=== PATIENT | female | born 1955 | race Caucasian/White ===

== ENCOUNTER → 2019-12-14 12:29 | Outpatient (BNVA) | payer MEDICAID, SELFPAY | PROVIDERS: Family Provider Nurse Practitioner Family; PCP Nurse Practitioner Family; Visit Provider Specialist | DX: M25.562 Pain in left knee (principal); M25.561 Pain in right knee | CPT/HCPCS: 73560; 73565 ==

== ENCOUNTER 2019-12-16 10:14 | Inpatient (IN) | payer MEDICAID, SELFPAY ==
[2019-12-16] VITALS (14 sets, daily range): BP systolic 95–154; BP diastolic 69–84; PULSE 80–112; RESP 16–21; TEMP 36.8–37; O2SAT 93–96; BMI 41.1
--- NOTE | 2019-12-16 10:14 | ED_ITS ---
Entered by Alix Basilio, acting as scribe for Adarsh Corcoran DO HPI - Abdominal Pain General: Chief Complaint: Abdominal Pain Stated Complaint: Abdominal Pain Time Seen by Provider: 12/16/19 10:15 Source: patient and EMS Mode of arrival: EMS Limitations: no limitations History of Present Illness: HPI narrative: 64 yo female presents with LLQ pain. pt states this started today. pt states she has had sweats. pt denies any other symptoms at this time. No dysuria urgency or frequency no hematochezia hematochezia melena hematemesis or coffee-ground emesis. She has previously had diverticulitis in the past. MD elicited complaint: abdominal pain and other (sweats) Onset (ago): day(s) (today) Pain Consistency: constant Associated Symptoms: Denies chills, coffee ground emesis, constipation, GI cramping, diarrhea, dysuria, fever(s), heartburn, hematochezia, hematuria, hematemesis, melena, syncope and vomiting Review of Systems Const: Denies: fever, chills, body aches, fatigue, malaise or night sweats Eyes: Denies: change in vision or blurry vision ENMT: Denies: throat pain, oral sores/lesions, dental pain, nasal discharge or nasal congestion Card: Denies: chest pain, palpitations, irregular heart rhythm, edema, syncope, shortness of breath on exertion, shortness of breath when lying down or leg pain with exertion Resp: Denies: shortness of breath, productive cough, non-productive cough or wheezing GI: Reports: abdominal pain (Localizes the left lower quadrant); Denies: vomiting, vomiting blood, coffee grounds in vomit, difficulty swallowing, heartburn/indigestion, diarrhea, constipation, cramping, blood in stool or black tarry stool : Denies: flank pain, painful urination, urinary frequency, urinary urgency, urinary incontinence or blood in urine Musc: Denies: neck pain, back pain, extremity pain, extremity swelling, joint pain or joint swelling Skin/Breast: Denies: rash, itching or redness Neuro: Denies: headache, numbness in extremities, weakness in extremities, changes in sensation, lack of coordination, difficulty walking, frequent falls, dizziness, vertigo or confusion Psych: Denies: anxiety, depression, loss of interest, visual hallucinations, auditory hallucinations, suicidal ideation or homicidal ideation Endo: Denies: excessive urination, excessive thirst, tired all the time or cold intolerance Patrice/Lymph: Denies: easy bruising, easy bleeding, petechiae, enlarged lymph nodes or tender lymph nodes PFSH ED PFSH: Statuses (acute, chronic, etc) shown below reflect problem list status as previously entered and may not be historically accurate Medical History GERD (gastroesophageal reflux disease) (Acute) History of sleep apnea (Acute) Hypothyroid (Acute) Surgical History H/O tubal ligation (Acute) History of tonsillectomy (Acute) Family History Mother Cancer Other Hypertension Social History Smoking and tobacco status: never smoked Alcohol intake: never Physical Exam Narrative: EXAM NARRATIVE: LLQ tenderness Const: COMMON NORMALS: average body habitus, oriented x3 and alert GENERAL APPEARANCE: cooperative, comfortable, well kempt and well developed NUTRITIONAL APPEARANCE: obese ORIENTATION/CONSCIOUSNESS: Yes awake, Yes oriented to person and Yes oriented to place HENMT: COMMON NORMALS: normocephalic, head/scalp atraumatic, EAC's normal, TM's normal bilaterally, external nose normal, moist oral mucous membranes and oropharynx normal HEAD & SCALP: normocephalic and atraumatic NOSE: external nose normal EXTERNAL AUDITORY CANAL: EAC's normal TYMPANIC MEMBRANE: TM's normal bilaterally MOUTH: oral and palatal mucosa normal, lip normal and tongue normal THROAT: posterior oropharynx normal and tonsils normal Eye: COMMON NORMALS: PERRL, EOMs intact bilaterally, conjunctivae normal and no scleral icterus CONJUNCTIVA: Yes conjunctivae normal PUPIL: Yes PERRL Neck/C-Spine: COMMON NORMALS: full ROM, no lymphadenopathy, supple, no meningeal signs and thyroid normal THYROID: thyroid normal and asymmetrical Lymph: LYMPHATIC: no lymphadenopathy noted Resp: COMMON NORMALS: normal respiratory effort, no retractions, no use of accessory muscles and clear to auscultation bilaterally AUSCULTATION: clear to auscultation bilaterally Cardio: COMMON NORMALS: regular rate and regular rhythm RATE: regular rate RHYTHM: regular rhythm HEART SOUNDS: no murmurs GI: COMMON NORMALS: normal to inspection, nondistended, normoactive bowel sounds and no hepatosplenomegaly AUSCULTATION: Yes hypoactive bowel sounds PALPATION: Yes tender Details: LLQ, No guarding, No rigid and Yes no he patosplenomegaly : COMMON NORMALS: Yes no CVA tenderness BLADDER/KIDNEY EXAM: Yes no CVA tenderness Back/Pelvis: COMMON NORMALS: no CVA tenderness LUMBAR SPINE/LOWER BACK: Yes normal to inspection Extremity: COMMON NORMALS: no clubbing, cyanosis or edema, no calf tenderness and no pedal edema Neuro: COMMON NORMALS: oriented x3 SENSORIUM/ORIENTATION: Yes alert, Yes oriented to person and Yes oriented to place MENINGEAL SIGNS: Yes no meningeal signs Psych: APPEARANCE: Yes well kempt Skin: COMMON NORMALS: no rashes or lesions noted and skin turgor normal G ENERAL SKIN EXAM: no rashes or lesions noted and turgor normal Course ED course: I called and spoke to Dr. Del Cid for admission,she will admit the pt. Discussed the patient and the CT results with Dr. Vann as well catheter we will admit Garrigus will consult patient to be n.p.o. with IV fluids and Zosyn. Vital Signs: Vital signs: Vital Signs Temperature 98.6 F 12/16/19 10:19 Pulse Rate 102 H 12/16/19 12:58 Respiratory Rate 20 H 12/16/19 10:19 Blood Pressure 95/69 12/16/19 12:58 Pulse Oximetry 95 12/16/19 12:58 MDM - Abdominal Pain Lab Data: Labs: Lab Results 12/16/19 12/16/19 Range/Units 10:37 10:37 WBC 8.8 (4.0-10.0) 10^3/ uL RBC 5.24 (4.1-5.3) 10^6/u L Hgb 15.9 H (11.5-15.3) g/dL Hct 49.1 H (37.0-47.0) % MCV 93.7 (81-99) fL MCH 30.3 (28.0-34.0) pg MCHC 32.4 (30.0-36.0) g/dL RDW 13.3 (12.1-15.1) % Plt Count 257 (130-400) 10^3/c mm MPV 9.4 (7.4-10.4) fL Neut % (Auto) 83.3 % Lymph % (Auto) 12.8 % [place] % (Auto) 3.1 % Eos % (Auto) 0.0 % Baso % (Auto) 0.2 % Neut # (Auto) 7.4 (1.8-7.7) 10^3/u L Lymph # (Auto) 1.1 (0.8-4.8) 10^3/u L [place] # (Auto) 0.3 (0.2-0.9) 10^3/u L Eos # (Auto) 0.0 (0.0-0.8) 10^3/u L Baso # (Auto) 0.0 (0.0-0.1) 10^3/u L Nucleated RBC % (a uto) 0 % Nucleated RBCs # 0.0 /100WBC Sodium 135 L (136-145) mmol/L Potassium 4.1 (3.5-5.1) mmol/L Chloride 96 L (98-107) mmol/L Carbon Dioxide 22 (22-29) mmol/L Anion Gap 21.1 H (5-19) BUN 24 H (8-23) mg/dL Creatinine 1.2 H (0.5-0.9) mg/dL GFR Calculation 45.4 L (90-130) mL/min Glucose 104 (74-106) mg/dL Calcium 10.0 (8.8-10.2) mg/Dl Total Bilirubin 0.6 (0.15-1.2) mg/dL AST 13 (0-32) U/L ALT 17 (0-33) U/L Alkaline Phosphata se 62 (35-105) IU/L Total Protein 7.0 (6.6-8.7) g/dL Albumin 4.3 (3.5-5.2) g/dL Globulin 2.7 (1.3-4.6) g/dL Lipase 24 (13-60) U/L Imaging Data ^: CT Abd/Pel: Radiologist's impression: [address] [address] [address] Scan Report Signed Patient: Candice Sepulveda #: [id number] : 6Acct#:[id number] Age/Sex: 64 / FADM Date: 12/16/19 Loc: ERRoom/Bed: Attending Dr: Ordering Provider/Ordering MD: Adarsh Corcoran DO Date of Service: 12/16/19 Procedure(s): CT abdomen pelvis w con* [id number] Accession Number(s): [id number] Report Number: [id number] PROCEDURE INFORMATION: Exam: CT Abdomen And Pelvis With Contrast Exam date and time: 12/16/2019 11:07 AM Age: 64 years old Clinical indication: Abdominal pain; Localized; Lower; Additional info: Abd pain TECHNIQUE: Imaging protocol: Computed tomography of the abdomen and pelvis with intravenous contrast. Total DLP: 1911.25 mGy-cm Radiation optimization: All CT scans at this facility use at least one of these dose optimization techniques: automated exposure control; mA and/or kV adjustment per patient size (includes targeted exams where dose is matched to clinical indication); or iterative reconstruction. Contrast material: VISI 320; Contrast volume: 95 ml; Contrast route: RT AC; COMPARISON: US pelvic with transvaginal 08/16/2019 1:57 PM FINDINGS: Mediastinum: There is a small hiatal hernia. Liver: There is no focal abnormality within the liver. Gallbladder and bile ducts: There is some small stones in the gallbladder. Pancreas: The pancreas is normal. Spleen: The spleen is normal. Adrenals: The adrenal glands are normal. Kidneys and ureters: The kidneys are normal. Stomach and bowel: Moderate diverticulosis is present in the distal colon. There is some focal thickening of distal descending colon with some inflammation in the adjacent fat and adjacent omentum. This likely represents some focal mild diverticulitis and may be the source of the free air. Appendix: A normal appendix is identified. Intraperitoneal space: There is mild haziness of the omental fat which could represent some panniculitis or peritoneal inflammation. There are small bubbles of free intraperitoneal air anteriorly in the abdomen. These are located anterior to the liver and also deep to the omentum. Free air is worrisome for perforated viscus. Surgical consultation is recommended. There is a tiny bit of free fluid in the pelvis and adjacent to the liver. Vasculature: Unremarkable. No abdominal aortic aneurysm. Lymph nodes: Unremarkable. No enlarged lymph nodes. Bladder: Unremarkable as visualized. Reproductive: Unremarkable as visualized. Bones/joints: The lumbar spine demonstrates moderate degenerative changes at multiple levels. Soft tissues: Unremarkable. CT/CT abdomen pelvis w con* [id number] IMPRESSION: 1. Free intraperitoneal air. 2. Diverticulitis, possibly perforated 3. Cholelithiasis 4. Osteoarthritis of both hips, severe on the left COMMENT: THIS REPORT CONTAINS FINDINGS THAT MAY BE CRITICAL TO PATIENT CARE. The findings were verbally communicated via telephone conference with Adarsh Corcoran at 12:03 PM ANIMAL CARE ASSISTANT on 12/16/2019. The findings were acknowledged and understood. Radiation Dose CTDIVOL = (mGy): DLP = 1911.25 (mGy-cm) Dictated By:Satnam De La Rosa Signed By:Anderson De La Rosaigned Date/Time:12/16/191207 DD/ 1207 Discharge Plan Discharge Patient Disposition: Admitted As Inpatient Admit Provider: Ana Del Cid Clinical Impression: Hypothyroid, GERD (gastroesophageal reflux disease) Diverticulitis large intestine Qualifiers: Diverticulitis bleeding: without bleeding Diverticulitis complication: with perforation and without abscess Qualified Code(s): K57.20 - Diverticulitis of large intestine with perforation and abscess without bleeding Condition: Stable Interventions: ED Discharge Assessment Last Done: 12/16/19 12:58 Discharge Date/Time: 12/16/19 13:05 Coding Level of Care Code ED Technology Sales Consultant for Chg Fwd Exam Problem Focused The documentation recorded by the Praful watkins Bridget Annette, accurately reflects the service I personally performed and the decisions made by Jewell crane Curtis L, DO Dec 16, 2019 10:14
--- NOTE | 2019-12-16 10:19 | CTR_ITS ---
PROCEDURE INFORMATION: Exam: CT Abdomen And Pelvis With Contrast Exam date and time: 12/16/2019 11:07 AM Age: 64 years old Clinical indication: Abdominal pain; Localized; Lower; Additional info: Abd pain TECHNIQUE: Imaging protocol: Computed tomography of the abdomen and pelvis with intravenous contrast. Total DLP: 1911.25 mGy-cm Radiation optimization: All CT scans at this facility use at least one of these dose optimization techniques: automated exposure control; mA and/or kV adjustment per patient size (includes targeted exams where dose is matched to clinical indication); or iterative reconstruction. Contrast material: VISI 320; Contrast volume: 95 ml; Contrast route: RT AC; COMPARISON: US pelvic with transvaginal 08/16/2019 1:57 PM FINDINGS: Mediastinum: There is a small hiatal hernia. Liver: There is no focal abnormality within the liver. Gallbladder and bile ducts: There is some small stones in the gallbladder. Pancreas: The pancreas is normal. Spleen: The spleen is normal. Adrenals: The adrenal glands are normal. Kidneys and ureters: The kidneys are normal. Stomach and bowel: Moderate diverticulosis is present in the distal colon. There is some focal thickening of distal descending colon with some inflammation in the adjacent fat and adjacent omentum. This likely represents some focal mild diverticulitis and may be the source of the free air. Appendix: A normal appendix is identified. Intraperitoneal space: There is mild haziness of the omental fat which could represent some panniculitis or peritoneal inflammation. There are small bubbles of free intraperitoneal air anteriorly in the abdomen. These are located anterior to the liver and also deep to the omentum. Free air is worrisome for perforated viscus. Surgical consultation is recommended. There is a tiny bit of free fluid in the pelvis and adjacent to the liver. Vasculature: Unremarkable. No abdominal aortic aneurysm. Lymph nodes: Unremarkable. No enlarged lymph nodes. Bladder: Unremarkable as visualized. Reproductive: Unremarkable as visualized. Bones/joints: The lumbar spine demonstrates moderate degenerative changes at multiple levels. Soft tissues: Unremarkable. CT/CT abdomen pelvis w con* [id number] IMPRESSION: 1. Free intraperitoneal air. 2. Diverticulitis, possibly perforated 3. Cholelithiasis 4. Osteoarthritis of both hips, severe on the left COMMENT: THIS REPORT CONTAINS FINDINGS THAT MAY BE CRITICAL TO PATIENT CARE. The findings were verbally communicated via telephone conference with Adarsh Corcoran at 12:03 PM CONSUMER LENDING MANAGER on 12/16/2019. The findings were acknowledged and understood. Radiation Dose CTDIVOL = (mGy): DLP = 1911.25 (mGy-cm)
[2019-12-16] MEDS: ondansetron 2 mg/ML SDV 2 mL 4 MG IVP (10:49)
[2019-12-16] MEDS: sodium chloride 0.9% 500 ML IV (10:49)
[2019-12-16] MEDS: morphine 4 mg/mL SDV 1 mL IVP ×3 (10:49→19:53)
[2019-12-16 10:51] LABS: Basophils % 0.2 %; Hematocrit 49.1 % (37.0-47.0); Hemoglobin 15.9 g/dL (11.5-15.3); Lymphocytes # 1.1 10^3/uL (0.8-4.8); Lymphocytes % 12.8 %; Mean Corpuscular HGB Conc 32.4 g/dL (30.0-36.0); Mean Corpuscular Hemoglobin 30.3 pg (28.0-34.0); Mean Corpuscular Volume 93.7 fL (81-99); Mean Platelet Volume 9.4 fL (7.4-10.4); Monocytes # 0.3 10^3/uL (0.2-0.9); Monocytes % 3.1 %; Neutrophils # 7.4 10^3/uL (1.8-7.7); Neutrophils % 83.3 %; Nucleated Red Blood Cells % 0 %; Platelet Count 257 10^3/cmm (130-400); Red Blood Count 5.24 10^6/uL (4.1-5.3); Red Cell Distribution Width 13.3 % (12.1-15.1); White Blood Count 8.8 10^3/uL (4.0-10.0)
--- NOTE | 2019-12-16 11:09 | PC.NURSE ---
pt reports unresolved lower abdominal pain after morphine administration. ED provider notified.
[2019-12-16 11:11] LABS: Alanine Aminotransferase 17 U/L (0-33); Albumin Level 4.3 g/dL (3.5-5.2); Alkaline Phosphatase 62 IU/L (35-105); Anion Gap 21.1 (5-19); Aspartate Amino Transferase 13 U/L (0-32); Blood Urea Nitrogen 24 mg/dL (8-23); Carbon Dioxide 22 mmol/L (22-29); Chloride 96 mmol/L (98-107); Globulin 2.7 g/dL (1.3-4.6); Glomerular Filtration Rate 45.4 mL/min (90-130); Glucose 104 mg/dL (74-106); Lipase 24 U/L (13-60); Potassium 4.1 mmol/L (3.5-5.1); Sodium 135 mmol/L (136-145); Total Bilirubin 0.6 mg/dL (0.15-1.2)
--- NOTE | 2019-12-16 11:20 | PC.NURSE ---
pt transported to CT by stretcher with tech
[2019-12-16] MEDS: morphine 4 mg/mL SDV 1 mL 6 MG IVP (11:42)
--- NOTE | 2019-12-16 12:01 | PC.NURSE ---
pt's oxygen saturation decreased to 88% after morphine administration. nurse applied 2L supplemental oxygen via nasal cannula
[2019-12-16] MEDS: piperacillin-tazobactam 3.375 GM in sodium chloride 0.9% (plus) 50 ML IV ×2 (12:36→18:04)
--- NOTE | 2019-12-16 13:01 | PC.NURSE ---
Tech asked patient to put on hospital gown per hospital policy. Patient refused.
[2019-12-16 13:13] LABS: Lactate (Lactic Acid level) 3.3 mmol/L (0.5-2.2)
[2019-12-16] MEDS: D5-NS 0.45% + KCL 20 mEq 20 MEQ/1,000 ML BAG 150 MEQ IV (13:47)
--- NOTE | 2019-12-16 14:43 | P.CONIM_ITS ---
Providers/Reason For Consult Consulting Physican/Specialty*: Umer Vann MD Reason for Consult*: Diverticulitis of the sigmoid colon with localized perforation Attending Physician: Ana Del Cid MD Primary Care Provider: Maryana Lloyd-Kailyn History of Present Illness History of Present Illness Chief complaint ; Abdominal pain HPI: Candice Sepulveda is a pleasant 64 year old female, started to encounter an acute episode of lower abdominal pain about 6:00 in the morning when she was drinking her coffee, her symptoms got worse she presented to the emergency department for further evaluation and work up, she had a CT scan of the abdomen and pelvis that demonstrated concern for sigmoid colon diverticulitis with pockets of free air, likely due to perforated diverticular disease, patient denies any fevers chills nausea or vomiting, last time she had a bowel movement was yesterday and pass gas earlier today. Patient was admitted on the hospitalist service and surgery will follow as a consult, patient recalls that she has history of polymyalgia rheumatica, in addition to bilateral knee pains, history of morbid obesity and having obstructive sleep apnea that requires CPAP machine which she does have at home. Patient also reports history of tonsillectomy and tubal ligation. She had a colonoscopy recently and found to have diverticulosis about 6 months ago in [facility]. She denies any similar episodes in the past, she was given a single dose of Zosyn in the emergency department, kept n.p.o. and has been on IV fluids, currently the patient feels a little bit better Review of Systems Const: Denies: fever, chills, body aches or malaise Card: Denies: chest pain Resp: Denies: shortness of breath GI: Reports: abdominal pain; Denies: nausea, vomiting, difficulty swallowing, diarrhea, constipation or blood in stool : Denies: difficulty urinating or painful urination Neuro: Denies: headache Psych: Denies: anxiety or depression Meds/Allergies Home Medications and Allergies Home Medications Medication Instructions Recorded Confirmed Type ascorbate calcium (vitamin C) 500 500 mg PO QDAY 12/14/19 12/16/19 History mg tablet aspirin 81 mg tablet,delayed 81 mg PO QDAY 12/14/19 12/16/19 History release atenolol 25 mg tablet 25 mg PO QDAY 12/14/19 12/16/19 History calcium carbonate 600 mg calcium 600 mg PO QDAY 12/14/19 12/16/19 History (1,500 mg) tablet cyclobenzaprine 10 mg tablet 10 mg PO DAILY 12/14/19 12/16/19 History darifenacin 7.5 mg tablet,extended 7.5 mg PO QDAY 12/14/19 12/16/19 History release 24 hr levothyroxine 50 mcg capsule 50 mcg PO QDAY 12/14/19 12/16/19 History nitroglycerin 0.4 mg sublingual 0.4 mg SUBLINGUAL Q5M PRN 12/14/19 12/16/19 His tory tablet omeprazole magnesium 20 mg 20 mg PO QDAY 12/14/19 12/16/19 History tablet,delayed release prednisone 5 mg PO DAILY 12/16/19 12/16/19 History venlafaxine 150 mg PO QPM 12/16/19 12/16/19 History ziprasidone HCl 60 mg PO BID 12/16/19 12/16/19 History Allergies Allergy/AdvReac Type Severity Reaction Status Date / Time amitriptyline Allergy unknown Verified 12/14/19 12:29 ciprofloxacin [From Cipro] Allergy unknown Verified 12/14/19 12:29 codeine Allergy ALGY-Swell Verified 12/16/19 10:24 Lip/Tongue/Throat Current Medications Current Medications Generic Name Dose Route Start Last Admin Trade Name Freq PRN Reason Stop Dose Admin Potassium Chloride/Dextrose/Sod Cl 20 meq in 1,000 mls @ 150 mls/hr 12/16/19 13:30 12/16/19 13:47 D5-Ns 0.45% + Kcl 20 Meq IV 150 mls/hr .Q6H40M ELIZA Administration Morphine Sulfate 4 mg 12/16/19 10:26 12/16/19 10:49 Morphine IVP 4 mg Q5M PRN Administration SEVERE PAIN PFSH Acute PFSH: Statuses (acute, chronic, etc) shown below reflect problem list status as previously entered and may not be historically accurate Medical History (Updated 12/16/19 @ 18:35 by Ana Del Cid MD) GERD (gastroesophageal reflux disease) (Acute) History of sleep apnea (Acute) Hypothyroid (Acute) Perforated abdominal viscus (Acute) Surgical History (Updated 12/16/19 @ 15:14 by Umer Vann MD) H/O tubal ligation (Acute) History of colonoscopy (Acute) History of tonsillectomy (Acute) Family History Mother Cancer Other Hypertension Social History Smoking and tobacco status: never smoked Alcohol intake: never Vitals/I&O/Wt Last Vital Signs Temp 98.6 F 12/16/19 10:19 Pulse 102 H 12/16/19 12:58 Resp 20 H 12/16/19 10:19 BP 95/69 12/16/19 12:58 Pulse Ox 95 12/16/19 12:58 Weight last 48 hrs Weight 240 lb Physical Exam Const: COMMON NORMALS: no apparent distress and oriented x3 GENERAL APPEARANCE: cooperative ORIENTATION/CONSCIOUSNESS: Yes awake, Yes oriented to person, Yes oriented to place and Yes oriented to time HENMT: COMMON NORMALS: normocephalic HEAD & SCALP: normocephalic Eye: COMMON NORMALS: PERRL and no scleral icterus PUPIL: Yes PERRL Lymph: LYMPHATIC: no lymphadenopathy noted Chest: COMMONS NORMALS: inspection of chest normal Resp: COMMON NORMALS: normal respiratory effort and clear to auscultation bilaterally AUSCULTATION: clear to auscultation bilaterally Cardio: COMMON NORMALS: S1 normal heart sound and S2 normal heart sound; negative for no murmurs HEART SOUNDS: S1 normal and S2 normal GI: COMMON NORMALS: soft to palpation; negative for no hepatosplenomegaly INSPECTION: Yes normal to inspection PALPATION: Yes soft, No firm, Yes tender Details: LLQ and RLQ (Maximal tenderness at the left lower quadrant consistent with sigmoid colon diverticulitis), No guarding, No rigid, No no hepatosplenomegaly and Yes other (Morbidly obese) Neuro: COMMON NORMALS: oriented x3 SENSORIUM/ORIENTATION: Yes oriented to person, Yes oriented to place and Yes oriented to time Psych: COMMON NORMALS: mental status grossly normal Skin: COMMON NORMALS: no rashes or lesions noted GENERAL SKIN EXAM: no rashes or lesions noted Data Micro: Micro: Microbiology 12/16/19 12:45 Blood Culture - Pr eliminary Blood SPECIMEN [facility] 12/16/19 10:37 Blood Culture - Pr eliminary Blood SPECIMEN [facility] RE A&P Assessment and plan (1) Diverticulitis large intestine: After thorough history physical examination and reviewing the chart and images with my personal interpretation, likely the patient had a localized perforated diverticulitis with pockets of free air yet contained. From surgical standpoint of view prefer to have the patient on Zosyn and Flagyl IV(patient in steroid daily) Repeated physical examination Pharmacologic DVT prophylaxis heparin 5000 units subcu every 8 hours Incentive spirometer every hour Repeat lactic acid at 4:30 PM today IV fluid resuscitation Encourage ambulation I did encourage the patient to bring her CPAP machine from home if she were to call 1 of her family members Repeat CBC and BMP and lactic acid in the morning I did discuss with the patient about potential other options if she is not improving that would include diagnostic laparoscopy with peritoneal lavage possible laparotomy and possible bowel resection possible colostomy. Also the patient may end up developing an abscess that would require image guided drain placement down the road. Assurance and education All questions have been answered and all concerns have been addressed to patient's satisfaction. Patient agrees on the plan of care, clinical encounter occurred in the presence of patient's nurse JHONATAN Buchanan Status: Acute Qualifiers: Diverticulitis bleeding: without bleeding Diverticulitis complication: with perforation and without abscess Qualified Code(s): K57.20 - Diverticulitis of large intestine with perforation and abscess without bleeding Code(s): K57.32 - Diverticulitis of large intestine without perforation or abscess without bleeding Consult Attestations Medical Necessity Statement: Medical necessity care is expected to cross 2 midnights Time Spent in Patient Care: 16 - 35 minutes (>than 50% of time spent in counselling and/or direct pt care on unit) . Coding Level of Care Code Acute Parking Enforcement Technician for Chg Fwd History Detailed Exam Expanded Problem Focused Medical Decision Making Moderate Complexity Diagnoses Diverticulitis large intestine K57.20 Diverticulitis bleeding: without bleeding Diverticulitis complication: with perforation and without abscess Time Spent (min) 30
--- NOTE | 2019-12-16 15:00 | PM.CONSULT ---
Providers/Reason For Consult Attending Physician: Umer Lucas MD Primary Care Provider: Maryana Lloyd HOGSHEAD STOCK CLERK-C History of Present Illness History of Present Illness Candice Sepulveda is a 64 year old female Meds/Allergies Home Medications and Allergies Home Medications Medication Instructions Recorded Confirmed Type ascorbate calcium (vitamin C) 500 500 mg PO QDAY 12/14/19 12/16/19 History mg tablet aspirin 81 mg tablet,delayed 81 mg PO QDAY 12/14/19 12/16/19 History release atenolol 25 mg tablet 25 mg PO QDAY 12/14/19 12/16/19 History calcium carbonate 600 mg calcium 600 mg PO QDAY 12/14/19 12/16/19 History (1,500 mg) tablet cyclobenzaprine 10 mg tablet 10 mg PO DAILY 12/14/19 12/16/19 History darifenacin 7.5 mg tablet,extended 7.5 mg PO QDAY 12/14/19 12/16/19 History release 24 hr levothyroxine 50 mcg capsule 50 mcg PO QDAY 12/14/19 12/16/19 History nitroglycerin 0.4 mg sublingual 0.4 mg SUBLINGUAL Q5M PRN 12/14/19 12/16/19 History tablet omeprazole magnesium 20 mg 20 mg PO QDAY 12/14/19 12/16/19 History tablet,delayed release prednisone 5 mg PO DAILY 12/16/19 12/16/19 History venlafaxine 150 mg PO QPM 12/16/19 12/16/19 History ziprasidone HCl 60 mg PO BID 12/16/19 12/16/19 History Allergies Allergy/AdvReac Type Severity Reaction Status Date / Time amitriptyline Allergy unknown Verified 12/14/19 12:29 ciprofloxacin [From Cipro] Allergy unknown Verified 12/14/19 12:29 codeine Allergy ALGY-Swell Verified 12/16/19 10:24 Lip/Tongue/Throat Current Medications Current Medications Generic Name Dose Route Start Last Admin Trade Name Freq PRN Reason Stop Dose Admin Potassium Chloride/Dextrose/Sod Cl 20 meq in 1,000 mls @ 150 mls/hr 12/16/19 13:30 12/16/19 13:47 D5-Ns 0.45% + Kcl 20 Meq IV 150 mls/hr .Q6H40M ELIZA Administration Morphine Sulfate 4 mg 12/16/19 10:26 12/16/19 10:49 Morphine IVP 4 mg Q5M PRN Administration SEVERE PAIN PFSH Acute PFSH: Statuses (acute, chronic, etc) shown below reflect problem list status as previously entered and may not be historically accurate Medical History GERD (gastroesophageal reflux disease) (Acute) History of sleep apnea (Acute) Hypothyroid (Acute) Surgical History H/O tubal ligation (Acute) History of tonsillectomy (Acute) Family History Mother Cancer Other Hypertension Social History Smoking and tobacco status: never smoked Alcohol intake: never Vitals/I&O/Wt Last Vital Signs Temp 98.6 F 12/16/19 10:19 Pulse 102 H 12/16/19 12:58 Resp 20 H 12/16/19 10:19 BP 95/69 12/16/19 12:58 Pulse Ox 95 12/16/19 12:58 Weight last 48 hrs Weight 108.862 kg Data Micro: Micro: Microbiology 12/16/19 12:45 Blood Culture - Pr eliminary Blood SPECIMEN [facility] RE 12/16/19 10:37 Blood Culture - Pr eliminary Blood SPECIMEN [facility] RE Coding Level of Care Code Acute Grain Merchandiser for Traci Rose
[2019-12-16] MEDS: metroNIDAZOLE IV 500 MG/100 ML PREMIX 100 MG IV (15:17)
[2019-12-16] MEDS: heparin 5,000 unit/mL INJ 1 mL 5000 UNIT SUBCUT (15:19)
[2019-12-16] MEDS: sodium chloride 0.9% 1,000 ML 125 ML IV (15:39)
--- NOTE | 2019-12-16 16:34 | PM.HP ---
Providers/Chief Complaint Admitting Physician: Ana Del Cid MD Primary Care Provider: Maryana Lloyd MANAGER SEARCH ENGINE-C Chief Complaint: Abdominal Pain History of Present Illness Candice Sepulveda is a 64 year old female with PMH HTN, diverticulosis, ?bipolar disorder, polymyalgia rheumatica on prednisone 5mg qd, who presented to ED with acute episode of lower abdominal pain about 6:00 in the morning when she was drinking her coffee, her symptoms got worse she presented to the emergency department for further evaluation and work up, she had a CT scan of the abdomen and pelvis that demonstrated concern for sigmoid colon diverticulitis with pockets of free air, likely due to perforated but contained diverticular disease, patient denies any fevers chills nausea or vomiting, last time she had a bowel movement was yesterday. Surgical service was consulted, no acute intervention planned. Started on Zosyn appropriately with addition of Flagyl per surgeon's request. Review of Systems General: Reports: 10 or more systems reviewed and unremarkable except in HPI and below Const: Reports: chills and body aches; Denies: fever Card: Denies: chest pain, palpitations, irregular heart rhythm, edema or lightheadedness Resp: Denies: shortness of breath, productive cough, non-productive cough or wheezing GI: Reports: abdominal pain and nausea; Denies: vomiting, vomiting blood, heartburn/indigestion or diarrhea : Denies: flank pain, difficulty urinating, painful urination or urinary frequency Musc: Denies: neck pain or back pain Neuro: Denies: headache, numbness in extremities, weakness in extremities, changes in sensation or lack of coordination Psych: Denies: hopelessness, loss of interest, change in appetite or visual hallucinations Endo: Denies: excessive urination, excessive thirst or tired all the time Medications/Allergies Home Medications Medication Instructions Recorded Confirmed Last Taken Type prednisone 5 mg PO DAILY 12/16/19 12/16/19 12/15/19 History venlafaxine 150 mg PO QPM 12/16/19 12/16/19 12/15/19 History ziprasidone HCl 60 mg PO BID 12/16/19 12/16/19 12/15/19 History Allergies Allergy/AdvReac Type Severity Reaction Status Date / Time amitriptyline Allergy unknown Verified 12/14/19 12:29 ciprofloxacin [From Cipro] Allergy unknown Verified 12/14/19 12:29 codeine Allergy ALGY-Swell Verified 12/16/19 10:24 Lip/Tongue/Throat PFSH Acute PFSH: Statuses (acute, chronic, etc) shown below reflect problem list status as previously entered and may not be historically accurate Medical History (Updated 12/16/19 @ 18:35 by Ana Del Cid MD) GERD (gastroesophageal reflux disease) (Acute) History of sleep apnea (Acute) Hypothyroid (Acute) Perforated abdominal viscus (Acute) Surgical History (Updated 12/16/19 @ 15:14 by Umer Vann MD) H/O tubal ligation (Acute) History of colonoscopy (Acute) History of tonsillectomy (Acute) Family History Mother Cancer Other Hypertension Social History Smoking and tobacco status: never smoked Alcohol intake: never Vitals/I&O/Wt Last Vital Signs Temp 98.2 F 12/16/19 15:49 Pulse 100 12/16/19 16:28 Resp 16 12/16/19 15:49 BP 106/74 12/16/19 15:49 Pulse Ox 94 12/16/19 15:49 12/16/19 12/16/19 12/16/19 06:59 14:59 22:59 Intake Total 247.083 / 247.083 Balance 247.083 / 247.083 Weight last 48 hrs Weight 108.862 kg Physical Exam Narrative: EXAM NARRATIVE: GEN: Awake, alert and oriented, no acute distress CVS: S1S2 N RS: CTA B/L except crackles over RUL Abd: Soft, non tender, non distened, BS sluggish DINING ROOM MANAGER: no focal neuro deficits Sepsis: Is patient septic: No Data : 12/16/19 10:37 12/16/19 10:37 Micro: Microbiology 12/16/19 12:45 Blood Culture - Preliminary Blood SPECIMEN COLLECTED 12/16/19 10:37 Blood Culture - Preliminary Blood SPECIMEN COLLECTED A&P Assessment and plan (1) Perforated abdominal viscus: Status: Acute Code(s): R19.8 - Other specified symptoms and signs involving the digestive system and abdomen (2) Morbid obesity: Status: Acute Code(s): E66.01 - Morbid (severe) obesity due to excess calories (3) Diverticulitis large intestine: Status: Acute Qualifiers: Diverticulitis bleeding: without bleeding Diverticulitis complication: with perforation and without abscess Qualified Code(s): K57.20 - Diverticulitis of large intestine with perforation and abscess without bleeding Code(s): K57.32 - Diverticulitis of large intestine without perforation or abscess without bleeding (4) GERD (gastroesophageal reflux disease): Status: Acute Code(s): K21.9 - Gastro-esophageal reflux disease without esophagitis (5) Hypothyroid: Status: Acute Code(s): E03.9 - Hypothyroidism, unspecified (6) Primary osteoarthritis of knees, bilateral: Status: Acute Code(s): M17.0 - Bilateral primary osteoarthritis of knee Additional A&P Information Contained perforation of likely diverticulitis No surgical intervention at this present time Repeat lactate IVF with NS @ 125cc/hr. Bowel rest. Empiric coverage with Zosyn. No added benefit to additional Flagyl in the absence of C diff, however continued for now at request of surgeon Dr. Lucas. Will monitor over next 48 hrs for clinical improvement, additional imaging as and when indicated Hold oral medications for now. If interruption ongoing for > 48hrs, will switch to iv levothyroxine. Hold antipsychotics for now. Prn metoprolol for BP and HR control as needed Po prednisone converted to iv solumedrol PUD ppx: famotidine DVT ppx: heparin Full code Attestations Medical Necessity Statement*: > 2 midnights needed for management of perforated contained diverticulitis Coding Level of Care Code Acute Bed And Breakfast Cook for Chg Fwd Diagnoses Perforated abdominal viscus R19.8 Morbid obesity E66.01 Diverticulitis large intestine K57.20 Diverticulitis bleeding: without bleeding Diverticulitis complication: with perforation and without abscess GERD (gastroesophageal reflux disease) K21.9 Hypothyroid E03.9 Primary osteoarthritis of knees, bilateral M17.0
[2019-12-16 16:58] LABS: Lactic Acid 3.3 mmol/L (0.5-2.2)
[2019-12-16] MEDS: famotidine 20 mg/2 mL INJ IVP (17:52)
[2019-12-17] VITALS (14 sets, daily range): BP systolic 107–158; BP diastolic 65–95; PULSE 75–102; RESP 16–22; TEMP 35.8–37.1; O2SAT 87–94
[2019-12-17] MEDS: heparin 5,000 unit/mL INJ 1 mL 5000 UNIT SUBCUT ×4 (00:03→22:16)
[2019-12-17] MEDS: metroNIDAZOLE IV 500 MG/100 ML PREMIX 100 MG IV ×3 (00:03→14:23)
[2019-12-17] MEDS: sodium chloride 0.9% 1,000 ML 125 ML IV ×4 (00:04→23:05)
[2019-12-17] MEDS: morphine 4 mg/mL SDV 1 mL IVP ×3 (00:36→14:40)
[2019-12-17] MEDS: piperacillin-tazobactam 3.375 GM in sodium chloride 0.9% (plus) 50 ML IV ×3 (01:31→18:04)
[2019-12-17 03:00] LABS: Basophils % 0.1 %; Hematocrit 41.8 % (37.0-47.0); Hemoglobin 13.4 g/dL (11.5-15.3); Lymphocytes # 0.5 10^3/uL (0.8-4.8); Lymphocytes % 4.5 %; Mean Corpuscular HGB Conc 32.1 g/dL (30.0-36.0); Mean Corpuscular Hemoglobin 30.8 pg (28.0-34.0); Mean Corpuscular Volume 96.1 fL (81-99); Mean Platelet Volume 9.5 fL (7.4-10.4); Monocytes # 0.6 10^3/uL (0.2-0.9); Monocytes % 5.6 %; Neutrophils # 9.7 10^3/uL (1.8-7.7); Neutrophils % 89.4 %; Nucleated Red Blood Cells % 0 %; Platelet Count 192 10^3/cmm (130-400); Red Blood Count 4.35 10^6/uL (4.1-5.3); Red Cell Distribution Width 13.6 % (12.1-15.1); White Blood Count 10.8 10^3/uL (4.0-10.0)
[2019-12-17 03:09] LABS: Alanine Aminotransferase 14 U/L (0-33); Albumin Level 3.1 g/dL (3.5-5.2); Alkaline Phosphatase 45 IU/L (35-105); Anion Gap 17.9 (5-19); Aspartate Amino Transferase 9 U/L (0-32); Blood Urea Nitrogen 27 mg/dL (8-23); Calcium 8.7 mg/Dl (8.8-10.2); Carbon Dioxide 24 mmol/L (22-29); Chloride 98 mmol/L (98-107); Globulin 2.9 g/dL (1.3-4.6); Glucose 195 mg/dL (74-106); Potassium 4.9 mmol/L (3.5-5.1); Sodium 135 mmol/L (136-145); Total Bilirubin 0.6 mg/dL (0.15-1.2)
[2019-12-17 03:10] LABS: Lactic Acid 2.5 mmol/L (0.5-2.2)
[2019-12-17] MEDS: famotidine 20 mg/2 mL INJ IVP ×2 (04:10→16:05)
[2019-12-17 05:57] LABS: Add Urine Microscopic? NO
[2019-12-17 06:00] LABS: Urine Color Yellow (Yellow)
[2019-12-17 06:01] LABS: Bilirubin Urine Neg (NEGATIVE); Blood Urine Neg (Negative); Glucose Urine UA Norm (Normal); Ketones Urine Negative (Negative); Leukocyte Esterase Urine Negative (Negative); Nitrate Urine Negative (Negative); Protein Urine Neg (Negative); Urine Appearance Clear (CLEAR); Urobilinogen Urine Norm (Negative); pH Urine 5 (5-7)
[2019-12-17] MEDS: sodium chloride 0.9% 500 ML 999 ML IV (06:36)
--- NOTE | 2019-12-17 06:37 | PM.PN ---
Subjective Subjective: Interval history: Patient overall feels better No acute events overnight Her pain is improved but still sore at the lower abdomen Vitals/I&O/Wt Last Vital Signs Temp 96.9 F L 12/17/19 04:00 Pulse 87 12/17/19 04:00 Resp 18 12/17/19 05:58 BP 116/80 12/17/19 04:00 Pulse Ox 87 L 12/17/19 04:00 12/16/19 12/16/19 12/17/19 14:59 22:59 06:59 Intake Total 397.083 / 397.083 972.917 / 1370.000 Output Total 625 / 625 400 / 1025 Balance -227.917 / -227.917 572.917 / 345.000 Weight last 48 hrs Weight 271 lb 8 oz Weight 271 lb 8 oz Weight 240 lb Physical Exam Const: COMMON NORMALS: no apparent distress and oriented x3 GENERAL APPEARANCE: cooperative ORIENTATION/CONSCIOUSNESS: Yes awake, Yes oriented to person, Yes oriented to place and Yes oriented to time Eye: COMMON NORMALS: PERRL and no scleral icterus PUPIL: Yes PERRL Resp: COMMON NORMALS: normal respiratory effort and clear to auscultation bilaterally AUSCULTATION: clear to auscultation bilaterally GI: COMMON NORMALS: soft to palpation; negative for no hepatosplenomegaly INSPECTION: Yes normal to inspection PALPATION: Yes soft, No firm, Yes tender (Less tender at the lower abdomen in comparison to yesterday examination), No guarding, No rigid and No no hepatosplenomegaly Neuro: COMMON NORMALS: oriented x3 SENSORIUM/ORIENTATION: Yes oriented to person, Yes oriented to place and Yes oriented to time Data : 12/17/19 02:28 12/17/19 02:28 Micro: Microbiology 12/16/19 12:45 Blood Culture - Preliminary Blood SPECIMEN COLLECTED 12/16/19 10:37 Blood Culture - Preliminary Blood SPECIMEN COLLECTED A&P Assessment and plan (1) Diverticulitis large intestine: From surgical standpoint of view we will continue IV antimicrobial therapy Patient can have ice chips for now Encourage ambulation 3-4 times a day down the lugo at least 200 feet Continue pharmacologic DVT prophylaxis Incentive spirometer every hour We will give a bolus of 500 mL of normal saline as patient's urine output has been concentrated and marginal We will continue coordinating with Status: Acute Qualifiers: Diverticulitis bleeding: without bleeding Diverticulitis complication: with perforation and without abscess Qualified Code(s): K57.20 - Diverticulitis of large intestine with perforation and abscess without bleeding Code(s): K57.32 - Diverticulitis of large intestine without perforation or abscess without bleeding Attestations Medical Necessity Statement*: Medical necessity care is expected to cross 2 midnights Time Spent in Patient Care: 16 - 35 minutes (>than 50% of time spent in counselling and/or direct pt care on unit). Coding Level of Care Code Acute It Communications Specialist for Chg Fwd Exam Problem Focused Diagnoses Diverticulitis large intestine K57.20 Diverticulitis bleeding: without bleeding Diverticulitis complication: with perforation and without abscess Time Spent (min) 20
--- NOTE | 2019-12-17 11:43 | XRR_ITS ---
PROCEDURE INFORMATION: Exam: XR Chest, 1 View Exam date and time: 12/17/2019 11:43 AM Age: 64 years old Clinical indication: Shortness of breath; Additional info: R/O pneumonia TECHNIQUE: Imaging protocol: XR of the chest Views: 1 view. COMPARISON: CR Chest 1 [place] [id number] 10/04/2018 1:33 PM FINDINGS: Lungs: Unremarkable. No consolidation. Pleural space: Unremarkable. No pleural effusion. No pneumothorax. Heart/Mediastinum: Unremarkable. No cardiomegaly. Bones/joints: Unremarkable. XR/XR chest 1V portable [id number] IMPRESSION: No acute findings.
--- NOTE | 2019-12-17 11:43 | P.PN_ITS ---
Subjective Subjective: Interval history: Overnight 02 sat noted to be between 87 to 89%. Patient does have a history of sleep apnea. Abdominal pain is improving but still sore in the lower abdomen. Diet has been advanced to ice chips. Urine output close to 1 L. Leukocytosis at 10.8 today. DAPHNEY worsening from 1.2-1.4. Lactate 2.5 from 3.3. Blood culture with no growth thus far. Vitals/I&O/Wt Last Vital Signs Temp 97.9 F 12/17/19 07:50 Pulse 87 12/17/19 10:03 Resp 16 12/17/19 10:03 BP 115/77 12/17/19 07:50 Pulse Ox 94 12/17/19 10:03 12/16/19 12/17/19 12/17/19 22:59 06:59 14:59 Intake Total 397.083 / 307.738 8858.500 / 2334.583 233.333 / 233.333 Output Total 625 / 625 400 / 1025 Balance -227.917 / -692.617 6374.500 / 1309.583 233.333 / 233.333 Weight last 48 hrs Weight 124.369 kg Weight 123.15 kg Weight 123.15 kg Weight 108.862 kg Physical Exam Narrative: EXAM NARRATIVE: GEN: Awake, alert and oriented, no acute distress CVS: S1S2 N RS: CTA B/L Abd: Soft, tender to palpation in the left lower quadrant., non distened, BS sluggish FINISHER MERCHANT PRODUCTS: no focal neuro deficits Data : 12/17/19 02:28 12/17/19 02:28 Micro: Microbiology 12/16/19 12:45 Blood Culture - Preliminary Blood SPECIMEN COLLECTED 12/16/19 10:37 Blood Culture - Preliminary Blood SPECIMEN COLLECTED A&P Assessment and plan (1) Perforated abdominal viscus: Status: Acute Code(s): R19.8 - Other specified symptoms and signs involving the digestive system and abdomen (2) Morbid obesity: Status: Acute Code(s): E66.01 - Morbid (severe) obesity due to excess calories (3) Diverticulitis large intestine: Status: Acute Qualifiers: Diverticulitis bleeding: without bleeding Diverticulitis complication: with perforation and without abscess Qualified Code(s): K57.20 - Diverticulitis of large intestine with perforation and abscess without bleeding Code(s): K57.32 - Diverticulitis of large intestine without perforation or abscess without bleeding (4) GERD (gastroesophageal reflux disease): Status: Acute Code(s): K21.9 - Gastro-esophageal reflux disease without esophagitis (5) Hypothyroid: Status: Acute Code(s): E03.9 - Hypothyroidism, unspecified (6) Primary osteoarthritis of knees, bilateral: Status: Acute Code(s): M17.0 - Bilateral primary osteoarthritis of knee (7) Sleep apnea: Status: Acute Code(s): G47.30 - Sleep apnea, unspecified Additional A&P Information Contained perforation of likely diverticulitis No surgical intervention at this present time. Dr. Vann from surgery following. Blood culture remains negative. Repeat lactate trending down but still at 2.5 Started on ice chips today. Will resume p.o. home meds with sips of water. If unable to tolerate, will switch back to IV Empiric coverage with Zosyn. No added benefit to additional Flagyl in the absence of C diff, however continued for now at request of surgeon Dr. Lucas. Overnight O2 sats between 87 to 89%. Check chest x-ray to rule out any infiltrates or edema. Likely related to sleep apnea. Will order CPAP for nighttime use. Urine output at 1 L. Received additional 500 cc bolus this morning. Will continue to hold darifenacin for now as may be associated with urinary retention and paralytic ileus due to its anticholinergic effects. PUD ppx: famotidine DVT ppx: heparin Full code Attestations Medical Necessity Statement*: Remains admitted for management of perforated contained diverticular disease., Needs IV antibiotics. Coding Level of Care Code Acute Business Education Instructor for g Fwd Diagnoses Perforated abdominal viscus R19.8 Morbid obesity E66.01 Diverticulitis large intestine K57.20 Diverticulitis bleeding: without bleeding Diverticulitis complication: with perforation and without abscess GERD (gastroesophageal reflux disease) K21.9 Hypothyroid E03.9 Primary osteoarthritis of knees, bilateral M17.0 Sleep apnea G47.30
[2019-12-17] MEDS: atenolol 50 mg Tablet 25 MG PO (13:14)
[2019-12-17] MEDS: levothyroxine 50 mcg Tablet PO (13:15)
--- NOTE | 2019-12-17 13:24 | PC.CHAP ---
Pastoral Care Encounter/Spiritual Assessment Type of Contact [x] Declined service writer advisor visit [] Patient/Family/Request visit [] Outpatient visit [] Follow-up visit [] Physician referral [] Code/Alert [] Routine visit [] Staff referral [] Actively dying [] Patient sleeping [] Family support [] [] Out of room [] Palliative care [] [] Receiving care in room [] Pre-surgical visit [] Trauma [] Long length of stay [] ICU visit [] Other: Relational/Emotional Strength [] Patient feels connected with others/family/visitors/staff [] Distress [] Loneliness/isolation [] Abandonment Spirituality of Patient [] Person of Sadaf [] Attends Sikh of their Sadaf [] Believes in Prayer [] Reads Bible or Roman Catholic materials [] There are Spiritual issues to be addressed Floor Helper Interventions [] Prayer [] Active listening [] Non-anxious presence [] Spiritual/emotional support [] Crisis/trauma care [] Spiritual counseling [] Bereavement support [] Provided bereavement packet [] Provided Bible/devotional materials [] Provided toy/stuffed animal, coloring book to patient or family member [] Completed spiritual assessment [] Provided Communion [] Anointing/[place] [] Salvation [] Other: Impact on Illness or Injury [] Angry [] Fearful [] Anxious [] Often cries [] Exhaustion [] Unable to work [] Unable to attend buddhist [] Unable to walk/stand [] Unable to read [] Unable to drive [] Unable to eat/drink [] Unable to sleep [] Unable to be with family [] Other: Summary declined service writer advisor visit. Time spent with patient
[2019-12-17] MEDS: venlafaxine ER (24HR) 150 mg Capsule PO (18:04)
[2019-12-17] MEDS: ziprasidone hcl 60 mg Capsule PO (18:04)
[2019-12-18] VITALS (7 sets, daily range): BP systolic 117–140; BP diastolic 72–83; PULSE 77–95; RESP 16–20; TEMP 36.1–36.9; O2SAT 92–96
[2019-12-18] MEDS: piperacillin-tazobactam 3.375 GM in sodium chloride 0.9% (plus) 50 ML IV ×3 (02:19→18:11)
[2019-12-18 05:16] LABS: Hematocrit 38.3 % (37.0-47.0); Hemoglobin 12.2 g/dL (11.5-15.3); Lymphocytes # 0.4 10^3/uL (0.8-4.8); Lymphocytes % 5.6 %; Mean Corpuscular HGB Conc 31.9 g/dL (30.0-36.0); Mean Corpuscular Hemoglobin 31.4 pg (28.0-34.0); Mean Corpuscular Volume 98.5 fL (81-99); Mean Platelet Volume 9.5 fL (7.4-10.4); Monocytes # 0.3 10^3/uL (0.2-0.9); Monocytes % 4.3 %; Neutrophils # 6.8 10^3/uL (1.8-7.7); Neutrophils % 89.3 %; Nucleated Red Blood Cells % 0 %; Platelet Count 153 10^3/cmm (130-400); Red Blood Count 3.89 10^6/uL (4.1-5.3); Red Cell Distribution Width 13.6 % (12.1-15.1); White Blood Count 7.6 10^3/uL (4.0-10.0)
[2019-12-18] MEDS: famotidine 20 mg/2 mL INJ IVP ×2 (05:29→16:11)
[2019-12-18 05:35] LABS: Alanine Aminotransferase 12 U/L (0-33); Albumin Level 2.8 g/dL (3.5-5.2); Alkaline Phosphatase 41 IU/L (35-105); Anion Gap 13.4 (5-19); Aspartate Amino Transferase 9 U/L (0-32); Blood Urea Nitrogen 15 mg/dL (8-23); Carbon Dioxide 26 mmol/L (22-29); Chloride 102 mmol/L (98-107); Globulin 2.9 g/dL (1.3-4.6); Glomerular Filtration Rate 63.2 mL/min (90-130); Glucose 151 mg/dL (74-106); Potassium 4.4 mmol/L (3.5-5.1); Sodium 137 mmol/L (136-145); Total Bilirubin 0.4 mg/dL (0.15-1.2); Total Protein 5.7 g/dL (6.6-8.7)
[2019-12-18 05:36] LABS: Lactic Acid level (Lactate) 1.4 mmol/L (0.5-2.2)
--- NOTE | 2019-12-18 06:33 | PC.NURSE ---
Encouraged and educated patient this shift to ambulate. Patient refused.
[2019-12-18] MEDS: sodium chloride 0.9% 1,000 ML 75 ML IV (06:50)
--- NOTE | 2019-12-18 06:56 | P.PN_ITS ---
Subjective Subjective: Interval history: Patient overall feels better, blood work is improved lactic acid back to normal Tolerating clear liquid diet and passing gas Continues to have some soreness at the lower abdomen but overall better She is getting out of bed and ambulating yet she needs a lot of encouragement Vitals/I&O/Wt Last Vital Signs Temp 97.7 F 12/18/19 04:00 Pulse 77 12/18/19 04:00 Resp 20 H 12/18/19 04:00 BP 117/72 12/18/19 04:00 Pulse Ox 95 12/18/19 04:00 12/17/19 12/17/19 12/18/19 14:59 22:59 06:59 Intake Total 333.333 / 983.409 5627 / 2443.333 1346.25 / 3789.583 Output Total 600 / 600 200 / 800 420 / 1220 Balance -266.667 / -664.994 1257 / 1643.333 926.25 / 2569.583 Weight last 48 hrs Weight 276 lb Weight 274 lb 3 oz Weight 271 lb 8 oz Weight 271 lb 8 oz Weight 240 lb Physical Exam Const: COMMON NORMALS: no apparent distress and oriented x3 GENERAL APPEARANCE: cooperative ORIENTATION/CONSCIOUSNESS: Yes awake, Yes oriented to person, Yes oriented to place and Yes oriented to time HENMT: COMMON NORMALS: normocephalic HEAD & SCALP: normocephalic Eye: COMMON NORMALS: PERRL and no scleral icterus PUPIL: Yes PERRL Resp: COMMON NORMALS: normal respiratory effort and clear to auscultation bilaterally AUSCULTATION: clear to auscultation bilaterally Cardio: COMMON NORMALS: S1 normal heart sound and S2 normal heart sound; negative for no murmurs HEART SOUNDS: S1 normal and S2 normal GI: COMMON NORMALS: soft to palpation; negative for no hepatosplenomegaly INSPECTION: Yes normal to inspection PALPATION: Yes soft, No firm, Yes tender (Less Tender) Details: LLQ and RLQ, No guarding, No rigid and No no hepatosplenomegaly Neuro: COMMON NORMALS: oriented x3 SENSORIUM/ORIENTATION: Yes oriented to person, Yes oriented to place and Yes oriented to time Data : 12/18/19 04:52 12/18/19 04:52 Micro: Microbiology 12/16/19 12:45 Blood Culture - Preliminary Blood NEGATIVE TO DATE 12/16/19 10:37 Blood Culture - Preliminary Blood NEGATIVE TO DATE A&P Assessment and plan (1) Diverticulitis large intestine: Continue clear liquid diet and may have protein shakes 3 to 4 cans a day Switch to p.o. pain medication Encourage ambulation Continue pharmacologic DVT prophylaxis I do believe if the patient continues to do well she is potentially for dischar ge by tomorrow as I would like to get the benefit of parenteral antimicrobial therapy for 1 more day and then patient can be discharged on oral antibiotics for at least 10 days. Incentive spirometer every hour Wean O2 to room air Thank you for consulting general surgery to participate taking care Status: Acute Qualifiers: Diverticulitis bleeding: without bleeding Diverticulitis complication: with perforation and without abscess Qualified Code(s): K57.20 - Diverticulitis of large intestine with perforation and abscess without bleeding Code(s): K57.32 - Diverticulitis of large intestine without perforation or abscess without bleeding Attestations Medical Necessity Statement*: Medical necessity care is expected to cross 2 midnights Time Spent in Patient Care: less than 15 minutes (>than 50% of time spent in counselling and/or direct pt care on unit) . Coding Level of Care Code Acute Treatment Supervisor for Chg Fwd Exam Problem Focused Diagnoses Diverticulitis large intestine K57.20 Diverticulitis bleeding: without bleeding Diverticulitis complication: with perforation and without abscess
[2019-12-18] MEDS: heparin 5,000 unit/mL INJ 1 mL 5000 UNIT SUBCUT ×2 (07:37→14:26)
[2019-12-18] MEDS: acetaminophen 325 mg Tablet 650 MG PO ×2 (07:37→14:34)
[2019-12-18] MEDS: levothyroxine 50 mcg Tablet PO (09:19)
[2019-12-18] MEDS: atenolol 50 mg Tablet 25 MG PO (09:19)
[2019-12-18] MEDS: ziprasidone hcl 60 mg Capsule PO ×2 (09:19→18:11)
[2019-12-18] MEDS: predniSONE 5 mg Tablet PO (09:19)
--- NOTE | 2019-12-18 09:37 | PC.NURSE ---
Ambulate in halls Pt up to ambulate in lugo on room air. Pt ambulated 1 lap around 2 [facility] - c/o being short of breath and returned to room and to side of bed.. 02 sat checked - 84% on room air - 02 sat came up to 92% on room air within a couple of minutes after returning to side of bed. Pt stated that she doesn't feel short of breath while resting in bed, only when ambulating in the lugo.
[2019-12-18] MEDS: morphine 4 mg/mL SDV 1 mL 1 MG IVP (14:25)
--- NOTE | 2019-12-18 15:20 | XR_ITS ---
WS: [id number] CHEST XRAY TECHNIQUE: Portable chest. CLINICAL INFORMATION: Rule out CHF COMPARISON: None. FINDINGS: Free intraperitoneal air under the hemidiaphragm is also seen on the CT 1 18,020 Heart: Cardiomegaly. Aortic calcification. Lungs: Bibasilar atelectasis. No focal pneumonia. Bones: Normal visualized bony structures. XR/XR chest 1V [id number] IMPRESSION: 1. Free intraperitoneal air under the hemidiaphragm also seen on the recent CT . 2. Bibasilar atelectasis. No focal pneumonia. 3. No significant pleural fluid.
--- NOTE | 2019-12-18 15:23 | PM.PN ---
Subjective Subjective: Interval history: No acute events overnight. On evaluation this morning patient states that she does not have any nausea or vomiting. Diet was advanced this morning by surgical team to clear liquid which patient has tolerated well. States she has a bowel movement today morning and has been passing gas on and off. Denies of having abdominal pain. States she has been walking around but complains of mild shortness of breath on ambulation. Denies of having any chest pain, headache, dizziness, palpitations. Medications: Reviewed: Yes Vitals/I&O/Wt Last Vital Signs Temp 98.1 F 12/18/19 11:12 Pulse 95 12/18/19 11:12 Resp 18 12/18/19 14:25 BP 124/77 12/18/19 11:12 Pulse Ox 92 12/18/19 11:12 12/18/19 12/18/19 12/18/19 06:59 14:59 22:59 Intake Total 1346.25 / 3789.583 1888.75 / 1888.75 Output Total 420 / 1220 500 / 500 Balance 926.25 / 2569.583 1388.75 / 1388.75 Weight last 48 hrs Weight 125.191 kg Weight 124.369 kg Weight 123.15 kg Weight 123.15 kg Physical Exam Narrative: EXAM NARRATIVE: General: No acute distress, AO x3 HEENT: PERRLA, pupils bilaterally equal and reactive Chest: Normal vesicular breath sounds, no added sounds, equal good air entry bilaterally CVS: S1-S2 regular, no murmurs, no tachycardia, no gallops, no rubs Abdomen: Soft, nontender, no organomegaly, bowel sounds present but sluggish Neuro: No focal deficits, no facial deformity, AO x3, power 5/5 in all limbs, no slurred speech, Data : 12/18/19 04:52 12/18/19 04:52 Micro: Microbiology 12/16/19 12:45 Blood Culture - Preliminary Blood NEGATIVE TO DATE 12/16/19 10:37 Blood Culture - Preliminary Blood NEGATIVE TO DATE A&P Assessment and plan (1) Perforated abdominal viscus: Status: Acute Code(s): R19.8 - Other specified symptoms and signs involving the digestive system and abdomen (2) Diverticulitis large intestine: Status: Acute Qualifiers: Diverticulitis bleeding: without bleeding Diverticulitis complication: with perforation and without abscess Qualified Code(s): K57.20 - Diverticulitis of large intestine with perforation and abscess without bleeding Code(s): K57.32 - Diverticulitis of large intestine without perforation or abscess without bleeding (3) Hypothyroid: Status: Acute Code(s): E03.9 - Hypothyroidism, unspecified (4) Morbid obesity: Status: Acute Code(s): E66.01 - Morbid (severe) obesity due to excess calories (5) Sleep apnea: Status: Acute Code(s): G47.30 - Sleep apnea, unspecified Additional A&P Information Contained perforation of likely diverticulitis: Surgical recommendations appreciated. No surgical intervention at this present time. Plan is to continue with conservative treatment. Patient already advanced on clear liquid diet today morning. Patient states as tolerated well. Denies of having any nausea or vomiting. Will advance to full liquid as tolerated today. If tolerates diet well can plan to discharge tomorrow. Discontinue IV fluids as patient has tolerated diet well. Blood culture remains negative. Lactate normalized. Continue with empiric coverage with Zosyn. Flagyl discontinued as has no added anaerobic coverage over Zosyn. Will continue to hold darifenacin for now as may be associated with urinary retention and paralytic ileus due to its anticholinergic effects. Shortness of breath: History of obstructive sleep apnea. Echocardiogram from 2018 shows EF 60% with left ventricular hypertrophy and grade 1 diastolic dysfunction. Stop IV fluids. Stat chest x-ray. Will give Lasix 10 mg IV stat as patient is Lasix na?ve. In all patient is 5 L positive since admission. Monitor intake and output. Continue with CPAP overnight. Continue other home medications for anxiety, hypothyroidism. Case discussed with Dr. Vann from surgery. 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
[2019-12-18] MEDS: TRAMadol 50 mg Tablet PO ×2 (16:06→23:43)
[2019-12-18] MEDS: FUROsemide 10 mg/mL SDV 2mL IVP (16:11)
[2019-12-18] MEDS: venlafaxine ER (24HR) 150 mg Capsule PO (18:11)
--- NOTE | 2019-12-18 23:49 | PC.NURSE ---
Addendum entered by CAPRICE Woods 12/19/19 00:04: Patient was given Tramadol not Toradol. Original Note: Refusing ambulation Patient reported abdominal pain. Requested pain medication. Toradol was given as well as reinforcing ambulation in the lugo. Patient was asked and encouraged to get up and ambulate to help relieve pain. Patient refused to get up and ambulate.
[2019-12-19] VITALS (26 sets, daily range): BP systolic 100–128; BP diastolic 60–100; PULSE 67–107; RESP 13–22; TEMP 36.7–37.1; O2SAT 90–100
[2019-12-19] MEDS: heparin 5,000 unit/mL INJ 1 mL 5000 UNIT SUBCUT (01:00)
[2019-12-19] MEDS: morphine 4 mg/mL SDV 1 mL 1 MG IVP ×2 (01:06→19:16)
[2019-12-19] MEDS: piperacillin-tazobactam 3.375 GM in sodium chloride 0.9% (plus) 50 ML IV ×3 (03:00→18:22)
[2019-12-19 04:41] LABS: Basophils % 0.1 %; Hematocrit 42.3 % (37.0-47.0); Hemoglobin 13.9 g/dL (11.5-15.3); Lymphocytes # 0.7 10^3/uL (0.8-4.8); Lymphocytes % 10.1 %; Mean Corpuscular HGB Conc 32.9 g/dL (30.0-36.0); Mean Corpuscular Hemoglobin 31.6 pg (28.0-34.0); Mean Corpuscular Volume 96.1 fL (81-99); Mean Platelet Volume 9.6 fL (7.4-10.4); Monocytes # 0.5 10^3/uL (0.2-0.9); Monocytes % 6.3 %; Neutrophils # 5.9 10^3/uL (1.8-7.7); Neutrophils % 82.7 %; Nucleated Red Blood Cells % 0 %; Platelet Count 176 10^3/cmm (130-400); Red Cell Distribution Width 13.6 % (12.1-15.1); White Blood Count 7.1 10^3/uL (4.0-10.0)
[2019-12-19 04:53] LABS: Alanine Aminotransferase 13 U/L (0-33); Albumin Level 2.8 g/dL (3.5-5.2); Alkaline Phosphatase 50 IU/L (35-105); Anion Gap 16.7 (5-19); Aspartate Amino Transferase 9 U/L (0-32); Blood Urea Nitrogen 12 mg/dL (8-23); Calcium 9.3 mg/Dl (8.8-10.2); Carbon Dioxide 24 mmol/L (22-29); Chloride 102 mmol/L (98-107); Globulin 3.3 g/dL (1.3-4.6); Glomerular Filtration Rate 63.2 mL/min (90-130); Glucose 182 mg/dL (74-106); Potassium 3.7 mmol/L (3.5-5.1); Sodium 139 mmol/L (136-145); Total Bilirubin 0.5 mg/dL (0.15-1.2); Total Protein 6.1 g/dL (6.6-8.7)
[2019-12-19 05:14] LABS: Lactic Acid 2.3 mmol/L (0.5-2.2)
[2019-12-19] MEDS: famotidine 20 mg/2 mL INJ IVP (05:33)
--- NOTE | 2019-12-19 05:55 | PM.PN ---
Subjective Subjective: Interval history: Overall feels little better, yet not a whole lot Patient did not have much appetite to have supper yesterday No more shortness of breath Tramadol seems to help her pain Patient started to have diarrhea Vitals/I&O/Wt Last Vital Signs Temp 98.2 F 12/19/19 04:00 Pulse 107 H 12/19/19 04:00 Resp 19 H 12/19/19 04:00 BP 116/72 12/19/19 04:00 Pulse Ox 91 12/19/19 04:00 12/18/19 12/18/19 12/19/19 14:59 22:59 06:59 Intake Total 1888.75 / 1888.75 170 / 2058.75 240 / 2298.75 Output Total 500 / 500 900 / 1400 300 / 1700 Balance 1388.75 / 1388.75 -730 / 658.75 -60 / 598.75 Weight last 48 hrs Weight 276 lb Weight 274 lb 3 oz Physical Exam Const: COMMON NORMALS: no apparent distress and oriented x3 GENERAL APPEARANCE: cooperative ORIENTATION/CONSCIOUSNESS: Yes awake, Yes oriented to person, Yes oriented to place and Yes oriented to time Eye: COMMON NORMALS: PERRL and no scleral icterus PUPIL: Yes PERRL Resp: COMMON NORMALS: normal respiratory effort and clear to auscultation bilaterally AUSCULTATION: clear to auscultation bilaterally Cardio: COMMON NORMALS: S1 normal heart sound and S2 normal heart sound; negative for no murmurs HEART SOUNDS: S1 normal and S2 normal GI: COMMON NORMALS: soft to palpation; negative for no hepatosplenomegaly INSPECTION: Yes normal to inspection PALPATION: Yes soft, No firm, Yes tender (tender in the lower quadrants and periumblical), No guarding, No rigid and No no hepatosplenomegaly Neuro: COMMON NORMALS: oriented x3 SENSORIUM/ORIENTATION: Yes oriented to person, Yes oriented to place and Yes oriented to time Psych: COMMON NORMALS: mental status grossly normal Data : 12/19/19 04:28 12/19/19 04:28 A&P Assessment and plan (1) Diverticulitis large intestine: Not able to get much information subjectively from the patient as she complains of diarrhea potentially inflammatory process is still going and it could be pending an abscess formation, will plan to order a repeat CT scan of the abdomen and pelvis with oral and IV contrast to assess better the underlying pathology and to rule out abscess formation that may require drainage. We will send for C. difficile stool studies N.p.o. for now and start normal saline at 50 mL/h We will continue coordinating with Dr. Greenberg 13:40 I did review the CT scan with my personal interpretation and I did discuss with Dr. Mcfarland our radiologist, but appears that the pneumoperitoneum is worse in features of the inflammation as well, as the patient is not getting better I did offer the patient and the family diagnostic laparoscopy possible laparotomy possible bowel resection and possible colostomy, dictations risks benefits and alternatives were discussed with the patient and the family and he did agree to proceed accordingly. Informed consent per chart Status: Acute Qualifiers: Diverticulitis bleeding: without bleeding Diverticulitis complication: with perforation and without abscess Qualified Code(s): K57.20 - Diverticulitis of large intestine with perforation and abscess without bleeding Code(s): K57.32 - Diverticulitis of large intestine without perforation or abscess without bleeding Attestations Medical Necessity Statement*: Medical necessity care is expected to cross 2 midnights Time Spent in Patient Care: 16 - 35 minutes (>than 50% of time spent in counselling and/or direct pt care on unit). 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
--- NOTE | 2019-12-19 05:55 | PC.NURSE ---
Dr. Grant seen Pt this morning and ordered NS at 50ml/hr, Stool sample for c.diff test, and stay NPO
--- NOTE | 2019-12-19 06:13 | CT_ITS ---
WS: [id number] CT ABDOMEN PELVIS TECHNIQUE: Contrast-enhanced CT of the abdomen and pelvis with coronal and sagittal reformatted image s. CLINICAL INFORMATION: Lower abdominal michael COMPARISON: 1 18,020 DLP: 1696.[address] scans at [facility] use at least one of these dose optimization techniques: automat ed exposure control; mA and/or kV adjustment per patient size (includes targeted exams where dose is matched to clinical indication); or iterative reconstruction. FINDINGS: Interval increase in the free intraperitoneal air with layering air ventrally in the abdomen. Again s een are changes of diverticulitis with perforation. No evidence of drainable abscess or drainable flu id collection. Inflammatory stranding and edema most prominent involving the left lower quadrant in t he descending left colon and proximal sigmoid colon which appears to be the site of perforation. Tiny amount of induration at the splenic flexure. No perforation in this area New transmural edema with surrounding inflammatory stranding in the omental fat involving the mid ile um with surrounding fluid and small pockets of air. No pneumatosis. This is suspicious for reactive e nteritis related to the sigmoid perforation. Ileocecal valve is normal. Small bilateral pleural effusions with bibasilar atelectasis. Normal liver. Normal portal vein and sp lenic vein. Normal spleen. Normal GE junction. Aortic calcification. Reactive lymph nodes in the omen ed. Small amount of free fluid in the pelvis. Notified Umer Vann MD at 12/19/2019 9:[address]/CT abdomen pelvis w con* [id number] IMPRESSION: 1. Interval increase in the free intraperitoneal air with diverticulitis invol ving the left lower quadrant and proximal sigmoid colon with perforation. 2. New short segment of mid ileum with transmural edema and surrounding inflam matory stranding. Interloop fluid with small pockets of air. No pneumatosis. Th is is likely reactive related to the sigmoid perforation. 3. No evidence of drainable abscess or fluid collection. 4. Small bilateral pleural effusions with bibasilar atelectasis.
[2019-12-19] MEDS: sodium chloride 0.9% 1,000 ML 50 ML IV (06:34)
[2019-12-19] MEDS: iohexol 300 mg/mL 50 mL Btl PO (07:15)
[2019-12-19] MEDS: iohexol 300 mg/mL 100 mL Btl IV (08:47)
[2019-12-19] MEDS: ziprasidone hcl 60 mg Capsule PO (09:00)
[2019-12-19] MEDS: TRAMadol 50 mg Tablet PO (09:46)
[2019-12-19] MEDS: atenolol 50 mg Tablet 25 MG PO (09:46)
[2019-12-19] MEDS: levothyroxine 50 mcg Tablet PO (09:46)
[2019-12-19] MEDS: predniSONE 5 mg Tablet PO (09:47)
--- NOTE | 2019-12-19 12:42 | ANES.PREANES ---
Pre-Anesthetic Assessment Pre-Anesthetic Assessment: Height/Weight: Height 1.63 m Weight 125.191 kg Temp Pulse Resp BP Pulse Ox 98.5 F 103 H 15 126/81 94 12/19/19 10:59 12/19/19 10:59 12/19/19 10:59 12/19/19 10:59 12/19/19 10:59 Preop Diagnosis: Perforated viscus Proposed Procedure: Operation Date: 12/19/19 14:45 Proposed Procedures p Laparoscopy(Not Applicable) - Umer Vann MD s Possible Colon Resection(Not Applicable) - Umer Vann MD s possible Colostomy(Not Applicable) - Umer Vann MD Last Intake: 23:59 Social: Packs per day: 1 Pack years: 33 Comment: quit 8 y ago Exam: Pre-Anes Outpt Exam: alert, oriented x 3, clear to auscultation bilaterally and regular rate & rhythm Airway: Submandibular: WNL Cervical ROM: WNL MP: 2 Dentition: Caps Additional comments: right top front chipped CV/HEM: Comments: Atenolol for palpitations '19 stress test neg GI: GI: GERD and Hiatus hernia Comments: diverticulus, perfortated viscus Metabolic: Metabolic: Morbid obesity and Thyroid Comments: replacement 10y Anesthetic Plan: ASA status: III Anesthesia: General Meds/Allergies Current Medications: Current Medications Generic Name Dose Route Start Last Admin Trade Name Freq PRN Reason Stop Dose Admin Acetaminophen 650 mg 12/16/19 19:30 12/18/19 14:34 Tylenol PO 650 mg Q6H PRN Administration Mild/Mod Pain Or Temp >/= 101 Atenolol 25 mg 12/17/19 12:00 12/19/19 09:46 Tenormin PO 25 mg DAILY ELIZA Administration Famotidine 20 mg 12/16/19 17:00 12/19/19 05:33 Pepcid Inj IVP 20 mg Q12H LEIZA Administration Heparin Sodium (Be ef Lung) 5,000 unit 12/16/19 15:00 12/19/19 12:05 Heparin SUBCUT Not Given Q8H ELIZA Piperacillin Sod/T azobactam 50 mls @ 12.5 mls /hr 12/16/19 18:00 12/19/19 11:57 Sod 3.375 gm/ So dium Chloride IV 12.5 mls/hr Q8H ELIZA Administration Protocol Sodium Chloride 1,000 mls @ 50 ml s/hr 12/19/19 06:15 12/19/19 06:34 Sodium Chloride 0.9% IV 50 mls/hr .Q20H ELIZA Administration Levothyroxine Sodi um 50 mcg 12/17/19 12:00 12/19/19 09:46 Synthroid PO 50 mcg DAILY ELIZA Administration Morphine Sulfate 1 mg 12/17/19 20:33 12/19/19 01:06 Morphine IVP 1 mg Q4H PRN Administration SEVERE PAIN Prednisone 5 mg 12/18/19 09:00 12/19/19 09:47 Prednisone PO 5 mg DAILY ELIZA Administration Tramadol HCl 50 mg 12/18/19 15:15 12/19/19 09:46 Ultram PO 50 mg Q6H PRN Administration MODERATE PAIN Venlafaxine HCl 150 mg 12/17/19 18:00 12/18/19 18:11 Effexor Xr PO 150 mg QPM ELIZA Administration Ziprasidone 60 mg 12/17/19 18:00 12/19/19 09:00 Geodon PO 60 mg BID ELIZA Administration PFSH Anesthesia PFSH: Medical History (Updated 12/17/19 @ 11:47 by Ana Del Cid MD) GERD (gastroesophageal reflux disease) (Acute) History of sleep apnea (Acute) Hypothyroid (Acute) Perforated abdominal viscus (Acute) Sleep apnea (Acute) Surgical History (Updated 12/16/19 @ 15:14 by Umer Vann MD) H/O tubal ligation (Acute) History of colonoscopy (Acute) History of tonsillectomy (Acute) Family History Mother Cancer Other Hypertension Social History Smoking and tobacco status: never smoked Alcohol intake: never Data Anesthesia CBC & Chem 7: 12/19/19 04:28 12/19/19 04:28 Other Labs: Laboratory Results - last 48 hr 12/18/19 12/18/19 12/18/19 04:52 04:52 04:52 WBC 7.6 RBC 3.89 L Hgb 12.2 Hct 38.3 MCV 98.5 MCH 31.4 MCHC 31.9 RDW 13.6 Plt Count 153 MPV 9.5 Neut % (Auto) 89.3 Lymph % (Auto) 5.6 [place] % (Auto) 4.3 Eos % (Auto) 0.0 Baso % (Auto) 0.0 Neut # (Auto) 6.8 Lymph # (Auto) 0.4 L [place] # (Auto) 0.3 Eos # (Auto) 0.0 Baso # (Auto) 0.0 Nucleated RBC % (auto) 0 Nucleated RBCs # 0.0 Sodium 137 Potassium 4.4 Chloride 102 Carbon Dioxide 26 Anion Gap 13.4 BUN 15 Creatinine 0.9 GFR Calculation 63.2 L Glucose 151 H Lactic Acid Lactic Acid (Sepsis) 1.4 Calcium 9.0 Total Bilirubin 0.4 AST 9 ALT 12 Alkaline Phosphatase 41 Total Protein 5.7 L Albumin 2.8 L Globulin 2.9 12/19/19 12/19/19 12/19/19 04:28 04:28 04:28 WBC 7.1 RBC 4.40 Hgb 13.9 Hct 42.3 MCV 96.1 MCH 31.6 MCHC 32.9 RDW 13.6 Plt Count 176 MPV 9.6 Neut % (Auto) 82.7 Lymph % (Auto) 10.1 [place] % (Auto) 6.3 Eos % (Auto) 0.0 Baso % (Auto) 0.1 Neut # (Auto) 5.9 Lymph # (Auto) 0.7 L [place] # (Auto) 0.5 Eos # (Auto) 0.0 Baso # (Auto) 0.0 Nucleated RBC % (auto) 0 Nucleated RBCs # 0.0 Sodium 139 Potassium 3.7 Chloride 102 Carbon Dioxide 24 Anion Gap 16.7 BUN 12 Creatinine 0.9 GFR Calculation 63.2 L Glucose 182 H Lactic Acid 2.3 H Lactic Acid (Sepsis) Calcium 9.3 Total Bilirubin 0.5 AST 9 ALT 13 Alkaline Phosphatase 50 Total Protein 6.1 L Albumin 2.8 L Globulin 3.3 Micro: Microbiology 12/19/19 08:17 Enteric Pathogens (PCR) - Final Stool 12/19/19 08:17 C.difficile Toxin B Gene (PCR) - Final Stool Cardiac Studies: No Data to Display
[2019-12-19] MEDS: sodium chloride 0.9% 1,000 ML 30 ML IV (13:47)
--- NOTE | 2019-12-19 17:35 | PM.PN ---
Subjective Subjective: Interval history: Overnight patient has developed diarrhea. Lactate this morning is trending up again. Patient has been seen by Dr. Vann and has been advised CT abdomen with oral contrast. Results pending. Patient complains of mild nausea but states abdominal pain is the same. Patient is anxious regarding the CT results and possible surgery. States shortness of breath is the same denies having any headache, dizziness. Medications: Reviewed: Yes Vitals/I&O/Wt Last Vital Signs Temp 98.3 F 12/19/19 13:27 Pulse 105 H 12/19/19 13:27 Resp 18 12/19/19 13:27 BP 126/81 12/19/19 10:59 Pulse Ox 93 12/19/19 13:27 12/19/19 12/19/19 12/19/19 06:59 14:59 22:59 Intake Total 240 / 2298.75 50 / 50 1050 / 1100 Output Total 300 / 1700 Balance -60 / 598.75 50 / 50 1050 / 1100 Weight last 48 hrs Weight 125.191 kg Physical Exam Narrative: EXAM NARRATIVE: General: No acute distress, AO x3 HEENT: PERRLA, pupils bilaterally equal and reactive Chest: Normal vesicular breath sounds, no added sounds, equal good air entry bilaterally CVS: S1-S2 regular, no murmurs, no tachycardia, no gallops, no rubs Abdomen: Soft, tender in lower quadrant, no organomegaly, bowel sounds present but sluggish Neuro: No focal deficits, no facial deformity, AO x3, power 5/5 in all limbs, no slurred speech, Urinary Catheter Management^: Cazares: Cath Placed During This Visit: no Data : 12/19/19 04:28 12/19/19 04:28 Micro: Microbiology 12/19/19 08:17 Enteric Pathogens (PCR) - Final Stool 12/19/19 08:17 C.difficile Toxin B Gene (PCR) - Final Stool A&P Assessment and plan (1) Perforated abdominal viscus: Status: Acute Code(s): R19.8 - Other specified symptoms and signs involving the digestive system and abdomen (2) Diverticulitis large intestine: Status: Acute Qualifiers: Diverticulitis bleeding: without bleeding Diverticulitis complication: with perforation and without abscess Qualified Code(s): K57.20 - Diverticulitis of large intestine with perforation and abscess without bleeding Code(s): K57.32 - Diverticulitis of large intestine without perforation or abscess without bleeding (3) Hypothyroid: Status: Acute Code(s): E03.9 - Hypothyroidism, unspecified (4) Morbid obesity: Status: Acute Code(s): E66.01 - Morbid (severe) obesity due to excess calories (5) Sleep apnea: Status: Acute Code(s): G47.30 - Sleep apnea, unspecified Additional A&P Information Contained perforation of likely diverticulitis: Surgical recommendations appreciated. Given the elevation of lactate again and the new diarrhea concerning for increasing perforation. CT abdomen and pelvis with oral contrast ordered and done results awaited. If shows any increase patient would most likely need to go for laparoscopic versus open abdomen surgery with colectomy. Continue with empiric coverage with Zosyn. N.p.o. again. Start IV fluids at 75 cc/h. Will continue to hold darifenacin for now as may be associated with urinary retention and paralytic ileus due to its anticholinergic effects. Shortness of breath: History of obstructive sleep apnea. Echocardiogram from 2018 shows EF 60% with left ventricular hypertrophy and grade 1 diastolic dysfunction. As patient is n.p.o. again was started on IV fluids. With monitor for fluid overload. Monitor intake and output. Continue with CPAP overnight. Continue other home medications for anxiety, hypothyroidism. Case discussed with Dr. Vann from surgery. PUD ppx: famotidine DVT ppx: heparin Full code Attestations Medical Necessity Statement*: Needs controlled hospitalization for management of perforated diverticulitis. 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
--- NOTE | 2019-12-19 17:37 | SUR.OPER ---
1600 attempted to update family via waiting room phone [phone] attempted to update family via waiting room phone [phone] updated family via waiting room phone
--- NOTE | 2019-12-19 18:10 | P.OP_ITS ---
Operative Report Date of procedure: 12/21/19 Pre-op Diagnosis: Perforated viscus Post-op diagnosis: other Procedure Done: Diagnostic laparoscopy converted to laparotomy and sigmoid colon resection with colostomy and small bowel resection. 1-Harman's procedure 2-Small bowel resection 3-Colostomy formation 4-Peritoneal lavage 9-Xyzdp-aeltnulpy drain placement Specimens removed/disposition: Sigmoid colon suture karin proximal at the site of the perforation Small bowel resection proximal ileum about a feet long and sutures marked distal, about 2 feet from ileocecal junction Staple line of small bowel Staple line of colostomy Fibrinous exudates on small bowel loop Surgeon: Umer Vann Trimming Machine Set Up Operator: Surgical techLiliana Valdez and Aiyana Circulating nurse Tennille Anesthesia: General (digital marketing program manager is Elijah and Smart) Estimated blood loss (mL): 50 IV fluids (mL): 2,200 Urine output (mL): 200 Condition: critical Disposition: ICU Brief History: This is a pleasant 64 years old female patient before couple of days she presented to the emergency department with acute onset of lower abdominal pain, patient was worked up and a CT scan was done that showed likely sigmoid colon diverticulitis with few pockets of air representing pneumoperitoneum in the upper abdomen, at that point patient met criteria for conservative measures and I did discuss with her and the family if that did not work she would likely benefit from surgical intervention, patient was started on clear liquid diet after lactic acid was normalized responded to IV antibiotics and IV fluids, yet patient still was not feeling a whole lot better just a little bit, and continued to maintain appropriate vital signs and good urine output, at that point I felt that the patient will benefit from a repeat CT scan to assess the whole condition and to help him moving forward either direction, the CT scan showed worsening pneumoperitoneum and I did discuss the scan images in depth with Dr. Mcfarland the radiologist, and it seemed that sigmoid colon perforation was sealed by a bowel loop yet in the presence of worsening pneumoperitoneum I did counseling services director the patient and the family for diagnostic laparoscopy possible laparotomy possible colostomy and possible bowel and he did agree to proceed understanding the potential indications, risks, benefits, and alternatives, and potential need for future surgeies and also postoperative ICU care. Informed consent per chart Procedure: Patient was identified in holding area and was taken to the operating room, she was given heparin subcu as a pharmacologic DVT prophylaxis on-call to the OR, patient was placed in the supine position intubated by anesthesia,Time- out was done verifying the patient's name/date of /planned procedure and destination after the procedure, all were in agreement.SCDs confirmed to be functioning, preoperative antibiotics administered per protocol, and beta bloc ker protocol was confirmed. Cazares catheter was inserted under the usual sterile technique revealing clear urine Attention now was deviated towards the abdomen were prep and drape of the abdomen was done under the usual sterile technique as well as the perineum. I started with a supraumbilical incision and I was able to introduce Graves trocar under direct visualization and started insufflating the abdomen and I realized that there were a lot of adhesions and limited space to work with but there were no injuries detected also noticed some localized pocket of succus, I decided at this point to convert to open. A midline incision was carried out from just above the umbilicus to the pubis. Cautery was used to divide the subcutaneous tissue and the midline fascia and the peritoneal cavity was entered. There was some feculent material it was not clear if it was due to dismantling of the overlying small bowel on the perforated site or it was already succus in the belly as it was not a large amount.Incision was extended cephalad and caudad I was able to identify the perforation site of the proximal part of the sigmoid colon that was sealed with small bowel loop that looked ischemic with excessive fibrinous exudates on top. Self-retaining Bookwalter retractor was placed. By inspection revealed a large mass in the rectosigmoid colon location, clearly the mass was causing almost co mplete obstruction and proximal to it by few inches the perforation was located, damage control [id number] silk sutures were applied to minimize contamination. At this point I started dissection at the line of Toldt to free safely the rectosigmoid and left side of the colon all the way to the splenic flexure. I had the patient in Trendelenburg and right side down to help exposure, I was able to take down some adhesions using LigaSure the liver was palpated for any metastatic disease and there was not,there was no evidence of carcinomatosis per intra- peritoneal exam. After appropriate mobilization of the rectosigmoid, I green load 45 mm load GI stapler to divide distal to the tumor like rectosigmoid region, by a good margin. I performed a high ligation to the vascular pedicle , using vascular loads for the ELI and IMV. The suture was placed at the perforation site initially marked proximal to the specimen.The specimen was passed to the circulating nurse for permanent pathology. At this point I elected to place a Prolene 3-0 suture to identify the rectal pouch for potential future surgery with the plan to perform a colorectal anastomosis. The abdomen was irrigated with several liters of saline.The left colon was mobilized , there was enough portion of the distal descending colon to create a tension-free colostomy. Hemostasis was achieved, at this point I ran the small bowel from the ligament of Treitz to the terminal ileum which,showed no abnormalities except at the proximal part of the ileum noticed to have a segment of bowel looked ischemic and there was bleeding at the root of the mesentery that I was able to control, I decided at this point to resect this segment by using the RODERICK linear stapler 55 mm blue load, side to side anastomosis was thus created after placing the 2 limbs of the GI stapler through the enterotomies that I created, and another fire was placed across to take the enterotomies which were excised off and that was sent for path.The mesenteric rent was closed by interrupted [id number] silk suture. The rest of the colon was normal looking well as well as the other viscera Final survey was done, more extensive and thorough irrigation was achieved, I decided at this point on the location of the future colostomy, at the junction between the lateral one third and medial two thirds, from the left anterior superior iliac spine and the umbilicus putting into consideration the body habitus and I tried to make it as more functional to the patient is possible during the urgent nature of the procedure,incision was created under direct visualization to accommodate the colostomy, dissection was carried all the way subcutaneous tissues and muscle layer, the site was wide enough to accommodate my 2 examining fingers, at that point the distal part of the descending colon was retrieved without tension via that site some of the appendices epiploicae were excised to facilitate delivery of the stoma without tension. Attention now was deviated to close the abdomen, double counts of instruments,needles and sponges was done and was correct The midline fascia was closed using a looped #1 PDS. and the skin was then approximated using skin vijay. The subcutaneous tissue was extensively irrigated .,a sterile packing was achieved in between the skin vijay. A sterile dressing was placed over the wound,a sterile blue towel was used to cover the wound . A curved Coyne was used to take the staple line off the colostomy passed to the circulating nurse for permanent pathology .At this 0.3 0 Vicryl was used circumferentially to maintain the colostomy in good position, I used 3-0 Vicryl at the 4 poles of the colostomy ,stitch was placed in the mucosa then seromuscular and then subdermal layer at the 4 poles,followed by interrupted sutures between the mucosa and the subdermal layer. An ostomy appliance was applied now. Count of sponges and instruments were completed at the end of the procedure. I was present for the whole entire procedure. Patient was taken to the ICU in stable condition to being extubated
--- NOTE | 2019-12-19 18:10 | PC.NURSE ---
Patient to room Patient to room at this time. Oxy mask at 10L on at this time. Observed colostomy and dressing, both are intact. no drainage noted to the Donato drain.
[2019-12-19] MEDS: ondansetron 2 mg/ML SDV 2 mL 4 MG IVP ×2 (18:25→18:48)
[2019-12-19] MEDS: metoclopramide 5 mg/mL SDV 2 mL 10 MG IVP ×2 (19:15→19:50)
--- NOTE | 2019-12-19 19:16 | PC.NURSE ---
Patient update patient continues to complain of nausea. zofran given, patient continues to report nausea.
[2019-12-19 19:49] LABS: Glucose Point of Care 176 mg/dL (70-110)
[2019-12-19] MEDS: scopolamine 1.5 Patch 1 PATCH TRANSDERMA (20:07)
[2019-12-19 20:31] LABS: Hematocrit 47.5 % (37.0-47.0); Mean Corpuscular HGB Conc 31.6 g/dL (30.0-36.0); Mean Corpuscular Hemoglobin 30.5 pg (28.0-34.0); Mean Corpuscular Volume 96.7 fL (81-99); Platelet Count 247 10^3/cmm (130-400); Red Blood Count 4.91 10^6/uL (4.1-5.3); Red Cell Distribution Width 13.6 % (12.1-15.1); White Blood Count 12.7 10^3/uL (4.0-10.0)
[2019-12-19 20:41] LABS: Anion Gap 16.9 (5-19); Blood Urea Nitrogen 13 mg/dL (8-23); Calcium 8.2 mg/Dl (8.8-10.2); Carbon Dioxide 20 mmol/L (22-29); Chloride 100 mmol/L (98-107); Glucose 227 mg/dL (74-106); Potassium 4.9 mmol/L (3.5-5.1); Sodium 132 mmol/L (136-145)
[2019-12-19 20:45] LABS: Absolute Segmented Neutrophil 9.6 10/cmm (1.6-7.1); Giant Platelets Trace; Lymphocytes 11 %; Monocytes Absolute 0.4 10^3/cmm (0.1-0.6); Segmented Neutrophils 76 %; Smudge Cells 1+; Total Cells Counted 100 (0-100)
[2019-12-19 20:46] LABS: Platelet Estimate Normal (Normal)
[2019-12-19] MEDS: dexamethasone 4 mg/mL INJ IVP (21:33)
[2019-12-19] MEDS: fentaNYL 50 mcg/mL INJ 2mL IVP (21:51)
[2019-12-19] MEDS: fluconazole premix 200 MG/100 ML PREMIX 100 MG IV (22:04)
[2019-12-20] VITALS (33 sets, daily range): BP systolic 103–186; BP diastolic 78–106; PULSE 89–99; RESP 14–22; TEMP 36.7–37.3; O2SAT 93–96
[2019-12-20] MEDS: morphine 4 mg/mL SDV 1 mL 1 MG IVP ×2 (00:22→04:05)
[2019-12-20] MEDS: piperacillin-tazobactam 3.375 GM in sodium chloride 0.9% (plus) 50 ML IV ×3 (01:39→18:29)
[2019-12-20] MEDS: sodium chloride 0.9% 1,000 ML 50 ML IV (03:03)
--- NOTE | 2019-12-20 05:51 | PM.PN ---
Subjective Subjective: Interval history: Patient overall feels better Undergone laparotomy with Harman's procedure small bowel resection for obstructing distal sigmoid colon mass yesterday evening. Vitals/I&O/Wt Last Vital Signs Temp 98.0 F 12/20/19 04:00 Pulse 96 12/20/19 04:15 Resp 15 12/20/19 04:15 BP 124/85 12/20/19 04:15 Pulse Ox 93 12/20/19 04:15 12/19/19 12/19/19 12/20/19 14:59 22:59 06:59 Intake Total 50 / 50 1350 / 1400 1100 / 2500 Output Total 200 / 200 575 / 775 Balance 50 / 50 1150 / 1200 525 / 1725 Weight last 48 hrs Weight 254 lb 3.2 oz Physical Exam Const: COMMON NORMALS: no apparent distress and oriented x3 GENERAL APPEARANCE: cooperative ORIENTATION/CONSCIOUSNESS: Yes awake, Yes oriented to person, Yes oriented to place and Yes oriented to time HENMT: COMMON NORMALS: normocephalic HEAD & SCALP: normocephalic Eye: COMMON NORMALS: PERRL and no scleral icterus PUPIL: Yes PERRL Lymph: LYMPHATIC: no lymphadenopathy noted Chest: COMMONS NORMALS: inspection of chest normal Resp: COMMON NORMALS: normal respiratory effort and clear to auscultation bilaterally AUSCULTATION: clear to auscultation bilaterally Cardio: COMMON NORMALS: S1 normal heart sound and S2 normal heart sound; negative for no murmurs HEART SOUNDS: S1 normal and S2 normal GI: COMMON NORMALS: soft to palpation; negative for no hepatosplenomegaly INSPECTION: Yes normal to inspection PALPATION: Yes soft, No firm, Yes tender (At the incision site), No guarding, No rigid, No no hepatosplenomegaly and Yes other (Wound is clean packing was done by me bedside/ostomy is pink and patent) Neuro: COMMON NORMALS: oriented x3 SENSORIUM/ORIENTATION: Yes oriented to person, Yes oriented to place and Yes oriented to time Psych: COMMON NORMALS: mental status grossly normal Skin: NARRATIVE SKIN EXAM: Right lower quadrant drain in place with serosanguineous output Urinary Catheter Management^: Cazares: Cath Placed During This Visit: no Data : 12/21/19 03:34 12/21/19 03:34 Micro: Microbiology 12/19/19 08:17 Enteric Pathogens (PCR) - Final Stool 12/19/19 08:17 C.difficile Toxin B Gene (PCR) - Final Stool A&P Assessment and plan (1) Perforation of sigmoid colon: From surgical standpoint of view patient will require longer recovery Recommend highly to insert the PICC line and start TPN till resume bowel functions to optimize nutrition as the patient has been obstructed for quite some time Physical therapy consultation to help the patient out of bed and ambulate with assistance Twice daily wet-to-dry dressing change for the wound using Kerlix and ABD Stoma care every shift Patient and family were updated about the nature of the obstructive pathology of the sigmoid colon which is concerning for a mass that could represent neoplastic changes pending pathology Bolus of 500 mL of normal saline as patient's urine output was marginal overnight We will continue coordinating with Dr. Greenberg Will plan to retrieve patient's last colonoscopy done in [place], [place] Assurance and education All questions have been answered and all concerns have been addressed to patient's satisfaction. Status: Resolved Code(s): K63.1 - Perforation of intestine (nontraumatic) Attestations Medical Necessity Statement*: Medical necessity care is expected to cross 2 midnights Time Spent in Patient Care: 16 - 35 minutes (>than 50% of time spent in counselling and/or direct pt care on unit). Coding Level of Care Code Acute Paster Hat Lining for Chg Fwd Exam Comprehensive Diagnoses Perforation of sigmoid colon K63.1 Time Spent (min) 25
[2019-12-20 05:58] LABS: Lactic Acid 1.4 mmol/L (0.5-2.2)
--- NOTE | 2019-12-20 06:13 | PC.NURSE ---
Dr. Vann to bedside, patient and family updated on patient condition and plan of care. Abdominal dressing change done per Dr. Vann. Wet to dry dressing change done with kerlex and NS irrigation and covered with ABD pads. Stoma Paste placed in crease of abdomen under ostomy appliance. Tolerated well. Notified Dr. Vann that patient only had 300ml of urine output over night. IV fluids increased to 125mL/h and 500mL NS bolus ordered.
[2019-12-20] MEDS: sodium chloride 0.9% 500 ML 999 ML IV (06:19)
[2019-12-20] MEDS: pantoprazole 40 mg SDV IVP ×2 (09:17→20:29)
[2019-12-20] MEDS: levothyroxine 100 mcg SDV 25 MCG IVP (09:17)
[2019-12-20] MEDS: fluconazole premix 200 MG/100 ML PREMIX 100 MG IV ×2 (09:55→21:58)
--- NOTE | 2019-12-20 10:02 | XR_ITS ---
WS: [id number] PORTABLE CHEST HISTORY: picc placement COMPARISON: 12/18/2019 Right-sided PICC line is present with tip in the distal SVC in good position. No complications. Visualized lungs are clear. LEFT costophrenic angle is excluded. No pleural effusion or pneumothorax. Cardiac size: Normal. Mediastinum/Aorta: Mild atherosclerosis aorta. No osseous abnormality seen. XR/XR chest 1V portable [id number] IMPRESSION: RIGHT PICC line insertion with no complications.
[2019-12-20] MEDS: HYDROmorphone 1 mg/mL INJ 1 mL 0.5 MG IVP (12:21)
[2019-12-20] MEDS: sodium chloride 0.9% 1,000 ML 100 ML IV ×2 (13:53→23:42)
[2019-12-20 14:26] LABS: Hemoglobin 11.6 g/dL (11.5-15.3); Mean Corpuscular HGB Conc 32.2 g/dL (30.0-36.0); Mean Corpuscular Hemoglobin 31.2 pg (28.0-34.0); Mean Corpuscular Volume 96.8 fL (81-99); Mean Platelet Volume 9.7 fL (7.4-10.4); Platelet Count 161 10^3/cmm (130-400); Red Blood Count 3.72 10^6/uL (4.1-5.3); Red Cell Distribution Width 13.9 % (12.1-15.1); White Blood Count 8.4 10^3/uL (4.0-10.0)
[2019-12-20 14:42] LABS: Alanine Aminotransferase 15 U/L (0-33); Albumin Level 1.9 g/dL (3.5-5.2); Alkaline Phosphatase 40 IU/L (35-105); Anion Gap 15.2 (5-19); Aspartate Amino Transferase 12 U/L (0-32); Blood Urea Nitrogen 11 mg/dL (8-23); Calcium 7.9 mg/Dl (8.8-10.2); Carbon Dioxide 22 mmol/L (22-29); Chloride 105 mmol/L (98-107); Globulin 2.5 g/dL (1.3-4.6); Glomerular Filtration Rate 72.4 mL/min (90-130); Glucose 216 mg/dL (74-106); Potassium 4.2 mmol/L (3.5-5.1); Sodium 138 mmol/L (136-145); Total Bilirubin 0.7 mg/dL (0.15-1.2); Total Protein 4.4 g/dL (6.6-8.7)
[2019-12-20 15:05] LABS: Absolute Segmented Neutrophil 3.4 10/cmm (1.6-7.1); Band Neutrophils Absolute 3.6 10^3/cmm (0.0-1.2); Lymphocytes 6 %; Lymphocytes Absolute 0.7 10^3/cmm (1.2-3.4); Monocytes Absolute 0.5 10^3/cmm (0.1-0.6); Platelet Estimate Normal (Normal); Segmented Neutrophils 41 %; Total Cells Counted 100 (0-100)
--- NOTE | 2019-12-20 17:24 | PM.PN ---
Subjective Subjective: Interval history: In last [address] scan showed worsening perforation along with elevated lactate patient has undergone laparotomy with Harman's procedure small bowel resection for obstructing distal sigmoid colon mass and so was transferred to the ICU for postop monitoring and care. Today morning on evaluation patient is lying comfortably in bed denies of having any nausea, vomiting, headache, palpitation but does complain of having abdominal pain. Patient has partially open surgical abdominal wound and a MARIA TERESA drain in. Patient denies of having any bowel movements, passing any flatus but also denies of having any vomiting at present. Medications: Reviewed: Yes Vitals/I&O/Wt Last Vital Signs Temp 99.1 F 12/20/19 17:10 Pulse 90 12/20/19 16:00 Resp 18 12/20/19 14:00 BP 142/91 12/20/19 16:00 Pulse Ox 94 12/20/19 16:00 12/20/19 12/20/19 12/20/19 06:59 14:59 22:59 Intake Total 1650 / 3050 1119.167 / 1119.167 50 / 1169.167 Output Total 575 / 775 500 / 500 Balance 1075 / 2275 1119.167 / 1119.167 -450 / 669.167 Weight last 48 hrs Weight 115.303 kg Physical Exam Narrative: EXAM NARRATIVE: General: No acute distress, AO x3 HEENT: PERRLA, pupils bilaterally equal and reactive Chest: Normal vesicular breath sounds, no added sounds, equal good air entry bilaterally CVS: S1-S2 regular, no murmurs, no tachycardia, no gallops, no rubs Abdomen: Soft, surgical surgical dressing present on the middle of the abdomen without any soakage, MARIA TERESA drain present, no bowel sounds, tender around the bandage. Neuro: No focal deficits, no facial deformity, AO x3, power 5/5 in all limbs, no slurred speech, Urinary Catheter Management^: Cazares: Cath Placed During This Visit: Yes. Data : 12/20/19 14:14 12/20/19 14:14 A&P Assessment and plan (1) Perforated abdominal viscus: Status: Acute Code(s): R19.8 - Other specified symptoms and signs involving the digestive system and abdomen (2) Diverticulitis large intestine: Status: Acute Qualifiers: Diverticulitis bleeding: without bleeding Diverticulitis complication: with perforation and without abscess Qualified Code(s): K57.20 - Diverticulitis of large intestine with perforation and abscess without bleeding Code(s): K57.32 - Diverticulitis of large intestine without perforation or abscess without bleeding (3) Hypothyroid: Status: Acute Code(s): E03.9 - Hypothyroidism, unspecified (4) Morbid obesity: Status: Acute Code(s): E66.01 - Morbid (severe) obesity due to excess calories (5) Sleep apnea: Status: Acute Code(s): G47.30 - Sleep apnea, unspecified Additional A&P Information Perforated sigmoid colon secondary to clinical sigmoid mass: Post Sabine resolved Harman's procedure: Postoperative day 1 Surgical wound dressing as per surgical recommendations. Physical therapy and diet advancement as per surgical recommendation. Will use Dilaudid 0.5 mg every 4 hours as needed for pain control. Empiric antibiotic coverage with Zosyn, vancomycin and fluconazole for antifungal coverage all renally dosed. We will monitor vitals, intake and output. Continue IV fluids with normal saline at 100 cc/h. Continue being n.p.o. as patient does not have any bowel functions for now. We will change oral medications to IV as possible. Start patient on IV Protonix twice daily for or postop prophylaxis. We will change levothyroxine from oral to IV. Patient states she is taking 19 mg of prednisone for last 3 months so we will convert to Solu-Medrol at appropriate conversion to avoid adrenal insufficiency. Patient is on atenolol at home. Will convert to IV Lopressor at as needed dose for now.. Would avoid standing dosage for now as can cause hypotension. We will discuss with surgical team regarding nutrition for better healing. Most likely will need a PICC line today and starting on PPN from tomorrow morning. Will avoid TPN as can cause propensity to fungal infections and fungemia. Bore Mill Operator For Plastic consult Will follow up with path report. Oxygen supplementation keeping saturation over 92%. CPAP overnight as needed. Monitor for fluid overload. Incentive spirometry. Heparin for DVT prophylaxis. Full code N.p.o. for now. We will consult social media sr strategy manager for safe discharge planning. PT/OT as per surgical team. Attestations Medical Necessity Statement*: Continued hospitalization for postop care for perforated colon Time Spent in Patient Care: Greater than 35 minutes (>than 50% of time spent in counselling and/or direct pt care on unit). Coding Level of Care Code Acute Anthropologist Physical for Chg Fwd Diagnoses Perforated abdominal viscus R19.8 Diverticulitis large intestine K57.20 Diverticulitis bleeding: without bleeding Diverticulitis complication: with perforation and without abscess Hypothyroid E03.9 Morbid obesity E66.01 Sleep apnea G47.30
[2019-12-20] MEDS: heparin 5,000 unit/mL INJ 1 mL 5000 UNIT INJECTION (18:28)
[2019-12-21] VITALS (15 sets, daily range): BP systolic 126–159; BP diastolic 64–94; PULSE 73–95; RESP 14–21; TEMP 37.1–37.7; O2SAT 93–98
[2019-12-21] MEDS: heparin 5,000 unit/mL INJ 1 mL 5000 UNIT INJECTION ×3 (02:07→18:27)
[2019-12-21] MEDS: piperacillin-tazobactam 3.375 GM in sodium chloride 0.9% (plus) 50 ML IV ×3 (02:09→18:27)
[2019-12-21 03:52] LABS: Basophils % 0.1 %; Hemoglobin 9.5 g/dL (11.5-15.3); Lymphocytes # 0.7 10^3/uL (0.8-4.8); Lymphocytes % 8.2 %; Mean Corpuscular HGB Conc 31.7 g/dL (30.0-36.0); Mean Corpuscular Hemoglobin 30.2 pg (28.0-34.0); Mean Corpuscular Volume 95.2 fL (81-99); Mean Platelet Volume 9.9 fL (7.4-10.4); Monocytes # 0.7 10^3/uL (0.2-0.9); Monocytes % 8.7 %; Neutrophils # 6.1 10^3/uL (1.8-7.7); Neutrophils % 76.9 %; Nucleated Red Blood Cells % 0 %; Platelet Count 156 10^3/cmm (130-400); Red Blood Count 3.15 10^6/uL (4.1-5.3); Red Cell Distribution Width 13.8 % (12.1-15.1); White Blood Count 7.9 10^3/uL (4.0-10.0)
[2019-12-21 04:14] LABS: Alanine Aminotransferase 13 U/L (0-33); Albumin Level 1.9 g/dL (3.5-5.2); Alkaline Phosphatase 53 IU/L (35-105); Anion Gap 13.9 (5-19); Aspartate Amino Transferase 12 U/L (0-32); Blood Urea Nitrogen 13 mg/dL (8-23); Carbon Dioxide 23 mmol/L (22-29); Chloride 107 mmol/L (98-107); Globulin 2.7 g/dL (1.3-4.6); Glomerular Filtration Rate 63.2 mL/min (90-130); Glucose 164 mg/dL (74-106); Potassium 3.9 mmol/L (3.5-5.1); Sodium 140 mmol/L (136-145); Total Bilirubin 0.4 mg/dL (0.15-1.2); Total Protein 4.6 g/dL (6.6-8.7)
[2019-12-21 04:51] LABS: Slide Review Slide Review Perform
--- NOTE | 2019-12-21 07:20 | P.PN_ITS ---
Subjective Subjective: Interval history: Patient overall feels better in comparison to yesterday Undergone laparotomy with Harman's procedure small bowel resection for obstructing distal sigmoid colon mass, postoperative day 2. No acute events overnight Pain seems to be under control Patient was able to get out of bed yesterday No bowel function yet Vitals/I&O/Wt Last Vital Signs Temp 98.8 F 12/21/19 04:00 Pulse 89 12/21/19 06:00 Resp 15 12/21/19 06:00 BP 158/94 12/21/19 06:00 Pulse Ox 94 12/21/19 06:00 12/20/19 12/21/19 12/21/19 22:59 06:59 14:59 Intake Total 300 / 4591.161 7068.667 / 2550.834 Output Total 530 / 530 820 / 1350 Balance -230 / 889.167 311.667 / 1200.834 Weight last 48 hrs Weight 264 lb Weight 254 lb 3.2 oz Physical Exam Const: COMMON NORMALS: no apparent distress and oriented x3 GENERAL APPEARANCE: cooperative ORIENTATION/CONSCIOUSNESS: Yes awake, Yes oriented to person, Yes oriented to place and Yes oriented to time HENMT: COMMON NORMALS: normocephalic HEAD & SCALP: normocephalic Eye: COMMON NORMALS: PERRL and no scleral icterus PUPIL: Yes PERRL Chest: COMMONS NORMALS: inspection of chest normal Resp: COMMON NORMALS: normal respiratory effort and clear to auscultation bilaterally AUSCULTATION: clear to auscultation bilaterally Cardio: COMMON NORMALS: S1 normal heart sound and S2 normal heart sound; negative for no murmurs HEART SOUNDS: S1 normal and S2 normal GI: COMMON NORMALS: soft to palpation; negative for no hepatosplenomegaly INSPECTION: Yes normal to inspection PALPATION: Yes soft, No firm, No tender, No guarding, No rigid, No no hepatosplenomegaly and Yes other (Packing in place and dressing is still/ostomy in place without complication have a low output) Neuro: COMMON NORMALS: oriented x3 SENSORIUM/ORIENTATION: Yes oriented to person, Yes oriented to place and Yes oriented to time Psych: COMMON NORMALS: mental status grossly normal Skin: COMMON NORMALS: no rashes or lesions noted GENERAL SKIN EXAM: no rashes or lesions noted Urinary Catheter Management^: Cazares: Cath Placed During This Visit: no Data : 12/22/19 04:30 12/22/19 04:30 A&P Assessment and plan (1) Perforated abdominal viscus: Perforated sigmoid colon secondary to clinical sigmoid mass:Harman's procedure done with small bowel resection: Surgery date was 12/19/2019 Continue IV fluids and PPN ICU hospitalization Status: Resolved Code(s): R19.8 - Other specified symptoms and signs involving the digestive system and abdomen (2) Diverticulitis large intestine: Status: Resolved Qualifiers: Diverticulitis bleeding: without bleeding Diverticulitis complication: with perforation and without abscess Qualified Code(s): K57.20 - Diverticulitis of large intestine with perforation and abscess without bleeding Code(s): K57.32 - Diverticulitis of large intestine without perforation or abscess without bleeding (3) Hypothyroid: Medical management Status: Chronic Code(s): E03.9 - Hypothyroidism, unspecified (4) Morbid obesity: Supervised medical weight Status: Chronic Code(s): E66.01 - Morbid (severe) obesity due to excess calories (5) Sleep apnea: Continue CPAP machine Obesity management Status: Chronic Code(s): G47.30 - Sleep apnea, unspecified Additional A&P Information Attestations Medical Necessity Statement*: Medical necessity care is expected to cross 2 midnights Time Spent in Patient Care: 16 - 35 minutes (>than 50% of time spent in counselling and/or direct pt care on unit) . Coding Level of Care Code Acute Patient Accounting Representative for Chg Fwd Exam Problem Focused Diagnoses Perforated abdominal viscus R19.8 Diverticulitis large intestine K57.20 Diverticulitis bleeding: without bleeding Diverticulitis complication: with perforation and without abscess Hypothyroid E03.9 Morbid obesity E66.01 Sleep apnea G47.30
[2019-12-21] MEDS: pantoprazole 40 mg SDV IVP ×2 (08:24→20:23)
[2019-12-21] MEDS: levothyroxine 100 mcg SDV 25 MCG IVP (08:25)
[2019-12-21] MEDS: HYDROmorphone 1 mg/mL INJ 1 mL 0.5 MG IVP (08:31)
--- NOTE | 2019-12-21 09:07 | P.PN_ITS ---
Subjective Subjective: Interval history: Postoperative day 2 after undergone laparotomy with Harman's procedure small bowel resection for obstructing distal sigmoid colon mass No acute events overnight. She states her pain is well controlled. Patient worked with physical therapy yesterday. Denies of having any bowel movements or passing any flatus. But also denies having any nausea or vomiting. Medications: Reviewed: Yes Vitals/I&O/Wt Last Vital Signs Temp 98.9 F 12/21/19 08:00 Pulse 91 12/21/19 08:00 Resp 19 H 12/21/19 08:31 BP 146/88 12/21/19 08:00 Pulse Ox 98 12/21/19 08:31 12/20/19 12/21/19 12/21/19 22:59 06:59 14:59 Intake Total 300 / 0707.861 1627.667 / 2550.834 Output Total 530 / 530 820 / 1350 Balance -230 / 889.167 311.667 / 1200.834 Weight last 48 hrs Weight 119.748 kg Weight 115.303 kg Physical Exam Narrative: EXAM NARRATIVE: General: No acute distress, AO x3 HEENT: PERRLA, pupils bilaterally equal and reactive Chest: Normal vesicular breath sounds, no added sounds, equal good air entry bilaterally CVS: S1-S2 regular, no murmurs, no tachycardia, no gallops, no rubs Abdomen: Soft, surgical surgical dressing present on the middle of the abdomen without any soakage, MARIA TERESA drain present, no bowel sounds, tender around the bandage. Neuro: No focal deficits, no facial deformity, AO x3, power 5/5 in all limbs, no slurred speech, Urinary Catheter Management^: Cazares: Cath Placed During This Visit: no Data : 12/21/19 03:34 12/21/19 03:34 A&P Assessment and plan (1) Perforated abdominal viscus: Status: Resolved Code(s): R19.8 - Other specified symptoms and signs involving the digestive system and abdomen (2) Diverticulitis large intestine: Status: Resolved Qualifiers: Diverticulitis bleeding: without bleeding Diverticulitis complication: with perforation and without abscess Qualified Code(s): K57.20 - Diverticulitis of large intestine with perforation and abscess without bleeding Code(s): K57.32 - Diverticulitis of large intestine without perforation or abscess without bleeding (3) Hypothyroid: Status: Chronic Code(s): E03.9 - Hypothyroidism, unspecified (4) Morbid obesity: Status: Chronic Code(s): E66.01 - Morbid (severe) obesity due to excess calories (5) Sleep apnea: Status: Chronic Code(s): G47.30 - Sleep apnea, unspecified Additional A&P Information Perforated sigmoid colon secondary to clinical sigmoid mass: Post Sabine resolved Harman's procedure: Postoperative day 2 Surgical wound dressing as per surgical recommendations. Physical therapy and diet advancement as per surgical recommendation. Pain is been controlled with Dilaudid at current dose. So we will continue the same dose. Empiric antibiotic coverage with Zosyn, vancomycin and fluconazole for antif ungal coverage all renally dosed. We will plan to use fluconazole for over 3 days. We will continue Zosyn and vancomycin for 5 days postop. If patient remains hemodynamically stable, afebrile then will plan to discontinue Zosyn and vancomycin. We will monitor vitals, intake and output. Continue IV fluids with normal saline at 100 cc/h. Continue being n.p.o. as patient does not have any bowel functions for now. Oral medications changed to IV. Patient states she is taking 19 mg of prednisone for last 3 months so we will convert to Solu-Medrol at appropriate conversion to avoid adrenal insufficiency. Patient is on atenolol at home. Will convert to IV Lopressor at as needed dose for now. Has not required any dose till now. Would avoid standing dosage for now as can cause hypotension. PICC line placed yesterday. We will start on PPN from today. We will send lipid panel. Gas Reverser consult. Will follow up with path report. Oxygen supplementation keeping saturation over 92%. CPAP overnight as needed. Monitor for fluid overload. Incentive spirometry. Heparin for DVT prophylaxis. Full code N.p.o. for now. Surgery recommendations appreciated. Dispo: Patient will require home health. Has been accepted by [facility]. If patient continues to do same we can plan to move her to the floor tomorrow. Attestations Medical Necessity Statement*: Needs continued hospitalization for postop management of perforated viscus. Time Spent in Patient Care: Greater than 35 minutes Coding Level of Care Code Acute Community Health Nurse Supervisor for [facility] Diagnoses Perforated abdominal viscus R19.8 Diverticulitis large intestine K57.20 Diverticulitis bleeding: without bleeding Diverticulitis complication: with perforation and without abscess Hypothyroid E03.9 Morbid obesity E66.01 Sleep apnea G47.30
[2019-12-21] MEDS: sodium chloride 0.9% 1,000 ML 100 ML IV ×2 (09:32→20:22)
[2019-12-21] MEDS: fluconazole premix 200 MG/100 ML PREMIX 100 MG IV ×2 (09:38→23:13)
--- NOTE | 2019-12-21 10:05 | PC.CHAP ---
Pastoral Care Encounter/Spiritual Assessment Type of Contact [] Declined data recovery planner visit [] Patient/Family/Request visit [] Outpatient visit [] Follow-up visit [] Physician referral [] Code/Alert [] Routine visit [] Staff referral [] Actively dying [] Patient sleeping [] Family support [] [] Out of room [] Palliative care [] [] Receiving care in room [] Pre-surgical visit [] Trauma [] Long length of stay [] ICU visit [] Other: Relational/Emotional Strength [] Patient feels connected with others/family/visitors/staff [] Distress [] Loneliness/isolation [] Abandonment Spirituality of Patient [] Person of Sadaf [] Attends Methodist of their Sadaf [x] Believes in Prayer [] Reads Bible or Orthodox materials [] There are Spiritual issues to be addressed Seismic Prospecting Observer Interventions [x] Prayer [x] Active listening [] Non-anxious presence [] Spiritual/emotional support [] Crisis/trauma care [] Spiritual counseling [] Bereavement support [] Provided bereavement packet [] Provided Bible/devotional materials [] Provided toy/stuffed animal, coloring book to patient or family member [x] Completed spiritual assessment [] Provided Communion [] Anointing/[place] [] Salvation [] Other: Impact on Illness or Injury [] Angry [] Fearful [] Anxious [] Often cries [] Exhaustion [] Unable to work [] Unable to attend advent [] Unable to walk/stand [] Unable to read [] Unable to drive [] Unable to eat/drink [] Unable to sleep [] Unable to be with family [] Other: Summary patient actively exercising and progressing well. Time spent with patient 5min
[2019-12-21 10:37] LABS: Cholesterol 84 mg/dL (0-200); HDL Cholesterol 24 mg/dL (60-100); LDL Cholesterol Calculated 35 mg/dL (50-129); Triglycerides 125 mg/dL (0-150); VLDL Cholestrol Calculation 25 mg/dL (0-30)
[2019-12-21 16:08] LABS: Hematocrit 30.9 % (37.0-47.0); Hemoglobin 9.6 g/dL (11.5-15.3)
[2019-12-21] MEDS: ketorolac 30 mg/mL INJ 15 MG IVP (20:22)
[2019-12-21] MEDS: diphenhydrAMINE 50 mg/mL SDV 1mL 25 MG IVP (20:23)
[2019-12-22] VITALS (20 sets, daily range): BP systolic 124–169; BP diastolic 66–98; PULSE 70–109; RESP 13–23; TEMP 36.5–37.5; O2SAT 89–98; BMI 45.1
[2019-12-22] MEDS: piperacillin-tazobactam 3.375 GM in sodium chloride 0.9% (plus) 50 ML IV ×2 (03:53→18:20)
[2019-12-22] MEDS: heparin 5,000 unit/mL INJ 1 mL 5000 UNIT INJECTION (03:55)
[2019-12-22 04:44] LABS: Hematocrit 28.1 % (37.0-47.0); Hemoglobin 8.8 g/dL (11.5-15.3); Lymphocytes # 0.8 10^3/uL (0.8-4.8); Lymphocytes % 9.9 %; Mean Corpuscular HGB Conc 31.3 g/dL (30.0-36.0); Mean Corpuscular Hemoglobin 30.9 pg (28.0-34.0); Mean Corpuscular Volume 98.6 fL (81-99); Monocytes # 0.5 10^3/uL (0.2-0.9); Monocytes % 6.4 %; Neutrophils # 6.1 10^3/uL (1.8-7.7); Neutrophils % 77.9 %; Nucleated Red Blood Cells % 0 %; Platelet Count 159 10^3/cmm (130-400); Positive C 1; Positive M 1; Red Blood Count 2.85 10^6/uL (4.1-5.3); Red Cell Distribution Width 13.9 % (12.1-15.1); White Blood Count 7.8 10^3/uL (4.0-10.0)
[2019-12-22 05:02] LABS: Alanine Aminotransferase 14 U/L (0-33); Alkaline Phosphatase 41 IU/L (35-105); Anion Gap 13.9 (5-19); Aspartate Amino Transferase 12 U/L (0-32); Blood Urea Nitrogen 19 mg/dL (8-23); Calcium 8.4 mg/dL (8.5-10.5); Carbon Dioxide 23 mmol/L (22-29); Chloride 108 mmol/L (98-107); Globulin 2.7 g/dL (1.3-4.6); Glucose 199 mg/dL (74-106); Potassium 3.9 mmol/L (3.5-5.1); Sodium 141 mmol/L (136-145); Total Bilirubin 0.3 mg/dL (0.15-1.2); Total Protein 4.7 g/dL (6.6-8.7)
[2019-12-22 05:33] LABS: Slide Review Slide Review Perform
--- NOTE | 2019-12-22 06:45 | P.PN_ITS ---
Subjective Subjective: Interval history: Overall patient is feeling better Started to pass some gas from the stoma No acute surgical events overnight Vitals/I&O/Wt Last Vital Signs Temp 98.6 F 12/22/19 06:00 Pulse 80 12/22/19 06:00 Resp 20 H 12/22/19 06:00 BP 169/77 12/22/19 06:00 Pulse Ox 93 12/22/19 04:00 12/21/19 12/21/19 12/22/19 14:59 22:59 06:59 Intake Total 1458.333 / 5343.151 9578 / 2458.333 650 / 3108.333 Output Total 835 / 835 820 / 1655 Balance 1458.333 / 1458.333 165 / 1623.333 -170 / 1453.333 Weight last 48 hrs Weight 269 lb 14.4 oz Weight 269 lb 14.4 oz Weight 264 lb Physical Exam Const: COMMON NORMALS: no apparent distress and oriented x3 GENERAL APPEARANCE: cooperative ORIENTATION/CONSCIOUSNESS: Yes awake, Yes oriented to person, Yes oriented to place and Yes oriented to time Chest: COMMONS NORMALS: inspection of chest normal Resp: COMMON NORMALS: normal respiratory effort and clear to auscultation bilaterally AUSCULTATION: clear to auscultation bilaterally Cardio: COMMON NORMALS: S1 normal heart sound and S2 normal heart sound; negative for no murmurs HEART SOUNDS: S1 normal and S2 normal GI: COMMON NORMALS: soft to palpation; negative for no hepatosplenomegaly INSPECTION: Yes normal to inspection PALPATION: Yes soft, No firm, No tender, No guarding, No rigid, No no hepatosplenomegaly and Yes other (Stoma in place with minimal output/stable dressing) : BLADDER/KIDNEY EXAM: Yes catheter in place Neuro: COMMON NORMALS: oriented x3 SENSORIUM/ORIENTATION: Yes oriented to person, Yes oriented to place and Yes oriented to time Psych: COMMON NORMALS: mental status grossly normal Urinary Catheter Management^: Cazares: Cath Placed During This Visit: no Data : 12/23/19 05:53 12/23/19 05:53 Micro: Microbiology 12/16/19 12:45 Blood Culture - Final Blood NO GROWTH AFTER 5 DAYS 12/16/19 10:37 Blood Culture - Final Blood NO GROWTH AFTER 5 DAYS A&P Assessment and plan (1) Perforation of sigmoid colon: We will continue status of n.p.o. and peripheral parenteral nutrition Continue antimicrobial therapy per hospitalist recommendations From surgical standpoint of view patient is appropriate to go to the floor likely intermediate care or a stepdown unit. Continue cardiac monitoring Once the patient starts to pass more gas and have ostomy functioning more we christelle l start her slowly on clear liquids. Encourage ambulation Recommend to hold off pharmacologic DVT prophylaxis due to drop in H&H and continue SCDs Will defer any potential blood transfusion to the hospitalist service No evidence of active bleeding per surgery, likely due to extensive dissection there is a raw area left behind and the patient could have lost some blood loss,and in the presence of the heparin that can drop it more. Status: Resolved Code(s): K63.1 - Perforation of intestine (nontraumatic) Attestations Medical Necessity Statement*: Medical necessity care is expected to cross 2 midnights Time Spent in Patient Care: 16 - 35 minutes (>than 50% of time spent in c ounselling and/or direct pt care on unit) . Coding Level of Care Code Acute Landscape Supervisor for Traci Rose Exam Problem Focused Diagnoses Perforation of sigmoid colon K63.1
[2019-12-22] MEDS: HYDROmorphone 1 mg/mL INJ 1 mL 0.5 MG IVP (07:58)
[2019-12-22] MEDS: pantoprazole 40 mg SDV IVP ×2 (07:58→20:15)
[2019-12-22] MEDS: ipratropium-albuterol 3 mL Neb INHALATION ×3 (08:13→20:35)
[2019-12-22] MEDS: levothyroxine 100 mcg SDV 25 MCG IVP (09:12)
[2019-12-22] MEDS: FUROsemide 10 mg/mL SDV 2mL 20 MG IVP (10:59)
[2019-12-22] MEDS: fluconazole premix 200 MG/100 ML PREMIX 100 MG IV (11:00)
[2019-12-22] MEDS: sodium chloride 0.9% 1,000 ML 100 ML IV ×2 (11:04→21:55)
[2019-12-22 14:24] LABS: Hemoglobin 9.8 g/dL (11.5-15.3)
--- NOTE | 2019-12-22 14:48 | P.PN_ITS ---
Subjective Subjective: Interval history: Postoperative day 3 after undergone laparotomy with Harman's procedure small bowel resection for obstructing distal sigmoid colon mass Overnight developed mild facial rash while was getting vancomycin. Was given parenteral for the same. On evaluation this morning patient in chair. States her pain is a lot better. Denies of having any nausea, vomiting, chest pain, shortness of breath. States she has passed flatus once or twice. Minimal drainage in MARIA TERESA drain. Medications: Reviewed: Yes Vitals/I&O/Wt Last Vital Signs Temp 98.1 F 12/22/19 12:00 Pulse 91 12/22/19 14:10 Resp 16 12/22/19 14:10 BP 137/66 12/22/19 12:00 Pulse Ox 96 12/22/19 14:10 12/21/19 12/22/19 12/22/19 22:59 06:59 14:59 Intake Total 1000 / 2458.333 1650 / 4108.333 1080 / 1080 Output Total 835 / 835 820 / 1655 475 / 475 Balance 165 / 1623.333 830 / 2453.333 605 / 605 Weight last 48 hrs Weight 122.425 kg Weight 122.425 kg Weight 119.748 kg Physical Exam Narrative: EXAM NARRATIVE: General: No acute distress, AO x3 HEENT: PERRLA, pupils bilaterally equal and reactive Chest: Normal vesicular breath sounds, no added sounds, equal good air entry bilaterally CVS: S1-S2 regular, no murmurs, no tachycardia, no gallops, no rubs Abdomen: Soft, surgical surgical dressing present on the middle of the abdomen without any soakage, MARIA TERESA drain present, no bowel sounds, tender around the bandage. Neuro: No focal deficits, no facial deformity, AO x3, power 5/5 in all limbs, no slurred speech, Urinary Catheter Management^: Cazares: Cath Placed During This Visit: no Data : 12/22/19 14:15 12/22/19 04:30 Micro: Microbiology 12/16/19 12:45 Blood Culture - Final Blood NO GROWTH AFTER 5 DAYS 12/16/19 10:37 Blood Culture - Final Blood NO GROWTH AFTER 5 DAYS A&P Assessment and plan (1) Perforated abdominal viscus: Status: Resolved Code(s): R19.8 - Other specified symptoms and signs involving the digestive system and abdomen (2) Diverticulitis large intestine: Status: Resolved Qualifiers: Diverticulitis bleeding: without bleeding Diverticulitis complication: with perforation and without abscess Qualified Code(s): K57.20 - Diverticulitis of large intestine with perforation and abscess without bleeding Code(s): K57.32 - Diverticulitis of large intestine without perforation or abscess without bleeding (3) Hypothyroid: Status: Chronic Code(s): E03.9 - Hypothyroidism, unspecified (4) Morbid obesity: Status: Chronic Code(s): E66.01 - Morbid (severe) obesity due to excess calories (5) Sleep apnea: Status: Chronic Code(s): G47.30 - Sleep apnea, unspecified Additional A&P Information Perforated sigmoid colon secondary to clinical sigmoid mass: Post Sabine resolved Harman's procedure: Postoperative day 3. Surgical wound dressing as per surgical recommendations. Physical therapy and diet advancement as per surgical recommendation. Pain is been controlled with Dilaudid at current dose. So we will continue the same dose. Patient has had 3 days of fluconazole and vancomycin. Will discontinue both vancomycin and fluconazole given the fact that patient has remained afebrile along with a normal white count. We will continue Zosyn for 2 more days to finish a course of 5 days post OR. We will monitor vitals, intake and output. Continue IV fluids with normal saline at 100 cc/h. Continue being n.p.o. as patient resolving slowly. Oral medications changed to IV. Patient states she is taking 19 mg of prednisone for last 3 months so we will convert to Solu-Medrol at appropriate conversion to avoid adrenal insufficiency. We will start to wean off Solu-Medrol. We will put her on 10 mg today. Patient is on atenolol at home. Will convert to IV Lopressor at as needed dose for now. Has not required any dose till now. Would avoid standing dosage for now as can cause hypotension. Protein energy malnutrition: Continue with PPN for nutrition Schedule Analyst consult. Anemia: Patient's hemoglobin this morning is 8.8. Yesterday it was stable at 9.6. On examination patient looks hemodynamically stable with mild pallor which has not changed since yesterday. For now we will continue with the current treatment but will hold off on heparin for DVT prophylaxis. We will recheck hemoglobin in afternoon at 2 PM. We will check iron panel. We will start patient on Venofer for iron deficiency anemia. Pathology negative for any kind of cancer. Dr. Vann has discussed the pathology results with the patient and family. Oxygen supplementation keeping saturation over 92%. CPAP overnight as needed. Monitor for fluid overload. Incentive spirometry. SCDs for DVT prophylaxis Full code N.p.o. for now. Surgery recommendations appreciated. Dispo: Patient will require home health. Has been accepted by [facility]. Transfer to floors. Attestations Medical Necessity Statement*: Discontinued hospitalization for postop m anagement of perforated sigmoid colon Time Spent in Patient Care: Greater than 35 minutes (>than 50% of time spent in counselling and/or direct pt care on unit) . Coding Level of Care Code Acute Grey Roll Worker for [facility]g Fwd Diagnoses Perforated abdominal viscus R19.8 Diverticulitis large intestine K57.20 Diverticulitis bleeding: without bleeding Diverticulitis complication: with perforation and without abscess Hypothyroid E03.9 Morbid obesity E66.01 Sleep apnea G47.30
--- NOTE | 2019-12-22 15:37 | PC.NURSE ---
Pt's face getting red again. Temp orally 99.5F. Pt stated she just feels hot. Denies itchy, nausea , or anything else. Dr Mcclain notified via Voalte, with current VS.
[2019-12-22 15:50] LABS: Iron 42 ug/dL (37-145); Percent Saturation 39.6 % (20-50); Total Iron Binding Capacity 106 mg/dL; Unsaturated Iron Binding 64 ug/dL (112-347)
[2019-12-22] MEDS: diphenhydrAMINE 50 mg/mL SDV 1mL 12.5 MG IVP (15:50)
--- NOTE | 2019-12-22 18:34 | PC.NURSE ---
Cazares cath removal. Caht tip intact. 7ml removed out of balloon prior. Pt tolerated very well.
--- NOTE | 2019-12-22 19:22 | PC.NURSE ---
Report given to JHONATAN Alvarez. Pt's face became red today again. Fat emulsion stopped then TPN stopped per, Dr Mcclain, at bedside. Benadryl admin. TPN and fat on hold until he decides to restart it. Cazares cath out at 1840, pt due to void. Dr Grant came at 1700, examined and redressed abdominal incision. NO out put noted in the colostomy.
[2019-12-22] MEDS: scopolamine 1.5 Patch 1 PATCH TRANSDERMA (20:15)
--- NOTE | 2019-12-22 20:40 | PC.NURSE ---
Report called to [facility] Nurse - all questions answered.
[2019-12-23] VITALS (14 sets, daily range): BP systolic 132–170; BP diastolic 72–92; PULSE 68–103; RESP 17–24; TEMP 36.7–36.9; O2SAT 90–99
[2019-12-23 06:42] LABS: Hematocrit 27.8 % (37.0-47.0); Hemoglobin 8.9 g/dL (11.5-15.3); Lymphocytes % 11.8 %; Mean Corpuscular Hemoglobin 30.4 pg (28.0-34.0); Mean Corpuscular Volume 94.9 fL (81-99); Mean Platelet Volume 9.9 fL (7.4-10.4); Monocytes # 0.6 10^3/uL (0.2-0.9); Monocytes % 6.8 %; Neutrophils # 6.6 10^3/uL (1.8-7.7); Neutrophils % 75.1 %; Nucleated Red Blood Cells % 0 %; Platelet Count 198 10^3/cmm (130-400); Red Blood Count 2.93 10^6/uL (4.1-5.3); White Blood Count 8.7 10^3/uL (4.0-10.0)
[2019-12-23 06:59] LABS: Alanine Aminotransferase 22 U/L (0-33); Albumin Level 2.5 g/dL (3.5-5.2); Alkaline Phosphatase 69 IU/L (35-105); Anion Gap 14.8 (5-19); Aspartate Amino Transferase 19 U/L (0-32); Blood Urea Nitrogen 19 mg/dL (8-23); Calcium 8.7 mg/dL (8.5-10.5); Carbon Dioxide 23 mmol/L (22-29); Chloride 108 mmol/L (98-107); Globulin 2.4 g/dL (1.3-4.6); Glomerular Filtration Rate 45.4 mL/min (90-130); Glucose 156 mg/dL (74-106); Potassium 3.8 mmol/L (3.5-5.1); Sodium 142 mmol/L (136-145); Total Bilirubin 0.3 mg/dL (0.15-1.2); Total Protein 4.9 g/dL (6.6-8.7)
[2019-12-23 07:16] LABS: Slide Review Slide Review Perform
--- NOTE | 2019-12-23 07:34 | P.PN_ITS ---
Subjective Subjective: Interval history: Dressing change was done yesterday at evening rounds by me Patient was transferred to the floor No acute events overnight Started passing more gas Vitals/I&O/Wt Last Vital Signs Temp 98.0 F 12/23/19 07:20 Pulse 83 12/23/19 07:20 Resp 18 12/23/19 07:20 BP 163/90 12/23/19 07:20 Pulse Ox 96 12/23/19 07:20 12/22/19 12/23/19 12/23/19 22:59 06:59 14:59 Intake Total 1382.833 / 2462.833 Output Total 310 / 785 515 / 1300 Balance 1072.833 / 1677.833 -515 / 1162.833 Weight last 48 hrs Weight 267 lb 1 oz Weight 263 lb Weight 269 lb 14.4 oz Weight 269 lb 14.4 oz Physical Exam Const: COMMON NORMALS: no apparent distress and oriented x3 GENERAL APPEARANCE: cooperative ORIENTATION/CONSCIOUSNESS: Yes awake, Yes oriented to person, Yes oriented to place and Yes oriented to time Eye: COMMON NORMALS: PERRL and no scleral icterus PUPIL: Yes PERRL Resp: COMMON NORMALS: normal respiratory effort and clear to auscultation bilaterally AUSCULTATION: clear to auscultation bilaterally Cardio: COMMON NORMALS: S1 normal heart sound and S2 normal heart sound; negative for no murmurs HEART SOUNDS: S1 normal and S2 normal GI: COMMON NORMALS: soft to palpation; negative for no hepatosplenomegaly INSPECTION: Yes normal to inspection and Yes other (Right lower drain in place with serosanguineous) PALPATION: Yes soft, No firm, No tender, No guarding, No rigid, No no hepatosplenomegaly and Yes other (Wound packing done by me bedside wound is clean/stoma bag changed by me) RECTAL EXAM: other (Stoma surface is dusky yet otherwise pink underneath and functioning slowly) Neuro: COMMON NORMALS: oriented x3 SENSORIUM/ORIENTATION: Yes oriented to person, Yes oriented to place and Yes oriented to time Psych: COMMON NORMALS: mental status grossly normal Skin: COMMON NORMALS: no rashes or lesions noted GENERAL SKIN EXAM: no rashes or lesions noted Urinary Catheter Management^: Cazares: Cath Placed During This Visit: no Data : 12/23/19 05:53 12/23/19 05:53 A&P Assessment and plan (1) Perforation of sigmoid colon: Patient undergone laparotomy and Harman's procedure small bowel resection with last Wednesday12/19/19. we will start the patient on popsicles Continue PPN Continue kidney function monitoring. Encourage ambulation Incentive spirometer every hour Wound care and stoma care per nursing staff Continue SCDs Once patient have more bowel activities with advance to clear liquid and protein shakes Discharge planning should include home health for wound and stoma care Status: Resolved Code(s): K63.1 - Perforation of intestine (nontraumatic) Attestations Medical Necessity Statement*: Medical necessity care is expected to cross 2 midnights Time Spent in Patient Care: 16 - 35 minutes (>than 50% of time spent in counselling and/or direct pt care on unit) . Coding Level of Care Code Acute Biology Faculty Member for Traci Fwnasreen Exam Problem Focused Diagnoses Perforation of sigmoid colon K63.1
[2019-12-23] MEDS: ipratropium-albuterol 3 mL Neb INHALATION ×3 (08:15→20:20)
[2019-12-23] MEDS: levothyroxine 100 mcg SDV 25 MCG IVP (10:36)
[2019-12-23] MEDS: pantoprazole 40 mg SDV IVP ×2 (10:36→20:09)
[2019-12-23] MEDS: piperacillin-tazobactam 3.375 GM in sodium chloride 0.9% (plus) 50 ML IV ×3 (10:37→17:55)
[2019-12-23] MEDS: sodium chloride 0.9% 1,000 ML 100 ML IV ×2 (10:56→23:31)
--- NOTE | 2019-12-23 18:07 | P.PN_ITS ---
Subjective Subjective: Interval history: She reports overall she is feeling better. Has been up to walk, and sitting in a chair. Feels that she saw a few bubbles of gas in the colostomy bag. Vitals/I&O/Wt Last Vital Signs Temp 98.4 F 12/23/19 16:00 Pulse 68 12/23/19 16:00 Resp 24 H 12/23/19 16:00 BP 136/72 12/23/19 16:00 Pulse Ox 95 12/23/19 16:00 12/23/19 12/23/19 12/23/19 06:59 14:59 22:59 Intake Total 50 / 2512.833 1160 / 1160 0 / 1160 Output Total 515 / 1300 Balance -465 / 2367.220 1468 / 1160 0 / 1160 Weight last 48 hrs Weight 121.138 kg Weight 119.295 kg Weight 122.425 kg Weight 122.425 kg Physical Exam Const: COMMON NORMALS: no apparent distress and oriented x3 HENMT: COMMON NORMALS: oropharynx normal Neck/C-Spine: COMMON NORMALS: no JVD Resp: COMMON NORMALS: normal respiratory effort and clear to auscultation bilaterally AUSCULTATION: clear to auscultation bilaterally Cardio: COMMON NORMALS: no JVD, regular rhythm, S1 normal heart sound, S2 normal heart sound and no murmurs RHYTHM: regular rhythm HEART SOUNDS: S1 normal and S2 normal GI: COMMON NORMALS: soft to palpation and non-tender INSPECTION: Yes ostomy present (Empty.) AUSCULTATION: Yes hypoactive bowel sounds PALPATION: Yes soft Extremity: COMMON NORMALS: no joint enlargement and no pedal edema Neuro: COMMON NORMALS: oriented x3 and moves all extremities Skin: COMMON NORMALS: no rashes or lesions noted GENERAL SKIN EXAM: no rashes or lesions noted Urinary Catheter Management^: Cazares: Cath Placed During This Visit: no Data : 12/23/19 05:53 12/23/19 05:53 A&P Assessment and plan (1) Perforated abdominal viscus: Status post Sabine procedure. With postoperative ileus. Pending resumption of bowel function. Continues on bowel rest, PPN. History reported flushing several hours after initiation of TPN. Unclear cause. This appears to resolve spontaneously. Today tolerating PPN without any issue. Resume diet once ready per surgical recommendations. Continue incentive spirometry. Consider pharmacologic DVT prophylaxis once hemoglobin is stable. Status: Resolved Code(s): R19.8 - Other specified symptoms and signs involving the digestive system and abdomen (2) Diverticulitis large intestine: Completing course of Zosyn. Fluconazole and vancomycin discontinued. Status: Resolved Qualifiers: Diverticulitis bleeding: without bleeding Diverticulitis complication: with perforation and without abscess Qualified Code(s): K57.20 - Diverticulitis of large intestine with perforation and abscess without bleeding Code(s): K57.32 - Diverticulitis of large intestine without perforation or abscess without bleeding (3) Hypothyroid: Levothyroxine on hold. Status: Chronic Code(s): E03.9 - Hypothyroidism, unspecified (4) Morbid obesity: Status: Chronic Code(s): E66.01 - Morbid (severe) obesity due to excess calories (5) Sleep apnea: CPAP overnight. Status: Chronic Code(s): G47.30 - Sleep apnea, unspecified (6) Anemia: DVT prophylaxis was held. Currently only on SCDs. Hemoglobin down to 8.9 this morning. Monitor. Continue PPI every 12 hours. Is being weaned off Solu- Medrol. Status: Acute Code(s): D64.9 - Anemia, unspecified Additional A&P Information Chronic steroid use: Currently down to 10 mg Solu-Medrol per day. Takes pr ednisone 5mg at home. Patient is on atenolol at home. Will convert to IV Lopressor at as needed dose for now. Has not required any dose till now. Would avoid standing dosage for now as can cause hypotension. Protein energy malnutrition: Continue with PPN for nutrition. Green Meat Grader consult. Attestations Medical Necessity Statement*: Continue admission for assessment of management following peritonitis, perforated sigmoid colon, and ileus. Coding Level of Care Code Acute Curtain Feller Blindstitch for Chg Fwd Diagnoses Perforated abdominal viscus R19.8 Diverticulitis large intestine K57.20 Diverticulitis bleeding: without bleeding Diverticulitis complication: with perforation and without abscess Hypothyroid E03.9 Morbid obesity E66.01 Sleep apnea G47.30 Anemia D64.9
[2019-12-24] VITALS (14 sets, daily range): BP systolic 113–148; BP diastolic 63–85; PULSE 79–111; RESP 16–20; TEMP 36.4–37; O2SAT 79–99
[2019-12-24] MEDS: piperacillin-tazobactam 3.375 GM in sodium chloride 0.9% (plus) 50 ML IV ×3 (02:40→17:15)
[2019-12-24] MEDS: ipratropium-albuterol 3 mL Neb INHALATION ×4 (02:56→20:09)
--- NOTE | 2019-12-24 03:02 | PC.RESP ---
auto cpap 8-15
[2019-12-24 05:54] LABS: Basophils % 0.2 %; Hematocrit 27.2 % (37.0-47.0); Hemoglobin 8.6 g/dL (11.5-15.3); Lymphocytes % 8.6 %; Mean Corpuscular HGB Conc 31.6 g/dL (30.0-36.0); Mean Corpuscular Hemoglobin 29.9 pg (28.0-34.0); Mean Corpuscular Volume 94.4 fL (81-99); Mean Platelet Volume 9.8 fL (7.4-10.4); Monocytes # 0.6 10^3/uL (0.2-0.9); Monocytes % 5.2 %; Neutrophils # 8.8 10^3/uL (1.8-7.7); Neutrophils % 77.9 %; Nucleated Red Blood Cells % 0 %; Platelet Count 217 10^3/cmm (130-400); Red Blood Count 2.88 10^6/uL (4.1-5.3); Red Cell Distribution Width 13.9 % (12.1-15.1); White Blood Count 11.3 10^3/uL (4.0-10.0)
[2019-12-24 06:13] LABS: Anion Gap 13.4 (5-19); Blood Urea Nitrogen 15 mg/dL (8-23); Calcium 8.3 mg/dL (8.5-10.5); Carbon Dioxide 23 mmol/L (22-29); Chloride 105 mmol/L (98-107); Glomerular Filtration Rate 50.2 mL/min (90-130); Glucose 239 mg/dL (74-106); Osmolality Calculated 290 mOsm/kg (285-295); Potassium 3.4 mmol/L (3.5-5.1); Sodium 138 mmol/L (136-145)
[2019-12-24 06:43] LABS: Slide Review Slide Review Perform
[2019-12-24] MEDS: pantoprazole 40 mg SDV IVP ×2 (07:40→20:59)
--- NOTE | 2019-12-24 07:56 | ECG_ITS ---
Measurements Intervals [place] Rate: 98 P: 21 AK: 139 QRS: 10 QRSD: 82 T: 31 QT: 326 QTc: 418 SINUS RHYTHM Compared to ECG 10/04/2018 13:24:12 No significant changes Electronically Signed On 12-24-2019 18:55:07 METAL MOVER by Sean Grijalva M.D. [email or web address]
--- NOTE | 2019-12-24 07:57 | P.PN_ITS ---
Subjective Subjective: Interval history: Patient continues to pass gas Vitals/I&O/Wt Last Vital Signs Temp 98.2 F 12/24/19 03:57 Pulse 111 H 12/24/19 03:57 Resp 19 H 12/24/19 03:57 BP 113/63 12/24/19 03:57 Pulse Ox 96 12/24/19 03:57 12/23/19 12/24/19 12/24/19 22:59 06:59 14:59 Intake Total 1150 / 2310 788.333 / 3098.333 Output Total 1050 / 1050 800 / 1850 Balance 100 / 1260 -11.667 / 1248.333 Weight last 48 hrs Weight 269 lb 9 oz Weight 267 lb 1 oz Weight 263 lb Physical Exam Const: COMMON NORMALS: no apparent distress and oriented x3 GENERAL APPEARANCE: cooperative ORIENTATION/CONSCIOUSNESS: Yes awake, Yes oriented to person, Yes oriented to place and Yes oriented to time HENMT: COMMON NORMALS: normocephalic HEAD & SCALP: normocephalic Eye: COMMON NORMALS: PERRL and no scleral icterus PUPIL: Yes PERRL Lymph: LYMPHATIC: no lymphadenopathy noted Chest: COMMONS NORMALS: inspection of chest normal Resp: COMMON NORMALS: normal respiratory effort and clear to auscultation bilaterally AUSCULTATION: clear to auscultation bilaterally Cardio: COMMON NORMALS: S1 normal heart sound and S2 normal heart sound; negative for no murmurs HEART SOUNDS: S1 normal and S2 normal GI: COMMON NORMALS: soft to palpation; negative for no hepatosplenomegaly INSPECTION: Yes normal to inspection PALPATION: Yes soft, No firm, No tender, No guarding, No rigid, No no hepatosplenomegaly, No rebound tenderness present and Yes other (Stoma in place without complications/packing of the wound done by me bedside) OTHER: Wound is clean dry and intact GI image (female): 1. Colostomy in place without complication 2. Wounds are clean no evidence of pus or surrounding cellulitis, skin vijay in place Neuro: COMMON NORMALS: oriented x3 SENSORIUM/ORIENTATION: Yes oriented to person, Yes oriented to place and Yes oriented to time Psych: COMMON NORMALS: mental status grossly normal Skin: COMMON NORMALS: no rashes or lesions noted GENERAL SKIN EXAM: no rashes or lesions noted Urinary Catheter Management^: Cazares: Cath Placed During This Visit: no Data : 12/24/19 05:33 12/24/19 05:33 A&P Assessment and plan (1) Perforation of sigmoid colon: We will start the patient on clear liquid diet and protein shakes slowly Continue incentive spirometer every hour Encourage ambulation Continue twice daily wet-to-dry dressing change Close monitoring of the slight elevation of WBC count I did encourage the patient to discuss with the administrator social welfare about discharge planning We will continue coordinating with the hospitalist service Status: Resolved Code(s): K63.1 - Perforation of intestine (nontraumatic) Attestations Medical Necessity Statement*: Medical necessity care is expected to cross 2 midnights Time Spent in Patient Care: 16 - 35 minutes (>than 50% of time spent in counselling and/or direct pt care on unit) . 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
[2019-12-24] MEDS: levothyroxine 100 mcg SDV 25 MCG IVP (10:43)
--- NOTE | 2019-12-24 12:50 | PM.PN ---
Subjective Subjective: Interval history: She again reports several bubbles of flatus in the ostomy bag. Denies abdominal pain. Vitals/I&O/Wt Last Vital Signs Temp 98.6 F 12/24/19 07:51 Pulse 105 H 12/24/19 11:42 Resp 18 12/24/19 11:42 BP 148/83 12/24/19 11:42 Pulse Ox 94 12/24/19 11:42 12/23/19 12/24/19 12/24/19 22:59 06:59 14:59 Intake Total 1150 / 2310 1088.333 / 3398.333 610 / 610 Output Total 1050 / 1050 800 / 1850 760 / 760 Balance 100 / 1260 288.333 / 1548.333 -150 / -150 Weight last 48 hrs Weight 122.271 kg Weight 121.138 kg Weight 119.295 kg Physical Exam Const: COMMON NORMALS: no apparent distress and oriented x3 HENMT: COMMON NORMALS: oropharynx normal Neck/C-Spine: COMMON NORMALS: no JVD Resp: COMMON NORMALS: normal respiratory effort and clear to auscultation bilaterally AUSCULTATION: clear to auscultation bilaterally Cardio: COMMON NORMALS: no JVD, regular rhythm, S1 normal heart sound, S2 normal heart sound and no murmurs RHYTHM: regular rhythm HEART SOUNDS: S1 normal and S2 normal GI: COMMON NORMALS: soft to palpation and non-tender INSPECTION: Yes ostomy present (Empty.) AUSCULTATION: Yes hypoactive bowel sounds PALPATION: Yes soft Extremity: COMMON NORMALS: no joint enlargement and no pedal edema Neuro: COMMON NORMALS: oriented x3 and moves all extremities Skin: COMMON NORMALS: no rashes or lesions noted GENERAL SKIN EXAM: no rashes or lesions noted Urinary Catheter Management^: Cazares: Cath Placed During This Visit: no Data : 12/24/19 05:33 12/24/19 05:33 A&P Assessment and plan (1) Perforated abdominal viscus: Passing some flatus. Feeling better. Surgery is trialing some clear liquids. Status post Sabine procedure. With postoperative ileus. PPN. Denies recurrence of flushing. Continue incentive spirometry. Consider pharmacologic DVT prophylaxis once hemoglobin is stable. Status: Resolved Code(s): R19.8 - Other specified symptoms and signs involving the digestive system and abdomen (2) Diverticulitis large intestine: Continue antibiotic for now given leukocytosis, tachycardia. Fluconazole and vancomycin discontinued. Status: Resolved Qualifiers: Diverticulitis bleeding: without bleeding Diverticulitis complication: with perforation and without abscess Qualified Code(s): K57.20 - Diverticulitis of large intestine with perforation and abscess without bleeding Code(s): K57.32 - Diverticulitis of large intestine without perforation or abscess without bleeding (3) Hypothyroid: Resume levothyroxine. Status: Chronic Code(s): E03.9 - Hypothyroidism, unspecified (4) Morbid obesity: Status: Chronic Code(s): E66.01 - Morbid (severe) obesity due to excess calories (5) Sleep apnea: CPAP overnight. Status: Chronic Code(s): G47.30 - Sleep apnea, unspecified (6) Anemia: DVT prophylaxis was held. Currently only on SCDs. Hemoglobin with slow gradual downtrend. Today down to 8.6. Monitor. Continue PPI every 12 hours. Is being weaned off Solu-Medrol. Status: Acute Code(s): D64.9 - Anemia, unspecified Additional A&P Information Chronic steroid use: Currently down to 10 mg Solu-Medrol per day. Takes prednisone 5mg at home. Depression: Restart venlafaxine at 75 mg Protein energy malnutrition: Continue with PPN for nutrition. Waiter/Waitress Head consult. Advance oral diet per surgery. Intertrigo: Add nystatin cream. Attestations Medical Necessity Statement*: Continue admission for assessment and management of bowel resection due to perforated sigmoid colon, severe complicated diverticulitis. 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
[2019-12-24] MEDS: nystatin cream 30 gm 1 APPLIC TOPICAL (17:15)
[2019-12-24] MEDS: sodium chloride 0.9% 1,000 ML 100 ML IV (17:15)
--- NOTE | 2019-12-24 19:14 | PC.NURSE ---
Introduction of staff and report received, aidet.
[2019-12-25] VITALS (12 sets, daily range): BP systolic 131–156; BP diastolic 79–84; PULSE 75–104; RESP 16–24; TEMP 36.6–37.9; O2SAT 93–99
[2019-12-25] MEDS: piperacillin-tazobactam 3.375 GM in sodium chloride 0.9% (plus) 50 ML IV ×3 (02:10→19:00)
--- NOTE | 2019-12-25 03:04 | PC.NURSE ---
Pt is doing well this night. Ambulating back and forth from bed to bathroom and back with minimum assistance. This nurse can tell by facial expressions that pt is having pain, but refuses pain med when offered. Pt offered pain prior to dressing changes and also refused, tolerating abdominal dressing changes without difficulty.
[2019-12-25 05:04] LABS: Basophils % 0.2 %; Hemoglobin 8.5 g/dL (11.5-15.3); Lymphocytes # 1.8 10^3/uL (0.8-4.8); Lymphocytes % 12.6 %; Mean Corpuscular HGB Conc 31.5 g/dL (30.0-36.0); Mean Corpuscular Hemoglobin 30.9 pg (28.0-34.0); Mean Corpuscular Volume 98.2 fL (81-99); Mean Platelet Volume 9.6 fL (7.4-10.4); Monocytes # 0.7 10^3/uL (0.2-0.9); Monocytes % 4.6 %; Neutrophils # 10.4 10^3/uL (1.8-7.7); Neutrophils % 72.4 %; Nucleated Red Blood Cells % 0.1 %; Platelet Count 202 10^3/cmm (130-400); Positive C 1; Positive M 1; Red Blood Count 2.75 10^6/uL (4.1-5.3); Red Cell Distribution Width 14.1 % (12.1-15.1); White Blood Count 14.4 10^3/uL (4.0-10.0)
[2019-12-25 05:34] LABS: Alanine Aminotransferase 46 U/L (0-33); Albumin Level 2.3 g/dL (3.5-5.2); Alkaline Phosphatase 40 IU/L (35-105); Anion Gap 15.3 (5-19); Aspartate Amino Transferase 21 U/L (0-32); Blood Urea Nitrogen 13 mg/dL (8-23); Calcium 8.3 mg/dL (8.5-10.5); Carbon Dioxide 21 mmol/L (22-29); Chloride 102 mmol/L (98-107); Globulin 2.1 g/dL (1.3-4.6); Glomerular Filtration Rate 50.2 mL/min (90-130); Potassium 4.3 mmol/L (3.5-5.1); Sodium 134 mmol/L (136-145); Total Bilirubin 0.3 mg/dL (0.15-1.2); Total Protein 4.4 g/dL (6.6-8.7)
[2019-12-25 05:45] LABS: Glucose 520 mg/dL (74-106)
[2019-12-25] MEDS: sodium chloride 0.9% 1,000 ML 100 ML IV (06:08)
[2019-12-25 06:21] LABS: Absolute Segmented Neutrophil 10.8 10/cmm (1.6-7.1); Band Neutrophils Absolute 0.7 10^3/cmm (0.0-1.2); Segmented Neutrophils 75 %; Total Cells Counted 100 (0-100)
[2019-12-25 06:22] LABS: Lymphocytes 15 %; Monocytes Absolute 0.6 10^3/cmm (0.1-0.6)
[2019-12-25 06:23] LABS: Platelet Estimate Normal (Normal)
--- NOTE | 2019-12-25 07:45 | PM.PN ---
Subjective Subjective: Interval history: Patient overall feels well she started passing stool per ostomy continues to pass gas Did receive a call before 7:00 in the morning as patient's blood glucose exceeding 500 so I placed her on sliding scale insulin till hospitalist address it according to the patient's needs and I switched her diet to clear non-concentrated and instead of Ensure Plus I switched her to Glucerna. Vitals/I&O/Wt Last Vital Signs Temp 98.1 F 12/25/19 04:00 Pulse 96 12/25/19 04:00 Resp 20 H 12/25/19 04:00 BP 141/83 12/25/19 04:00 Pulse Ox 96 12/25/19 04:00 12/24/19 12/25/19 12/25/19 22:59 06:59 14:59 Intake Total 1030.833 / 2690.833 1000 / 3690.833 Output Total 570 / 1330 1600 / 2930 Balance 460.833 / 1360.833 -600 / 760.833 Weight last 48 hrs Weight 273 lb 3.2 oz Weight 269 lb 9 oz Physical Exam Const: COMMON NORMALS: no apparent distress and oriented x3 GENERAL APPEARANCE: cooperative ORIENTATION/CONSCIOUSNESS: Yes awake, Yes oriented to person, Yes oriented to place and Yes oriented to time HENMT: COMMON NORMALS: normocephalic HEAD & SCALP: normocephalic Eye: COMMON NORMALS: PERRL and no scleral icterus PUPIL: Yes PERRL Lymph: LYMPHATIC: no lymphadenopathy noted Chest: COMMONS NORMALS: inspection of chest normal Resp: COMMON NORMALS: normal respiratory effort and clear to auscultation bilaterally AUSCULTATION: clear to auscultation bilaterally Cardio: COMMON NORMALS: S1 normal heart sound and S2 normal heart sound; negative for no murmurs HEART SOUNDS: S1 normal and S2 normal GI: COMMON NORMALS: soft to palpation; negative for no hepatosplenomegaly INSPECTION: Yes normal to inspection PALPATION: Yes soft, No firm, No tender, No guarding, No rigid, No no hepatosplenomegaly and Yes other (Wound bed is clean and packing was done by me bedside, ostomy is functioning normal color stool) OTHER: No evidence of cellulitis or surgical site infection skin vijay in place Ostomy functioning without complication Neuro: COMMON NORMALS: oriented x3 SENSORIUM/ORIENTATION: Yes oriented to person, Yes oriented to place and Yes oriented to time Psych: COMMON NORMALS: mental status grossly normal Skin: COMMON NORMALS: no rashes or lesions noted GENERAL SKIN EXAM: no rashes or lesions noted Urinary Catheter Management^: Cazares: Cath Placed During This Visit: no Data : 12/25/19 04:37 12/25/19 04:37 A&P Assessment and plan (1) Perforation of sigmoid colon: We will continue clear liquid diet non-concentrated sweets and Glucerna Increasing trend in WBC count is obviously concerning, I did check on the right arm PICC line and showed no infection also the wound is clean and patient denies any cough. I think it would be reasonable to start with a chest x-ray and urinalysis prior to entertaining the idea of potential scans to rule out potential abscess formation We will continue coordinating with Dr. Hall Will defer hyperglycemia management to him as well Encourage ambulation and incentive spirometer I do highly encourage switching pain medications to oral instead of IV as this can be slowing the bowels Status: Resolved Code(s): K63.1 - Perforation of intestine (nontraumatic) Attestations Medical Necessity Statement*: Medical necessity care is expected to cross 2 midnights Time Spent in Patient Care: 16 - 35 minutes (>than 50% of time spent in counselling and/or direct pt care on unit). 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
--- NOTE | 2019-12-25 07:57 | XRR_ITS ---
PROCEDURE INFORMATION: Exam: XR Chest, 1 View Exam date and time: 12/25/2019 8:37 AM Age: 64 years old Clinical indication: Abnormal findings; Abnormal diagnostic tests; Other: Unexplained leukocytosis; Additional info: Concern for pneumonia/unexplained leukocytosis TECHNIQUE: Imaging protocol: XR of the chest Views: 1 view. COMPARISON: CR XR chest 1V portable [id number] 12/20/2019 10:00 AM FINDINGS: Tubes, catheters and devices: PICC line from the right with the tip projecting over the central venous structures/superior vena cava. Lungs: Lungs are well aerated without a focal area of consolidation. Pleural space: Unremarkable. No pleural effusion. No pneumothorax. Heart/Mediastinum: The cardiac silhouette appears enlarged, some of which is magnification related to the AP projection. Bones/joints: Unremarkable. XR/XR chest 1V portable [id number] IMPRESSION: Lungs are well aerated without a focal area of consolidation.
[2019-12-25 08:14] LABS: Glucose Point of Care 117 mg/dL (70-110)
[2019-12-25] MEDS: ipratropium-albuterol 3 mL Neb INHALATION ×3 (08:16→20:11)
[2019-12-25] MEDS: pantoprazole 40 mg SDV IVP ×2 (08:22→20:38)
[2019-12-25] MEDS: atenolol 50 mg Tablet 25 MG PO (08:22)
[2019-12-25] MEDS: ondansetron 2 mg/ML SDV 2 mL 4 MG IVP (08:52)
[2019-12-25] MEDS: levothyroxine 100 mcg SDV 25 MCG IVP (08:53)
[2019-12-25 12:06] LABS: Glucose Point of Care 55 mg/dL (70-110)
[2019-12-25 13:02] LABS: Glucose Point of Care 62 mg/dL (70-110)
[2019-12-25 13:37] LABS: Glucose Point of Care 76 mg/dL (70-110)
[2019-12-25 17:10] LABS: Glucose Point of Care 176 mg/dL (70-110)
[2019-12-25] MEDS: venlafaxine ER (24HR) 75 mg Capsule PO (19:06)
--- NOTE | 2019-12-25 19:26 | P.PN_ITS ---
Subjective Subjective: Interval history: She is not feeling as well today. Feeling some generalized malaise.Denies any shortness of breath or cough. Stoma has been putting out some stool. Medications: Reviewed: Yes Vitals/I&O/Wt Last Vital Signs Temp 97.9 F 12/25/19 16:00 Pulse 80 12/25/19 16:00 Resp 16 12/25/19 16:00 BP 156/84 12/25/19 16:00 Pulse Ox 93 12/25/19 16:00 12/25/19 12/25/19 12/25/19 06:59 14:59 22:59 Intake Total 1300 / 4100.833 170 / 170 1000 / 1170 Output Total 1600 / 2930 500 / 500 Balance -300 / 1170.833 170 / 170 500 / 670 Weight last 48 hrs Weight 123.921 kg Weight 122.271 kg Physical Exam Const: COMMON NORMALS: no apparent distress and oriented x3 HENMT: COMMON NORMALS: oropharynx normal Neck/C-Spine: COMMON NORMALS: no JVD Resp: COMMON NORMALS: normal respiratory effort and clear to auscultation bilaterally AUSCULTATION: clear to auscultation bilaterally Cardio: COMMON NORMALS: no JVD, regular rhythm, S1 normal heart sound, S2 normal heart sound and no murmurs RHYTHM: regular rhythm HEART SOUNDS: S1 normal and S2 normal GI: COMMON NORMALS: soft to palpation and non-tender INSPECTION: Yes ostomy present (Empty.) AUSCULTATION: Yes hypoactive bowel sounds PALPATION: Yes soft Extremity: COMMON NORMALS: no joint enlargement and no pedal edema Neuro: COMMON NORMALS: oriented x3 and moves all extremities Skin: COMMON NORMALS: no rashes or lesions noted GENERAL SKIN EXAM: no rashes or lesions noted Data : 12/25/19 04:37 12/25/19 04:37 Micro: Microbiology 12/25/19 09:27 Blood Culture - Preliminary Blood SPECIMEN COLLECTED 12/25/19 09:21 Blood Culture - Preliminary Blood SPECIMEN COLLECTED A&P Assessment and plan (1) Perforated abdominal viscus: Today passing some stool in the stoma. Diet was advanced. Noted to have worsening of leukocytosis, some mild guarding low 100s. Today she is having some malaise, although cannot specify. UA was ordered. Discussed with nursing staff to obtain sample. Chest x-ray unremarkable. For now we will keep on Zosyn. Continue incentive spirometry. Consider pharmacologic DVT prophylaxis once hemoglobin is stable. Status: Resolved Code(s): R19.8 - Other specified symptoms and signs involving the digestive system and a bdomen (2) Diverticulitis large intestine: Continue antibiotic for now given leukocytosis, tachycardia. Fluconazole and vancomycin discontinued. Status: Resolved Qualifiers: Diverticulitis bleeding: without bleeding Diverticulitis complication: with perforation and without abscess Qualified Code(s): K57.20 - Diverticulitis of large intestine with perforation and abscess without bleeding Code(s): K57.32 - Diverticulitis of large intestine without perforation or abscess without bleeding (3) Hypothyroid: Resume levothyroxine. Status: Chronic Code(s): E03.9 - Hypothyroidism, unspecified (4) Morbid obesity: Status: Chronic Code(s): E66.01 - Morbid (severe) obesity due to excess calories (5) Sleep apnea: CPAP overnight. Status: Chronic Code(s): G47.30 - Sleep apnea, unspecified (6) Anemia: DVT prophylaxis was held. Currently only on SCDs. Hemoglobin with slow gradual downtrend. Monitor. Continue PPI every 12 hours. Is being weaned off Solu-Medrol. If doing well consider switching to home dose prednisone tomorrow. Status: Acute Code(s): D64.9 - Anemia, unspecified Additional A&P Information Hyperglycemia: Started on sliding scale insulin. Diet changed to consistent carbohydrate with improvement in glucose through the day. Continue to monitor. Chronic steroid use: Currently down to 10 mg Solu-Medrol per day. Takes prednisone 5mg at home. Depression: Restart venlafaxine at 75 mg Protein energy malnutrition: Continue with PPN for nutrition. Event Marketing Assistant consult. Advance oral diet per surgery. Intertrigo: Add nystatin cream. Attestations Medical Necessity Statement*: Continued pressure process and management following complicated diverticulitis with bowel perforation, requiring resection. 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
[2019-12-25] MEDS: scopolamine 1.5 Patch 1 PATCH TRANSDERMA (20:38)
[2019-12-25 22:23] LABS: Glucose Point of Care 155 mg/dL (70-110)
[2019-12-26] VITALS (11 sets, daily range): BP systolic 118–139; BP diastolic 64–86; PULSE 62–96; RESP 16–20; TEMP 36.7–37.1; O2SAT 91–96; BMI 46.8
[2019-12-26] MEDS: sodium chloride 0.9% 1,000 ML 100 ML IV (01:33)
--- NOTE | 2019-12-26 02:09 | PC.RESP ---
pt sleeping. pt stated she did not want to be woken up for breathing tx. no respiratory distress noted at this time
[2019-12-26] MEDS: piperacillin-tazobactam 3.375 GM in sodium chloride 0.9% (plus) 50 ML IV ×3 (02:28→17:26)
[2019-12-26 02:45] LABS: Add Urine Microscopic? NO
[2019-12-26 03:03] LABS: Bilirubin Urine Neg (NEGATIVE); Blood Urine Neg (Negative); Glucose Urine UA Norm (Normal); Ketones Urine Negative (Negative); Leukocyte Esterase Urine Negative (Negative); Nitrate Urine Negative (Negative); Protein Urine Neg (Negative); Urine Appearance Clear (CLEAR); Urine Color Yellow (Yellow); Urobilinogen Urine Norm (Negative); pH Urine 5 (5-7)
--- NOTE | 2019-12-26 05:43 | PM.PN ---
Subjective Subjective: Interval history: Patient overall is doing well yet she did not have much appetite so she did not eat anything yesterday, continues to pass gas from the stoma site and had good urine output. Trending up leukocytosis Vitals/I&O/Wt Last Vital Signs Temp 98.6 F 12/26/19 00:00 Pulse 70 12/26/19 00:00 Resp 19 H 12/26/19 00:00 BP 125/70 12/26/19 00:00 Pulse Ox 96 12/26/19 00:00 12/25/19 12/25/19 12/26/19 14:59 22:59 06:59 Intake Total 280 / 280 2000 / 2280 783.333 / 3063.333 Output Total 1000 / 1000 430 / 1430 Balance 280 / 280 1000 / 1280 353.333 / 1633.333 Weight last 48 hrs Weight 273 lb 3.2 oz Weight 273 lb 3.2 oz Physical Exam Const: COMMON NORMALS: no apparent distress and oriented x3 GENERAL APPEARANCE: cooperative ORIENTATION/CONSCIOUSNESS: Yes awake, Yes oriented to person, Yes oriented to place and Yes oriented to time Eye: COMMON NORMALS: PERRL and no scleral icterus PUPIL: Yes PERRL Resp: COMMON NORMALS: normal respiratory effort Cardio: COMMON NORMALS: negative for no murmurs GI: COMMON NORMALS: soft to palpation; negative for no hepatosplenomegaly INSPECTION: Yes normal to inspection PALPATION: Yes soft, No firm, No tender, No guarding, No rigid, No no hepatosplenomegaly and Yes other (Wound is clean and dressing was done by me bedside/ostomy is functioning without complication) OTHER: Right lower drain with serosanguineous output Neuro: COMMON NORMALS: oriented x3 SENSORIUM/ORIENTATION: Yes oriented to person, Yes oriented to place and Yes oriented to time Psych: COMMON NORMALS: mental status grossly normal Skin: COMMON NORMALS: no rashes or lesions noted GENERAL SKIN EXAM: no rashes or lesions noted Urinary Catheter Management^: Cazares: Cath Placed During This Visit: no Data : 12/26/19 06:39 12/26/19 06:39 Micro: Microbiology 12/25/19 09:27 Blood Culture - Preliminary Blood SPECIMEN COLLECTED 12/25/19 09:21 Blood Culture - Preliminary Blood SPECIMEN COLLECTED A&P Assessment and plan (1) Perforation of sigmoid colon: Patient undergone exploratory laparotomy and Harman's procedure on December 19, 2019 with small bowel resection We will continue full liquid diet and emphasis on protein shakes in the form of Glucerna 3 to 4 cans a day Continue wound care in the form of twice daily wet-to-dry dressing change in the form of Kerlix followed by ABDs We will follow on a.m. labs, as leukocytosis trending up we will plan to perform a CT scan of the abdomen and pelvis with oral contrast, to rule out potential underlying intra-abdominal abscess formation since the patient is a week out, that comes back of insignificance from surgical standpoint of view patient's diet can be advanced as tolerated. Status: Resolved Code(s): K63.1 - Perforation of intestine (nontraumatic) Attestations Medical Necessity Statement*: Medical necessity care is expected to cross 2 midnights Time Spent in Patient Care: 16 - 35 minutes (>than 50% of time spent in counselling and/or direct pt care on unit). 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
--- NOTE | 2019-12-26 06:00 | XR_ITS ---
WS: [id number] Portable AP upright chest, 12/26/2019 Clinical Data: Hypoxia Comparison: Portable chest, 12/25/2019 Findings: No nodules, masses or effusions are seen. The heart is normal. The pulmonary vascularity is not increased. No pneumonia or pneumothorax is seen. The right PICC line remains in position. Monito r leads on the chest wall. XR/XR chest 1V portable [id number] Impression: Negative for acute cardiopulmonary disease.
[2019-12-26 06:39] LABS: Glucose Point of Care 144 mg/dL (70-110)
[2019-12-26 06:57] LABS: Basophils # 0.1 10^3/uL (0.0-0.1); Basophils % 0.3 %; Hematocrit 32.9 % (37.0-47.0); Hemoglobin 10.5 g/dL (11.5-15.3); Lymphocytes # 2.3 10^3/uL (0.8-4.8); Lymphocytes % 10.7 %; Mean Corpuscular HGB Conc 31.9 g/dL (30.0-36.0); Mean Corpuscular Hemoglobin 30.3 pg (28.0-34.0); Mean Corpuscular Volume 95.1 fL (81-99); Mean Platelet Volume 9.9 fL (7.4-10.4); Monocytes # 0.8 10^3/uL (0.2-0.9); Monocytes % 3.6 %; Nucleated Red Blood Cells % 0 %; Platelet Count 269 10^3/cmm (130-400); Positive C 1; Positive M 1; Red Blood Count 3.46 10^6/uL (4.1-5.3); White Blood Count 21.4 10^3/uL (4.0-10.0)
[2019-12-26 07:09] LABS: Alanine Aminotransferase 44 U/L (0-33); Albumin Level 2.7 g/dL (3.5-5.2); Alkaline Phosphatase 53 IU/L (35-105); Anion Gap 13.4 (5-19); Aspartate Amino Transferase 20 U/L (0-32); Blood Urea Nitrogen 15 mg/dL (8-23); Calcium 8.5 mg/dL (8.5-10.5); Carbon Dioxide 26 mmol/L (22-29); Chloride 103 mmol/L (98-107); Globulin 2.3 g/dL (1.3-4.6); Glomerular Filtration Rate 50.2 mL/min (90-130); Glucose 155 mg/dL (74-106); Potassium 3.4 mmol/L (3.5-5.1); Sodium 139 mmol/L (136-145); Total Bilirubin 0.6 mg/dL (0.15-1.2)
[2019-12-26 07:31] LABS: Slide Review Slide Review Perform
--- NOTE | 2019-12-26 08:05 | CT_ITS ---
WS: [id number] CT ABDOMEN AND PELVIS WITH CONTRAST HISTORY: Worsening leukocytosis status post Harman's procedure 1 week out TECHNIQUE: Imaging performed of the abdomen and pelvis with IV contrast. Single phase imaging of the abdomen. Coronal and sagittal reformats are submitted. All CT scans at [facility] use at least one of these dose optimization techniques: automated exposure control; mA and/or kV adjustment per patient size (includes targeted exams where dose is matched to clinical indication); or iterativ e reconstruction. IV CONTRAST: Omnipaque 300; 95 mL IV. Oral contrast: Yes. DLP: 1860.73 mGy.cm COMPARISON: 12/19/2019 Lower thorax: Very small bilateral pleural effusions and adjacent subsegmental atelectasis. No pneumo ashley. Heart is normal size. Small hiatal hernia. Liver/biliary system: Normal size with no intrahepatic dilatation. Gallbladder: Small amount of increased density in the dependent portion of the gallbladder may repres ent some small stones or sludge. No evidence for acute cholecystitis. No bile duct dilatation. Pancreas: Normal. Spleen: Normal. Adrenal glands: Normal. Right kidney: Variable enhancement throughout the kidney. There are areas of decreased attenuation an d decreased enhancement scattered throughout the kidneys but greatest involving the upper pole. No ob struction. Left kidney: Variable enhancement throughout the kidney. Areas of decreased enhancement and attenuati on, greatest in the upper pole. No obstruction. Aorta: Mild atherosclerosis of aorta. Lymphadenopathy: None. Free fluid: Small amount of free fluid in the LEFT pelvis measures 2.3 x 3.9 cm. No formed wall. GI tract: Postsurgical changes. There is a row of sutures at the resection site. LEFT lower quadrant ostomy site. There is contrast extending into the ostomy bag. Abdominal wall: Open surgical incisions containing air along the anterior abdominal wall and pelvis. There is a surgical drain entering on the RIGHT coiled in the pelvis posterior to the bladder. There is diffuse anasarca. Pelvis: Urinary bladder contains a small amount of air. No free fluid is identified in the pelvis. Po stsurgical changes of the Harman's pouch. There is anasarca. No abscess is identified. Bones: Degenerative changes throughout the lumbar spine and hips. CT/CT abdomen pelvis w con* [id number] IMPRESSION: 1. Recent postsurgical changes of LEFT lower quadrant colostomy and Harman's pouch are identified. 2. Focal free fluid in the LEFT pelvis measures 2.3 x 3.9 cm with no enhancing wall. No abscess identified at this time. This may be a sterile postoperative collection. Developing abscess may appear similar. At this time there is no for med wall. 3. Edema in the soft tissues of the pelvis and anasarca. 4. Abnormal enhancement throughout the kidneys. Patchy areas of variable enhan cement are new. Correlate for possible pyelonephritis. Mild renal insufficiency /ischemia should also be considered. There is no renal obstruction. 5. Very small bilateral pleural effusions are new. 6. Open midline abdominal incision.
[2019-12-26] MEDS: pantoprazole 40 mg SDV IVP ×2 (08:29→21:39)
[2019-12-26] MEDS: atenolol 50 mg Tablet 25 MG PO (08:29)
[2019-12-26] MEDS: ondansetron 2 mg/ML SDV 2 mL 4 MG IVP (08:30)
[2019-12-26] MEDS: levothyroxine 100 mcg SDV 25 MCG IVP (08:48)
[2019-12-26] MEDS: iohexol 300 mg/mL 50 mL Btl PO (09:19)
[2019-12-26] MEDS: ipratropium-albuterol 3 mL Neb INHALATION ×3 (10:09→21:40)
[2019-12-26 10:25] LABS: Influenza A by IFA Negative (Negative); Influenza B by IFA Negative (Negative)
[2019-12-26] MEDS: iodixanol 320 mg/mL 100mL Btl IV (10:50)
[2019-12-26] MEDS: sodium chloride 0.9% 1,000 ML 75 ML IV (10:56)
[2019-12-26 11:15] LABS: Glucose Point of Care 192 mg/dL (70-110)
--- NOTE | 2019-12-26 15:33 | PC.NURSE ---
DRESSING CHANGE I REPACKED PATIENTS INCISION AND APPLIED CLEAN DRESSING. DR. WILKINS NOTIFIED. DRESSING TO BE LEFT INTACT. DO NOT CHANGE THROUGH THE NIGHT UNLESS IT BECOMES SATURATED.
[2019-12-26 16:45] LABS: Glucose Point of Care 177 mg/dL (70-110)
[2019-12-26] MEDS: venlafaxine ER (24HR) 75 mg Capsule PO (17:26)
--- NOTE | 2019-12-26 19:52 | PM.PN ---
Subjective Subjective: Interval history: Today she is feeling slightly better. She reports being hungry, states that she can no longer tolerate liquid diet, requesting solid food. Denies abdominal pain. Vitals/I&O/Wt Last Vital Signs Temp 98.7 F 12/26/19 15:16 Pulse 96 12/26/19 15:16 Resp 20 H 12/26/19 15:16 BP 127/80 12/26/19 15:16 Pulse Ox 92 12/26/19 15:16 12/26/19 12/26/19 12/26/19 06:59 14:59 22:59 Intake Total 833.333 / 3113.333 1431.25 / 1431.25 360 / 1791.25 Output Total 430 / 1430 1050 / 1050 90 / 1140 Balance 403.333 / 1683.333 381.25 / 381.25 270 / 651.25 Weight last 48 hrs Weight 123.921 kg Weight 123.921 kg Physical Exam Const: COMMON NORMALS: no apparent distress and oriented x3 ORIENTATION/CONSCIOUSNESS: Yes awake OTHER: Flat affect HENMT: COMMON NORMALS: oropharynx normal Neck/C-Spine: COMMON NORMALS: no JVD Resp: COMMON NORMALS: normal respiratory effort and clear to auscultation bilaterally AUSCULTATION: clear to auscultation bilaterally Cardio: COMMON NORMALS: no JVD, regular rhythm, S1 normal heart sound, S2 normal heart sound and no murmurs RHYTHM: regular rhythm HEART SOUNDS: S1 normal and S2 normal GI: COMMON NORMALS: soft to palpation and non-tender INSPECTION: Yes ostomy present (With liquid green stool.) AUSCULTATION: Yes hypoactive bowel sounds PALPATION: Yes soft OTHER: Abdominal wound covered by clean dressing. No bleeding, strikethrough. Extremity: COMMON NORMALS: no joint enlargement and no pedal edema Neuro: COMMON NORMALS: oriented x3 and moves all extremities Skin: COMMON NORMALS: no rashes or lesions noted GENERAL SKIN EXAM: no rashes or lesions noted OTHER: Intertrigo Urinary Catheter Management^: Cazares: Cath Placed During This Visit: no Data : 12/26/19 06:39 12/26/19 06:39 Micro: Microbiology 12/26/19 09:40 C.difficile Toxin B Gene (PCR) - Final Stool 12/25/19 09:27 Blood Culture - Preliminary Blood NEGATIVE TO DATE 12/25/19 09:21 Blood Culture - Preliminary Blood NEGATIVE TO DATE A&P Assessment and plan (1) Perforated abdominal viscus: Liquid stool in stoma. She is tolerating diet. Wants to advance to solid food. No abdominal pain. Unclear reason for rising leukocytosis. Tachycardia appears to have resolved. CT abdomen pelvis was repeated this morning, with small fluid collection without sign of abscess. There is some perinephric enhancement bilaterally of unclear etiology. She does not have any flank pain. Her urinalysis was completely unremarkable. We will repeat. Etiology is not clear. Possibly secondary to mild acute kidney injury. C. difficile was checked and is negative. If able to obtain IV, can DC PICC line. Consider sending tip for culture. She is encouraged to continue incentive spirometry. For now we will keep on Zosyn. Consider pharmacologic DVT prophylaxis if hemoglobin remains stable. Status: Resolved Code(s): R19.8 - Other specified symptoms and signs involving the digestive system and abdomen (2) Diverticulitis large intestine: Continue Zosyn for now given leukocytosis. Status: Resolved Qualifiers: Diverticulitis bleeding: without bleeding Diverticulitis complication: with perforation and without abscess Qualified Code(s): K57.20 - Diverticulitis of large intestine with perforation and abscess without bleeding Code(s): K57.32 - Diverticulitis of large intestine without perforation or abscess without bleeding (3) Hypothyroid: Resume levothyroxine. Status: Chronic Code(s): E03.9 - Hypothyroidism, unspecified (4) Morbid obesity: Status: Chronic Code(s): E66.01 - Morbid (severe) obesity due to excess calories (5) Sleep apnea: CPAP overnight. Status: Chronic Code(s): G47.30 - Sleep apnea, unspecified (6) Anemia: DVT prophylaxis was held. Currently only on SCDs. Hemoglobin appears to be stabilizing. Monitor. Continue PPI every 12 hours. Is being weaned off Solu-Medrol. We will switch to her oral dose of prednisone. Status: Acute Code(s): D64.9 - Anemia, unspecified Additional A&P Information Hyperglycemia: sliding scale insulin. Diet consistent carbohydrate with improvement in glucose. Continue to monitor. Chronic steroid use: Takes prednisone 5mg at home. Restart home dose. Depression: Restarted venlafaxine at 75 mg Protein energy malnutrition: Stop PPN. Intertrigo: Add nystatin cream. Attestations Medical Necessity Statement*: Continue admission for assessment and management after complicated diverticulitis, with bowel perforation, partial colectomy. Coding Level of Care Code Acute Window Dresser for Chg Fwd Diagnoses Perforated abdominal viscus R19.8 Diverticulitis large intestine K57.20 Diverticulitis bleeding: without bleeding Diverticulitis complication: with perforation and without abscess Hypothyroid E03.9 Morbid obesity E66.01 Sleep apnea G47.30 Anemia D64.9
[2019-12-26 22:46] LABS: Glucose Point of Care 148 mg/dL (70-110)
[2019-12-27] VITALS (10 sets, daily range): BP systolic 89–136; BP diastolic 64–83; PULSE 83–103; RESP 18; TEMP 36.2–37.1; O2SAT 90–95
[2019-12-27] MEDS: sodium chloride 0.9% 1,000 ML 75 ML IV ×2 (01:08→14:16)
[2019-12-27] MEDS: piperacillin-tazobactam 3.375 GM in sodium chloride 0.9% (plus) 50 ML IV ×3 (01:08→18:47)
[2019-12-27 02:36] LABS: Add Urine Microscopic? NO
[2019-12-27 02:38] LABS: Bilirubin Urine Neg (NEGATIVE); Blood Urine Neg (Negative); Glucose Urine UA Norm (Normal); Ketones Urine Negative (Negative); Leukocyte Esterase Urine Negative (Negative); Nitrate Urine Negative (Negative); Protein Urine Neg (Negative); Urine Appearance Clear (CLEAR); Urine Color Yellow (Yellow); Urobilinogen Urine Norm (Negative); pH Urine 5 (5-7)
[2019-12-27 05:15] LABS: Basophils % 0.2 %; Hematocrit 30.1 % (37.0-47.0); Hemoglobin 9.8 g/dL (11.5-15.3); Lymphocytes # 2.2 10^3/uL (0.8-4.8); Lymphocytes % 11.7 %; Mean Corpuscular HGB Conc 32.6 g/dL (30.0-36.0); Mean Corpuscular Hemoglobin 30.6 pg (28.0-34.0); Mean Corpuscular Volume 94.1 fL (81-99); Mean Platelet Volume 9.9 fL (7.4-10.4); Monocytes # 0.9 10^3/uL (0.2-0.9); Monocytes % 4.9 %; Neutrophils # 13.5 10^3/uL (1.8-7.7); Neutrophils % 73.1 %; Nucleated Red Blood Cells % 0 %; Platelet Count 274 10^3/cmm (130-400); White Blood Count 18.4 10^3/uL (4.0-10.0)
[2019-12-27 05:35] LABS: Alanine Aminotransferase 37 U/L (0-33); Albumin Level 2.4 g/dL (3.5-5.2); Alkaline Phosphatase 53 IU/L (35-105); Anion Gap 12.3 (5-19); Aspartate Amino Transferase 16 U/L (0-32); Blood Urea Nitrogen 12 mg/dL (8-23); Calcium 8.6 mg/dL (8.5-10.5); Carbon Dioxide 25 mmol/L (22-29); Chloride 104 mmol/L (98-107); Globulin 2.4 g/dL (1.3-4.6); Glomerular Filtration Rate 50.2 mL/min (90-130); Glucose 118 mg/dL (74-106); Potassium 3.3 mmol/L (3.5-5.1); Sodium 138 mmol/L (136-145); Total Bilirubin 0.5 mg/dL (0.15-1.2); Total Protein 4.8 g/dL (6.6-8.7)
--- NOTE | 2019-12-27 06:35 | PM.PN ---
Subjective Subjective: Interval history: Patient overall doing well, tolerating p.o. intake and passing gas and stools per stool. CT scan of the abdomen pelvis done per my request to rule out intra-abdominal abscess formation and it was negative with that regard. Trending down and WBC count, concern on the CT scan for pyelonephritis Vitals/I&O/Wt Last Vital Signs Temp 98.0 F 12/27/19 04:00 Pulse 83 12/27/19 04:00 Resp 18 12/27/19 04:00 BP 126/80 12/27/19 04:00 Pulse Ox 94 12/27/19 04:00 12/26/19 12/26/19 12/27/19 14:59 22:59 06:59 Intake Total 1431.25 / 1431.25 410 / 1841.25 1000 / 2841.25 Output Total 1050 / 1050 535 / 1585 1130 / 2715 Balance 381.25 / 381.25 -125 / 256.25 -130 / 126.25 Weight last 48 hrs Weight 273 lb 3.2 oz Physical Exam Const: COMMON NORMALS: no apparent distress and oriented x3 GENERAL APPEARANCE: cooperative ORIENTATION/CONSCIOUSNESS: Yes awake, Yes oriented to person, Yes oriented to place and Yes oriented to time HENMT: COMMON NORMALS: normocephalic HEAD & SCALP: normocephalic Eye: COMMON NORMALS: PERRL and no scleral icterus PUPIL: Yes PERRL Chest: COMMONS NORMALS: inspection of chest normal Resp: COMMON NORMALS: normal respiratory effort GI: COMMON NORMALS: soft to palpation; negative for no hepatosplenomegaly INSPECTION: Yes normal to inspection PALPATION: Yes soft, No firm, No tender, No guarding, No rigid, No no hepatosplenomegaly and Yes other (Wound is clean and packing was done by me bedside as well as the stoma is functioning well with a dry scab on top of and pink lining) OTHER: Right lower quadrant drain in place with serous output Neuro: COMMON NORMALS: oriented x3 SENSORIUM/ORIENTATION: Yes oriented to person, Yes oriented to place and Yes oriented to time Psych: COMMON NORMALS: mental status grossly normal Skin: COMMON NORMALS: no rashes or lesions noted GENERAL SKIN EXAM: no rashes or lesions noted Urinary Catheter Management^: Cazares: Cath Placed During This Visit: no Data : 12/28/19 06:44 12/28/19 06:44 Micro: Microbiology 12/26/19 09:40 C.difficile Toxin B Gene (PCR) - Final Stool 12/25/19 09:27 Blood Culture - Preliminary Blood NEGATIVE TO DATE 12/25/19 09:21 Blood Culture - Preliminary Blood NEGATIVE TO DATE A&P Assessment and plan (1) Perforation of sigmoid colon: Advance diet as tolerated Continue twice daily wet-to-dry packing of the wound I did DC abdominal drain today with minimal output serous Continue stoma care Per general surgery patient is stable and appropriate Will Defer for home health versus [facility] to be discussed with the hospitalist service [employer] 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 Absolute recommendation to avoid digitalizing the stoma at any level to prevent potential complications. Status: Resolved Code(s): K63.1 - Perforation of intestine (nontraumatic) Attestations Medical Necessity Statement*: I have reviewed the chart, I agree on the plan of care obtained by the nurse practitioner We'll continue management accordingly Umer Vann MD,FACS Time Spent in Patient Care: 16 - 35 minutes (>than 50% of time spent in counselling and/or direct pt care on unit). Coding Level of Care Code Acute Cut Off Saw Operator for Chg Fwd Exam Problem Focused Diagnoses Perforation of sigmoid colon K63.1
[2019-12-27] MEDS: ipratropium-albuterol 3 mL Neb INHALATION ×2 (08:28→15:22)
[2019-12-27] MEDS: atenolol 50 mg Tablet 25 MG PO (08:52)
[2019-12-27] MEDS: pantoprazole 40 mg SDV IVP ×2 (08:52→20:32)
[2019-12-27] MEDS: predniSONE 5 mg Tablet PO (08:52)
[2019-12-27] MEDS: levothyroxine 50 mcg Tablet PO (08:52)
[2019-12-27 10:45] LABS: Glucose Point of Care 164 mg/dL (70-110)
[2019-12-27] MEDS: magnesium citrate Btl 296 mL 150 ML PO (15:35)
[2019-12-27 16:52] LABS: Glucose Point of Care 177 mg/dL (70-110)
--- NOTE | 2019-12-27 17:38 | P.PN_ITS ---
Subjective Subjective: Interval history: She is overall doing well. She is tolerating diet. Denies abdominal pain. Vitals/I&O/Wt Last Vital Signs Temp 98.8 F 12/27/19 15:31 Pulse 93 12/27/19 15:31 Resp 18 12/27/19 15:31 BP 130/77 12/27/19 15:31 Pulse Ox 92 12/27/19 15:31 12/27/19 12/27/19 12/27/19 06:59 14:59 22:59 Intake Total 1050 / 2891.25 1465 / 1465 120 / 1585 Output Total 1430 / 3015 650 / 650 350 / 1000 Balance -380 / -123.75 815 / 815 -230 / 585 Weight last 48 hrs Weight 124.284 kg Weight 123.921 kg Physical Exam Const: COMMON NORMALS: no apparent distress and oriented x3 ORIENTATION /CONSCIOUSNESS: Yes awake OTHER: Not very conversant, but cooperative, answers questions. HENMT: COMMON NORMALS: oropharynx normal Neck/C-Spine: COMMON NORMALS: no JVD Resp: COMMON NORMALS: normal respiratory effort and clear to auscultation bilaterally AUSCULTATION: clear to auscultation bilaterally Cardio: COMMON NORMALS: no JVD, regular rhythm, S1 normal heart sound, S2 normal heart sound and no murmurs RHYTHM: regular rhythm HEART SOUNDS: S1 normal and S2 normal GI: COMMON NORMALS: soft to palpation and non-tender INSPECTION: Yes ostomy present (Dark appearance of the stoma, also covered by some dark green stool) AUSCULTATION: Yes hypoactive bowel sounds PALPATION: Yes soft OTHER: Abdominal wound covered by clean dressing. No bleeding, strikethrough. Extremity: COMMON NORMALS: no joint enlargement and no pedal edema Neuro: COMMON NORMALS: oriented x3 and moves all extremities Skin: COMMON NORMALS: no rashes or lesions noted GENERAL SKIN EXAM: no rashes or lesions noted OTHER: Intertrigo Data : 12/27/19 04:47 12/27/19 04:47 Micro: Microbiology 12/26/19 09:40 C.difficile Toxin B Gene (PCR) - Final Stool A&P Assessment and plan (1) Perforated abdominal viscus: She is producing stool in the stoma. Tolerating diet. Denies abdominal pain. Stoma appears to be dark in coloration. Per surgery this is likely secondary to superficial eschar formation. Stoma is somewhat difficult to assess is that this recessed, as well as covered by some greenish appearing dark stool. Stoma will be reassessed again tomorrow. She has persistent leukocytosis of 18.4. CT abdomen pelvis 12/26 with small fluid collection without sign of abscess. There is some perinephric enhancement bilaterally of unclear etiology. She does not have any flank pain. Her urinalysis was completely unremarkable, and still clear on repeat. Etiology is not clear. Possibly secondary to mild acute kidney injury, but I do not believe she is having bilateral pyelonephritis wit hout changes in the urine, fever, flank pain, etc. C. difficile was checked and is negative. If able to obtain IV, can DC PICC line. Consider sending tip for culture. She is encouraged to continue incentive spirometry. For now we will keep on Zosyn. Hemoglobin has been stable, so we will restart DVT prophylaxis with heparin. Status: Resolved Code(s): R19.8 - Other specified symptoms and signs involving the digestive system and abdomen (2) Diverticulitis large intestine: Continue Zosyn for now given leukocytosis. Status: Resolved Qualifiers: Diverticulitis bleeding: without bleeding Diverticulitis complication: with perforation and without abscess Qualified Code(s): K57.20 - Diverticulitis of large intestine with perforation and abscess without bleeding Code(s): K57.32 - Diverticulitis of large intestine without perforation or abscess without bleeding (3) Hypothyroid: Resumed levothyroxine. Status: Chronic Code(s): E03.9 - Hypothyroidism, unspecified (4) Morbid obesity: Status: Chronic Code(s): E66.01 - Morbid (severe) obesity due to excess calories (5) Sleep apnea: CPAP overnight. Status: Chronic Code(s): G47.30 - Sleep apnea, unspecified (6) Anemia: Has not had any further decline in hemoglobin. Status: Acute Code(s): D64.9 - Anemia, unspecified Additional A&P Information Hyperglycemia: Sliding scale insulin. Consistent carbohydrate diet. Continue to monitor. Chronic steroid use: Switched her back to home dose 5 mg prednisone daily from Solu-Medrol. Blood pressures remained stable. Depression: Restarted venlafaxine at 75 mg Protein energy malnutrition: Stopped PPN. Oral nutrition resumed. Intertrigo: nystatin cream. Attestations Medical Necessity Statement*: Continue admission for management following complicated the this, perforated bowel, requiring resection, acute blood loss anemia, in the setting of chronic steroid. Coding Level of Care Code Acute Direct Care Staffer for Chg Fwd Diagnoses Perforated abdominal viscus R19.8 Diverticulitis large intestine K57.20 Diverticulitis bleeding: without bleeding Diverticulitis complication: with perforation and without abscess Hypothyroid E03.9 Morbid obesity E66.01 Sleep apnea G47.30 Anemia D64.9
[2019-12-27] MEDS: polyethylene glycol 3350 Pkt 17 gm PO (18:47)
[2019-12-27] MEDS: HYDROcodone-acetaminophen 5-325 mg Tablet PO (18:47)
[2019-12-27] MEDS: venlafaxine ER (24HR) 75 mg Capsule PO (18:47)
[2019-12-27] MEDS: heparin 5,000 unit/mL INJ 1 mL 5000 UNIT SUBCUT (18:47)
[2019-12-27 22:06] LABS: Glucose Point of Care 169 mg/dL (70-110)
[2019-12-28] VITALS (10 sets, daily range): BP systolic 119–139; BP diastolic 66–81; PULSE 64–96; RESP 16–20; TEMP 36.3–36.9; O2SAT 90–97
[2019-12-28] MEDS: piperacillin-tazobactam 3.375 GM in sodium chloride 0.9% (plus) 50 ML IV ×2 (02:11→08:36)
[2019-12-28] MEDS: sodium chloride 0.9% 1,000 ML 75 ML IV (02:12)
[2019-12-28] MEDS: heparin 5,000 unit/mL INJ 1 mL 5000 UNIT SUBCUT ×3 (02:12→17:46)
--- NOTE | 2019-12-28 06:41 | PM.PN ---
Subjective Subjective: Interval history: Patient responded well to milk of magnesia and started to have appropriate stoma output, stoma bag had to be changed and fixated to the skin with the nurse overnight. Otherwise no acute events and patient continues to tolerate well p.o. intake Vitals/I&O/Wt Last Vital Signs Temp 98.3 F 12/28/19 04:00 Pulse 86 12/28/19 04:00 Resp 18 12/28/19 04:00 BP 139/72 12/28/19 04:00 Pulse Ox 90 12/28/19 04:00 12/27/19 12/27/19 12/28/19 14:59 22:59 06:59 Intake Total 1515 / 1515 410 / 1925 895 / 2820 Output Total 650 / 650 1050 / 1700 800 / 2500 Balance 865 / 865 -640 / 225 95 / 320 Weight last 48 hrs Weight 272 lb 11.2 oz Weight 274 lb Physical Exam Const: COMMON NORMALS: no apparent distress NUTRITIONAL APPEARANCE: obese morbidly obese Eye: SCLERA: sclerae normal Resp: COMMON NORMALS: normal respiratory effort GI: COMMON NORMALS: soft to palpation PALPATION: Yes soft, No tender, No guarding, No rigid and Yes other (Wound is clean and stoma in place without complications and viable) Urinary Catheter Management^: Cazares: Cath Placed During This Visit: no Data : 12/28/19 06:44 12/28/19 06:44 A&P Assessment and plan (1) Perforation of sigmoid colon: From surgical standpoint of view patient is appropriate to be discharged home with home health with special emphasis on stoma care and wound packing twice a day with wet-to-dry using Kerlix followed by ABDs. Return to surgery office in 1 week Recommend to have the patient on Cipro Flagyl empirically for a week or so Encourage ambulation and physical activity, avoid heavy lifting Continue Metamucil and as needed mag citrate avoid constipation Focus on nutritious highly proteinaceous diet to promote healing I would strongly recommend to avoid digitalizing the stoma at any level to prevent potential complications. Status: Resolved Code(s): K63.1 - Perforation of intestine (nontraumatic) Attestations Medical Necessity Statement*: Medical necessity care is expected to cross 2 midnights Time Spent in Patient Care: 16 - 35 minutes (>than 50% of time spent in counselling and/or direct pt care on unit). Coding Level of Care Code Acute Assembler Aircraft Power Plant for Miyag Fwd Exam Problem Focused Diagnoses Perforation of sigmoid colon K63.1
[2019-12-28 07:01] LABS: Basophils % 0.2 %; Hematocrit 29.2 % (37.0-47.0); Hemoglobin 9.3 g/dL (11.5-15.3); Lymphocytes # 1.9 10^3/uL (0.8-4.8); Lymphocytes % 14.3 %; Mean Corpuscular HGB Conc 31.8 g/dL (30.0-36.0); Mean Corpuscular Hemoglobin 31.8 pg (28.0-34.0); Mean Platelet Volume 9.9 fL (7.4-10.4); Monocytes % 7.5 %; Neutrophils # 9.2 10^3/uL (1.8-7.7); Neutrophils % 69.2 %; Nucleated Red Blood Cells % 0 %; Platelet Count 253 10^3/cmm (130-400); Positive C 1; Positive M 1; Red Blood Count 2.92 10^6/uL (4.1-5.3); Red Cell Distribution Width 14.4 % (12.1-15.1); White Blood Count 13.3 10^3/uL (4.0-10.0)
[2019-12-28 07:20] LABS: Alanine Aminotransferase 29 U/L (0-33); Albumin Level 2.1 g/dL (3.5-5.2); Alkaline Phosphatase 50 IU/L (35-105); Anion Gap 13.6 (5-19); Aspartate Amino Transferase 13 U/L (0-32); Blood Urea Nitrogen 10 mg/dL (8-23); Calcium 8.2 mg/dL (8.5-10.5); Carbon Dioxide 25 mmol/L (22-29); Chloride 105 mmol/L (98-107); Globulin 2.5 g/dL (1.3-4.6); Glomerular Filtration Rate 50.2 mL/min (90-130); Glucose 123 mg/dL (74-106); Potassium 3.6 mmol/L (3.5-5.1); Sodium 140 mmol/L (136-145); Total Bilirubin 0.5 mg/dL (0.15-1.2); Total Protein 4.6 g/dL (6.6-8.7)
[2019-12-28 07:25] LABS: Slide Review Slide Review Perform
[2019-12-28 07:27] LABS: Magnesium 1.7 mg/dL (1.7-2.3)
[2019-12-28] MEDS: pantoprazole 40 mg SDV IVP (08:02)
[2019-12-28] MEDS: ipratropium-albuterol 3 mL Neb INHALATION ×2 (08:32→14:44)
[2019-12-28] MEDS: atenolol 50 mg Tablet 25 MG PO (08:35)
[2019-12-28] MEDS: predniSONE 5 mg Tablet PO (08:36)
[2019-12-28] MEDS: levothyroxine 50 mcg Tablet PO (08:36)
[2019-12-28] MEDS: nystatin cream 30 gm 1 APPLIC TOPICAL (08:37)
[2019-12-28 11:05] LABS: Glucose Point of Care 171 mg/dL (70-110)
--- NOTE | 2019-12-28 13:08 | P.DS_ITS ---
Discharge Providers Date of Admission: 12/16/19 12:40 Date of Discharge: 12/28/19 Attending Provider at Admission: Ana Del Cid MD Attending Provider at Discharge: Slick Grissom MD Primary Care Provider: Maryana Lloyd-Kailyn Diagnoses at Discharge Discharge Diagnosis (1) Perforation of sigmoid colon: Status: Resolved Problem details: Status post diverting colostomy Reason for Visit Reason for Visit: Reason For Visit: Abdominal Pain Hospital Course Hospital Course: Candice is a 64-year-old white female who presented to the hospital with abdominal pain. She was noted on CT scan to have diverticulitis, patient an abscess. General surgery was consulted. She was placed on IV antibiotics consisting of Zosyn. Surgery evaluated the patient, and ultimately did a Harman's procedure, with small bowel resection and colostomy formation as well as peritoneal lavage and intra-abdominal drain placement on December 21. The rest of her hospital stay was spent in slow recovery. By December 28 she had been improved to a significant amount and it was thought she could be discharged with home health. White blood cell count was 13.3, significantly improved. She will complete 3 more days of oral antibiotics consisting of Augmentin and Flagyl secondary to her allergy to Cipro. She will follow-up with surgery in 1 week, primary care provider 3 to 5 days Physical Exam Narrative: EXAM NARRATIVE: General exam no apparent distress Cardiovascular regular in rhythm without murmur Lungs clear Abdomen with ostomy, with stool noted Extremities no cyanosis clubbing or edema Urinary Catheter Management^: Cazares: Cath Placed During This Visit: no Discharge Data Data Completed and Pending: Completed Studies During Hospitalization Category Date Time Status CT abdomen pelvis w con* [id number] Stat Cat Scan 12/26/19 08:[address] abdomen pelvis w con* [id number] Urge nt Cat Scan 12/16/19 10:[address] abdomen pelvis w con* [id number] Urge nt Cat Scan 12/19/19 06:13 Completed XR chest 1V [id number] Routine Exams 12/18/19 15:20 Completed XR chest 1V ajay ble [id number] Routine Exams 12/17/19 11:43 Completed XR chest 1V ajay ble [id number] Routine Exams 12/26/19 06:00 Completed XR chest 1V ajay ble [id number] Stat Exams 12/20/19 10:02 Completed XR chest 1V ajay ble [id number] Urgent Exams 12/25/19 07:57 Completed Pathology: Surgic al [PTH] Routine Pth 12/19/19 18:17 Completed Pending at discharge Category Date Time Status ES surgery / GI i mages Routine Exams 12/19/19 14:22 Taken Blood Culture Sta t Lab 12/25/19 09:27 Results Labs from last 24 hours 12/28/19 12/28/19 12/28/19 10:59 06:44 06:44 WBC 13.3 H RBC 2.92 L Hgb 9.3 L Hct 29.2 L MCV 100.0 H MCH 31.8 MCHC 31.8 RDW 14.4 Plt Count 253 MPV 9.9 Neut % (Auto) 69.2 Lymph % (Auto) 14.3 [place] % (Auto) 7.5 Eos % (Auto) 0.0 Baso % (Auto) 0.2 Neut # (Auto) 9.2 H Lymph # (Auto) 1.9 [place] # (Auto) 1.0 H Eos # (Auto) 0.0 Baso # (Auto) 0.0 Nucleated RBC % (a uto) 0 Nucleated RBCs # 0.0 Sodium 140 Potassium 3.6 Chloride 105 Carbon Dioxide 25 Anion Gap 13.6 BUN 10 Creatinine 1.1 H GFR Calculation 50.2 L Glucose 123 H POC Glucose 171 Calcium 8.2 L Magnesium Total Bilirubin 0.5 AST 13 ALT 29 Alkaline Phosphata se 50 Total Protein 4.6 L Albumin 2.1 L Globulin 2.5 12/28/19 12/27/19 12/27/19 06:44 22:01 16:49 WBC RBC Hgb Hct MCV MCH MCHC RDW Plt Count MPV Neut % (Auto) Lymph % (Auto) [place] % (Auto) Eos % (Auto) Baso % (Auto) Neut # (Auto) Lymph # (Auto) [place] # (Auto) Eos # (Auto) Baso # (Auto) Nucleated RBC % (a uto) Nucleated RBCs # Sodium Potassium Chloride Carbon Dioxide Anion Gap BUN Creatinine GFR Calculation Glucose POC Glucose 169 177 Calcium Magnesium 1.7 Total Bilirubin AST ALT Alkaline Phosphata se Total Protein Albumin Globulin Vitals: Last Vital Signs Temp 97.3 F L 12/28/19 11:11 Pulse 64 12/28/19 11:11 Resp 20 H 12/28/19 11:11 BP 130/66 12/28/19 11:11 Pulse Ox 97 12/28/19 11:11 Discharge Plan Discharge Patient Disposition: Home, Self-Care Condition: Stable Prescriptions: New amoxicillin-pot clavulanate [Augmentin] 875-125 mg tablet 1 tab PO BID Qty: 6 RF: 0 metronidazole [Flagyl] 500 mg tablet 500 mg PO TID Qty: 9 RF: 0 Continued nitroglycerin [Nitrostat] 0.4 mg tablet, sublingual 0.4 mg SUBLINGUAL Q5M PRN (Reason: Chest Pain) RF: 0 levothyroxine 50 mcg capsule 50 mcg PO QDAY RF: 0 darifenacin [Enablex] 7.5 mg tablet extended release 24 hr 7.5 mg PO QDAY RF: 0 calcium carbonate [Calcium 600] 600 mg calcium (1,500 mg) tablet 600 mg PO QDAY RF: 0 Prilosec OTC 20 mg tablet,delayed release (DR/EC) 20 mg PO QDAY RF: 0 aspirin 81 mg tablet,delayed release (DR/EC) 81 mg PO QDAY RF: 0 atenolol 25 mg tablet 25 mg PO QDAY RF: 0 cyclobenzaprine 10 mg tablet 10 mg PO DAILY RF: 0 ascorbate calcium (vitamin C) 500 mg tablet 500 mg PO QDAY RF: 0 prednisone 5 mg Tablet 5 mg PO DAILY RF: 0 ziprasidone HCl 60 mg Capsule 60 mg PO BID RF: 0 venlafaxine 150 mg Tablet Extended Release 24hr 150 mg PO QPM RF: 0 Discharge Orders: Discharge Order (Routine); Ordered 12/28/19 Ordered By: Slick Grissom Referrals: Umer Vann MD [Physician] - 7-10 days Maryana Lloyd FNP-Kailyn [Primary Care Provider] - 4-7 days Discharge Diet: Cardiac Discharge Activity: Increase activity as tolerated Activity Restrictions/Additional Instructions: Take all medicine as prescribed. Follow-up in surgery clinic 1 week. Home health. Discharge Attestations Time Spent in Discharge Care*: greater than 30 min Quality Metrics Clinical Quality Measures During this hospital stay, did patient experience: None Coding Level of Care Code Acute Museum Specialist for Traci Rose Diagnoses Perforation of sigmoid colon K63.1
[2019-12-28 17:19] LABS: Glucose Point of Care 150 mg/dL (70-110)
[2020-01-03 10:12] LABS: Glucose Point of Care 112 mg/dL (70-110)
== END 2019-12-28 19:40 | disposition home health service (06) | DRG 330 ==
LOC: ER 10:30 → MEDSURG 12:52 → ICU 12-19 15:45 → MEDSURG 12-22 20:43
PROVIDERS: Internal Medicine; Student in an Organized Health Care Education/Training Program; Surgery; Admitting Provider Student in an Organized Health Care Education/Training Program; Emergency Provider Family Medicine; Family Provider Nurse Practitioner Family; PCP Nurse Practitioner Family; Visit Provider Internal Medicine
PROC: (CPT 49320; principal; 2019-12-19 14:45)
PROC: (CPT 44140; 2019-12-19 14:45)
PROC: (CPT 44320; 2019-12-19 14:45)
DX: K57.20 Diverticulitis of large intestine with perforation and abscess without bleeding (principal); D62 Acute posthemorrhagic anemia; Z68.42 Body mass index [BMI] 45.0-49.9, adult; G47.33 Obstructive sleep apnea (adult) (pediatric); E03.9 Hypothyroidism, unspecified; K21.9 Gastro-esophageal reflux disease without esophagitis; Z79.82 Long term (current) use of aspirin; E66.01 Morbid (severe) obesity due to excess calories; F32.9 Major depressive disorder, single episode, unspecified; L30.4 Erythema intertrigo; Z79.52 Long term (current) use of systemic steroids; R73.9 Hyperglycemia, unspecified
CPT/HCPCS: 12345; 36415; 36416; 36592; 71045; 74177; 80048; 80053; 80061; 81003; 82962; 83540; 83550; 83605; 83690; 83735; 85007; 85014; 85018; 85025; 85027; 87040; 87493; 87505; 87804; 88309; 93005; 94640; 94660; 96365; 96366; 96372; 96374; 96375; 97116; 97163; 97530; 99281; A9270; C1751; C9113; C9290; J1100; J1170; J1200; J1450; J1644; J1756; J1815; J1885; J1940; J2001; J2270; J2405; J2543; J2704; J2710; J2765; J2920; J3010; J3370; J3490; J7030; J7040; J7050; J7512; Q9967; S0030

== ENCOUNTER 2019-12-16 10:14 | Emergency (ER) | payer MEDICAID, SELFPAY | END 2019-12-16 13:05 | disposition admitted as inpatient to this hospital (09) | LOC: ER 01-12 12:43 | PROVIDERS: Emergency Provider Family Medicine; Family Provider Nurse Practitioner Family; PCP Nurse Practitioner Family | DX: K57.20 Diverticulitis of large intestine with perforation and abscess without bleeding (principal); K21.9 Gastro-esophageal reflux disease without esophagitis; E03.9 Hypothyroidism, unspecified | CPT/HCPCS: 36415; 74177; 80053; 83605; 83690; 85025; 87040; 96365; 96366; 96374; 96375; 96376; 99281; 99285; A9270; J2270; J2405; J2543; J7040 ==

== ENCOUNTER 2019-12-16 12:40 | Emergency (ER) | payer MEDICAID, SELFPAY | END 2019-12-16 12:41 | disposition home or self-care (01) | PROVIDERS: Family Provider Nurse Practitioner Family; PCP Nurse Practitioner Family | DX: Z76.89 Persons encountering health services in other specified circumstances (principal) ==

== ENCOUNTER 2019-12-29 06:44 | Emergency (ER) | payer MEDICAID, SELFPAY ==
[2019-12-29 06:48] VITALS: BP 183/85; PULSE 104; RESP 20; TEMP 36.8; O2SAT 92; BMI 42.9
--- NOTE | 2019-12-29 07:09 | ED_ITS ---
Entered by Alix Basilio, acting as scribe for Dec 29, 2019 06:44 HPI - General Adult General: Chief complaint: General Medical Stated complaint: OPEN WOUND Time Seen by Provider: 12/29/19 06:56 Source: patient and family Mode of arrival: ambulatory Limitations: no limitations History of Present Illness: HPI narrative: 64 yo female presents with colostom y bag leaking. pt states she was discharged last night from the hospital floor here. pt had a perforated bowel, Dr. Vann did surgery on pt. pt has a open wound and the colostomy bag started leaking and feces got all over the wound, family stated they did not send her home with wound dressings and home health was suppose to be out today to help them but the doctor told them not to let that happened because it could become infected. Onset (ago): day(s) (last night at 8 pm) Location: abdomen Radiation: non-radiation Severity: moderate Relieving factors: none Exacerbating factors: movement Associated symptoms: Deny chest pain, dyspnea, headache(s), nausea, rash or vomiting Treatments prior to arrival: none Review of Systems Const: Denies: fever, chills, body aches or change in appetite Eyes: Denies: blurry vision or eye discomfort ENMT: Denies: throat pain or dental pain Card: Denies: chest pain Resp: Denies: shortness of breath GI: Reports: abdominal pain; Denies: nausea, vomiting or diarrhea : Denies: painful urination Musc: Denies: neck pain or back pain Skin/Breast: Denies: rash Neuro: Denies: headache Psych: Denies: depression Patrice/Lymph: Denies: easy bruising All/Imm: Denies: hives PFSH ED PFSH: Statuses (acute, chronic, etc) shown below reflect problem list status as previously entered and may not be historically accurate Medical History GERD (gastroesophageal reflux disease) (Acute) History of sleep apnea (Acute) Hypothyroid (Chronic) Perforated abdominal viscus (Resolved) Sleep apnea (Chronic) Surgical History H/O tubal ligation (Acute) History of colonoscopy (Acute) History of tonsillectomy (Acute) Perforation of sigmoid colon (Resolved) Status post diverting colostomy Family History Mother Cancer Other Hypertension Perforation of sigmoid colon Social History Smoking and tobacco status: former smoker Alcohol intake: never Physical Exam Const: COMMON NORMALS: no apparent distress, oriented x3 and healthy appearing HENMT: COMMON NORMALS: normocephalic and head/scalp atraumatic HEAD & SCALP: normocephalic and atraumatic Eye: COMMON NORMALS: PERRL and EOMs intact bilaterally PUPIL: Yes PERRL Neck/C-Spine: COMMON NORMALS: full ROM and supple Chest: COMMONS NORMALS: inspection of chest normal and palpation of chest normal Resp: COMMON NORMALS: normal respiratory effort, no retractions, no use of accessory muscles and clear to auscultation bilaterally AUSCULTATION: clear to auscultation bilaterally Cardio: COMMON NORMALS: regular rate, regular rhythm and no murmurs RATE: regular rate RHYTHM: regular rhythm GI: COMMON NORMALS: normal to inspection, nondistended, normoactive bowel sounds, soft to palpation, non-tender and no masses PALPATION: Yes soft OTHER: Colostomy in place but does have leakage of stool around it. Wound does have dehiscence with packing in place with no signs of infection is clean dry and intact Extremity: COMMON NORMALS: normal to inspection and full ROM Neuro: COMMON NORMALS: oriented x3, moves all extremities and no focal motor deficits Psych: COMMON NORMALS: mental status grossly normal, thought process normal a nd cooperative THOUGHT PROCESS: normal thought process Course Vital Signs: Vital signs: Vital Signs Temperature 98.3 F 12/29/19 06:48 Pulse Rate 105 H 12/29/19 10:02 Respiratory Rate 20 H 12/29/19 10:02 Blood Pressure 174/65 12/29/19 10:02 Pulse Oximetry 96 12/29/19 10:02 MDM - General Adult MDM Narrative: Medical decision making narrative: Patient presents here with difficulty with her colostomy bag. Had nursing here educate her on use and change it out. Also had surgical nurse come down and change out her dressing. Patient is stable for discharge and has home health today as well. Discharge Plan Discharge Patient Disposition: Home, Self-Care Clinical Impression: Complication of ostomy Condition: Stable Prescriptions: No Action nitroglycerin [Nitrostat] 0.4 mg tablet, sublingual 0.4 mg SUBLINGUAL Q5M PRN (Reason: Chest Pain) RF: 0 levothyroxine 50 mcg capsule 50 mcg PO QDAY RF: 0 darifenacin [Enablex] 7.5 mg tablet extended release 24 hr 7.5 mg PO QDAY RF: 0 calcium carbonate [Calcium 600] 600 mg calcium (1,500 mg) tablet 600 mg PO QDAY RF: 0 Prilosec OTC 20 mg tablet,delayed release (DR/EC) 20 mg PO QDAY RF: 0 aspirin 81 mg tablet,delayed release (DR/EC) 81 mg PO QDAY RF: 0 atenolol 25 mg tablet 25 mg PO QDAY RF: 0 cyclobenzaprine 10 mg tablet 10 mg PO DAILY RF: 0 ascorbate calcium (vitamin C) 500 mg tablet 500 mg PO QDAY RF: 0 prednisone 5 mg Tablet 5 mg PO DAILY RF: 0 ziprasidone HCl 60 mg Capsule 60 mg PO BID RF: 0 venlafaxine 150 mg Tablet Extended Release 24hr 150 mg PO QPM RF: 0 Augmentin 875-125 mg tablet 1 tab PO BID Qty: 6 RF: 0 Flagyl 500 mg tablet 500 mg PO TID Qty: 9 RF: 0 Discharge Orders: Discharge Order (Routine); Ordered 12/29/19 Ordered By: Melvin Jackson Referrals: Umer Vann MD [Physician] - 4-7 days Maryana Lloyd, [facility] [Primary Care Provider] - Discharge Diet: Advance as tolerated Discharge Activity: Resume usual activity Patient Instructions: Colectomy (GEN) Discharge Date/Time: 12/29/19 10:05 Coding Level of Care Code ED Extractor Machine Operator for Chg Fwd Exam Problem Focused The documentation recorded by the Praful watkins Bridget Annette, accurately reflects the service I personally performed and the decisions made by Renetta crane Korby, MD Dec 29, 2019 06:44
--- NOTE | 2019-12-29 09:04 | PC.NURSE ---
OSTOMY BAG WAS CHANGED WITH NEW CLEAN BAG NEW BANDAGE APPLIES
--- NOTE | 2019-12-29 09:51 | PC.NURSE ---
WOUND IS REPACKED WITH PACKING AFTERBEING RINSED WITH STERILE SALINE THEN COVERED WITH ISLAND BANDAGES. PATIENT TOLERATED WELL
--- NOTE | 2019-12-29 09:59 | PC.NURSE ---
WOUND COVERED WITH ISLAND DRESSINGS AND ABD, PATIENT ADVISED TO NOT WEAR ANY TIGHT FITTING UNDERWEAR OR PANTS ACROSS THE INCISION
[2019-12-29 10:02] VITALS: BP 174/65; PULSE 105; RESP 20; O2SAT 96
== END 2019-12-29 10:05 | disposition home or self-care (01) ==
PROVIDERS: Emergency Provider Emergency Medicine; Family Provider Nurse Practitioner Family; PCP Nurse Practitioner Family
DX: K94.00 Colostomy complication, unspecified (principal); Z79.82 Long term (current) use of aspirin; Z87.891 Personal history of nicotine dependence; K21.9 Gastro-esophageal reflux disease without esophagitis; E03.9 Hypothyroidism, unspecified
CPT/HCPCS: 99281

== ENCOUNTER 2019-12-30 20:39 | Emergency (ER) | payer MEDICAID, SELFPAY | END 2019-12-31 01:14 | disposition admitted as inpatient to this hospital (09) | LOC: ER 02-22 09:23 | PROVIDERS: Emergency Provider Family Medicine; Family Provider Nurse Practitioner Family; PCP Nurse Practitioner Family | DX: Z76.89 Persons encountering health services in other specified circumstances (principal) ==

== ENCOUNTER 2019-12-30 20:39 | Observation (INO) | payer MEDICAID, SELFPAY ==
[2019-12-30 20:41] VITALS: BP 140/80; PULSE 112; RESP 18; TEMP 37.1; O2SAT 96; BMI 42.9
--- NOTE | 2019-12-30 20:50 | ED_ITS ---
Entered by Alisa Patel, acting as scribe for Jami Khan MD, MSM Documented by User: Jami Khan MD, MSM 12/31/19 11:41 HPI - General Adult General: Chief complaint: General Medical Stated complaint: ABDOMINAL PAIN FROM COLOSTOMY Time Seen by Provider: 12/30/19 20:50 Source: patient, EMS and RN notes reviewed Mode of arrival: EMS Limitations: no limitations History of Present Illness: HPI narrative: 64 yo female presents to ED with complaints of pain around her colostomy site. She had surgery on 12.19.2019 for a bowel obstruction and a colostomy bag was placed at that time. The patient states the bag will not seal and the area is raw from dressing changes. She said she simply cannot stand the pain with the dressing changes. She said she has open wounds on her abdomen. She said even after changing it will start leaking again - will stay sealed only a couple of hours. The dressing was changed and loosely covered by the home health nurse earlier but is it is so tender that she cannot handle it being touched. She said she lower extremity swelling, which is new. The patient requests to go to [facility] in [place]. She understands that since we have a general surgeon here she will likely be charged for the ambulance trip to [place]. She also understands that it is unlikely that a surgeon would like to do with another surgeons complication. complaint: abdominal pain due to recent colostomy Onset (ago): day(s) (11) Location: abdomen Radiation: non-radiation Severity: severe and similar to prior episodes Quality: burning and constant Pain Consistency: constant Relieving factors: none Exacerbating factors: movement and other (dressing change) Associated symptoms: Reports chest pain and other (open wounds); Deny dyspnea, headache(s), nausea, rash, palpitations or vomiting Treatments prior to arrival: none Review of Systems General: Reports: 10 or more systems reviewed and unremarkable except in HPI and below Const: Denies: fever, chills or body aches Eyes: Reports: blind spots; Denies: change in vision or blurry vision ENMT: Denies: throat pain, enlarged tonsils, painful swallowing, hoarseness, mouth pain or swelling of lips/tongue Card: Reports: chest pain; Denies: palpitations, irregular heart rhythm, edema or swelling of feet/ankles Resp: Denies: shortness of breath, productive cough or non-productive cough GI: Denies: abdominal pain, nausea or vomiting : Denies: flank pain, difficulty urinating, painful urination, urinary frequency, urinary urgency or urinary hesitancy Musc: Reports: extremity pain (left shoulder), joint pain (left shoulder) and limited range of motion; Denies: neck pain, back pain or extremity swelling Skin/Breast: Denies: rash, itching or redness Neuro: Denies: headache, numbness in extremities or weakness in extremities Endo: Denies: excessive urination, excessive thirst or tired all the time PFSH ED PFSH: Statuses (acute, chronic, etc) shown below reflect problem list status as previously entered and may not be historically accurate Medical History (Updated 12/31/19 @ 09:36 by Yony Vergara MD) GERD (gastroesophageal reflux disease) (Acute) History of sleep apnea (Acute) Hypothyroid (Chronic) Perforated abdominal viscus (Resolved) Sleep apnea (Chronic) Surgical History (Updated 12/30/19 @ 23:59 by Sean Ramey MD) H/O tubal ligation (Acute) History of colonoscopy (Acute) History of tonsillectomy (Acute) Perforation of sigmoid colon (Resolved) Status post diverting colostomy S/P small bowel resection (Acute) Status post Sabine procedure (Acute) Social History (Updated 12/30/19 @ 23:59 by Sean Ramey MD) Smoking and tobacco status: never smoked Alcohol intake: never Substance/Drug Use: never Household members: family Housing: House Physical Exam Const: COMMON NORMALS: no apparent distress, average body habitus, oriented x3, no limitations, healthy appearing, alert and well nourished HENMT: COMMON NORMALS: normocephalic, head/scalp atraumatic and moist oral mucous membranes HEAD & SCALP: normocephalic and atraumatic Eye: COMMON NORMALS: PERRL, EOMs intact bilaterally, conjunctivae normal and no scleral icterus CONJUNCTIVA: Yes conjunctivae normal PUPIL: Yes PERRL Neck/C-Spine: COMMON NORMALS: full ROM, supple, no meningeal signs, no JVD and no carotid bruits Chest: COMMONS NORMALS: inspection of chest normal and palpation of chest normal Resp: COMMON NORMALS: normal respiratory effort, no retractions, no use of accessory muscles, clear to auscultation bilaterally and percussion normal AUSCULTATION: clear to auscultation bilaterally PERCUSSION: percussion normal Cardio: COMMON NORMALS: no JVD, regular rate, regular rhythm, S1 normal heart sound, S2 normal heart sound, no gallops, no clicks, no murmurs, no rub and peripheral pulses 2+ throughout RATE: regular rate RHYTHM: regular rhythm HEART SOUNDS: S1 normal and S2 normal PERIPHERAL PULSES: pulses 2+ throughout GI: COMMON NORMALS: normal to inspection, nondistended, normoactive bowel sounds, soft to palpation, non-tender, no hepatosplenomegaly, no masses and no bruits PALPATION: Yes soft and Yes no hepatosplenomegaly OTHER: 2 dressings in the lower part of her abdomen noted. Wound dressing over the colostomy site clean and dry. Colostomy site inspected. The skin around the colostomy site is irritated, erythematous, tender. The medial aspect of the colostomy leakage of fecal material around the stoma site starting to go under the abdominal wall. No tunneling noted at this time. Area is significantly tender. Surgical wound inspected. At about midway down the surgical incision site there appears to be an area of purulent drainage. There is also erythema around each staple. There is mild tenderness around the surgical wound. : COMMON NORMALS: Yes no CVA tenderness BLADDER/KIDNEY EXAM: Yes no CVA tenderness Back/Pelvis: COMMON NORMALS: no CVA tenderness Extremity: COMMON NORMALS: normal to inspection, full ROM, normal capillary refill, no calf tenderness and no pedal edema Neuro: COMMON NORMALS: oriented x3 SENSORIUM/ORIENTATION: Yes alert MENINGEAL SIGNS: Yes no meningeal signs Skin: COMMON NORMALS: no rashes or lesions noted, no wounds, skin turgor normal, no jaundice, no petechiae and no mottling GENERAL SKIN EXAM: no rashes or lesions noted and turgor normal Course Consultations: Consultation #1: . General surgeon who performed the surgery. The issue appears to be stoma care. After discussion with the surgeon he agrees that the patient can be admitted to the hospitalist and he will examine the patient in the morning. Consultation #2: Discussed with the hospitalist at [facility]. There is no medical indication for transferring the patient and so he declined this patient. Vital Signs: Vital signs: Vital Signs Temperature 97.8 F 12/31/19 11:13 Pulse Rate 101 H 12/31/19 11:13 Respiratory Rate 19 H 12/31/19 11:13 Blood Pressure 145/83 12/31/19 11:13 Pulse Oximetry 94 12/31/19 11:13 [facility] - General Adult Lab Data: Labs: Lab Results 12/30/19 12/30/19 Range/Units 22:00 22:00 WBC 9.8 (4.0-10.0) 10^3/ uL RBC 3.17 L (4.1-5.3) 10^6/u L Hgb 9.7 L (11.5-15.3) g/dL Hct 30.2 L (37.0-47.0) % MCV 95.3 (81-99) fL MCH 30.6 (28.0-34.0) pg MCHC 32.1 (30.0-36.0) g/dL RDW 14.2 (12.1-15.1) % Plt Count 316 (130-400) 10^3/c mm MPV 9.7 (7.4-10.4) fL Neut % (Auto) 69.3 % Lymph % (Auto) 15.4 % Rawlins % (Auto) 10.8 % Eos % (Auto) 0.0 % Baso % (Auto) 0.2 % Neut # (Auto) 6.8 (1.8-7.7) 10^3/u L Lymph # (Auto) 1.5 (0.8-4.8) 10^3/u L Rawlins # (Auto) 1.1 H (0.2-0.9) 10^3/u L Eos # (Auto) 0.0 (0.0-0.8) 10^3/u L Baso # (Auto) 0.0 (0.0-0.1) 10^3/u L Nucleated RBC % (a uto) 0 % Nucleated RBCs # 0.0 /100WBC Sodium 138 (136-145) mmol/L Potassium 3.3 L (3.5-5.1) mmol/L Chloride 100 (98-107) mmol/L Carbon Dioxide 26 (22-29) mmol/L Anion Gap 15.3 (5-19) BUN 5 L (8-23) mg/dL Creatinine 1.0 H (0.5-0.9) mg/dL GFR Calculation 56.0 L (90-130) mL/min Glucose 176 H (74-106) mg/dL Calcium 8.6 (8.5-10.5) mg/dL Total Bilirubin 0.3 (0.15-1.2) mg/dL AST 14 (0-32) U/L ALT 24 (0-33) U/L Alkaline Phosphata se 61 (35-105) IU/L Total Protein 5.2 L (6.6-8.7) g/dL Albumin 2.6 L (3.5-5.2) g/dL Globulin 2.6 (1.3-4.6) g/dL Discharge Plan Discharge Patient Disposition: Admitted As Inpatient Admit Provider: Sean Ramey Condition: Stable Discharge Orders: Transfer Out of Facility (Order); Ordered 12/31/19 Ordered By: Yony Vergara Referrals: Maryana Lloyd FNP-C [Primary Care Provider] - Discharge Date/Time: 12/31/19 01:14 Coding Level of Care Code ED Executive Chef Assistant for Chg Fwd Exam Problem Focused Documented by User: Husam Chaparro DO 12/31/19 04:19 HPI - General Adult General: Chief complaint: General Medical Stated complaint: ABDOMINAL PAIN FROM COLOSTOMY Time Seen by Provider: 12/30/19 20:50 PFSH ED PFSH: Statuses (acute, chronic, etc) shown below reflect problem list status as previously entered and may not be historically accurate Medical History (Updated 12/31/19 @ 09:36 by Yony Vergara MD) GERD (gastroesophageal reflux disease) (Acute) History of sleep apnea (Acute) Hypothyroid (Chronic) Perforated abdominal viscus (Resolved) Sleep apnea (Chronic) Surgical History (Updated 02/01/20 @ 23:59 by Sean Ramey MD) H/O tubal ligation (Acute) History of colonoscopy (Acute) History of tonsillectomy (Acute) Perforation of sigmoid colon (Resolved) Status post diverting colostomy S/P small bowel resection (Acute) Status post Sabine procedure (Acute) Social History (Updated 12/30/19 @ 23:59 by Sean Ramey MD) Smoking and tobacco status: never smoked Alcohol intake: never Substance/Drug Use: never Household members: family Housing: House Course ED course: 64-year-old lady checked out to me by Dr. Khan. We are awaiting CT findings before transferring the patient to the floor for the hospitalist to see, and the general surgeon this morning. CT showed some superficial cellulitis, with mild wound dehiscence. No evidence of deep infection or other surgical complication. Vital Signs: Vital signs: Vital Signs Temperature 97.8 F 12/31/19 11:13 Pulse Rate 101 H 12/31/19 11:13 Respiratory Rate 19 H 12/31/19 11:13 Blood Pressure 145/83 12/31/19 11:13 Pulse Oximetry 94 12/31/19 11:13 MDM - General Adult Lab Data: Labs: Lab Results 12/30/19 12/30/19 Range/Units 22:00 22:00 WBC 9.8 (4.0-10.0) 10^3/ uL RBC 3.17 L (4.1-5.3) 10^6/u L Hgb 9.7 L (11.5-15.3) g/dL Hct 30.2 L (37.0-47.0) % MCV 95.3 (81-99) fL MCH 30.6 (28.0-34.0) pg MCHC 32.1 (30.0-36.0) g/dL RDW 14.2 (12.1-15.1) % Plt Count 316 (130-400) 10^3/c mm MPV 9.7 (7.4-10.4) fL Neut % (Auto) 69.3 % Lymph % (Auto) 15.4 % Rawlins % (Auto) 10.8 % Eos % (Auto) 0.0 % Baso % (Auto) 0.2 % Neut # (Auto) 6.8 (1.8-7.7) 10^3/u L Lymph # (Auto) 1.5 (0.8-4.8) 10^3/u L Rawlins # (Auto) 1.1 H (0.2-0.9) 10^3/u L Eos # (Auto) 0.0 (0.0-0.8) 10^3/u L Baso # (Auto) 0.0 (0.0-0.1) 10^3/u L Nucleated RBC % (a uto) 0 % Nucleated RBCs # 0.0 /100WBC Sodium 138 (136-145) mmol/L Potassium 3.3 L (3.5-5.1) mmol/L Chloride 100 (98-107) mmol/L Carbon Dioxide 26 (22-29) mmol/L Anion Gap 15.3 (5-19) BUN 5 L (8-23) mg/dL Creatinine 1.0 H (0.5-0.9) mg/dL GFR Calculation 56.0 L (90-130) mL/min Glucose 176 H (74-106) mg/dL Calcium 8.6 (8.5-10.5) mg/dL Total Bilirubin 0.3 (0.15-1.2) mg/dL AST 14 (0-32) U/L ALT 24 (0-33) U/L Alkaline Phosphata se 61 (35-105) IU/L Total Protein 5.2 L (6.6-8.7) g/dL Albumin 2.6 L (3.5-5.2) g/dL Globulin 2.6 (1.3-4.6) g/dL Discharge Plan Discharge Patient Disposition: Admitted As Inpatient Admit Provider: Sean Ramey Condition: Stable Discharge Orders: Transfer Out of Facility (Order); Ordered 12/31/19 Ordered By: Yony Vergara Referrals: Maryana Lloyd FNP-C [Primary Care Provider] - Discharge Date/Time: 12/31/19 01:14 Coding Level of Care Code ED Executive Chef Assistant for Chg Fwd Exam Problem Focused The documentation recorded by the Jorge watkins Valerie R, accurately reflects the service I personally performed and the decisions made by , Jami Khan MD, [facility] Dec 30, 2019 20:39
[2019-12-30 20:52] VITALS: BP 151/103; PULSE 111; RESP 16; TEMP 37.1; O2SAT 96
[2019-12-30 20:56] VITALS: PULSE 113; RESP 16; O2SAT 97
[2019-12-30 22:05] VITALS: BP 146/88; PULSE 115; RESP 16; O2SAT 97
--- NOTE | 2019-12-30 22:05 | PC.NURSE ---
LAB IN ROOM
[2019-12-30 22:13] LABS: Basophils % 0.2 %; Hematocrit 30.2 % (37.0-47.0); Hemoglobin 9.7 g/dL (11.5-15.3); Lymphocytes # 1.5 10^3/uL (0.8-4.8); Lymphocytes % 15.4 %; Mean Corpuscular HGB Conc 32.1 g/dL (30.0-36.0); Mean Corpuscular Hemoglobin 30.6 pg (28.0-34.0); Mean Corpuscular Volume 95.3 fL (81-99); Mean Platelet Volume 9.7 fL (7.4-10.4); Monocytes # 1.1 10^3/uL (0.2-0.9); Monocytes % 10.8 %; Neutrophils # 6.8 10^3/uL (1.8-7.7); Neutrophils % 69.3 %; Nucleated Red Blood Cells % 0 %; Platelet Count 316 10^3/cmm (130-400); Red Blood Count 3.17 10^6/uL (4.1-5.3); Red Cell Distribution Width 14.2 % (12.1-15.1); White Blood Count 9.8 10^3/uL (4.0-10.0)
[2019-12-30 22:41] LABS: Alanine Aminotransferase 24 U/L (0-33); Albumin Level 2.6 g/dL (3.5-5.2); Alkaline Phosphatase 61 IU/L (35-105); Anion Gap 15.3 (5-19); Aspartate Amino Transferase 14 U/L (0-32); Blood Urea Nitrogen 5 mg/dL (8-23); Calcium 8.6 mg/dL (8.5-10.5); Carbon Dioxide 26 mmol/L (22-29); Chloride 100 mmol/L (98-107); Creatinine Clr Calc Pharmacy 71.0671; Globulin 2.6 g/dL (1.3-4.6); Glucose 176 mg/dL (74-106); Potassium 3.3 mmol/L (3.5-5.1); Sodium 138 mmol/L (136-145); Total Bilirubin 0.3 mg/dL (0.15-1.2); Total Protein 5.2 g/dL (6.6-8.7)
--- NOTE | 2019-12-30 23:00 | P.HP_ITS ---
Providers/Chief Complaint Primary Care Provider: Maryana Lloyd PROJECT STRUCTURAL ENGINEER-C Chief Complaint: ABDOMINAL PAIN FROM COLOSTOMY History of Present Illness Candice Sepulveda is a 64 year old female who recently had diagnostic laparoscopy converted to laparotomy and sigmoid colon resection with colostomy and small bowel resection, Harman's procedure, Peritoneal lavage, came back with chief complaint of surgical site purulent discharge detachment) back. Patient was discharged on 12/28 first with Augmentin and ciprofloxacin 1 week course, home health services to change her colostomy bag. Patient is stating that she went home and claustrum bag got very lucent and got detached, there was feculent material that was spilling from the stoma with spilled towards her laparotomy vijay and had been very irritating to her skin. She did not notice any fever, nausea, vomiting, dysuria, excruciating abdominal pain. She was seen in ER yesterday, her colostomy bag was replaced by the nurse in ER and she was discharged back. As soon as she got back home her colostomy bag detached again. Her son is very upset about this and articulated his concerns and frustration to the ER physician and myself. Diagnostics in ER did not show any signs of sepsis, Dr. Vann was notified who recommended CT with oral contrast to see if there is any spillage of the contrast in peritoneal cavity however she will be admitted overnight because of surgical site infection. She is tachycardic without any leukocytosis or fever. Review of Systems Const: Reports: body aches, fatigue and malaise; Denies: fever or chills Eyes: Denies: change in vision ENMT: Denies: throat pain or uvular edema Card: Denies: chest pain or palpitations Resp: Denies: shortness of breath GI: Reports: abdominal pain, heartburn/indigestion and bloating; Denies: nausea, vomiting, constipation or excessive passing of gas : Denies: flank pain or difficulty urinating Musc: Denies: neck pain Skin/Breast: Reports: rash, itching, redness, skin pain, skin tenderness, sores, non-healing lesion and surgical incision Neuro: Denies: headache Psych: Denies: anxiety or depression Endo: Denies: excessive urination Patrice/Lymph: Denies: easy bruising All/Imm: Denies: hives Medications/Allergies Allergies Allergy/AdvReac Type Severity Reaction Status Date / Time amitriptyline Allergy unknown Verified 12/14/19 12:29 ciprofloxacin [From Cipro] Allergy unknown Verified 12/14/19 12:29 codeine Allergy ALEXEI-Jordenll Verified 12/16/19 10:24 Lip/Tongue/Throat PFSH Acute PFSH: Statuses (acute, chronic, etc) shown below reflect problem list status as previously entered and may not be historically accurate Medical History (Updated 12/30/19 @ 23:59 by Sean Rmaey MD) GERD (gastroesophageal reflux disease) (Acute) History of sleep apnea (Acute) Hypothyroid (Chronic) Perforated abdominal viscus (Resolved) Sleep apnea (Chronic) Surgical History (Updated 12/30/19 @ 23:59 by Sean Ramey MD) H/O tubal ligation (Acute) History of colonoscopy (Acute) History of tonsillectomy (Acute) Perforation of sigmoid colon (Resolved) Status post diverting colostomy S/P small bowel resection (Acute) Status post Sabine procedure (Acute) Social History (Updated 12/30/19 @ 23:59 by Sean Ramey MD) Smoking and tobacco status: never smoked Alcohol intake: never Substance/Drug Use: never Household members: family Housing: House Vitals/I&O/Wt Last Vital Signs Temp 98.7 F 12/30/19 20:52 Pulse 115 H 12/30/19 22:05 Resp 16 12/30/19 22:05 BP 146/88 12/30/19 22:05 Pulse Ox 97 12/30/19 22:05 Weight last 48 hrs Weight 113.398 kg Physical Exam Narrative: EXAM NARRATIVE: Morbidly obese female lying comfortably in her bed, saturating well on room air, normal hemodynamics other than sinus tachycardia, heart rate 110 Her lips are dry with dry mucous membranes of buccal mucosa Bilateral breath sounds without any adventitious sounds S1-S2 no JVD, however she has bilateral lower extremity 1+ edema Her abdomen is soft no active signs of peritonitis, her exploratory staple site is hyperemic with mild purulent content in the middle Colostomy site has multiple open sores with hyperemia and serous discharge, there is dark-colored scar at the ostomy site Bowel sounds are sluggish, mild irritation and pain on removing the bandage otherwise on deep palpation her abdomen is nontender Bilateral lower extremity 1+ pitting edema Neurologically nonfocal exam Appropriate mood and affect Data : 12/30/19 22:00 12/30/19 22:00 A&P Assessment and plan (1) Surgical site infection: Status: Acute Code(s): T81.49XA - Infection following a procedure, other surgical site, initial encounter (2) Complication of ostomy: Status: Acute (3) Sleep apnea: Status: Chronic Code(s): G47.30 - Sleep apnea, unspecified (4) Morbid obesity: Status: Chronic Code(s): E66.01 - Morbid (severe) obesity due to excess calories Additional A&P Information Postoperative surgical site infection secondary to exposure to feculent material There is mild purulent drainage from fourth and fifth staple site from laparotomy scar Stoma site has dark color scar tissue, no active drainage however has multiple sores which has serous discharge She has no active signs of sepsis however she is tachycardic, I will check lactic acid, keep her on D5 half-normal saline fluid for now CT abdomen with oral contrast to monitor for any spillage of the contrast in peritoneal cavity and monitor for any abscess development I will treat her with vancomycin and Zosyn for mild purulence cellulitis of surgical wound, de-escalate in next 24 hours if no signs of sepsis tomorrow morning Dr. Vann was informed by the ER physician who recommended CT abdomen with oral contrast, he will be happy to evaluate her on Wednesday in the morning, N.p.o. with ice chips DVT prophylaxis: SCDs, in case she needs any intervention I would avoid anticoagulation for now kindly readdress in the morning Wound care wet-to-dry Kerlix with ABD with topical bacitracin twice a day Will send a wound swab from the laparotomy scar Full code Attestations Medical Necessity Statement*: I will admit her as observation for now I am anticipating she will be discharged in less than 48 hours Time Spent in Patient Care: 50 Coding Level of Care Code Acute Drapery Examiner for Miyag Fwd Diagnoses Surgical site infection T81.49XA Complication of ostomy Sleep apnea G47.30 Morbid obesity E66.01
--- NOTE | 2019-12-30 23:03 | CTR_ITS ---
PROCEDURE INFORMATION: Exam: CT Abdomen And Pelvis With Contrast Exam date and time: 12/30/2019 11:11 PM Age: 64 years old Clinical indication: Abdominal pain; Generalized; Prior surgery; Surgery date: <1 month; Surgery type: Colostomy; Additional info: Colostomy complication TECHNIQUE: Imaging protocol: Computed tomography of the abdomen and pelvis with intravenous contrast. Total DLP: 1721.94 mGy-cm Radiation optimization: All CT scans at this facility use at least one of these dose optimization techniques: automated exposure control; mA and/or kV adjustment per patient size (includes targeted exams where dose is matched to clinical indication); or iterative reconstruction. Contrast material: OMNI 300; Contrast volume: 95 ml; Contrast route: IV; COMPARISON: CT abdomen pelvis w con* [id number] 12/26/2019 10:57 AM FINDINGS: Lungs: There is subpleural atelectasis of the dependent portions of the lungs. Pleural space: There is a trace right pleural effusion. Liver: There is a diffuse decrease in hepatic parenchymal density, consistent with fatty infiltration. Gallbladder and bile ducts: Normal. No calcified stones. No ductal dilation. Pancreas: Normal. No ductal dilation. Spleen: Normal. No splenomegaly. Adrenals: Normal. No mass. Kidneys and ureters: There is no evidence of hydronephrosis. There is no evidence of renal calcifications. Stomach and bowel: The gastric wall appears thickened but is also almost completely collapsed. This may simply be lack of distension. Wall thickening due to gastritis or inflammatory change cannot be excluded. There is an ostomy exiting the left lower quadrant. No bowel obstruction. The exiting loop of bowel has an appropriate appearance without any wall thickening or edema. The majority of the loops of bowel are collapsed. Appendix: No evidence of appendicitis. Intraperitoneal space: Previously visualized free intraperitoneal air has a most completely resolved. One punctate focus of air still visualized. There is a small amount of simple appearing fluid in the lower abdomen/left lower quadrant image 67 unchanged since the prior exam. No new or enlarging fluid collection and no abscess. Vasculature: Unremarkable.No abdominal aortic aneurysm. Lymph nodes: Unremarkable.No enlarged lymph nodes. Bladder: There is a small air bubble in the urinary bladder which is decreased since the prior exam. Reproductive: Unremarkable as visualized. Bones/joints: Moderate to severe diffuse degenerative changes in the spine are noted. Soft tissues: Postoperative changes in the midline abdominal wall are noted. There is dehiscence of the wound with improving subcutaneous emphysema. Superficial skin vijay are present. There is unchanged induration of the fat adjacent to the incision and induration of the fat within the anterior peritoneal cavity. This may reflect postoperative change or unchanged mild cellulitis. Mild diffuse anasarca type edema is improving. CT/CT abdomen pelvis w con* [id number] IMPRESSION: 1. Postoperative abdomen with wound dehiscence and induration of the subcutaneous fat adjacent to the incision is unchanged. Unchanged induration of the mesenteric fat deep to the abdominal wall. This may reflect postoperative change, unchanged mild infection or mild stable cellulitis. No new or enlarging fluid collection or abscess. 2. Gastric wall appears thickened but is also almost completely collapsed compared to the prior exam in this may simply be lack of distention. Please correlate clinically. Upper GI or endoscopy may be helpful for further evaluation. Radiation Dose CTDIVOL = (mGy): DLP = 1721.94 (mGy-cm)
[2019-12-30] MEDS: piperacillin-tazobactam 3.375 GM in sodium chloride 0.9% (plus) 50 ML IV (23:40)
[2019-12-30 23:42] VITALS: BP 147/74; PULSE 109; RESP 16; O2SAT 96
[2019-12-30] MEDS: iohexol 300 mg/mL 100 mL Btl IV (23:43)
[2019-12-31 00:35] VITALS: BP 129/94; PULSE 105; RESP 16; O2SAT 97
[2019-12-31 01:00] VITALS: BP 163/90; PULSE 103; RESP 19; TEMP 36.8; O2SAT 97
[2019-12-31 01:28] VITALS: BP 163/90; PULSE 103; RESP 19; TEMP 36.8; O2SAT 97
[2019-12-31] MEDS: dextrose 5%-sod chloride 0.45% 1,000 ML 30 ML IV (01:31)
--- NOTE | 2019-12-31 02:32 | PC.PHAR ---
Pharmacokinetic dosing service Date: 12/31/19 Time: 199 Objective: Patient: Candice Sepulveda Floor: 263-1 Age: 64 yo Serum creatinine: 1.0 mg/dL Height: 64.0 Inches Weight (kg): 113.398 Diagnosis: Relevant medical/social history: Cultures and sensitivities: Other labs: Assessment: IBW (kg): 54.70 Dosing wt(kg): 113.398 Estimated Creatinine clearance (ml/min): 49.7 CRCL method: Cockcroft and Gault using ibw(default). Drug selected: Vancomycin Loading dose (mg): 0 Vd (liters): 102.1 (factor used: 0.9 L/kg) Bhavik (hr-1): 0.046 Half life (hrs): 15.07 Recommended dose: 2000 mg Interval: 24 hrs Infusion time (hrs): 1.5 Predicted peak (mcg/mL): 28.3 Predicted trough (mcg/mL): 10.05 Total body weight is being used for vancomycin dosing. Renal function is stable [ ] /unstable [ ] Recommendations: Give Vancomycin 2000 mg q 24 hrs with an expected Cpeak of 28.3 mcg/ml and an expected Ctrough of 10.05 mcg/ml Renal dosing of other antibiotics (review renal dosing of other medications and list guidelines here): Thank you for the consult, will continue to follow. Signature: Paige Gary [facility]
[2019-12-31] MEDS: bacitracin ointment 28 gm TOPICAL (02:37)
[2019-12-31] MEDS: aspirin 81 mg EC Tablet PO ×2 (02:38→09:17)
[2019-12-31] MEDS: venlafaxine ER (24HR) 150 mg Capsule PO (02:38)
[2019-12-31] MEDS: lidocaine-prilocaine cream 5 gm 1 APPLIC TOPICAL (02:38)
[2019-12-31 03:52] VITALS: BP 162/88; PULSE 102; RESP 19; TEMP 36.7; O2SAT 96
[2019-12-31 05:32] LABS: Lactic Acid 1.1 mmol/L (0.5-2.2)
[2019-12-31 05:36] LABS: Basophils % 0.3 %; Hematocrit 30.2 % (37.0-47.0); Hemoglobin 9.5 g/dL (11.5-15.3); Lymphocytes % 20.6 %; Mean Corpuscular HGB Conc 31.5 g/dL (30.0-36.0); Mean Corpuscular Volume 98.7 fL (81-99); Mean Platelet Volume 9.6 fL (7.4-10.4); Monocytes # 1.1 10^3/uL (0.2-0.9); Monocytes % 11.8 %; Neutrophils # 5.9 10^3/uL (1.8-7.7); Neutrophils % 62.6 %; Nucleated Red Blood Cells % 0 %; Platelet Count 313 10^3/cmm (130-400); Red Blood Count 3.06 10^6/uL (4.1-5.3); Red Cell Distribution Width 14.3 % (12.1-15.1); White Blood Count 9.5 10^3/uL (4.0-10.0)
[2019-12-31 05:53] LABS: Anion Gap 16.1 (5-19); Blood Urea Nitrogen 4 mg/dL (8-23); Calcium 8.5 mg/dL (8.5-10.5); Carbon Dioxide 25 mmol/L (22-29); Chloride 100 mmol/L (98-107); Creatinine Clr Calc Pharmacy 71.0671; Glucose 128 mg/dL (74-106); Osmolality Calculated 283 mOsm/kg (285-295); Potassium 3.1 mmol/L (3.5-5.1); Sodium 138 mmol/L (136-145)
[2019-12-31] MEDS: piperacillin-tazobactam 3.375 GM in sodium chloride 0.9% (plus) 50 ML IV (06:31)
--- NOTE | 2019-12-31 07:32 | PM.PN ---
Subjective Subjective: Interval history: Patient overall is about the same since she left the hospital a few days ago clinically,yet she seems that she has been having lots of issues with the colostomy with regard to leak and excoriation of the skin, she presented yesterday to the emergency department with concern that there is dehiscence of the skin surrounding the stoma, I was contacted by the on-call ER physician and I requested a CT scan of the abdomen and pelvis with oral contrast, and I elected to have the patient admitted on the hospitalist service to receive IV antibiotics for further evaluation and potential management. Patient overall is hemodynamically stable and there are no signs of sepsis normal WBC count as well as lactic acid. Last Wednesday patient came to the ER with seepage of stools underneath the colostomy bag where it went through the wound but that was cleaned up and she continued to have home health management and stoma care and at that time I did recommend zinc oxide cream to protect the skin, yet there are has been issues with the appropriate sealing of the stoma. Today on examination I found that the stoma shows necrosis and I was not able to have an appropriate exam due to the pain, the patient does not show signs of sepsis or peritonitis the wound is clean, patient was placed on antimicrobial therapy in the form of Zosyn 3.375 mg IV every 8 hour Vitals/I&O/Wt Last Vital Signs Temp 98.0 F 12/31/19 03:52 Pulse 102 H 12/31/19 03:52 Resp 19 H 12/31/19 03:52 BP 162/88 12/31/19 03:52 Pulse Ox 96 12/31/19 03:52 12/30/19 12/31/19 12/31/19 22:59 06:59 14:59 Intake Total 680 / 680 Output Total 350 / 350 Balance 330 / 330 Weight last 48 hrs Weight 250 lb Physical Exam Const: COMMON NORMALS: no apparent distress and oriented x3 GENERAL APPEARANCE: cooperative NUTRITIONAL APPEARANCE: obese morbidly obese ORIENTATION/CONSCIOUSNESS: Yes awake, Yes oriented to person, Yes oriented to place and Yes oriented to time HENMT: COMMON NORMALS: normocephalic HEAD & SCALP: normocephalic Eye: COMMON NORMALS: PERRL and no scleral icterus PUPIL: Yes PERRL GI: COMMON NORMALS: soft to palpation; negative for no hepatosplenomegaly INSPECTION: Yes normal to inspection PALPATION: Yes soft, No firm, No tender, No guarding, No rigid, No no hepatosplenomegaly and Yes other (Necrotic tissue was appreciated of the stoma, unable to have appropriate examination due to pain) PERCUSSION: other (Wound is clean except for a small necrotic tissues at the umbilicus and skin vijay in place) Neuro: COMMON NORMALS: oriented x3 SENSORIUM/ORIENTATION: Yes oriented to person, Yes oriented to place and Yes oriented to time Psych: COMMON NORMALS: mental status grossly normal Data : 12/31/19 05:13 12/31/19 05:13 Micro: Microbiology 12/31/19 05:13 Blood Culture - Preliminary Blood SPECIMEN COLLECTED 12/31/19 02:08 Blood Culture - Preliminary Blood SPECIMEN COLLECTED A&P Assessment and plan (1) Complication of ostomy: After history taking physical examination and reviewing the chart and images with my personal interpretation, and giving the fact that the patient has low albumin level with a compromised nutritional status and she has been on chronic steroid therapy,also giving the fact that patient did develop necrotic tissues at the stoma site that she will require surgical intervention for revision of the stoma, yet that may require laparotomy and mobilizing extra part of the colon and removal of the necrotic part of the stoma and may give the patient a diverting ileostomy with a long Harman's. Did drug and alcohol counselor the patient to have her surgery done here understanding the potential need for more interventions versus an effect from having colorectal service on board at a tertiary center where more resources will be available with special focus on stoma nurse and further nutrition evaluation and consultation. At this point patient's son Harrison elected to have Ms. Seaman to be transferred and the decision was with further discussion with the patient herself. I did reach out to colorectal service at [facility] in [place], and I did talk with Dr. Noguera colorectal fellow on the service and he kindly accepted the patient under Dr. Shaikh's service the colorectal attending. And I did update Dr. Vergara as patient is being admitted to the hospitalist's service We will make sure that the patient's data as well as CDs of her CT scans will be sent in the package with the patient, occluding operative report and pathology findings. I did discuss in length and in depth with the patient and her son as well as her [id number] about potential intervention here versus transferring the patient to a tertiary center, and they did agree to proceed with transfer to a higher level of acuity were more resources are available to maximize patient's outcome versus attempt to revise the colostomy here may end up by having more to be done and then transferred the patient later on. The patient and the family do understand that she is at high risk of complications due to the history of morbid obesity, being on steroid therapy and low albumin level. Status: Acute Attestations Medical Necessity Statement*: Transfer to higher acuity level Time Spent in Patient Care: 16 - 35 minutes (>than 50% of time spent in counselling and/or direct pt care on unit). Coding Level of Care Code Acute Repairer Hairspring for Traci Fwnasreen Exam Problem Focused Diagnoses Complication of ostomy
[2019-12-31 08:00] VITALS: BP 145/83; PULSE 101; RESP 19; TEMP 36.6; O2SAT 94
--- NOTE | 2019-12-31 08:55 | PM.TDS ---
Transfer Summary Providers Date of Admission: 12/30/19 23:29 Date of Discharge: 12/31/19 Attending Provider at Admission: Sean Ramey MD Attending Provider at Transfer: Yony Vergara MD Primary Care Provider: Maryana Llyod Anticipated Date of Transfer: Anticipated date of transfer: 12/31/19 Receiving Facility & Provider: Receiving Provider: [] Receiving facility: [] Diagnoses at Discharge Discharge Diagnosis (1) Complication of ostomy: Status: Acute Reason for Visit Reason for Visit: Reason For Visit: ABDOMINAL PAIN FROM COLOSTOMY Hospital Course Hospital Course: As per Dr. Ramey's H&P: Candice Sepulveda is a 64 year old female who recently had diagnostic laparoscopy converted to laparotomy and sigmoid colon resection with colostomy and small bowel resection, Harman's procedure, Peritoneal lavage, came back with chief complaint of surgical site purulent discharge detachment) back. Patient was discharged on 12/28 first with Augmentin and ciprofloxacin 1 week course, home health services to change her colostomy bag. Patient is stating that she went home and claustrum bag got very lucent and got detached, there was feculent material that was spilling from the stoma with spilled towards her laparotomy vijay and had been very irritating to her skin. She did not notice any fever, nausea, vomiting, dysuria, excruciating abdominal pain. She was seen in ER yesterday, her colostomy bag was replaced by the nurse in ER and she was discharged back. As soon as she got back home her colostomy bag detached again. Her son is very upset about this and articulated his concerns and frustration to the ER physician and myself. Diagnostics in ER did not show any signs of sepsis, Dr. Vann was notified who recommended CT with oral contrast to see if there is any spillage of the contrast in peritoneal cavity however she will be admitted overnight because of surgical site infection. She is tachycardic without any leukocytosis or fever. Patient is on prednisone secondary to recently diagnosed polymyalgia rheumatica. She was admitted and treated with Zosyn and vancomycin. She was seen by Dr. Grant and noted to have necrotic tissue around ostomy requiring further surgical intervention. Dr. Vann discussed with patient and family and is currently being transferred to [facility]. Dr. Vann discussed case with Dr. Noguera at [facility] who accepted patient for transfer. This morning during my evaluation patient denied any shortness of breath or chest pain. She denies abdominal pain unless she is moving. Her lungs are clear and heart is regular. Her abdominal wound including ostomy is covered with dressing. Patient noted to have low potassium and 40 mEq of Klor-Con is ordered this morning. We will also start patient on LR at 100 mL/h. Patient is hemodynamically stable. She is slightly tachycardic. Discharge Summary: As per Dr. Grant's note: Interval history: Patient overall is about the same since she left the hospital a few days ago clinically,yet she seems that she has been having lots of issues with the colostomy with regard to leak and excoriation of the skin, she presented yesterday to the emergency department with concern that there is dehiscence of the skin surrounding the stoma, I was contacted by the on-call ER physician and I requested a CT scan of the abdomen and pelvis with oral contrast, and I elected to have the patient admitted on the hospitalist service to receive IV antibiotics for further evaluation and potential management. Patient overall is hemodynamically stable and there are no signs of sepsis normal WBC count as well as lactic acid. Last Bola patient came to the ER with seepage of stools underneath the colostomy bag where it went through the wound but that was cleaned up and she continued to have home health management and stoma care, yet there are has been issues with the appropriate sealing of the stoma. Today on examination I found that the stoma shows necrosis and I was not able to have an appropriate exam due to the pain, the patient does not show signs of sepsis or peritonitis the wound is clean, patient was placed on antimicrobial therapy in the form of Zosyn 3.375 mg IV every 8 hour Physical Exam Resp: COMMON NORMALS: normal respiratory effort and clear to auscultation bilaterally AUSCULTATION: clear to auscultation bilaterally Cardio: COMMON NORMALS: regular rate, regular rhythm, S1 normal heart sound and S2 normal heart sound RATE: regular rate RHYTHM: regular rhythm HEART SOUNDS: S1 normal and S2 normal OTHER: Trace peripheral edema bilaterally. Patient reports since surgery. GI: COMMON NORMALS: soft to palpation AUSCULTATION: Yes hypoactive bowel sounds PALPATION: Yes soft, Yes tender, No guarding and No rigid TS Data Data Completed and Pending: Completed Studies During Hospitalization Category Date Time Status CT abdomen pelvis w con* [id number] Stat Cat Scan 12/30/19 23:03 Completed Pending at discharge Category Date Time Status Blood Culture Sta t Lab 12/31/19 05:13 Results Body Fluid Cultur e Stat Lab 12/31/19 03:10 Received Vancomycin Trough Routine Lab 01/02/20 01:30 Ordered Labs from last 24 hours 12/31/19 12/31/19 12/31/19 05:13 05:13 05:13 WBC 9.5 RBC 3.06 L Hgb 9.5 L Hct 30.2 L MCV 98.7 MCH 31.0 MCHC 31.5 RDW 14.3 Plt Count 313 MPV 9.6 Neut % (Auto) 62.6 Lymph % (Auto) 20.6 [place] % (Auto) 11.8 Eos % (Auto) 0.0 Baso % (Auto) 0.3 Neut # (Auto) 5.9 Lymph # (Auto) 2.0 [place] # (Auto) 1.1 H Eos # (Auto) 0.0 Baso # (Auto) 0.0 Nucleated RBC % (a uto) 0 Nucleated RBCs # 0.0 Sodium 138 Potassium 3.1 L Chloride 100 Carbon Dioxide 25 Anion Gap 16.1 BUN 4 L Creatinine 1.0 H GFR Calculation 56.0 L Glucose 128 H Calculated Osmolal ity 283 L Lactic Acid 1.1 Calcium 8.5 Total Bilirubin AST ALT Alkaline Phosphata se Total Protein Albumin Globulin 12/30/19 12/30/19 22:00 22:00 WBC 9.8 RBC 3.17 L Hgb 9.7 L Hct 30.2 L MCV 95.3 MCH 30.6 MCHC 32.1 RDW 14.2 Plt Count 316 MPV 9.7 Neut % (Auto) 69.3 Lymph % (Auto) 15.4 [place] % (Auto) 10.8 Eos % (Auto) 0.0 Baso % (Auto) 0.2 Neut # (Auto) 6.8 Lymph # (Auto) 1.5 [place] # (Auto) 1.1 H Eos # (Auto) 0.0 Baso # (Auto) 0.0 Nucleated RBC % (a uto) 0 Nucleated RBCs # 0.0 Sodium 138 Potassium 3.3 L Chloride 100 Carbon Dioxide 26 Anion Gap 15.3 BUN 5 L Creatinine 1.0 H GFR Calculation 56.0 L Glucose 176 H Calculated Osmolal ity Lactic Acid Calcium 8.6 Total Bilirubin 0.3 AST 14 ALT 24 Alkaline Phosphata se 61 Total Protein 5.2 L Albumin 2.6 L Globulin 2.6 Vitals: Last Vital Signs Temp 97.8 F 12/31/19 08:00 Pulse 101 H 12/31/19 08:00 Resp 19 H 12/31/19 08:00 BP 145/83 12/31/19 08:00 Pulse Ox 94 12/31/19 08:00 TS Medications Medications Home Medications ascorbate calcium (vitamin C) 500 mg tablet 500 mg PO QDAY 12/14/19 [History Confirmed 12/30/19] aspirin 81 mg tablet,delayed release 81 mg PO QDAY 12/14/19 [History Confirmed 12/30/19] atenolol 25 mg tablet 25 mg PO QDAY 12/14/19 [History Confirmed 12/30/19] calcium carbonate 600 mg calcium (1,500 mg) tablet 600 mg PO QDAY 12/14/19 [History Confirmed 12/30/19] cyclobenzaprine 10 mg tablet 10 mg PO DAILY 12/14/19 [History Confirmed 12/30/19] darifenacin 7.5 mg tablet,extended release 24 hr 7.5 mg PO QDAY 12/14/19 [History Confirmed 12/30/19] levothyroxine 50 mcg capsule 50 mcg PO QDAY 12/14/19 [History Confirmed 12/30/19] nitroglycerin 0.4 mg sublingual tablet 0.4 mg SUBLINGUAL Q5M PRN 12/14/19 [History Confirmed 12/30/19] omeprazole magnesium 20 mg tablet,delayed release 20 mg PO QDAY 12/14/19 [History Confirmed 12/30/19] prednisone 5 mg PO DAILY 12/16/19 [History Confirmed 12/30/19] venlafaxine 150 mg PO QPM 12/16/19 [History Confirmed 12/30/19] ziprasidone HCl 60 mg PO BID 12/16/19 [History Confirmed 12/30/19] amoxicillin-pot clavulanate [Augmentin] 1 tab PO BID #6 tab 12/28/19 [Rx Confirmed 12/30/19] metronidazole [Flagyl] 500 mg PO TID #9 tab 12/28/19 [Rx Confirmed 12/30/19] Active Medications Acetaminophen (Tylenol) 650 mg PO Q6H PRN PRN Reason: MILD PAIN Aspirin (Aspirin Ec) 81 mg PO DAILY [facility] Last Admin: 12/31/19 02:38 Dose: 81 mg Documented by: Atenolol (Tenormin) 25 mg PO DAILY [facility] Bacitracin (Bacitracin) 0 applic TOPICAL TID [facility]; Protocol Last Admin: 12/31/19 02:37 Dose: 1 cream Documented by: Cyclobenzaprine HCl (Flexeril) 10 mg PO DAILY [facility] Dextrose/Sodium Chloride (Dextrose 5%-Sod Chloride 0.45%) 1,000 mls @ 30 mls/hr IV .Q24H [facility] Last Infusion: 12/31/19 06:31 Dose: 0 mls/hr Documented by: Piperacillin Sod/Tazobactam (Sod 3.375 gm/ Sodium Chloride) 50 mls @ 12.5 mls/hr IV Q8H [facility]; Protocol Last Admin: 12/31/19 06:31 Dose: 12.5 mls/hr Documented by: Vancomycin HCl 2,000 mg/ (Sodium Chloride) 500 mls @ 250 mls/hr IV Q24H [facility] Last Infusion: 12/31/19 06:31 Dose: Infused Documented by: Levothyroxine Sodium (Synthroid) 50 mcg PO DAILY [facility] Lidocaine/Prilocaine (Emla) 1 applic TOPICAL BID [facility] Last Admin: 12/31/19 02:38 Dose: 1 cream Documented by: Non-Formulary Medication (Darifenacin [Enablex]) 7.5 mg PO DAILY [facility] Ondansetron HCl (Zofran) 4 mg IVP Q6H PRN PRN Reason: NAUSEA AND VOMITING Pantoprazole Sodium (Protonix) 40 mg PO DAILY [facility] Prednisone (Prednisone) 5 mg PO DAILY [facility] Venlafaxine HCl (Effexor Xr) 150 mg PO QPM [facility] Last Admin: 12/31/19 02:38 Dose: 150 mg Documented by: Zinc Oxide (Zinc Oxide) 1 applic TOPICAL PRN PRN PRN Reason: SKIN PROTECTANT Last Admin: 12/30/19 23:40 Dose: 1 applic Documented by: Ziprasidone (Geodon) 60 mg PO BID [facility] Discharge Plan Discharge Patient Disposition: Home, Self-Care Condition: Stable Prescriptions: No Action nitroglycerin [Nitrostat] 0.4 mg tablet, sublingual 0.4 mg SUBLINGUAL Q5M PRN (Reason: Chest Pain) RF: 0 levothyroxine 50 mcg capsule 50 mcg PO QDAY RF: 0 darifenacin [Enablex] 7.5 mg tablet extended release 24 hr 7.5 mg PO QDAY RF: 0 calcium carbonate [Calcium 600] 600 mg calcium (1,500 mg) tablet 600 mg PO QDAY RF: 0 Prilosec OTC 20 mg tablet,delayed release (DR/EC) 20 mg PO QDAY RF: 0 aspirin 81 mg tablet,delayed release (DR/EC) 81 mg PO QDAY RF: 0 atenolol 25 mg tablet 25 mg PO QDAY RF: 0 cyclobenzaprine 10 mg tablet 10 mg PO DAILY RF: 0 ascorbate calcium (vitamin C) 500 mg tablet 500 mg PO QDAY RF: 0 prednisone 5 mg Tablet 5 mg PO DAILY RF: 0 ziprasidone HCl 60 mg Capsule 60 mg PO BID RF: 0 venlafaxine 150 mg Tablet Extended Release 24hr 150 mg PO QPM RF: 0 amoxicillin-pot clavulanate [Augmentin] 875-125 mg tablet 1 tab PO BID Qty: 6 RF: 0 metronidazole [Flagyl] 500 mg tablet 500 mg PO TID Qty: 9 RF: 0 Discharge Orders: Transfer Out of Facility (Order); Ordered 12/31/19 Ordered By: Yony Vergara Referrals: Maryana Lloyd FNP-C [Primary Care Provider] - Transfer Attestations Time Spent in Transfer Care*: greater than 30 min Quality Metrics Clinical Quality Measures: During this hospital stay, did patient experience: None Coding Level of Care Code Acute Media Analyst for Chg Fwd Diagnoses Complication of ostomy
[2019-12-31] MEDS: levothyroxine 50 mcg Tablet PO (09:17)
[2019-12-31] MEDS: predniSONE 5 mg Tablet PO (09:17)
[2019-12-31] MEDS: cyclobenzaprine 10 mg Tablet PO (09:17)
[2019-12-31] MEDS: atenolol 50 mg Tablet 25 MG PO (09:17)
[2019-12-31] MEDS: pantoprazole DR 40 mg Tablet PO (09:18)
[2019-12-31] MEDS: ziprasidone hcl 60 mg Capsule PO (09:18)
--- NOTE | 2019-12-31 09:46 | PC.NURSE ---
Prn transfer note Patient's son reports that patient does not want to be transferred via helicopter, she prefers to go by ground ambulance.
[2019-12-31 11:13] VITALS: BP 145/83; PULSE 101; RESP 19; TEMP 36.6; O2SAT 94
== END 2019-12-31 11:14 | disposition home or self-care (01) ==
LOC: ER 23:42 → MEDSURG 12-31 00:04
PROVIDERS: Admitting Provider Internal Medicine; Emergency Provider Family Medicine; Family Provider Nurse Practitioner Family; PCP Nurse Practitioner Family; Visit Provider Internal Medicine
DX: K94.09 Other complications of colostomy (principal); T81.49XA Infection following a procedure, other surgical site, initial encounter; G47.30 Sleep apnea, unspecified; E66.01 Morbid (severe) obesity due to excess calories; Z68.41 Body mass index [BMI] 40.0-44.9, adult; E03.9 Hypothyroidism, unspecified; Z90.49 Acquired absence of other specified parts of digestive tract; Z79.82 Long term (current) use of aspirin; Z79.52 Long term (current) use of systemic steroids
CPT/HCPCS: 12345; 73221; 74177; 80048; 80053; 83605; 85025; 87040; 87070; 87075; 87077; 87106; 87186; 87205; 96361; 96365; 99283; 99285; G0378; J2543; J3370; J7040; J7512; J7799; Q9967

== ENCOUNTER → 2020-08-19 13:36 | Outpatient (BNVA) | payer MEDICAID, SELFPAY | PROVIDERS: Family Provider Nurse Practitioner Family; PCP Nurse Practitioner Family; Visit Provider Nurse Practitioner Family | DX: N39.0 Urinary tract infection, site not specified (principal) | CPT/HCPCS: 81001 ==

== ENCOUNTER → 2020-12-18 13:22 | Outpatient (BNVA) | payer MEDICAID, SELFPAY | PROVIDERS: Family Provider Nurse Practitioner Family; PCP Nurse Practitioner Family; Visit Provider Urology | DX: N39.0 Urinary tract infection, site not specified (principal) | CPT/HCPCS: 81003 ==

== ENCOUNTER → 2020-12-30 15:57 | Outpatient (BNVA) | payer MEDICAID, SELFPAY | PROVIDERS: Family Provider Nurse Practitioner Family; PCP Nurse Practitioner Family; Referring Provider Nurse Practitioner Family; Visit Provider Specialist | DX: M16.12 Unilateral primary osteoarthritis, left hip (principal); M25.552 Pain in left hip | CPT/HCPCS: 73502 ==

== ENCOUNTER → 2021-02-26 15:42 | Outpatient (BNVA) | payer MEDICAID, SELFPAY | PROVIDERS: Family Provider Nurse Practitioner Family; PCP Nurse Practitioner Family; Visit Provider Specialist | DX: G40.309 Generalized idiopathic epilepsy and epileptic syndromes, not intractable, without status epilepticus (principal); R90.89 Other abnormal findings on diagnostic imaging of central nervous system | CPT/HCPCS: 99215 ==

== ENCOUNTER 2021-05-22 20:35 | Emergency (ER) | payer MEDICARE, MEDICAID, SELFPAY ==
[2021-05-22 20:42] VITALS: BP 119/68; PULSE 88; RESP 18; TEMP 37.1; O2SAT 94; BMI 31.7
--- NOTE | 2021-05-22 21:07 | CTR_ITS ---
PROCEDURE INFORMATION: Exam: CT Abdomen And Pelvis With Contrast Exam date and time: 05/22/2021 9:07 PM Age: 66 years old Clinical indication: Abdominal pain; Prior surgery; Surgery type: Colostomy, colon; Additional info: Abscess wound TECHNIQUE: Imaging protocol: Computed tomography of the abdomen and pelvis with contrast. Radiation optimization: All CT scans at this facility use at least one of these dose optimization techniques: automated exposure control; mA and/or kV adjustment per patient size (includes targeted exams where dose is matched to clinical indication); or iterative reconstruction. Contrast material: VISI 320; Contrast volume: 95 ml; Contrast route: INTRAVENOUS (IV); COMPARISON: CT abdomen pelvis w con* [id number] 12/31/2019 1:16 AM RADIATION DOSE METRICS: Total DLP (mGy-cm): 1578.36 FINDINGS: Liver: Normal. No mass. Gallbladder and bile ducts: Cholelithiasis suspected. Pancreas: Normal. No ductal dilation. Spleen: Normal. No splenomegaly. Adrenal glands: Normal. No mass. Kidneys and ureters: Normal. No hydronephrosis. Stomach and bowel: Constipation. Prominent fluid in the small bowel may reflect an ileus or perhaps an enteritis depending on the clinical scenario. Appendix: No evidence of appendicitis. Intraperitoneal space: Unremarkable. No free air. No significant fluid collection. Vasculature: Unremarkable. No abdominal aortic aneurysm. Lymph nodes: Unremarkable. No enlarged lymph nodes. Urinary bladder: Unremarkable as visualized. Reproductive: Unremarkable as visualized. Bones/joints: Severe left hip osteoarthritis. Soft tissues: Ventral abdominal wall surgical wound with a 3.3 cm fluid collection in the subcutaneous fat along the inferior aspect of the wound may reflect a small seroma, underlying infection is not excluded. Other findings: Emphysematous changes. CT/CT abdomen pelvis w con* [id number] IMPRESSION: 1. Ventral abdominal wall surgical wound with a 3.3 cm fluid collection in the subcutaneous fat along the inferior aspect of the wound may reflect a small seroma, underlying infection is not excluded. 2. Severe left hip osteoarthritis. 3. Emphysematous changes. 4. Constipation. 5. Prominent fluid in the small bowel may reflect an ileus or perhaps an enteritis depending on the clinical scenario. 6. Cholelithiasis suspected. Radiation Dose CTDIVOL = (mGy): DLP = 1578.36 (mGy-cm)
[2021-05-22 21:09] VITALS: PULSE 90; RESP 16; O2SAT 93
--- NOTE | 2021-05-22 21:10 | ED_ITS ---
HPI - Skin/Abscess/Foreign Bdy General: Chief complaint: Skin/Abscess/Foreign Body Stated complaint: surgical area has a hole in it Time Seen by Provider: 05/22/21 20:55 Source: patient Mode of arrival: ambulatory Limitations: no limitations History of Present Illness: HPI narrative: 66-year-old female who had a colostomy reversal done in March. She states that over the last 2 days she started to have some erythema to the lower portion of the incision and had a small opening on the incision with purulent drainage. She denies any fever and denies any pain. She does have purulent drainage at this time. Denies any previous complications with the surgery. Associated symptoms: Deny chills, fever(s), nausea or vomiting Review of Systems Const: Denies: fever(s), chills, body aches or change in appetite Eyes: Denies: blurry vision or eye discomfort ENMT: Denies: throat pain or dental pain Card: Denies: chest pain Resp: Denies: dyspnea GI: Denies: abdominal pain, nausea, vomiting or diarrhea : Denies: dysuria Musc: Denies: neck pain or back pain Skin/Breast: Denies: rash Neuro: Denies: headache(s) Psych: Denies: depression Patrice/Lymph: Denies: easy bruising All/Imm: Denies: urticaria PFSH ED PFSH: Medical History Frequent urinary tract infections GERD (gastroesophageal reflux disease) History of sleep apnea Hypothyroid Perforated abdominal viscus Sleep apnea Surgical History H/O tubal ligation History of colonoscopy History of tonsillectomy Perforation of sigmoid colon Status post diverting colostomy S/P small bowel resection Status post Sabine procedure Family History Mother , at age 58 Cancer Father , at age 71 Heart disease Other Hypertension Perforation of sigmoid colon Social History Smoking and tobacco status: former smoker Alcohol intake: never Adopted: No Caregiver/support person: No Lives independently: No Household members: family Marital status: Current occupational status: disabled History of recent travel: No Physical Exam Const: COMMON NORMALS: no acute distress, patient oriented x3 and healthy appearing HENMT: COMMON NORMALS: normocephalic and atraumatic HEAD & SCALP: normocephalic and atraumatic Eye: COMMON NORMALS: Equal, round and reactive pupils present and EOMs intact bilaterally PUPIL: Yes Equal, round and reactive pupils present Neck/C-Spine: COMMON NORMALS: full ROM and supple Chest: COMMONS NORMALS: normal inspection of the chest and normal palpation of entire chest wall Resp: COMMON NORMALS: normal respiratory effort, No retractions, No use of accessory muscles and clear to auscultation bilaterally AUSCULTATION: clear to auscultation bilaterally Cardio: COMMON NORMALS: regular rate, regular rhythm and No murmurs present (Cardio) RATE: regular rate RHYTHM: regular rhythm GI: COMMON NORMALS: Soft to palpation, non-tender and no masses PALPATION: Yes Soft to palpation OTHER: Erythema the lower portion of abdominal incision with purulent drainage Extremity: COMMON NORMALS: normal to inspection and full ROM Neuro: COMMON NORMALS: patient oriented x3, moves all extremities and no focal motor deficits Psych: COMMON NORMALS: mental status grossly normal, Normal thought process present and cooperative THOUGHT PROCESS: Normal thought process present Skin: COMMON NORMALS: no rashes or lesions noted and no wounds GENERAL SKIN EXAM: no rashes or lesions noted Procedures Abscess I/D Site: abdomen Local Anesthetic: lidocaine 1% Amount of anesthesia used (mL): 5 Technique: incised with #11 blade Irrigation: Yes Packing used?: iodoform Course Vital Signs: Vital signs: Vital Signs Temperature 98.8 F 05/22/21 20:42 Pulse Rate 79 05/23/21 00:00 Respiratory Rate 16 05/23/21 00:00 Blood Pressure 109/75 05/23/21 00:00 Pulse Oximetry 92 05/23/21 00:00 MDM - Skin/Abscess/Foreign Bdy MDM Narrative: Medical decision making narrative: Patient presents here within abscess per surgical wound. I incised it with a small 1 inch incision small amount of purulent drainage. Did pack the wound with packing. She is remove the packing on Wednesday or Wednesday with her home health. I did speak to colorectal surgery at [facility] they are going to follow her up in a week. She is to return if worsening or any fever. Lab Data: Labs: Lab Results 05/22/21 05/22/21 Range/Units 21:24 21:24 WBC 7.1 (4.0-10.0) 10^3/ uL RBC 3.37 L (4.1-5.3) 10^6/u L Hgb 10.2 L (11.5-15.3) g/dL Hct 31.9 L (37.0-47.0) % MCV 94.7 (81-99) fL MCH 30.3 (28.0-34.0) pg MCHC 32.0 (30.0-36.0) g/dL RDW 12.4 (12.1-15.1) % Plt Count 347 (130-400) 10^3/c mm MPV 9.4 (7.4-10.4) fL Neut % (Auto) 90.6 % Lymph % (Auto) 7.9 % [place] % (Auto) 0.8 % Eos % (Auto) 0.0 % Baso % (Auto) 0.1 % Neut # (Auto) 6.41 (1.8-7.7) 10^3/u L Lymph # (Auto) 0.6 L (0.8-4.8) 10^3/u L [place] # (Auto) 0.1 L (0.2-0.9) 10^3/u L Eos # (Auto) 0.0 (0.0-0.8) 10^3/u L Baso # (Auto) 0.0 (0.0-0.1) 10^3/u L Nucleated RBC % (a uto) 0 % Nucleated RBCs # 0.0 /100WBC Sodium 137 (136-145) mmol/L Potassium 4.6 (3.5-5.1) mmol/L Chloride 101 (98-107) mmol/L Carbon Dioxide 22 (22-29) mmol/L Anion Gap 18.6 (5-19) BUN 25 H (8-23) mg/dL Creatinine 1.3 H (0.5-0.9) mg/dL GFR Calculation 41.1 L (90-130) mL/min Glucose 245 H (65-115) mg/dL Calculated Osmolal ity 297 H (285-295) mOsm/k g Calcium 8.6 (8.5-10.5) mg/dL Total Bilirubin 0.2 (0.15-1.2) mg/dL AST 8 (0-32) U/L ALT 8 (0-33) U/L Alkaline Phosphata se 93 (35-105) IU/L Total Protein 6.4 L (6.6-8.7) g/dL Albumin 3.9 (3.5-5.2) g/dL Globulin 2.5 (1.3-4.6) g/dL Imaging Data^: CT Abd/Pel: Radiologist's impression: [employer] [place] [id number] [address] Scan Report Signed Patient: Candice Sepulveda Unit #: [id number] : 1955 Age/Sex: 66 / F ADM Date: 05/22/21 Loc: ER Room/Bed: Attending Dr: Ordering Provider/Ordering MD: Melvin Jackson MD Date of Service: 05/22/21 Procedure(s): CT abdomen pelvis w con* [id number] Accession Number(s): [id number] Report Number: [id number] PROCEDURE INFORMATION: Exam: CT Abdomen And Pelvis With Contrast Exam date and time: 05/22/2021 9:07 PM Age: 66 years old Clinical indication: Abdominal pain; Prior surgery; Surgery type: Colostomy, colon; Additional info: Abscess wound TECHNIQUE: Imaging protocol: Computed tomography of the abdomen and pelvis with contrast. Radiation optimization: All CT scans at this facility use at least one of these dose optimization techniques: automated exposure control; mA and/or kV adjustment per patient size (includes targeted exams where dose is matched to clinical indication); or iterative reconstruction. Contrast material: VISI 320; Contrast volume: 95 ml; Contrast route: INTRAVENOUS (IV); COMPARISON: CT abdomen pelvis w con* [id number] 12/31/2019 1:16 AM RADIATION DOSE METRICS: Total DLP (mGy-cm): 1578.36 FINDINGS: Liver: Normal. No mass. Gallbladder and bile ducts: Cholelithiasis suspected. Pancreas: Normal. No ductal dilation. Spleen: Normal. No splenomegaly. Adrenal glands: Normal. No mass. Kidneys and ureters: Normal. No hydronephrosis. Stomach and bowel: Constipation. Prominent fluid in the small bowel may reflect an ileus or perhaps an enteritis depending on the clinical scenario. Appendix: No evidence of appendicitis. Intraperitoneal space: Unremarkable. No free air. No significant fluid collection. Vasculature: Unremarkable. No abdominal aortic aneurysm. Lymph nodes: Unremarkable. No enlarged lymph nodes. Urinary bladder: Unremarkable as visualized. Reproductive: Unremarkable as visualized. Bones/joints: Severe left hip osteoarthritis. Soft tissues: Ventral abdominal wall surgical wound with a 3.3 cm fluid collection in the subcutaneous fat along the inferior aspect of the wound may reflect a small seroma, underlying infection is not excluded. Other findings: Emphysematous changes. CT/CT abdomen pelvis w con* [id number] IMPRESSION: 1. Ventral abdominal wall surgical wound with a 3.3 cm fluid collection in the subcutaneous fat along the inferior aspect of the wound may reflect a small seroma, underlying infection is not excluded. 2. Severe left hip osteoarthritis. 3. Emphysematous changes. 4. Constipation. 5. Prominent fluid in the small bowel may reflect an ileus or perhaps an enteritis depending on the clinical scenario. 6. Cholelithiasis suspected. Discharge Plan Discharge Patient Disposition: Home Clinical Impression: Abscess of skin or subcutaneous tissue Qualifiers: Site of cutaneous abscess: trunk Site of cutaneous abscess of trunk: abdominal wall Qualified Code(s): L02.211 - Cutaneous abscess of abdominal wall Condition: Stable Prescriptions: New Bactrim DS 800-160 mg tablet 1 tab PO BID 10 Days Qty: 20 RF: 0 No Action triamcinolone acetonide [Kenalog] 40 mg/mL suspension 40 mg intra-articular ONCE Qty: 1.5 RF: 0 dexamethasone sodium phosphate 4 mg/mL solution 4 mg intra-articular ONCE Qty: 1.5 RF: 0 lidocaine (PF) 10 mg/mL (1 %) solution 10 mg intra-articular ONCE Qty: 1 RF: 0 ropivacaine (PF) 5 mg/mL (0.5 %) solution 2 ml intra-articular ONCE Qty: 1 RF: 0 pantoprazole 20 mg tablet,delayed release (DR/EC) 20 mg PO DAILY RF: 0 potassium chloride 20 mEq tablet extended release 20 meq PO DAILY RF: 0 atorvastatin 40 mg tablet 40 mg PO DAILY RF: 0 acetaminophen 500 mg capsule 1,000 mg PO Q6H RF: 0 docusate sodium [DOK] 100 mg capsule 100 mg PO DAILY RF: 0 Toviaz 4 mg tablet extended release 24 hr 4 mg PO DAILY RF: 0 famotidine 20 mg tablet 20 mg PO BID RF: 0 levothyroxine [Euthyrox] 50 mcg tablet 50 mcg PO DAILY RF: 0 baclofen 10 mg tablet 10 mg PO BID RF: 0 prenat.vits,lenore,ajd-zhnt-otpxa Tablet 1 tab PO DAILY RF: 0 triamcinolone acetonide [Kenalog] 40 mg/mL suspension 40 mg intra-articular ONCE Qty: 1 RF: 0 dexamethasone sodium phosphate 4 mg/mL solution 4 mg intra-articular ONCE Qty: 1 RF: 0 lidocaine (PF) 10 mg/mL (1 %) solution 10 mg intra-articular ONCE Qty: 1 RF: 0 ropivacaine (PF) 5 mg/mL (0.5 %) solution 1.5 ml intra-articular ONCE Qty: 1.5 RF: 0 atenolol 25 mg tablet 25 mg PO QDAY RF: 0 methenamine hippurate 1 gram tablet 1 gm PO BID Qty: 60 RF: 12 Vimpat 150 mg tablet 150 mg PO BID Qty: 60 RF: 5 ziprasidone HCl 60 mg Capsule 60 mg PO BID RF: 0 venlafaxine 150 mg Tablet Extended Release 24hr 150 mg PO QPM RF: 0 Discharge Orders: Discharge ED (Routine); Ordered 05/23/21 Ordered By: Melvin Jackson Referrals: Maryana Lloyd CIGAR TOBACCO PROCESSING SUPERVISOR-C [Primary Care Provider] - Discharge Diet: Advance as tolerated Discharge Activity: Resume usual activity Patient Instructions: Abscess (ED) Coding Level of Care Code ED Ton Container Filler for Chg Fwd Exam Comprehensive
[2021-05-22 21:29] LABS: Basophils % 0.1 %; Hematocrit 31.9 % (37.0-47.0); Hemoglobin 10.2 g/dL (11.5-15.3); Lymphocytes # 0.6 10^3/uL (0.8-4.8); Lymphocytes % 7.9 %; Mean Corpuscular Hemoglobin 30.3 pg (28.0-34.0); Mean Corpuscular Volume 94.7 fL (81-99); Mean Platelet Volume 9.4 fL (7.4-10.4); Monocytes # 0.1 10^3/uL (0.2-0.9); Monocytes % 0.8 %; Neutrophils # 6.41 10^3/uL (1.8-7.7); Neutrophils % 90.6 %; Nucleated Red Blood Cells % 0 %; Platelet Count 347 10^3/cmm (130-400); Red Blood Count 3.37 10^6/uL (4.1-5.3); Red Cell Distribution Width 12.4 % (12.1-15.1); White Blood Count 7.1 10^3/uL (4.0-10.0)
[2021-05-22 21:44] LABS: Alanine Aminotransferase 8 U/L (0-33); Albumin Level 3.9 g/dL (3.5-5.2); Alkaline Phosphatase 93 IU/L (35-105); Anion Gap 18.6 (5-19); Aspartate Amino Transferase 8 U/L (0-32); Blood Urea Nitrogen 25 mg/dL (8-23); Calcium 8.6 mg/dL (8.5-10.5); Carbon Dioxide 22 mmol/L (22-29); Chloride 101 mmol/L (98-107); Globulin 2.5 g/dL (1.3-4.6); Glomerular Filtration Rate 41.1 mL/min (90-130); Glucose 245 mg/dL (65-115); Osmolality Calculated 297 mOsm/kg (285-295); Potassium 4.6 mmol/L (3.5-5.1); Sodium 137 mmol/L (136-145); Total Bilirubin 0.2 mg/dL (0.15-1.2); Total Protein 6.4 g/dL (6.6-8.7)
[2021-05-22] MEDS: iodixanol 320 mg/mL 100mL Btl IV (22:25)
[2021-05-22] MEDS: vancomycin 1,000 MG in sodium chloride 0.9% 250 ML 250 MG IV (23:33)
[2021-05-23] VITALS: BP 109/75; PULSE 79; RESP 16; O2SAT 92
--- NOTE | 2021-05-23 00:22 | PC.NURSE ---
Patient requested dressing change due to drainage. ABD pad taped over site.
--- NOTE | 2021-05-23 00:31 | PC.NURSE ---
2 telfa dressings applied to wound and taped in place after drained abcess fluid.
[2021-05-23 00:53] VITALS: BP 125/72; PULSE 79; RESP 16; TEMP 36.9; O2SAT 94
== END 2021-05-23 00:53 | disposition home or self-care (01) ==
PROVIDERS: Emergency Provider Emergency Medicine; PCP Nurse Practitioner Family
DX: L02.211 Cutaneous abscess of abdominal wall (principal); Z87.891 Personal history of nicotine dependence
CPT/HCPCS: 74177; 80053; 85025; 96365; 99283; J3370; J7050; Q9967

== ENCOUNTER → 2021-06-18 13:02 | Outpatient (BNVA) | payer MEDICARE, MEDICAID, SELFPAY | PROVIDERS: PCP Nurse Practitioner Family; Visit Provider Nurse Practitioner Family | DX: N39.0 Urinary tract infection, site not specified (principal) | CPT/HCPCS: 81003 ==

== ENCOUNTER → 2021-08-26 15:01 | Outpatient (BNVA) | payer MEDICARE, MEDICAID, SELFPAY | PROVIDERS: PCP Nurse Practitioner Family; Visit Provider Specialist | DX: G40.309 Generalized idiopathic epilepsy and epileptic syndromes, not intractable, without status epilepticus (principal); G40.909 Epilepsy, unspecified, not intractable, without status epilepticus; R90.89 Other abnormal findings on diagnostic imaging of central nervous system | CPT/HCPCS: 99214 ==

== ENCOUNTER 2021-09-29 09:36 | Outpatient (CLI) | payer MEDICARE, MEDICAID, SELFPAY ==
--- NOTE | 2021-09-29 09:48 | FL_ITS ---
WS: [id number] MODIFIED BARIUM SWALLOW TECHNIQUE: Modified barium swallow with speech therapy using multiple consistencies. FLUOROSCOPY TIME: 1.8 minutes. CLINICAL INFORMATION: Other dysphagia COMPARISON: None. FINDINGS: Multiple consistencies utilized. Normal oropharyngeal phase. No evidence of penetration or roselia aspi ration. No difficulties with barium tablet. FL/FL barium swallow modifd [id number] IMPRESSION: Normal barium swallow
== END 2021-09-29 09:37 | disposition home or self-care (01) ==
LOC: RAD 09:40
PROVIDERS: PCP Nurse Practitioner Family; Visit Provider Nurse Practitioner Family
DX: R13.19 Other dysphagia (principal)
CPT/HCPCS: 74230; 92611

== ENCOUNTER 2021-10-16 06:00 | Outpatient (RCR) | payer MEDICARE, MEDICAID, SELFPAY | END 2021-10-21 23:59 | disposition home or self-care (01) | LOC: WST 06:00 | PROVIDERS: PCP Nurse Practitioner Family; Referring Provider Nurse Practitioner Family; Visit Provider Nurse Practitioner Family | DX: R13.10 Dysphagia, unspecified (principal) | CPT/HCPCS: 92610 ==

== ENCOUNTER → 2021-11-19 09:58 | Outpatient (BNVA) | payer MEDICARE, MEDICAID, SELFPAY | PROVIDERS: PCP Nurse Practitioner Family; Referring Provider Nurse Practitioner Family; Visit Provider Specialist | DX: M25.552 Pain in left hip (principal); M16.0 Bilateral primary osteoarthritis of hip | CPT/HCPCS: 73502 ==

== ENCOUNTER → 2021-12-18 15:50 | Outpatient (BNVA) | payer MEDICARE, MEDICAID, SELFPAY | PROVIDERS: PCP Nurse Practitioner Family; Visit Provider Urology | DX: N39.0 Urinary tract infection, site not specified (principal) | CPT/HCPCS: 81003 ==

== ENCOUNTER 2021-12-23 23:26 | Emergency (ER) | payer MEDICARE, MEDICAID, SELFPAY ==
--- NOTE | 2021-12-23 23:28 | XRR_ITS ---
PROCEDURE INFORMATION: Exam: XR Chest Exam date and time: 12/23/2021 11:28 PM Age: 66 years old Clinical indication: Pain; Chest pressure; Patient HX: C/O chest discomfort. ; Additional info: Cp TECHNIQUE: Imaging protocol: XR of the chest. Views: 1 view. COMPARISON: CR XR chest 1V portable [id number] 12/26/2019 6:46 AM FINDINGS: Lungs: Lungs are clear. Pleural spaces: There is no pleural effusion or pneumothorax. Heart/Mediastinum: Cardiomediastinal contours are unremarkable. Bones/joints: Bones are unremarkable. XR/XR chest 1V portable [id number] IMPRESSION: No acute findings.
--- NOTE | 2021-12-23 23:29 | ECG_ITS ---
[facility] Test Date: 2021-12-23 Pat Name: Candice Sepulveda Department: Room: Gender: Female Evp Sales: : 1955 Requested By: Melvin Jackson Order Number: [id number] Nadia MD: Swathi Chance M.D. Measurements Intervals [place] Rate: 66 P: 13 MN: 182 QRS: -15 QRSD: 94 T: 0 QT: 388 QTc: 408 Interpretive Statements SINUS RHYTHM LOW QRS VOLTAGE IN PRECORDIAL LEADS [QRS DEFLECTION < 1.0 mV IN CHEST LEADS] POSSIBLE ANTERIOR MYOCARDIAL INFARCTION , PROBABLY OLD [30 ms Q WAVE IN V3/V4, OR R < 0.2 mV IN V4] Compared to ECG 12/24/2019 08:32:58 Low QRS voltage now present Myocardial infarct finding now present Electronically Signed On 12-25-2021 0:00:26 GAS DISTRIBUTION SUPERVISOR by Swathi Chance M.D. [id number]
[2021-12-23 23:30] VITALS: BP 141/63; PULSE 66; RESP 18; TEMP 36.7; O2SAT 96; BMI 34.3
[2021-12-23 23:40] LABS: Basophils # 0.1 10^3/uL (0.0-0.1); Basophils % 0.8 %; Eosinophils # 0.2 10^3/uL (0.0-0.8); Eosinophils % 2.1 %; Hematocrit 39.2 % (37.0-47.0); Hemoglobin 12.9 g/dL (11.5-15.3); Lymphocytes # 2.4 10^3/uL (0.8-4.8); Lymphocytes % 33.2 %; Mean Corpuscular HGB Conc 32.9 g/dL (30.0-36.0); Mean Corpuscular Hemoglobin 31.1 pg (28.0-34.0); Mean Corpuscular Volume 94.5 fl (81-99); Mean Platelet Volume 10.5 fL (7.4-10.4); Monocytes # 0.8 10^3/uL (0.2-0.9); Monocytes % 10.7 %; Neutrophils # 3.83 10^3/uL (1.8-7.7); Neutrophils % 52.9 %; Nucleated Red Blood Cells % 0 %; Platelet Count 204 10^3/cmm (130-400); Red Blood Count 4.15 10^6/uL (4.1-5.3); Red Cell Distribution Width 12.4 % (12.1-15.1); White Blood Count 7.2 10^3/uL (4.0-10.0)
--- NOTE | 2021-12-23 23:42 | W.ED.CHESTPA ---
HPI - Chest Pain General: Chief Complaint: Chest Pain Stated Complaint: CP Time Seen by Provider: 12/23/21 23:27 Source: patient and EMS Mode of arrival: EMS Limitations: no limitations History of Present Illness: 66-year-old female who states that at 9 PM tonight started having a bandlike pain in her lower chest that is been a constant pain since and stated its worst was a 7 out of 10 currently to 5 out of 10 patient received nitro and aspirin in route with no improvement. She states that she was just at rest when she started having the pain denies any worsening or improving factors. She denies any nausea or shortness of breath or diaphoresis. She denies any history of coronary artery disease. She denies any abdominal pain. Associated symptoms: Deny abdominal pain, dyspnea, fever(s), nausea or vomiting Review of Systems Const: Denies: fever(s), chills, body aches or change in appetite Eyes: Denies: blurry vision or eye discomfort ENMT: Denies: throat pain or dental pain Card: Reports: chest pain Resp: Denies: dyspnea GI: Denies: abdominal pain, nausea, vomiting or diarrhea : Denies: dysuria Musc: Denies: neck pain or back pain Skin/Breast: Denies: rash Neuro: Denies: headache(s) Psych: Denies: depression Patrice/Lymph: Denies: easy bruising All/Imm: Denies: urticaria PFSH ED PFSH: Medical History Frequent urinary tract infections GERD (gastroesophageal reflux disease) History of sleep apnea Hypothyroid Perforated abdominal viscus Sleep apnea Surgical History H/O tubal ligation History of colonoscopy History of tonsillectomy Perforation of sigmoid colon Status post diverting colostomy S/P small bowel resection Status post Sabine procedure Family History Mother , at age 58 Cancer Father , at age 71 Heart disease Other Hypertension Perforation of sigmoid colon Social History Alcohol intake: never Adopted: No Caregiver/support person: No Lives independently: No Household members: family Marital status: Current occupational status: disabled History of recent travel: No Physical Exam Const: COMMON NORMALS: no acute distress, patient oriented x3 and healthy appearing HENMT: COMMON NORMALS: normocephalic and atraumatic HEAD & SCALP: normocephalic and atraumatic Eye: COMMON NORMALS: Equal, round and reactive pupils present and EOMs intact bilaterally PUPIL: Yes Equal, round and reactive pupils present Neck/C-Spine: COMMON NORMALS: full ROM and supple Chest: COMMONS NORMALS: normal inspection of the chest and normal palpation of entire chest wall Resp: COMMON NORMALS: normal respiratory effort, No retractions, No use of accessory muscles and clear to auscultation bilaterally AUSCULTATION: clear to auscultation bilaterally Cardio: COMMON NORMALS: regular rate, regular rhythm and No murmurs present (Cardio) RATE: regular rate RHYTHM: regular rhythm GI: COMMON NORMALS: Normal to inspection, nondistended, normoactive bowel sounds present, Soft to palpation, non-tender and no masses PALPATION: Yes Soft to palpation Extremity: COMMON NORMALS: normal to inspection and full ROM Neuro: COMMON NORMALS: patient oriented x3, moves all extremities and no focal motor deficits Psych: COMMON NORMALS: mental status grossly normal, Normal thought process present and cooperative THOUGHT PROCESS: Normal thought process present Skin: COMMON NORMALS: no rashes or lesions noted and no wounds GENERAL SKIN EXAM: no rashes or lesions noted Course Vital Signs: Vital signs: Vital Signs Temperature 98.0 F 12/23/21 23:30 Pulse Rate 74 12/24/21 00:57 Respiratory Rate 18 12/24/21 00:57 Blood Pressure 132/70 12/24/21 00:57 Pulse Oximetry 95 12/24/21 00:57 MDM - Chest Pain Medical Decision Making Patient presents here with chest pain initial repeat troponin x-ray and EKGs here are all normal she been pain-free here we will get her follow-up with cardiology she is to follow-up as scheduled and return if worsening she understands agrees to plan. Lab Data : 12/23/21 23:31 12/23/21 23:31 Radiology Impressions Chest X-Ray 12/23/21 23:28 IMPRESSION: No acute findings. Laboratory Results WBC 7.2 10^3/uL (4.0-10.0) 12/23/21 23:31 RBC 4.15 10^6/uL (4.1-5.3) 12/23/21 23: Hgb 12.9 g/dL (11.5-15.3) 12/23/21 23: Hct 39.2 % (37.0-47.0) 12/23/21 23: MCV 94.5 fl (81-99) 12/23/21 23: MCH 31.1 pg (28.0-34.0) 12/23/21 23: MCHC 32.9 g/dL (30.0-36.0) 12/23/21 23: RDW 12.4 % (12.1-15.1) 12/23/21: Plt Count 204 10^3/cmm (130-400) 12/23/21 23: MPV 10.5 fL (7.4-10.4) H 12/23/21 23: Neut % (Auto) 52.9 % 12/23/21 23: Lymph % (Auto) 33.2 % 12/23/21 23: [place] % (Auto) 10.7 % 12/23/21 23: Eos % (Auto) 2.1 % 12/23/21 23: Baso % (Auto) 0.8 % 12/23/21 23: Neut # (Auto) 3.83 10^3/uL (1.8-7.7) 12/23/21 23: Lymph # (Auto) 2.4 10^3/uL (0.8-4.8) 12/23/21 23: [place] # (Auto) 0.8 10^3/uL (0.2-0.9) 12/23/21 23: Eos # (Auto) 0.2 10^3/uL (0.0-0.8) 12/23/21 23: Baso # (Auto) 0.1 10^3/uL (0.0-0.1) 12/23/21 23: Nucleated RBC % (auto) 0 % 12/23/21 23: Nucleated RBCs # 0.0 /100WBC 12/23/21 23: PT 13.10 SECONDS (12.1-14.9) 12/23/21 23:55 INR 0.96 (0.8-1.2) 12/23/21 23:55 Sodium 134 mmol/L (136-145) L 12/23/21 23: Potassium 4.3 mmol/L (3.5-5.1) 12/23/21 23: Chloride 96 mmol/L (98-107) L 12/23/21 23: Carbon Dioxide 27 mmol/L (22-29) 12/23/21: Anion Gap 15.3 (5-19) 12/23/21: BUN 20 mg/dL (8-23) 12/23/21: Creatinine 1.3 mg/dL (0.5-0.9) H 12/23/21: GFR Calculation 41.1 mL/min (90-130) L 12/23/21: Glucose 90 mg/dL (65-115) 12/23/21: Calculated Osmolality 280 mOsm/kg (285-295) L 12/23/21: Calcium 9.0 mg/dL (8.5-10.5) 12/23/21: Total Bilirubin 0.4 mg/dL (0.15-1.2) 12/23/21: AST 12 U/L (0-32) 12/23/21: ALT 11 U/L (0-33) 12/23/21: Alkaline Phosphatase 100 IU/L (35-105) 12/23/21 23: Troponin T Baseline 14 ng/L (0-10) H 12/23/21 23: Troponin T 120 Minute 13.53 ng/L (0-10) H 12/24/21: Delta Troponin T -0.47 ABS# (0-10) L 12/24/21: Total Protein 6.1 g/dL (6.6-8.7) L 12/23/21: Albumin 4.5 g/dL (3.5-5.2) 12/23/21 23: Globulin 1.6 g/dL (1.3-4.6) 12/23/21: Lipase 60 U/L (13-60) 12/23/21 23: EKG Data EKG 1: I personally reviewed and interpreted this EKG as follows: EKG interpretation date: 12/23/21 EKG interpretation time: 23:37 Interpretation: nsr hr [address] or t wave abnormalities qrs 94 qtc 402 Discharge Plan Discharge Patient Disposition: Home Clinical Impression: Chest pain Condition: Stable Prescriptions: No Action triamcinolone acetonide [Kenalog] 40 mg/mL suspension 40 mg intra-articular ONCE Qty: 1.5 0RF dexamethasone sodium phosphate 4 mg/mL solution 4 mg intra-articular ONCE Qty: 1.5 0RF lidocaine (PF) 10 mg/mL (1 %) solution 10 mg intra-articular ONCE Qty: 1 0RF ropivacaine (PF) 5 mg/mL (0.5 %) solution 2 ml intra-articular ONCE Qty: 1 0RF pantoprazole 20 mg tablet,delayed release (DR/EC) 20 mg PO DAILY 0RF atorvastatin 40 mg tablet 40 mg PO DAILY 0RF docusate sodium [DOK] 100 mg capsule 100 mg PO DAILY 0RF Toviaz 4 mg tablet extended release 24 hr 4 mg PO DAILY 0RF famotidine 20 mg tablet 20 mg PO BID 0RF levothyroxine [Euthyrox] 50 mcg tablet 50 mcg PO DAILY 0RF baclofen 10 mg tablet 10 mg PO BID 0RF prenat.vits,lenore,qvl-nwfk-vffvj Tablet 1 tab PO DAILY 0RF atenolol 25 mg tablet 25 mg PO QDAY 0RF ascorbic acid (vitamin C) 1,000 mg tablet 1 g PO DAILY 0RF cholecalciferol (vitamin D3) 10 mcg (400 unit) capsule 10 mcg PO DAILY 0RF Vimpat 150 mg tablet 150 mg PO BID Qty: 60 5RF methenamine hippurate 1 gram tablet See Rx Instructions .ROUTE .COMPLEX Qty: 60 12RF Dose Instruction: TAKE 1 TABLET BY MOUTH TWICE DAILY TAKE 1000 MG OF VITAMIN C WITH EACH DOSE OF METHENAMINE Rx Instructions: TAKE 1 TABLET BY MOUTH TWICE DAILY TAKE 1000 MG OF VITAMIN C WITH EACH DOSE OF METHENAMINE ziprasidone HCl 60 mg Capsule 60 mg PO BID 0RF venlafaxine 150 mg Tablet Extended Release 24hr 150 mg PO QPM 0RF Discharge Orders: Discharge ED (Routine); Ordered 12/24/21 Ordered By: Melvin Jackson Referrals: Maryana Lloyd FNP-C [Primary Care Provider] - 1-3 days Discharge Diet: Advance as tolerated Discharge Activity: Resume usual activity Patient Instructions: Chest Pain (ED) Coding Level of Care Code ED Diving Instructor for Miyag Fwd Exam Comprehensive
[2021-12-23 23:48] VITALS: RESP 18
[2021-12-23] MEDS: ondansetron 2 mg/ML SDV 2 mL 4 MG IVP (23:48)
[2021-12-23] MEDS: morphine 4 mg/mL SDV 1 mL IVP (23:48)
[2021-12-24 00:05] LABS: Lipase 60 U/L (13-60)
[2021-12-24 00:06] LABS: Alanine Aminotransferase 11 U/L (0-33); Albumin Level 4.5 g/dL (3.5-5.2); Alkaline Phosphatase 100 IU/L (35-105); Anion Gap 15.3 (5-19); Aspartate Amino Transferase 12 U/L (0-32); Blood Urea Nitrogen 20 mg/dL (8-23); Carbon Dioxide 27 mmol/L (22-29); Chloride 96 mmol/L (98-107); Globulin 1.6 g/dL (1.3-4.6); Glomerular Filtration Rate 41.1 mL/min (90-130); Glucose 90 mg/dL (65-115); Osmolality Calculated 280 mOsm/kg (285-295); Potassium 4.3 mmol/L (3.5-5.1); Sodium 134 mmol/L (136-145); Total Bilirubin 0.4 mg/dL (0.15-1.2); Total Protein 6.1 g/dL (6.6-8.7)
[2021-12-24 00:09] LABS: Troponin(5th) Baseline 14 ng/L (0-10)
[2021-12-24 00:25] LABS: INR 0.96 (0.8-1.2)
[2021-12-24 00:57] VITALS: BP 132/70; PULSE 74; RESP 18; O2SAT 95
[2021-12-24 01:53] LABS: Troponin 5 2HR 13.53 ng/L (0-10)
[2021-12-24 01:56] LABS: Troponin 5 2HR Delta -0.47 ABS# (0-10)
--- NOTE | 2021-12-24 02:02 | PC.NURSE ---
patient ambulated to wheelchair and wheeled to restroom. patient returned to room iwth no difficulties. patinet placed back on jewel supervisor with no issues. patient in no bovious distress.
[2021-12-24 03:34] VITALS: BP 110/71; PULSE 101; RESP 18; TEMP 36.7; O2SAT 98
[2021-12-24 03:35] VITALS: BP 110/71; PULSE 101; RESP 18; TEMP 36.7; O2SAT 98
--- NOTE | 2021-12-24 13:21 | DCPLANNER ---
Addendum entered by Christina Gorman 01/23/22 13:36: Patient had a follow up appointment for patient with heart care scheduled for 01.09.22- patient did attend appointment. Addendum entered by Christina Gorman 01/02/22 10:52: Patient had a follow up appointment scheduled for 01.01.22 with [facility] - appointment was rescheduled for 01.09.22 at [facility]. Original Note: network operations manager had message to schedule a follow up appointment for patient with [facility]. network operations manager called [facility], spoke with Chanel, gave clinic patients information. A follow up appointment was scheduled for December at 3:[address] Casillas. network operations manager called patient and gave patient the appointment information.
== END 2021-12-24 03:43 | disposition home or self-care (01) ==
PROVIDERS: Emergency Provider Emergency Medicine; PCP Nurse Practitioner Family
DX: R07.9 Chest pain, unspecified (principal)
CPT/HCPCS: 71045; 80053; 83690; 84484; 85025; 85610; 93005; 96374; 96375; 99284; J2270; J2405

== ENCOUNTER 2021-12-25 11:23 | Inpatient (IN) | payer MEDICARE, MEDICAID, SELFPAY ==
[2021-12-25] VITALS (98 sets, daily range): BP systolic 79–171; BP diastolic 57–92; PULSE 79–93; RESP 5–33; O2SAT 50–99
--- NOTE | 2021-12-25 12:20 | ECG_ITS ---
[facility] Test Date: 2021-12-25 Pat Name: Candice Sepulveda Department: Room: Gender: Female Alley Tender: : 1955 Requested By: Jose Lucio Order Number: [id number] Nadia MD: Therese Casillas M.D. Measurements Intervals [place] Rate: 77 P: 32 CT: 191 QRS: -4 QRSD: 113 T: 32 QT: 404 QTc: 458 Interpretive Statements SINUS RHYTHM LOW QRS VOLTAGE IN PRECORDIAL LEADS [QRS DEFLECTION < 1.0 mV IN CHEST LEADS] POSSIBLE ANTERIOR MYOCARDIAL INFARCTION , PROBABLY OLD [30 ms Q WAVE IN V3/V4, OR R < 0.2 mV IN V4] Compared to ECG 12/23/2021 23:37:32 No significant changes Electronically Signed On 12-25-2021 21:57:15 LOAN COORDINATOR by Therese Casillas M.D. [id number]
--- NOTE | 2021-12-25 12:20 | CT_ITS ---
WS: [id number] CT HEAD NONCONTRAST HISTORY: ams TECHNIQUE: Contiguous axial imaging performed through the brain in 2.5 mm imaging. Bone and soft tiss ue windows. Sagittal and coronal reformats reviewed. All CT scans at [facility] use at least one of these dose optimization techniques: automated exposure control; mA and/or kV adjustment per pa tient size (includes targeted exams where dose is matched to clinical indication); or iterative recon struction. DLP: 1171.46 mGy.cm COMPARISON: 09/01/2019 No acute intracranial hemorrhage, midline shift or mass effect. No atrophy or prior infarcts or herniation. Mild chronic ischemic type changes in the white matter si milar to the prior study. Most significant involving the LEFT caudate head. Ventricles: Normal size with no hydrocephalus. Paranasal sinuses: As visualized are clear. Mastoid air cells: Well pneumatized. Calvarium and scalp: Skull is intact with no soft tissue edema or swelling. CT/CT head wo con* [id number] IMPRESSION: 1. Stable noncontrast head CT. 2. No acute intracranial hemorrhage.
--- NOTE | 2021-12-25 12:24 | ED_ITS ---
HPI - Dizziness General: Chief Complaint: Dizziness Stated Complaint: CONFUSION Time Seen by Provider: 12/25/21 11:44 Source: patient and family (Daughter) Mode of arrival: EMS History of Present Illness: HPI Narrative: This patient was transported to the emergency department by local EMS. History is provided primarily by the daughter who accompanies her. Patient has a history of questionable seizure disorder as well as frequent urinary tract infection as well as prior history of: His surgery requiring colostomy and revision of same. She apparently was in this emergency department within the last 48 hours because of chest pain symptoms and was ruled out for ACS at that time. Subsequently the family has noted that she seems to be altered in terms of her communication skills. She does not seem to interact in a normal fashion moaning from time to time but then will be lucid and answer questions appropriately. They are concerned that there may be a medication misadventure which she has done in the past. When questioned the patient denies any pain at this time. She denies any other ongoing symptoms. She states that she ate breakfast today but cannot remember what she ate. She also states that she has not drink any fluids. There is no history of known exposure to infectious disease. There is no history of opiate use and there is no opiates on his medication list. There is no history of alcohol use. She is fully immunized against COVID-19. Associated symptoms: Denies chest pain, chills, headache(s), nausea, palpitations or vomiting Associated neuro symptoms: Reports confusion Review of Systems Const: Denies: fever(s) or chills Eyes: Denies: change in vision ENMT: Denies: throat pain or odynophagia Card: Denies: chest pain, palpitations or irregular heart rhythm Resp: Denies: dyspnea, productive cough or non-productive cough GI: Denies: abdominal pain, nausea, vomiting or hematemesis : Denies: flank pain, difficulty voiding or dysuria Musc: Denies: neck pain, back pain or extremity pain Skin/Breast: Denies: rash or pruritus Neuro: Reports: confusion, behavioral changes and difficulty communicating thoughts; Denies: headache(s) or seizure-like activity Psych: Denies: anxiety or depression Endo: Denies: polyuria, polydipsia or tired all the time PFS ED PFSH: Medical History Frequent urinary tract infections GERD (gastroesophageal reflux disease) History of sleep apnea Hypothyroid Perforated abdominal viscus Sleep apnea Surgical History H/O tubal ligation History of colonoscopy History of tonsillectomy Perforation of sigmoid colon Status post diverting colostomy S/P small bowel resection Status post Sab[place] procedure Family History Mother , at age 58 Cancer Father , at age 71 Heart disease Other Hypertension Perforation of sigmoid colon Social History Alcohol intake: never Adopted: No Caregiver/support person: No Lives independently: No Household members: family Marital status: Current occupational status: disabled History of recent travel: No Physical Exam Narrative: EXAM NARRATIVE: The patient is a noted to be moaning and sort of a low intermittent moan when asked questions she immediately stops moaning and will generally answer the questions occasionally she will refused to answer. Her answers seem to be accurate and immediate without any rumination. Const: COMMON NORMALS: average body habitus and alert NUTRITIONAL APPEARANCE: obese ORIENTATION/CONSCIOUSNESS: Yes oriented to person and Yes oriented to place HENMT: COMMON NORMALS: normocephalic, atraumatic and Normal external nose present HEAD & SCALP: normocephalic and atraumatic FACE & SINUS: normal facial exam; no sinus tenderness NOSE: Normal external nose present THROAT: posterior oropharynx normal Eye: COMMON NORMALS: Equal, round and reactive pupils present, EOMs intact bilaterally, conjunctivae normal and no scleral icterus CONJUNCTIVA: Yes conjunctivae normal PUPIL: Yes Equal, round and reactive pupils present Neck/C-Spine: COMMON NORMALS: full ROM, no lymphadenopathy, no meningeal signs, no JVD, Thyroid normal and No carotid bruits THYROID: Thyroid normal Lymph: LYMPHATIC: no lymphadenopathy noted Chest: COMMONS NORMALS: normal inspection of the chest and normal palpation of entire chest wall Resp: COMMON NORMALS: normal respiratory effort, No retractions, No use of accessory muscles and clear to auscultation bilaterally AUSCULTATION: clear to auscultation bilaterally Cardio: COMMON NORMALS: no JVD, regular rate, regular rhythm, No murmurs present (Cardio) and Peripheral pulses 2+ throughout RATE: regular rate RHYTHM: regular rhythm PERIPHERAL PULSES: Peripheral pulses 2+ throughout GI: COMMON NORMALS: Normal to inspection, nondistended, normoactive bowel sounds present (She does have well-healed previous surgical scars.), Soft to palpation, non-tender, No hepatosplenomegaly present, no masses and no bruits PALPATION: Yes Soft to palpation and Yes No hepatosplenomegaly present : COMMON NORMALS: Yes no CVA tenderness BLADDER/KIDNEY EXAM: Yes no CVA tenderness Back/Pelvis: COMMON NORMALS: no CVA tenderness, thoracic and lumbar spine normal to inspection, no thoracic nor lumbar tenderness and thoraco-lumbar ROM normal Extremity: COMMON NORMALS: normal to inspection, full ROM, capillary refill normal, no calf tenderness and no pedal edema Neuro: COMMON NORMALS: moves all extremities, no focal motor deficits and no sensory deficits noted SENSORIUM/ORIENTATION: Yes alert, Yes oriented to person and Yes oriented to place MENINGEAL SIGNS: Yes no meningeal signs SPEECH: speech normal (When speaks speech is fluent and normal. Speech is interspaced between gut) Psych: COMMON NORMALS: speech normal ACTIVITY/MOTOR BEHAVIOR: Yes appropriate eye contact and Yes mannerisms SPEECH: Yes normal speech Skin: COMMON NORMALS: no rashes or lesions noted and turgor normal GENERAL SKIN EXAM: no rashes or lesions noted and turgor normal Course Reevaluation(s): Reevaluation #1: Patient seems to be clinically stable but essentially unchanged with regard to her mentation. She still somewhat clouded in her sensorium. Of note is that her transaminases and her alk phos are elevated compared with her last values. Is unclear as to exactly the etiology of her current clinical picture. Her CT scan of her head is reassuring. We will going proceed with an ammonia level as well as a lactate level and a CT of her abdomen pelvis to ensure there is not any ongoing intra-abdominal process contributing to her current presentation. Discussed with patient and daughter. Consultations: Consultation #1: I discussed with hospitalist reviewed the case who will see her in the emergency department. They requested some additional laboratory studies. Time: 21:15 Vital Signs: Vital signs: Vital Signs Pulse Rate 82 12/25/21 20:16 Respiratory Rate 22 H 12/25/21 20:16 Blood Pressure 138/69 12/25/21 20:16 Pulse Oximetry 94 12/25/21 20:16 MDM - Dizziness MDM Narrative Medical decision making narrative: Extensive emergency department work-up which was protracted due to current pandemic volumes reveals that she has elevation in transaminases, BUN creatinine ratio consistent with DAPHNEY but without any evidence of other concerning etiologies at this time to explain her general condition including her encephalopathy. Is not clear what is led to her current clinical picture. Her CT scan does not show any inner cranial bleeding, evidence of stroke, mass- effect etc. Her CT of her abdomen reveals gallstones but no evidence of Carrie cystitis biliary tract obstruction etc. She otherwise has no evidence of other intra-abdominal pathology at this time. Her ammonia level is normal. She does not have any obvious source of infection. She does have bacteria but I do not feel that this isolated finding represents the source of her presentation. Discussed with hospitalist and we will plan on additional evaluation and admission for hydration and further work-up as indicated. Lab Data Result diagrams: 12/25/21 13:47 12/25/21 13:47 Labs: Radiology Impressions Head CT 12/25/21 12:20 IMPRESSION: 1. Stable noncontrast head CT. 2. No acute intracranial hemorrhage. Abdomen/Pelvis CT 12/25/21 16:17 IMPRESSION: 1. No acute abnormality identified in the abdomen or pelvis. 2. Fluid distended gallbladder with small gallstones. No visible wall thickening to suggest cholecystitis. 3. Partial colon resection. Laboratory Results WBC 13.9 10^3/uL (4.0-10.0) H 12/25/21 13:47 RBC 3.74 10^6/uL (4.1-5.3) L 12/25/21 13:47 Hgb 11.8 g/dL (11.5-15.3) 12/25/21 13:47 Hct 36.2 % (37.0-47.0) L 12/25/21 13:47 MCV 96.8 fl (81-99) 12/25/21 13:47 MCH 31.6 pg (28.0-34.0) 12/25/21 13:47 MCHC 32.6 g/dL (30.0-36.0) 12/25/21 13:47 RDW 12.9 % (12.1-15.1) 12/25/21 13:47 Plt Count 147 10^3/cmm (130-400) 12/25/21 13:47 MPV 11.0 fL (7.4-10.4) H 12/25/21 13:47 Lymph % (Auto) Not Reportable 12/25/21 13:47 Will % (Auto) Not Reportable 12/25/21 13:47 Lymph # (Auto) Not Reportable 12/25/21 13:47 Will # (Auto) Not Reportable 12/25/21 13:47 Total Counted 100 (0-100) 12/25/21 13:47 Atypical Lymphs % 0.0 % (0-5) 12/25/21 13:47 Absolute Neutrophils 12.0 10^3/cmm (1.4-6.5) H 12/25/21 13:47 Segmented Neutrophils 72 % 12/25/21 13:47 Abs Segm Neuts (Man) 10.0 10/cmm (1.6-7.1) H 12/25/21 13:47 Band Neutrophils 14.0 % 12/25/21 13:47 Abs Band Neuts (Man) 1.9 10^3/cmm (0.0-1.2) H 12/25/21 13:47 Absolute Lymphocytes 1.5 10^3/cmm (1.2-3.4) 12/25/21 13:47 Lymphocytes (Manual) 11 % 12/25/21 13:47 Monocytes (Manual) 2.0 % 12/25/21 13:47 Absolute Monocytes 0.3 10^3/cmm (0.1-0.6) 12/25/21 13:47 Eosinophils (Manual) 1 % 12/25/21 13:47 Absolute Eosinophils 0.1 10^3/cmm (0.0-0.7) 12/25/21 13:47 Basophils (Manual) 0.0 % 12/25/21 13:47 Absolute Basophils 0.0 10^3/cmm (0.0-0.2) 12/25/21 13:47 Platelet Estimate Normal (Normal) 12/25/21 13:47 Sodium 129 mmol/L (136-145) L 12/25/21 13:47 Potassium 4.7 mmol/L (3.5-5.1) 12/25/21 13:47 Chloride 93 mmol/L (98-107) L 12/25/21 13:47 Carbon Dioxide 18 mmol/L (22-29) L 12/25/21 13:47 Anion Gap 22.7 (5-19) H 12/25/21 13:47 BUN 39 mg/dL (8-23) H 12/25/21 13:47 Creatinine 2.4 mg/dL (0.5-0.9) H 12/25/21 13:47 GFR Calculation 20.3 mL/min (90-130) L 12/25/21 13:47 Glucose 81 mg/dL (65-115) 12/25/21 13:47 Calculated Osmolality 276 mOsm/kg (285-295) L 12/25/21 13:47 Lactate 1.0 mmol/L (0.5-2.2) 12/25/21 17:15 Calcium 9.3 mg/dL (8.5-10.5) 12/25/21 13:47 Total Bilirubin 2.4 mg/dL (0.15-1.2) H 12/25/21 13:47 AST 71 U/L (0-32) H 12/25/21 13:47 ALT 134 U/L (0-33) H 12/25/21 13:47 Alkaline Phosphatase 150 IU/L (35-105) H 12/25/21 13:47 Ammonia 42 umol/L (11-51) 12/25/21 20:00 Total Protein 5.8 g/dL (6.6-8.7) L 12/25/21 13:47 Albumin 3.2 g/dL (3.5-5.2) L 12/25/21 13:47 Globulin 2.6 g/dL (1.3-4.6) 12/25/21 13:47 Urine Color Dark yellow (Yellow) 12/25/21 12:38 Urine Appearance Hazy (CLEAR) A 12/25/21 12:38 Urine pH 5 (5-7) 12/25/21 12:38 Ur Specific [place] 1.015 (1.005-1.030) 12/25/21 12:38 Urine Protein Trace (Negative) 12/25/21 12:38 Urine Glucose (UA) Norm (Normal) 12/25/21 12:38 Urine Ketones 1+ (Negative) H 12/25/21 12:38 Urine Blood Neg (Negative) 12/25/21 12:38 Urine Nitrate Negative (Negative) 12/25/21 12:38 Urine Bilirubin 2+ (Negative) H 12/25/21 12:38 Urine Urobilinogen 4 mg/dL (Negative) H 12/25/21 12:38 Ur Leukocyte Esterase Negative (Negative) 12/25/21 12:38 Urine RBC None /hpf (0-2) 12/25/21 12:38 Urine WBC Rare /hpf (0-5) 12/25/21 12:38 Ur Squamous Epith Cells 0-4 /hpf (0-5) H 12/25/21 12:38 Calcium Oxalate Crystal >100 /hpf H 12/25/21 12:38 Amorphous Sediment Not Reportable 12/25/21 12:38 Urine Bacteria 2+ /hpf (NONE) H 12/25/21 12:38 Urine Opiates Screen Positive ng/mL (Negative) H 12/25/21 12:38 Ur Barbiturates Screen Negative ng/mL (Negative) 12/25/21 12:38 Ur Phencyclidine Scrn Negative ng/mL (Negative) 12/25/21 12:38 Ur Amphetamines Screen Negative ng/mL (Negative) 12/25/21 12:38 U Benzodiazepines Scrn Negative ng/mL (Negative) 12/25/21 12:38 Urine Cocaine Screen Negative ng/mL (Negative) 12/25/21 12:38 U Marijuana (THC) Screen Negative ng/mL (Negative) 12/25/21 12:38 Ethyl Alcohol < 10 mg/dL (0-10) 12/25/21 13:47 SARS-CoV-2 Ag (Rapid) Negative (Negative) 12/25/21 20:13 EKG Data EKG 1: Attestation: I personally reviewed and interpreted this EKG as follows: Interpretation: EKG reveals baseline interference generally the ventricular rate is 77 bpm. She has normal intervals and normal axis. She does have poor R wave progression in the anterior precordial leads suggestive of possible previous anterior myocardial infarction. No discernible acute ST-T wave changes at this time. Discharge Plan Discharge Patient Disposition: Admitted As Inpatient Clinical Impression: Volume depletion, Acute kidney injury, Transaminitis, Encephalopathy Condition: Stable Prescriptions: No Action dexamethasone sodium phosphate 4 mg/mL solution 4 mg intra-articular ONCE Qty: 1.5 0RF atorvastatin 40 mg tablet 40 mg PO DAILY 0RF docusate sodium [DOK] 100 mg capsule 100 mg PO DAILY 0RF Toviaz 4 mg tablet extended release 24 hr 4 mg PO DAILY 0RF famotidine 20 mg tablet 20 mg PO BID 0RF levothyroxine [Euthyrox] 50 mcg tablet 50 mcg PO DAILY 0RF baclofen 10 mg tablet 10 mg PO BID 0RF prenat.vits,lenore,ugq-kozf-gwswa Tablet 1 tab PO DAILY 0RF atenolol 25 mg tablet 25 mg PO QDAY 0RF ascorbic acid (vitamin C) 1,000 mg tablet 1 g PO DAILY 0RF cholecalciferol (vitamin D3) 10 mcg (400 unit) capsule 10 mcg PO DAILY 0RF Vimpat 150 mg tablet 150 mg PO BID Qty: 60 5RF methenamine hippurate 1 gram tablet See Rx Instructions .ROUTE .COMPLEX Qty: 60 12RF Dose Instruction: TAKE 1 TABLET BY MOUTH TWICE DAILY TAKE 1000 MG OF VITAMIN C WITH EACH DOSE OF METHENAMINE Rx Instructions: TAKE 1 TABLET BY MOUTH TWICE DAILY TAKE 1000 MG OF VITAMIN C WITH EACH DOSE OF METHENAMINE ziprasidone HCl 60 mg Capsule 60 mg PO BID 0RF venlafaxine 150 mg Tablet Extended Release 24hr 150 mg PO QPM 0RF cetirizine 10 mg Tablet 10 mg PO DAILY 0RF Stool Softener 100 mg Capsule 100 mg PO BID 0RF omeprazole 20 mg Capsule,Delayed Release(Dr/Ec) 20 mg PO DAILY 0RF Referrals: Maryana Lloyd, ORGANIZATIONAL DEVELOPMENT DIRECTOR-C [Primary Care Provider] - Coding Level of Care Code ED Bench Repair Technician for Chg Fwd Exam Comprehensive
[2021-12-25 13:41] LABS: Amphetamines Screen Urine Negative (Negative); Barbiturates Screen Urine Negative (Negative); Benzodiazepines Screen Urine Negative (Negative); Cocaine Screen Urine Negative (Negative); Opiate Screen Urine Positive (Negative); PCP Screen Urine Negative (Negative); THC Screen Urine Negative (Negative); Urine Color Dark Yellow (Yellow)
[2021-12-25 13:42] LABS: Add Urine Culture? No; Add Urine Microscopic? YES; Bacteria Urine 2+ /hpf; Bilirubin Urine 2+ (Negative); Blood Urine Neg (Negative); Calcium Oxalate Crystals Urine >100 /hpf; Glucose Urine UA Norm (Normal); Ketones Urine 1+ (Negative); Leukocyte Esterase Urine Negative (Negative); Nitrate Urine Negative (Negative); Protein Urine Trace (Negative); Specific Gravity, Urine 1.015 (1.005-1.030); Squamous Epithelial Cell Urine 0-4 /hpf (0-5); Urine Appearance Hazy (CLEAR); Urobilinogen Urine 4 mg/dL (Negative); WBC Urine RARE /hpf (0-5); pH Urine 5 (5-7)
[2021-12-25 13:52] LABS: Hematocrit 36.2 % (37.0-47.0); Hemoglobin 11.8 g/dL (11.5-15.3); Mean Corpuscular HGB Conc 32.6 g/dL (30.0-36.0); Mean Corpuscular Hemoglobin 31.6 pg (28.0-34.0); Mean Corpuscular Volume 96.8 fl (81-99); Platelet Count 147 10^3/cmm (130-400); Red Blood Count 3.74 10^6/uL (4.1-5.3); Red Cell Distribution Width 12.9 % (12.1-15.1); White Blood Count 13.9 10^3/uL (4.0-10.0)
[2021-12-25] MEDS: sodium chloride 0.9% 1,000 ML 999 ML IV (14:25)
[2021-12-25 14:29] LABS: Absolute Eosinophils 0.1 10^3/cmm (0.0-0.7); Band Neutrophils Absolute 1.9 10^3/cmm (0.0-1.2); Eosinophils 1 %; Lymphocytes 11 %; Lymphocytes Absolute 1.5 10^3/cmm (1.2-3.4); Monocytes Absolute 0.3 10^3/cmm (0.1-0.6); Segmented Neutrophils 72 %; Total Cells Counted 100 (0-100)
[2021-12-25 14:32] LABS: Alanine Aminotransferase 134 U/L (0-33); Albumin Level 3.2 g/dL (3.5-5.2); Alkaline Phosphatase 150 IU/L (35-105); Blood Urea Nitrogen 39 mg/dL (8-23); Calcium 9.3 mg/dL (8.5-10.5); Carbon Dioxide 18 mmol/L (22-29); Chloride 93 mmol/L (98-107); Globulin 2.6 g/dL (1.3-4.6); Glomerular Filtration Rate 20.3 mL/min (90-130); Glucose 81 mg/dL (65-115); Osmolality Calculated 276 mOsm/kg (285-295); Sodium 129 mmol/L (136-145); Total Bilirubin 2.4 mg/dL (0.15-1.2); Total Protein 5.8 g/dL (6.6-8.7)
[2021-12-25 14:34] LABS: Alcohol Level < 10 mg/dL (0-10)
[2021-12-25 14:35] LABS: Anion Gap 22.7 (5-19); Aspartate Amino Transferase 71 U/L (0-32); Potassium 4.7 mmol/L (3.5-5.1)
[2021-12-25 14:57] LABS: Platelet Estimate Normal (Normal)
--- NOTE | 2021-12-25 16:17 | CTR_ITS ---
PROCEDURE INFORMATION: Exam: CT Abdomen And Pelvis Without Contrast Exam date and time: 12/25/2021 4:17 PM Age: 66 years old Clinical indication: Abnormal findings; Abnormal lab test; Elevated liver enzymes; Prior surgery; Surgery date: 6+ months; Surgery type: Colon; Patient HX: Elev liver enzymes; Additional info: Elevated transaminase, AMS w/o cause TECHNIQUE: Imaging protocol: Computed tomography of the abdomen and pelvis without contrast. Radiation optimization: All CT scans at this facility use at least one of these dose optimization techniques: automated exposure control; mA and/or kV adjustment per patient size (includes targeted exams where dose is matched to clinical indication); or iterative reconstruction. COMPARISON: CT abdomen pelvis w con* [id number] 05/22/2021 10:20 PM RADIATION DOSE METRICS: Total DLP (mGy-cm): 1698.24 FINDINGS: Diaphragm: Small hiatal hernia. Liver: Normal. No mass. Gallbladder and bile ducts: Small calcified stones in the dependent gallbladder. Gallbladder is fluid distended with no visible wall thickening. The bile ducts are normal. Pancreas: Normal. No ductal dilation. Spleen: Normal. No splenomegaly. Adrenal glands: Normal. No mass. Kidneys and ureters: Normal. No hydronephrosis. Stomach and bowel: Partial resection of the sigmoid colon with anastomotic sutures. Irregular radiopaque density in the lumen of the distal transverse colon is most likely a small ingested foreign body. The stomach and small bowel are unremarkable. No wall thickening or obstruction. Appendix: The appendix is visualized and is normal. Intraperitoneal space: Unremarkable. No free air. No significant fluid collection. Vasculature: Atherosclerotic calcifications. No aneurysm. Lymph nodes: Unremarkable. No enlarged lymph nodes. Urinary bladder: Unremarkable as visualized. Reproductive: The uterus and ovaries are unremarkable. Bones/joints: Mild scoliosis with degenerative changes of the thoracolumbar spine. No fracture identified. Degenerative changes of the hips, severe on the left. Soft tissues: Unremarkable. Other findings: Anterior laparotomy scar. CT/CT abdomen pelvis wo con [id number] IMPRESSION: 1. No acute abnormality identified in the abdomen or pelvis. 2. Fluid distended gallbladder with small gallstones. No visible wall thickening to suggest cholecystitis. 3. Partial colon resection.
[2021-12-25 20:37] LABS: SARS Covid-2 Antigen Negative (Negative)
[2021-12-25 20:50] LABS: Ammonia 42 umol/L (11-51)
[2021-12-25] MEDS: lactated ringers 1,000 ML 125 ML IV (20:51)
[2021-12-25 21:23] LABS: Erythrocyte Sedimentation Rate 19 mm/hr (0-15)
[2021-12-25 21:34] LABS: C Reactive Protein 224.5 mg/L (0.0-4.9)
--- NOTE | 2021-12-25 21:38 | XRR_ITS ---
PROCEDURE INFORMATION: Exam: XR Chest Exam date and time: 12/25/2021 9:38 PM Age: 66 years old Clinical indication: Other: AMS TECHNIQUE: Imaging protocol: XR of the chest. Views: 1 view. COMPARISON: CR (CHEST, ) 12/23/2021 11:32 PM FINDINGS: Lungs: Ground-glass opacity in the peripheral left lung base. Subpleural atelectasis or scarring in the lateral left lung. The right lung is clear. Pleural spaces: Unremarkable. No pleural effusion. No pneumothorax. Heart/Mediastinum: Unremarkable. No cardiomegaly. Bones/joints: Unremarkable. XR/XR chest 1V portable [id number] IMPRESSION: 1. Atelectasis versus pneumonia in the peripheral left lung base.
[2021-12-25 21:41] LABS: Procalcitonin 28.92 ng/mL (0-0.5)
--- NOTE | 2021-12-25 21:45 | PM.HP ---
Providers/Chief Complaint Primary Care Provider: Maryana Lloyd [employer] Chief Complaint: CONFUSION History of Present Illness Candice Sepulveda is a 66 year old female with a past medical history of sleep apnea, hypothyroidism, GERD, hypertension, polymyalgia rheumatica, depression and anxiety, history of epilepsy, history of recurrent UTIs, history of diagnostic laparoscopy converted to laparotomy and sigmoid resection with colostomy and small bowel resection, Harman's procedure, peritoneal lavage, with history of ostomy site infection/breakdown requiring transfer to higher level of care, who presents to [facility] with daughter due to altered mental status. Currently patient is alert to person, to place, not to time, she keeps repeating the phrase please get her off me, she is referring to the IV, throughout my encounter she repeated this continuously. Most of the history was obtained by daughter at bedside who tells me that patient has been doing well, she lives by herself, carries out most activities of daily living by herself, recently she was here in the hospital on the for complaints of anterior chest pain, was sent home, she spoke to her mother Wednesday night and she was doing fine. No recent falls, no recent history of UTIs, no recent cough, has been vaccinated for Covid 3 shots, has received flu vaccine, she has been doing fine recently according to family. However when they checked up on her today, they noticed that she was confused, not acting appropriately so they brought her to [facility] for further evaluation. During my examination I cannot notice any slurring of her words, no facial droop, she is moving her upper and lower extremities, she actually does follow some neurologic testing able to smile for me, wiggle her toes close her eyes. She is able to tell me her daughter's name at bedside, the month that she is boarding, she is able to name off her grandkids. But goes back to repeating the face get it off a. She denies any abdominal pain per se. Her only complaint was burning with urination when I asked her if she had burning with urination she said yes. No headache, no neck pain. No fevers. Work-up in the emergency room UA relatively unremarkable for UTI. Chest x-ray has not been ordered. CT scan of the abdomen pelvis no acute findings, she does have transaminitis. Elevated alk phos. Elevated bili. Elevated white blood cell count. I have asked ER provider to order pro-Lenore which was elevated 28.92, CRP to 224.5. I called the vrads, discussed with the radiologist coroner's juror, gallbladder is fluid distended with gallstones, no evidence of acute ascending cholangitis, no intra or extrahepatic biliary dilatation. Ammonia within normal limits. Lactate within normal limits. Her creatinine is elevated at 2.4. TSH is pending. Review of Systems Const: Denies: fever(s) or chills Eyes: Denies: change in vision ENMT: Denies: nasal congestion Card: Denies: chest pain Resp: Denies: dyspnea, productive cough, non-productive cough or wheezing GI: Denies: abdominal pain, nausea, vomiting, hematemesis, diarrhea, constipation, hematochezia or melena : Reports: dysuria; Denies: flank pain, difficulty voiding or urinary frequency Musc: Denies: neck pain or back pain Skin/Breast: Denies: rash Neuro: Denies: headache(s), dizziness or vertigo Psych: Denies: anxiety or depression Endo: Denies: polyuria or polydipsia Medications/Allergies Home Medications Medication Instructions Recorded Confirmed Last Taken Type atenolol 25 mg tablet 25 mg PO QDAY 12/14/19 12/25/21 12/30/19 History 25 mg venlafaxine 150 mg tablet,extended 150 mg PO QPM 12/16/19 12/25/21 12/30/19 History release 24 hr 150 mg ziprasidone HCl 60 mg capsule 60 mg PO BID 12/16/19 12/25/21 12/30/19 History 60 atorvastatin 40 mg tablet 40 mg PO DAILY 08/19/20 12/25/21 Unknown History docusate sodium 100 mg capsule 100 mg PO DAILY 12/18/20 12/25/21 Unknown History (DOK) fesoterodine 4 mg tablet,extended 4 mg PO DAILY 12/18/20 12/25/21 Unknown History release 24 hr (Toviaz) baclofen 10 mg tablet 10 mg PO BID 02/26/21 12/25/21 Unknown History famotidine 20 mg tablet 20 mg PO BID 02/26/21 12/25/21 Unknown History levothyroxine 50 mcg tablet 50 mcg PO DAILY 02/26/21 12/25/21 Unknown History (Euthyrox) prenat.vits,lenore,pgj-[id number]-viwgy 1 tab PO DAILY 02/26/21 12/25/21 Unknown History lacosamide 150 mg tablet (Vimpat) 150 mg PO BID #60 tab 11/11/21 12/25/21 Unknown Rx methenamine hippurate 1 gram tablet See Rx Instructions .ROUTE 11/17/21 12/25/21 Unknown Rx .COMPLEX #60 tab ascorbic acid (vitamin C) 1,000 mg 1 g PO DAILY tab 12/18/21 12/25/21 Unknown History tablet cholecalciferol (vitamin D3) 10 10 mcg PO DAILY 12/18/21 12/25/21 Unknown History mcg (400 unit) capsule cetirizine 10 mg tablet 10 mg PO DAILY 12/25/21 12/25/21 Unknown History docusate sodium 100 mg capsule 100 mg PO BID 12/25/21 12/25/21 Unknown History (Stool Softener) omeprazole 20 mg capsule,delayed 20 mg PO DAILY 12/25/21 12/25/21 Unknown History release Allergies Allergy/AdvReac Type Severity Reaction Status Date / Time amitriptyline Allergy unknown Verified 12/18/21 16:00 ciprofloxacin [From Cipro] Allergy unknown Verified 12/18/21 16:00 codeine Allergy ALGY-Swell Verified 12/18/21 16:00 Lip/Tongue/Throat phentermine [From Adipex-P] Allergy unknown Verified 12/18/21 16:00 PFSH Acute PFSH: Medical History Frequent urinary tract infections GERD (gastroesophageal reflux disease) History of sleep apnea Hypothyroid Perforated abdominal viscus Sleep apnea Surgical History H/O tubal ligation History of colonoscopy History of tonsillectomy Perforation of sigmoid colon Status post diverting colostomy S/P small bowel resection Status post Sabine procedure Family History Mother , at age 58 Cancer Father , at age 71 Heart disease Other Hypertension Perforation of sigmoid colon Social History Alcohol intake: never Adopted: No Caregiver/support person: No Lives independently: No Household members: family Marital status: Current occupational status: disabled History of recent travel: No Vitals/I&O/Wt Last Vital Signs Pulse 82 12/25/21 20:16 Resp 22 H 12/25/21 20:16 BP 138/69 12/25/21 20:16 Pulse Ox 94 12/25/21 20:16 Physical Exam Const: COMMON NORMALS: no acute distress and alert GENERAL APPEARANCE: cooperative, well kempt and well developed ORIENTATION/CONSCIOUSNESS: Yes awake, Yes oriented to person and Yes confused; not oriented to place and not oriented to time HENMT: COMMON NORMALS: normocephalic, Normal external nose present and oropharynx normal HEAD & SCALP: normocephalic FACE & SINUS: normal facial exam NOSE: Normal external nose present MOUTH: Normal oral and palatal mucosa present Eye: COMMON NORMALS: Equal, round and reactive pupils present, EOMs intact bilaterally, conjunctivae normal and no scleral icterus CONJUNCTIVA: Yes conjunctivae normal PUPIL: Yes Equal, round and reactive pupils present Neck/C-Spine: COMMON NORMALS: full ROM, no lymphadenopathy, no meningeal signs, Thyroid normal and No carotid bruits THYROID: Thyroid normal Lymph: LYMPHATIC: no lymphadenopathy noted Chest: COMMONS NORMALS: normal inspection of the chest Resp: COMMON NORMALS: normal respiratory effort, No retractions, No use of accessory muscles and clear to auscultation bilaterally AUSCULTATION: clear to auscultation bilaterally Cardio: COMMON NORMALS: no JVD, regular rate, regular rhythm, S1 normal heart sound present, S2 normal heart sound present, No murmurs present (Cardio) and Peripheral pulses 2+ throughout RATE: regular rate RHYTHM: regular rhythm HEART SOUNDS: S1 normal heart sound present and S2 normal heart sound present PERIPHERAL PULSES: Peripheral pulses 2+ throughout GI: COMMON NORMALS: Normal to inspection, nondistended, normoactive bowel sounds present, Soft to palpation, non-tender and No hepatosplenomegaly present PALPATION: Yes Soft to palpation and Yes No hepatosplenomegaly present : COMMON NORMALS: Yes no CVA tenderness BLADDER/KIDNEY EXAM: Yes no CVA tenderness Back/Pelvis: COMMON NORMALS: no CVA tenderness Extremity: COMMON NORMALS: normal to inspection, full ROM, capillary refill normal, no calf tenderness and no pedal edema Neuro: COMMON NORMALS: CN's II-XII intact bilaterally, moves all extremities and no focal motor deficits SENSORIUM/ORIENTATION: Yes alert, Yes oriented to person, Yes oriented to place, No oriented to time and Yes fluctuating sensorium MENINGEAL SIGNS: Yes no meningeal signs SPEECH: speech normal Psych: COMMON NORMALS: speech normal APPEARANCE: Yes well kempt SPEECH: Yes normal speech Skin: COMMON NORMALS: turgor normal and no jaundice GENERAL SKIN EXAM: turgor normal Data : 12/25/21 13:47 12/25/21 13:47 A&P Assessment and plan (1) Altered mental status: Status: Acute (2) Acute kidney injury: Status: Acute (3) Generalized epilepsy: Status: Acute (4) Frequent urinary tract infections: Status: Acute (5) Perforation of sigmoid colon: Status: Resolved (6) Morbid obesity: Status: Chronic (7) GERD (gastroesophageal reflux disease): Status: Acute (8) Hypothyroid: Status: Chronic (9) Primary osteoarthritis of knees, bilateral: Status: Acute Plan Altered mental status -CRP to 24.5, pro-Lenore 28.92 -History of frequent UTIs, UA relatively unremarkable -Chest x-ray shows atelectasis versus pneumonia left lung base, not requiring oxygen, no cough complaints, no shortness of breath complaints, Covid within normal limits, has received all 3 Covid shots, flu shot -No meningeal signs, CT head within normal limits -Elevated alk phos, elevated bili, elevated LFTs, CT scan of the abdomen pelvis shows gallbladder distended with fluid and gallstones, no intra or extrahepatic biliary dilatation, no radiographic evidence of acute cholecystitis, no right upper quadrant pain -Urine drug screen positive for opiates, did get morphine during her recent ER visit -TSH pending -Troponins pending, BNP pending Plan: -Neurochecks -Aspiration precautions -Seizure precautions -Continue IV fluids -Urine cultures, blood cultures, sputum cultures, urine bacterial antigens -Monitor mentation closely -Broad-spectrum antibiotics vancomycin, Zosyn -We will do right upper quadrant ultrasound, and order MRCP to evaluate for possible acute ascending cholangitis -Full code -Lovenox for DVT prophylaxis -Currently n.p.o. Altered mental status with sepsis, given low blood pressures on admission improving with fluids elevated inflammatory markers Acute kidney injury, follow CPK, IV fluids as above Hypothyroidism, not on levothyroxine, TSH pending Generalized epilepsy, continue home meds Attestations Medical Necessity Statement*: Patient requires hospitalization, inpatient, greater than 2 midnights for altered mental status Coding Level of Care Code Acute User Experience Researcher for Chg Fwd History Comprehensive Exam Comprehensive Medical Decision Making High Complexity Diagnoses Altered mental status R41.82 Acute kidney injury N17.9 Generalized epilepsy G40.309 Frequent urinary tract infections N39.0 Perforation of sigmoid colon K63.1 Morbid obesity E66.01 GERD (gastroesophageal reflux disease) K21.9 Hypothyroid E03.9 Primary osteoarthritis of knees, bilateral M17.0 Time Spent (min) 55
[2021-12-25 22:26] LABS: Creatine Phosphokinase 147 U/L (26-192); Magnesium 1.8 mg/dL (1.7-2.3); NT Pro B Type Natriuretic Pept 5945 pg/mL (0-125); Phosphorus 4.2 mg/dL (2.5-4.5); Thyroid Stimulating Hormone 1.92 uIU/mL (0.27-4.20)
[2021-12-25 22:33] LABS: Lipase 1070 U/L (13-60)
[2021-12-25 22:41] LABS: Troponin(5th) Baseline 29 ng/L (0-10)
[2021-12-25 22:51] LABS: Gamma Glutamyl Transferase 174 U/L (5-36)
[2021-12-25 22:55] LABS: Influenza A by IFA Negative (Negative); Influenza B by IFA Negative (Negative)
[2021-12-25] MEDS: enoxaparin 40 mg/0.4 mL Syringe SUBCUT (23:04)
[2021-12-25] MEDS: sodium chlor 0.9% + KCl 20 mEq 20 MEQ/1,000 ML BAG 100 MEQ IV (23:04)
--- NOTE | 2021-12-25 23:45 | ECG_ITS ---
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 Measurements Intervals [place] Rate: 78 P: 50 NE: 180 QRS: 1 QRSD: 102 T: 13 QT: 371 QTc: 425 Interpretive Statements SINUS RHYTHM NONSPECIFIC ST & T-WAVE ABNORMALITY Compared to ECG 12/25/2021 12:36:09 T-wave abnormality now present Myocardial infarct finding no longer present Electronically Signed On 12-26-2021 11:34:05 FLIGHT OPERATIONS SPECIALIST by Swathi Chance M.D. [id number]
[2021-12-26 00:16] LABS: Troponin 5 2HR 28.68 ng/L (0-10); Troponin 5 2HR Delta -0.32 ABS# (0-10)
--- NOTE | 2021-12-26 00:16 | PC.PHAR ---
Pharmacokinetic dosing service Date: 12/26/21 Time: 29 Objective: Patient: Candice Sepulveda Floor: ED13 Age: 66 yo Serum creatinine: 2.4 mg/dL Height: 64.0 Inches Weight (kg): 96.8 Diagnosis: Relevant medical/social history: Cultures and sensitivities: Other labs: Assessment: IBW (kg): 54.70 Dosing wt(kg): 96.8 Estimated Creatinine clearance (ml/min): 20.2 CRCL method: Cockcroft and Gault using ibw(default). Drug selected: Vancomycin Loading dose (mg): 0 Vd (liters): 87.1 (factor used: 0.9 L/kg) Bhavik (hr-1): 0.021 Half life (hrs): 33.01 Recommended dose: 1500 mg Interval: 36 hrs Infusion time (hrs): 1.5 Predicted peak (mcg/mL): 32.0 Predicted trough (mcg/mL): 15.51 Total body weight is being used for vancomycin dosing. Renal function is stable [ ] /unstable [ ] Recommendations: Give Vancomycin 1500 mg q 36 hrs with an expected Cpeak of 32.0 mcg/ml and an expected Ctrough of 15.51 mcg/ml Renal dosing of other antibiotics (review renal dosing of other medications and list guidelines here): Thank you for the consult, will continue to follow. Signature: Paige [facility]
[2021-12-26 00:23] LABS: Hepatitis A Antibody IgM Non-Reactive (Nonreactive); Hepatitis B Core IgM Non-Reactive (Nonreactive); Hepatitis B Surface Antigen Non-Reactive (Nonreactive); Hepatitis C Virus Antibody Non-Reactive (Nonreactive)
[2021-12-26] MEDS: vancomycin 1,500 MG/300 ML PIGGYBACK 200 MG IV (01:21)
[2021-12-26] MEDS: haloperidol inj 5 mg/mL INJ 1 mL 1 MG IVP (01:21)
[2021-12-26 02:29] VITALS: PULSE 82; RESP 13
[2021-12-26] MEDS: piperacillin-tazobactam 3.375 GM in sodium chloride 0.9% (plus) 50 ML IV ×2 (03:09→14:26)
[2021-12-26 03:10] VITALS: BP 98/57; PULSE 80; RESP 15; O2SAT 95
[2021-12-26 04:42] VITALS: BP 98/68; PULSE 79; RESP 14; TEMP 37.2; O2SAT 97
[2021-12-26 04:45] LABS: Basophils % 0.3 %; Eosinophils % 0.6 %; Hematocrit 32.4 % (37.0-47.0); Hemoglobin 10.7 g/dL (11.5-15.3); Lymphocytes # 0.7 10^3/uL (0.8-4.8); Lymphocytes % 10.8 %; Mean Corpuscular Hemoglobin 31.2 pg (28.0-34.0); Mean Corpuscular Volume 94.5 fl (81-99); Mean Platelet Volume 10.5 fL (7.4-10.4); Monocytes # 0.6 10^3/uL (0.2-0.9); Monocytes % 8.5 %; Neutrophils # 5.22 10^3/uL (1.8-7.7); Nucleated Red Blood Cells % 0 %; Platelet Count 141 10^3/cmm (130-400); Red Blood Count 3.43 10^6/uL (4.1-5.3); Red Cell Distribution Width 12.8 % (12.1-15.1); White Blood Count 6.6 10^3/uL (4.0-10.0)
[2021-12-26] MEDS: lactated ringers 1,000 ML 125 ML IV (04:51)
[2021-12-26 05:09] LABS: Troponin 5 6HR 26.62 ng/L (0-10)
[2021-12-26 05:13] LABS: Alanine Aminotransferase 82 U/L (0-33); Albumin Level 2.9 g/dL (3.5-5.2); Alkaline Phosphatase 141 IU/L (35-105); Aspartate Amino Transferase 41 U/L (0-32); Blood Urea Nitrogen 42 mg/dL (8-23); Calcium 7.4 mg/dL (8.5-10.5); Carbon Dioxide 20 mmol/L (22-29); Chloride 101 mmol/L (98-107); Glomerular Filtration Rate 19.3 mL/min (90-130); Glucose 71 mg/dL (65-115); Lipase 157 U/L (13-60); Magnesium 1.6 mg/dL (1.7-2.3); Osmolality Calculated 287 mOsm/kg (285-295); Sodium 134 mmol/L (136-145); Total Bilirubin 1.3 mg/dL (0.15-1.2); Total Protein 4.9 g/dL (6.6-8.7)
[2021-12-26 05:15] LABS: Troponin 5 6HR Delta -2.38 ng/L (0-12)
[2021-12-26 05:18] LABS: C Reactive Protein 164.3 mg/L (0.0-4.9); Gamma Glutamyl Transferase 140 U/L (5-36)
[2021-12-26 05:23] LABS: Procalcitonin 13.19 ng/mL (0-0.5)
[2021-12-26] MEDS: famotidine 20 mg Tablet PO ×2 (09:36→17:17)
[2021-12-26] MEDS: docusate sodium 100 mg Capsule PO ×2 (09:36→17:17)
[2021-12-26] MEDS: atorvastatin 40 mg Tablet PO (09:36)
--- NOTE | 2021-12-26 10:30 | MR_ITS ---
WS: [id number] MRI/MRCP OF THE ABDOMEN WITHOUT GADOLINIUM ENHANCEMENT TECHNIQUE: Thin and thick slab MRCP, Axial T2, Coronal MRCP, Axial Dual Echo, and Axial 2-D Fiesta imaging was obtained. Coronal 2-D Fiesta imaging. CLINICAL INFORMATION: ams, elevated bili, transaminitis COMPARISON: Ultrasound gallbladder December 18, [address] December 25, 2021 FINDINGS: Images somewhat limited due to breathing artifact. Fluid distended gallbladder. Tiny gallstones in the dependent portion of the gallbladder. Gallbladder measures approximately 7.9 cm. No intrahepatic biliary ductal dilatation. Common bile duct appears p atent with normal tapering distally. No visualized choledocholithiasis. Common bile duct measures 5 m m at the pancreatic head. No pancreatic ductal dilatation. No gallbladder wall thickening. Tiny trace of fluid in the gallbladder fossa. Tiny sliver of perihepatic ascites. Normal GE junction. Normal spleen. Adrenal glands are normal. Normal caliber abdominal aorta. MR/MR MRCP [id number] Impression: 1. Fluid-filled distended hydropic gallbladder measuring 7.9 cm with tiny calc jhonathan in the dependent gallbladder. 2. No significant gallbladder wall thickening. Tiny trace of fluid in the gall bladder fossa. Gallbladder function can be further evaluated with HIDA scan. 3. Normal common bile duct with normal tapering distally. No visualized choled ocholithiasis. 4. No intrahepatic biliary ductal dilatation. Trace perihepatic fluid. 5. No other significant findings.
[2021-12-26 12:00] VITALS: BP 116/76; PULSE 77; RESP 18; TEMP 36.5; O2SAT 93
--- NOTE | 2021-12-26 12:57 | P.PN_ITS ---
Vitals/I&O/Wt Last Vital Signs Temp 99 F 12/26/21 04:42 Pulse 79 12/26/21 04:42 Resp 14 12/26/21 04:42 BP 98/68 12/26/21 04:42 Pulse Ox 97 12/26/21 04:42 12/25/21 12/26/21 12/26/21 22:59 06:59 14:59 Intake Total 1999 1000 / 1000 Balance 1999 1000 / 1000 Weight last 48 hrs Weight 96.88 kg Physical Exam Urinary Catheter Management: Cazares: Cath Placed During This Visit: yes Reason for Continuing Indwelling Catheter: Other Urinary Catheter Date of Insertion: 12/25/21 Data : 12/26/21 04:38 12/26/21 04:38 Micro: Microbiology 12/25/21 22:25 MRSA Culture - Final Nose 12/25/21 22:25 Bacterial Antigens - Final Urine,Clean Catch 12/25/21 23:28 Blood Culture - Preliminary Blood SPECIMEN COLLECTED 12/25/21 23:25 Blood Culture - Preliminary Blood SPECIMEN COLLECTED 12/25/21 22:25 Legionella Urinary Antigen - Final Urine Kidney A&P Assessment and plan (1) Altered mental status: Status: Acute (2) Acute kidney injury: Status: Acute (3) Transaminitis: Status: Acute (4) Hyperbilirubinemia: Status: Acute (5) Generalized epilepsy: Status: Acute (6) Frequent urinary tract infections: Status: Acute (7) Perforation of sigmoid colon: Status: Resolved (8) Morbid obesity: Status: Chronic (9) GERD (gastroesophageal reflux disease): Status: Acute (10) Hypothyroid: Status: Chronic Plan Altered mental status: Unknown etiology currently. Could be secondary to multiple psych medications including venlafaxine, ziprasidone along with antiepileptic Vimpat in setting of acute kidney injury. Does have a history of frequent UTIs. UA currently unremarkable. Chest x-ray is concerning for possible atelectasis versus pneumonia at left lung base to patient is not requiring any oxygen or does not have any cough complain of shortness of breath. Has received 3 shots of COVID-19. Ammonia levels within normal limits, urine drug screen negative other than for opiates. CT head negative for any acute abnormality. Check Vimpat level. Check COVID-19 PCR. Frequent reorientation. Fall prevention. Advance to full liquid diet. Neurochecks, aspiration precaution. Less likely from infectious process. Blood culture sent. Urine Legionella, bacterial antigen, MRSA negative. Continue with Zosyn. Discontinue vancomycin as MRSA is negative. Patient does have history of infection with Pseudomonas for abdominal wall during ostomy breakdown. Transaminitis/hyperbilirubinemia: MRI results appreciated. Concern for hydropic gallbladder with dependent cholelithiasis without any visual obstruction but does show tapering CBD. Secondary to passing gallstone. Lipase was elevated yesterday trending down today. We will consult surgery. Check HIDA scan. Hepatitis panel within normal limits. Check direct bilirubin level. Acute kidney injury: Could be secondary to poor oral intake due to altered mental status. Medical reconciliation done for nephrotoxic drugs. Check urine lites, urine creatinine, eosinophils. Cazares catheter to monitor strict input output charting. Normal saline 100 cc/h. -Continue other chronic medications including lacosamide, levothyroxine, famotidine, atorvastatin. Full code. Full liquid diet. Lovenox for DVT prophylaxis. Famotidine for PUD prophylaxis. Patient's care discussed in detail with patient's daughter over the phone. All the questions were answered. Attestations Medical Necessity Statement*: Requires further hospitalization for further management of altered mental status, hyperbilirubinemia, transaminitis, acute kidney injury Time Spent in Patient Care: Greater than 35 minutes Coding Level of Care Code Acute Sheet Pile Hammer Operator for Chg Fwd Diagnoses Altered mental status R41.82 Acute kidney injury N17.9 Generalized epilepsy G40.309 Frequent urinary tract infections N39.0 Perforation of sigmoid colon K63.1 Morbid obesity E66.01 GERD (gastroesophageal reflux disease) K21.9 Hypothyroid E03.9 Hyperbilirubinemia E80.6 Transaminitis R74.01
--- NOTE | 2021-12-26 13:19 | PM.CONSULT ---
Providers/Reason For Consult Consulting Physician/Specialty*: General Surgery Christopher Mcclain MD Reason for Consult*: Elevated LFTs, mildly hydropic gallbladder on imaging. Attending Physician: Mark Rendon MD Primary Care Provider: Maryana LloydP-C History of Present Illness History of Present Illness Candice Sepulveda is a 66 year old female who was reportedly admitted yesterday for some mental status changes. She tells me she came into the emergency room because she was having some circumferential chest pain around her lower chest. She says by the time she was leaving the emergency room to come to the floor her pain was already gone. She was noted to have some elevation of her liver function tests on admission with a bilirubin of 2.4, mildly elevated transaminases, GGTP, alkaline phosphatase, etc. She says she has been eating whatever she wants to at home. She is not having any postprandial symptoms. In short, the patient does not describe any ongoing history of any symptoms that I would consider consistent with biliary colic. The patient says she has no chest pain or abdominal pain. Medications/Allergies Home Medications Medication Instructions Recorded Confirmed Last Taken Type atenolol 25 mg tablet 25 mg PO QDAY 12/14/19 12/25/21 12/30/19 History 25 mg venlafaxine 150 mg tablet,extended 150 mg PO QPM 12/16/19 12/25/21 12/30/19 History release 24 hr 150 mg ziprasidone HCl 60 mg capsule 60 mg PO BID 12/16/19 12/25/21 12/30/19 History 60 atorvastatin 40 mg tablet 40 mg PO DAILY 08/19/20 12/25/21 Unknown History docusate sodium 100 mg capsule 100 mg PO DAILY 12/18/20 12/25/21 Unknown History (DOK) fesoterodine 4 mg tablet,extended 4 mg PO DAILY 12/18/20 12/25/21 Unknown History release 24 hr (Toviaz) baclofen 10 mg tablet 10 mg PO BID 02/26/21 12/25/21 Unknown History famotidine 20 mg tablet 20 mg PO BID 02/26/21 12/25/21 Unknown History levothyroxine 50 mcg tablet 50 mcg PO DAILY 02/26/21 12/25/21 Unknown History (Euthyrox) prenat.vits,lenore,ivu-cwai-ivcoe 1 tab PO DAILY 02/26/21 12/25/21 Unknown History lacosamide 150 mg tablet (Vimpat) 150 mg PO BID #60 tab 11/11/21 12/25/21 Unknown Rx methenamine hippurate 1 gram tablet See Rx Instructions .ROUTE 11/17/21 12/25/21 Unknown Rx .COMPLEX #60 tab ascorbic acid (vitamin C) 1,000 mg 1 g PO DAILY tab 12/18/21 12/25/21 Unknown History tablet cholecalciferol (vitamin D3) 10 10 mcg PO DAILY 12/18/21 12/25/21 Unknown History mcg (400 unit) capsule cetirizine 10 mg tablet 10 mg PO DAILY 12/25/21 12/25/21 Unknown History docusate sodium 100 mg capsule 100 mg PO BID 12/25/21 12/25/21 Unknown History (Stool Softener) omeprazole 20 mg capsule,delayed 20 mg PO DAILY 12/25/21 12/25/21 Unknown History release Allergies Allergy/AdvReac Type Severity Reaction Status Date / Time amitriptyline Allergy unknown Verified 12/18/21 16:00 ciprofloxacin [From Cipro] Allergy unknown Verified 12/18/21 16:00 codeine Allergy ALGY-Swell Verified 12/18/21 16:00 Lip/Tongue/Throat phentermine [From Adipex-P] Allergy unknown Verified 12/18/21 16:00 Current Medications Generic Name Dose Route Start Last Admin Trade Name Freq PRN Reason Stop Dose Admin Atorvastatin Calcium 40 mg 12/26/21 09:00 12/26/21 09:36 Atorvastatin 40 Mg Tablet PO 40 mg DAILY ELIZA Administration Docusate Sodium 100 mg 12/26/21 09:00 12/26/21 09:36 Docusate Sodium 100 Mg Capsule PO 100 mg BID ELIZA Administration Enoxaparin Sodium 40 mg 12/25/21 21:45 12/25/21 23:04 Enoxaparin 40 Mg/0.4 Ml Syringe SUBCUT 40 mg Q24H ELIZA Administration Famotidine 20 mg 12/26/21 09:00 12/26/21 09:36 Famotidine 20 Mg Tablet PO 20 mg BID ELIZA Administration Piperacillin Sod/Tazobactam 50 mls @ 12.5 mls/hr 12/26/21 02:00 12/26/21 03:09 Sod 3.375 gm/ Sodium Chloride IV 12.5 mls/hr Q12H ELIZA Administration Protocol Potassium Chloride/Sodium Chloride 20 meq in 1,000 mls @ 100 mls/hr 12/25/21 21:45 12/26/21 09:05 Sodium Chlor 0.9% + Kcl 20 Meq IV Infused .Q10H LEIZA Infusion Lacosamide 150 mg 12/26/21 09:00 12/26/21 12:11 Lacosamide 50 Mg Tablet PO Not Given BID ELIZA PFSH Acute PFSH: Medical History (Updated 12/26/21 @ 13:21 by Christopher Mcclain MD) Frequent urinary tract infections GERD (gastroesophageal reflux disease) History of sleep apnea Hypothyroid Perforated abdominal viscus Sleep apnea Surgical History (Updated 12/26/21 @ 13:36 by Christopher Mcclain MD) H/O tubal ligation History of colonoscopy 2019 History of tonsillectomy Status post Sabine's procedure For perforated diverticulitis 11/2019 -- with concomitant segmental small bowel resection / colostomy revision / eventual colostomy takedown Family History Mother , at age 58 Cancer Father , at age 71 Heart disease Other Hypertension Perforation of sigmoid colon Social History Alcohol intake: never Adopted: No Caregiver/support person: No Lives independently: No Household members: family Marital status: Current occupational status: disabled History of recent travel: No Vitals/I&O/Wt Last Vital Signs Temp 99 F 12/26/21 04:42 Pulse 79 12/26/21 04:42 Resp 14 12/26/21 04:42 BP 98/68 12/26/21 04:42 Pulse Ox 97 12/26/21 04:42 12/25/21 12/26/21 12/26/21 22:59 06:59 14:59 Intake Total 1999 1000 / 1000 Balance 1999 1000 / 1000 Weight last 48 hrs Weight 213 lb 9.353 oz Physical Exam Narrative: EXAM NARRATIVE: The patient was encountered in her hospital room. She does not appear to be in any distress. The pupils are equal. No carotid bruits are heard. The lungs are clear anteriorly. The heart seems regular. The abdomen is moderately to severely obese. There is a midline scar which has healed. She has a small scar in the left side of the abdomen presumably from her previous colostomy placement. She has minimal tenderness in the right upper quadrant in the epigastrium. No obvious masses are palpated. Sosa's sign is negative. The extremities may reveal just some slight edema. Neurologically the patient appears to be grossly intact. Urinary Catheter Management: Cazares: Cath Placed During This Visit: yes Reason for Continuing Indwelling Catheter: Other Urinary Catheter Date of Insertion: 12/25/21 Data : 12/26/21 04:38 12/26/21 04:38 Other Labs: Laboratory Tests 12/25/21 23:25 Hepatitis A IgM Ab Non-reactive Hep Bs Antigen Non-reactive Hep B Core IgM Ab Non-reactive Hepatitis C Antibody Non-reactive Micro: Microbiology 12/25/21 22:25 MRSA Culture - Final Nose 12/25/21 22:25 Bacterial Antigens - Final Urine,Clean Catch 12/25/21 23:28 Blood Culture - Preliminary Blood SPECIMEN COLLECTED 12/25/21 23:25 Blood Culture - Preliminary Blood SPECIMEN COLLECTED 12/25/21 22:25 Legionella Urinary Antigen - Final Urine Kidney US: Radiologist's impression: Gallbladder ultrasound 12/25/2021 IMPRESSION: ? 1.? Mildly hydropic gallbladder with no wall thickening. 2.? Gallstones are not identified by ultrasound. Gallstones were seen on the recent CT. These may be too small to visualize or are being obscured by adjacent duodenum. 3.? No common bile duct dilatation. MRI: Radiologist's impression: MRCP 12/26/2021 impression: ? 1.? Fluid-filled distended hydropic gallbladder measuring 7.9 cm with tiny calculi in the dependent gallbladder. 2.? No significant gallbladder wall thickening. Tiny trace of fluid in the gallbladder fossa. Gallbladder function can be further evaluated with HIDA scan. 3.? Normal common bile duct with normal tapering distally. No visualized choledocholithiasis. 4.? No intrahepatic biliary ductal dilatation. Trace perihepatic fluid. 5.? No other significant findings. CT Abd/Pel: Radiologist's impression: CT abdomen/pelvis 12/25/2021 IMPRESSION: 1. No acute abnormality identified in the abdomen or pelvis. 2. Fluid distended gallbladder with small gallstones.? No visible wall thickening to suggest cholecystitis. 3. Partial colon resection.? A&P Assessment and plan (1) Elevated LFTs: The patient was found to have elevated LFTs on admission yesterday. All of her LFTs are already improving today; her bilirubin is down to 1.3. Hepatitis panel was negative. She says she feels well. The patient says she had no abdominal pain per se yesterday, but did present with some circumferential chest pain which may or may not have been biliary in origin. She has no history of ongoing biliary colic, however. If she has gallstones they sound to be very small and were not even identified on ultrasound. She has no evidence of bile duct obstruction or other abnormalities on imaging. One other consideration is the patient has been on atorvastatin for a year. If she ends up having any persistent elevation of LFTs, that may need to be considered as an etiology if she is otherwise asymptomatic. Status: Acute (2) Gallbladder hydrops: This was mild on imaging. The patient seems to be asymptomatic. Status: Acute Consult Attestations Medical Necessity Statement: See admitting service's notation. Coding Level of Care Code Acute Sustainable Design Coordinator for Chg Fwd Diagnoses Elevated LFTs R79.89 Gallbladder hydrops K82.1
[2021-12-26 13:26] LABS: Total Bilirubin 1.3 mg/dL (0.15-1.2)
[2021-12-26] MEDS: sodium chlor 0.9% + KCl 20 mEq 20 MEQ/1,000 ML BAG 100 MEQ IV (14:26)
[2021-12-26 16:00] VITALS: BP 122/76; PULSE 67; RESP 18; TEMP 36.6; O2SAT 93
[2021-12-26 16:33] LABS: Potassium, Radom Urine 89 mmol/L; Urine Creatinine 168 mg/dL (28-217); Urine Random Chloride 27 mmol/L; Urine Random Sodium 34 mmol/L
[2021-12-26 16:48] LABS: Eosinophil Urine No Eosinophils Seen; Urine Eosinophil Count 0 (0-0)
[2021-12-26] MEDS: lacosamide 50 mg Tablet 150 MG PO (17:16)
[2021-12-26 20:00] VITALS: BP 100/64; PULSE 82; RESP 18; TEMP 36.7; O2SAT 93
[2021-12-26 20:21] LABS: Adenovirus Not Detected (NOT DETECT); Chlamydia Pneumoniae Not Detected (NOT DETECT); Coronavirus 229E,HKU1,NL63,OC4 Not Detected (NOT DETECT); Human Metapneumovirus Not Detected (NOT DETECT); Human Rhinovirus/Enterovirus Not Detected (NOT DETECT); Influenza A Not Detected (NOT DETECT); Influenza A H1 Not Detected (NOT DETECT); Influenza A H1-2009 Not Detected (NOT DETECT); Influenza A H3 Not Detected (NOT DETECT); Influenza B Not Detected (NOT DETECT); Mycoplasma Pneumoniae Not Detected (NOT DETECT); Parainfluenza Virus Type 1 Not Detected (NOT DETECT); Parainfluenza Virus Type 2 Not Detected (NOT DETECT); Parainfluenza Virus Type 3 Not Detected (NOT DETECT); Parainfluenza Virus Type 4 Not Detected (NOT DETECT); Respiratory Syncytial Virus A Not Detected (NOT DETECT); Respiratory Syncytial Virus B Not Detected (NOT DETECT); SARS-COV-2 Not Detected (NOT DETECT)
[2021-12-26] MEDS: enoxaparin 40 mg/0.4 mL Syringe SUBCUT (21:18)
--- NOTE | 2021-12-26 21:38 | US_ITS ---
WS: [id number] RIGHT UPPER QUADRANT ULTRASOUND HISTORY: ams, stones gallbladder COMPARISON: CT abdomen 12/25/2021 Liver: 13.5 cm in length. Normal size liver. No bile duct dilatation or mass. Portal Vein: Normal hepatopetal flow with monophasic waveform. Gallbladder: Gallbladder is hydropic. Mildly over distended with transverse diameter of 5.0 cm. No wa ll thickening or pericholecystic fluid. Stones identified on the CT are not visible by ultrasound. Th e stones are probably at the neck of the gallbladder may be too small to visualize or obscured by adj acent bowel. CBD: 0.6 cm Pancreas: Partially visualized pancreas. Body and tail are obscured. The head appears normal size. Th e pancreatic duct at the pancreatic head does not appear dilated. Right kidney: 9.9 cm in length. Normal size and echogenicity. No hydronephrosis or mass. Aorta and IVC: Unremarkable abdominal aorta and IVC. No ascites. US/US gall bladder [id number] IMPRESSION: 1. Mildly hydropic gallbladder with no wall thickening. 2. Gallstones are not identified by ultrasound. Gallstones were seen on the re cent CT. These may be too small to visualize or are being obscured by adjacent duodenum. 3. No common bile duct dilatation.
[2021-12-27] VITALS (7 sets, daily range): BP systolic 115–137; BP diastolic 68–83; PULSE 67–81; RESP 16–18; TEMP 36.6–36.9; O2SAT 94–97
[2021-12-27] MEDS: sodium chlor 0.9% + KCl 20 mEq 20 MEQ/1,000 ML BAG 100 MEQ IV ×2 (02:17→21:22)
[2021-12-27] MEDS: piperacillin-tazobactam 3.375 GM in sodium chloride 0.9% (plus) 50 ML IV ×3 (02:17→21:21)
[2021-12-27 07:13] LABS: Alanine Aminotransferase 57 U/L (0-33); Albumin Level 2.8 g/dL (3.5-5.2); Alkaline Phosphatase 205 IU/L (35-105); Aspartate Amino Transferase 30 U/L (0-32); Total Bilirubin 0.7 mg/dL (0.15-1.2); Total Protein 4.8 g/dL (6.6-8.7)
[2021-12-27] MEDS: famotidine 20 mg Tablet PO ×2 (08:12→16:14)
[2021-12-27] MEDS: atorvastatin 40 mg Tablet PO (08:12)
[2021-12-27] MEDS: levothyroxine 50 mcg Tablet PO (08:12)
[2021-12-27] MEDS: docusate sodium 100 mg Capsule PO ×2 (08:12→16:14)
[2021-12-27] MEDS: lacosamide 50 mg Tablet 150 MG PO ×2 (08:12→16:13)
--- NOTE | 2021-12-27 08:51 | P.PN_ITS ---
Subjective Subjective: Interval history: The patient continues to deny any abdominal discomfort. Vitals/I&O/Wt Last Vital Signs Temp 98.3 F 12/27/21 07:44 Pulse 71 12/27/21 07:44 Resp 16 12/27/21 07:44 BP 115/74 12/27/21 07:44 Pulse Ox 97 12/27/21 07:44 12/26/21 12/27/21 12/27/21 22:59 06:59 14:59 Intake Total 2472 / 4065.333 543.333 / 4065.333 Output Total 850 / 1550 700 / 1550 Balance 1622 / 2515.333 -156.667 / 2515.333 Weight last 48 hrs Weight 207 lb 5 oz Weight 213 lb 9.353 oz Physical Exam Narrative: EXAM NARRATIVE: Abdomen remains soft and nontender. Urinary Catheter Management: Cazares: Cath Placed During This Visit: yes Reason for Continuing Indwelling Catheter: Not indwelling catheter Urinary Catheter Date of Insertion: 12/25/21 Data : 12/26/21 04:38 12/26/21 04:38 Other Labs: Laboratory Tests 12/27/21 06:36 Total Bilirubin 0.7 Direct Bilirubin 0.60 H AST 30 ALT 57 H Alkaline Phosphatase 205 H Micro: Microbiology 12/25/21 23:28 Blood Culture - Preliminary Blood NEGATIVE TO DATE 12/25/21 23:25 Blood Culture - Preliminary Blood NEGATIVE TO DATE 12/25/21 22:25 MRSA Culture - Final Nose 12/25/21 22:25 Bacterial Antigens - Final Urine,Clean Catch A&P Assessment and plan (1) Elevated LFTs: The patient was found to have elevated LFTs on admission yesterday. All of her LFTs are already improving today; her total bilirubin was down to 1.3 yesterday, and is completely back to normal today. Hepatitis panel was negative. She says she feels well. I told the patient without any obvious ongoing history of biliary colic I am not going to recommend doing anything with her gallbladder, which she is in agreement with. Please call if I can be of further help. Status: Acute (2) Gallbladder hydrops: This was mild on imaging. The patient seems to be asymptomatic. Status: Acute Attestations Medical Necessity Statement*: See admitting service's notation. Coding Level of Care Code Acute Optical Sales Associate for Chg Fwd Diagnoses Elevated LFTs R79.89 Gallbladder hydrops K82.1
[2021-12-27 12:30] LABS: Alanine Aminotransferase 57 U/L (0-33); Alkaline Phosphatase 234 IU/L (35-105); Anion Gap 15.7 (5-19); Aspartate Amino Transferase 28 U/L (0-32); Blood Urea Nitrogen 32 mg/dL (8-23); Calcium 7.6 mg/dL (8.5-10.5); Carbon Dioxide 20 mmol/L (22-29); Chloride 108 mmol/L (98-107); Globulin 2.1 g/dL (1.3-4.6); Glomerular Filtration Rate 26.5 mL/min (90-130); Glucose 95 mg/dL (65-115); Osmolality Calculated 295 mOsm/kg (285-295); Potassium 4.7 mmol/L (3.5-5.1); Sodium 139 mmol/L (136-145); Total Bilirubin 0.7 mg/dL (0.15-1.2); Total Protein 5.1 g/dL (6.6-8.7)
--- NOTE | 2021-12-27 16:19 | P.PN_ITS ---
Subjective Subjective: Interval history: No acute events overnight. Patient is a lot more awake and alert. Able to have complete conversation. Denies any nausea, vomiting, abdominal pain, diarrhea, dysuria currently or prior to admission. She does not remember coming to the hospital. Vitals/I&O/Wt Last Vital Signs Temp 98.1 F 12/27/21 15:01 Pulse 74 12/27/21 15:01 Resp 16 12/27/21 15:01 BP 136/77 12/27/21 15:01 Pulse Ox 95 12/27/21 15:01 12/27/21 12/27/21 12/27/21 06:59 14:59 22:59 Intake Total 543.333 / 4065.333 240 / 240 Output Total 700 / 1550 Balance -156.667 / 2515.333 240 / 240 Weight last 48 hrs Weight 94.035 kg Weight 96.88 kg Physical Exam Narrative: EXAM NARRATIVE: Abdomen remains soft and nontender. Const: COMMON NORMALS: no acute distress, average body habitus and alert GENERAL APPEARANCE: cooperative, well kempt and well developed NUTRITIONAL APPEARANCE: obese ORIENTATION/CONSCIOUSNESS: Yes awake, Yes oriented to person, Yes oriented to place and Yes confused; not oriented to time HENMT: COMMON NORMALS: normocephalic, atraumatic, Normal external nose present and oropharynx normal HEAD & SCALP: normocephalic and atraumatic FACE & SINUS: normal facial exam; no sinus tenderness NOSE: Normal external nose present MOUTH: Normal oral and palatal mucosa present THROAT: posterior oropharynx normal Eye: COMMON NORMALS: Equal, round and reactive pupils present, EOMs intact bilaterally, conjunctivae normal and no scleral icterus CONJUNCTIVA: Yes conjunctivae normal PUPIL: Yes Equal, round and reactive pupils present Neck/C-Spine: COMMON NORMALS: full ROM, no lymphadenopathy, no meningeal signs, no JVD, Thyroid normal and No carotid bruits THYROID: Thyroid normal Lymph: LYMPHATIC: no lymphadenopathy noted Chest: COMMONS NORMALS: normal inspection of the chest and normal palpation of entire chest wall Resp: COMMON NORMALS: normal respiratory effort, No retractions, No use of accessory muscles and clear to auscultation bilaterally AUSCULTATION: clear to auscultation bilaterally Cardio: COMMON NORMALS: no JVD, regular rate, regular rhythm, S1 normal heart sound present, S2 normal heart sound present, No murmurs present (Cardio) and Peripheral pulses 2+ throughout RATE: regular rate RHYTHM: regular rhythm HEART SOUNDS: S1 normal heart sound present and S2 normal heart sound present PERIPHERAL PULSES: Peripheral pulses 2+ throughout GI: COMMON NORMALS: Normal to inspection, nondistended, normoactive bowel sounds present, Soft to palpation, non-tender, No hepatosplenomegaly present, no masses and no bruits PALPATION: Yes Soft to palpation and Yes No hepa tosplenomegaly present : COMMON NORMALS: Yes no CVA tenderness BLADDER/KIDNEY EXAM: Yes no CVA tenderness Back/Pelvis: COMMON NORMALS: no CVA tenderness, thoracic and lumbar spine normal to inspection, no thoracic nor lumbar tenderness and thoraco-lumbar ROM normal Neuro: COMMON NORMALS: CN's II-XII intact bilaterally, moves all extremities, no focal motor deficits and no sensory deficits noted SENSORIUM/ORIENTATION: Yes alert, Yes oriented to person, Yes oriented to place, No oriented to time and Yes fluctuating sensorium MENINGEAL SIGNS: Yes no meningeal signs SPEECH: speech normal Psych: COMMON NORMALS: speech normal APPEARANCE: Yes well kempt ACTIVITY/MOTOR BEHAVIOR: Yes appropriate eye contact and Yes mannerisms SPEECH: Yes normal speech Urinary Catheter Management: Cazares: Cath Placed During This Visit: yes Reason for Continuing Indwelling Catheter: Not indwelling catheter Urinary Catheter Date of Insertion: 12/25/21 Data : 12/26/21 04:38 12/27/21 11:37 Micro: Microbiology 12/25/21 12:38 Urine Culture - Preliminary Urine Catheterized 12/25/21 23:28 Blood Culture - Preliminary Blood NEGATIVE TO DATE 12/25/21 23:25 Blood Culture - Preliminary Blood NEGATIVE TO DATE 12/25/21 22:25 MRSA Culture - Final Nose A&P Assessment and plan (1) Altered mental status: Status: Acute (2) Acute kidney injury: Status: Acute (3) Transaminitis: Status: Acute (4) Hyperbilirubinemia: Status: Acute (5) Generalized epilepsy: Status: Acute (6) Frequent urinary tract infections: Status: Acute (7) Perforation of sigmoid colon: Status: Resolved (8) Morbid obesity: Status: Chronic (9) GERD (gastroesophageal reflux disease): Status: Acute (10) Hypothyroid: Status: Chronic Plan Altered mental status: Unknown etiology currently. Could be secondary to multiple psych medications including venlafaxine, ziprasidone along with antiepileptic Vimpat in setting of acute kidney injury. Does have a history of frequent UTIs. UA currently unremarkable. Chest x-ray i s concerning for possible atelectasis versus pneumonia at left lung base to patient is not requiring any oxygen or does not have any cough complain of shortness of breath. Has received 3 shots of COVID-19. Ammonia levels within normal limits, urine drug screen negative other than for opiates. CT head negative for any acute abnormality. Vimpat level pending. COVID-19 PCR negative. Frequent reorientation. Fall prevention. Advance to GI soft diet. Neurochecks, aspiration precaution. Less likely from infectious process. Blood culture sent. Urine Legionella, bacterial antigen, MRSA negative. Continue with Zosyn. Vancomycin stopped as MRSA negative. Patient does have history of infection with Pseudomonas for abdominal wall during ostomy breakdown. Transaminitis/hyperbilirubinemia: Resolved. MRI results appreciated. Concern for hydropic gallbladder with dependent cholelithiasis without any visual obstruction but does show tapering CBD. Secondary to passing gallstone. Lipase was elevated yesterday trending down today. Appreciate surgical recommendations. Acute kidney injury: Resolving. Could be secondary to poor oral intake due to altered mental status. Medical reconciliation done for nephrotoxic drugs. Urine studies appreciated. Fena?0.4% consistent with prerenal Cazares catheter to monitor strict input output charting. Normal saline 100 cc/h. -Continue other chronic medications including lacosamide, levothyroxine, famotidine, atorvastatin. Full code. GI soft Lovenox for DVT prophylaxis. Famotidine for PUD prophylaxis. PT/OT evaluation. Patient lives by herself. Discharge planning: Patient's mentation continues to improve along with improvement in creatinine can plan to discharge home with home health after physical therapy evaluation today within next 24 hours. Attestations Medical Necessity Statement*: Requires further hospitalization for management of acute kidney injury, resolving metabolic encephalopathy, transaminitis/hyperbilirubinemia in setting of hydropic gallbladder Time Spent in Patient Care: Greater than 35 minutes Coding Level of Care Code Acute Orthotic Technician for [facility] Fwd Diagnoses Altered mental status R41.82 Acute kidney injury N17.9 Transaminitis R74.01 Hyperbilirubinemia E80.6 Generalized epilepsy G40.309 Frequent urinary tract infections N39.0 Perforation of sigmoid colon K63.1 Morbid obesity E66.01 GERD (gastroesophageal reflux disease) K21.9 Hypothyroid E03.9
--- NOTE | 2021-12-27 16:22 | PC.CHAP ---
Pastoral Care Encounter/Spiritual Assessment Type of Contact [] Declined farm machinery engine mechanic visit [] Patient/Family/Request visit [] Outpatient visit [] Follow-up visit [] Physician referral [] Code/Alert [XX] Routine visit [] Staff referral [] Actively dying [] Patient sleeping [] Family support [] [] Out of room [] Palliative care [] [] Receiving care in room [] Pre-surgical visit [] Trauma [] Long length of stay [] ICU visit [XX] Other: daughter and son-in-law present in room Relational/Emotional Strength [XX] Patient feels connected with others/family/visitors/staff [] Distress [] Loneliness/isolation [] Abandonment Spirituality of Patient [] Person of Sadaf [] Attends Advent of their Sadaf [XX] Believes in Prayer [XX] Reads Bible or Mormonism materials [] There are Spiritual issues to be addressed Rehab Nurse Interventions [XX] Prayer [XX] Active listening [XX] Non-anxious presence [] Spiritual/emotional support [] Crisis/trauma care [] Spiritual counseling [] Bereavement support [] Provided bereavement packet [XX] Provided Bible/devotional materials [] Provided toy/stuffed animal, coloring book to patient or family member [] Provided Communion [] Anointing/[place] [] Salvation [XX] Completed spiritual assessment [] Other: Impact on Illness or Injury [] Angry [] Fearful [] Anxious [] Often cries [] Exhaustion [] Unable to work [] Unable to attend pentecostal [] Unable to walk/stand [] Unable to read [] Unable to drive [] Unable to eat/drink [] Unable to sleep [] Unable to be with family [] Patient intubated [] Other: Summary: Pt does not yet have answers to health issues but seemed in good spirits nevertheless. Pt can identify support system but does not belong to a yarsani family. Prayed with patient for answers to the medical problems and for medical team. Time spent with patient: 15 - 20 mins
[2021-12-27] MEDS: enoxaparin 30 mg/0.3 mL Syringe SUBCUT (21:22)
[2021-12-28] MEDS: piperacillin-tazobactam 3.375 GM in sodium chloride 0.9% (plus) 50 ML IV (03:22)
[2021-12-28 03:35] VITALS: BP 130/76; PULSE 74; RESP 20; TEMP 36.7; O2SAT 96
[2021-12-28 07:04] LABS: Basophils % 0.7 %; Eosinophils # 0.1 10^3/uL (0.0-0.8); Eosinophils % 2.1 %; Hematocrit 32.4 % (37.0-47.0); Hemoglobin 10.4 g/dL (11.5-15.3); Lymphocytes # 1.5 10^3/uL (0.8-4.8); Lymphocytes % 25.4 %; Mean Corpuscular HGB Conc 32.1 g/dL (30.0-36.0); Mean Corpuscular Hemoglobin 30.7 pg (28.0-34.0); Mean Corpuscular Volume 95.6 fl (81-99); Mean Platelet Volume 10.8 fL (7.4-10.4); Monocytes # 0.7 10^3/uL (0.2-0.9); Monocytes % 12.8 %; Neutrophils # 3.34 10^3/uL (1.8-7.7); Neutrophils % 58.6 %; Nucleated Red Blood Cells % 0 %; Platelet Count 135 10^3/cmm (130-400); Red Blood Count 3.39 10^6/uL (4.1-5.3); White Blood Count 5.7 10^3/uL (4.0-10.0)
[2021-12-28 07:05] LABS: Alanine Aminotransferase 48 U/L (0-33); Albumin Level 2.8 g/dL (3.5-5.2); Alkaline Phosphatase 265 IU/L (35-105); Aspartate Amino Transferase 26 U/L (0-32); Blood Urea Nitrogen 25 mg/dL (8-23); Calcium 7.5 mg/dL (8.5-10.5); Carbon Dioxide 18 mmol/L (22-29); Chloride 111 mmol/L (98-107); Globulin 2.4 g/dL (1.3-4.6); Glomerular Filtration Rate 30.2 mL/min (90-130); Glucose 70 mg/dL (65-115); Osmolality Calculated 289 mOsm/kg (285-295); Sodium 138 mmol/L (136-145); Total Bilirubin 0.6 mg/dL (0.15-1.2); Total Protein 5.2 g/dL (6.6-8.7)
[2021-12-28 07:09] LABS: Anion Gap 13.7 (5-19); Potassium 4.7 mmol/L (3.5-5.1)
[2021-12-28] MEDS: famotidine 20 mg Tablet PO (07:43)
[2021-12-28] MEDS: levothyroxine 50 mcg Tablet PO (07:43)
[2021-12-28] MEDS: docusate sodium 100 mg Capsule PO (07:43)
[2021-12-28] MEDS: lacosamide 50 mg Tablet 150 MG PO (07:43)
[2021-12-28] MEDS: atorvastatin 40 mg Tablet PO (07:43)
[2021-12-28 08:24] VITALS: BP 129/79; PULSE 75; RESP 16; TEMP 36.4; O2SAT 96
[2021-12-28 11:52] VITALS: BP 122/76; PULSE 74; RESP 17; TEMP 36.5; O2SAT 97
--- NOTE | 2021-12-28 12:07 | PM.DCS ---
Discharge Providers Date of Admission: 12/26/21 00:05 Date of Discharge: December 28, 2021 Attending Provider at Admission: James Napoles MD Attending Provider at Discharge: Mark Rendon MD Consults: Surgery: Dr. Mcclain Primary Care Provider: Maryana Lloyd-Kailyn Diagnoses at Discharge Discharge Diagnosis (1) Altered mental status: Status: Acute (2) Acute kidney injury: Status: Acute (3) Transaminitis: Status: Acute (4) Hyperbilirubinemia: Status: Acute (5) Generalized epilepsy: Status: Acute (6) Frequent urinary tract infections: Status: Acute (7) Perforation of sigmoid colon: Status: Resolved Permanent problem details: Status post diverting colostomy (8) Morbid obesity: Status: Chronic (9) GERD (gastroesophageal reflux disease): Status: Acute (10) Hypothyroid: Status: Chronic Reason for Visit Reason for Visit: CONFUSION Hospital Course Hospital Course History as per HPI: Candice Sepulveda is a 66 year old female with a past medical history of sleep apnea, hypothyroidism, GERD, hypertension, polymyalgia rheumatica, depression and anxiety, history of epilepsy, history of recurrent UTIs, history of diagnostic laparoscopy converted to laparotomy and sigmoid resection with colostomy and small bowel resection, Harman's procedure, peritoneal lavage, with history of ostomy site infection/breakdown requiring transfer to higher level of care, who presents to [facility] with daughter due to altered mental status.? Currently patient is alert to person, to place, not to time, she keeps repeating the phrase please get her off me, she is referring to the IV, throughout my encounter she repeated this continuously.? Most of the history was obtained by daughter at bedside who tells me that patient has been doing well, she lives by herself, carries out most activities of daily living by herself, recently she was here in the hospital on the for complaints of anterior chest pain, was sent home, she spoke to her mother Wednesday night and she was doing fine.? No recent falls, no recent history of UTIs, no recent cough, has been vaccinated for Covid 3 shots, has received flu vaccine, she has been doing fine recently according to family.? However when they checked up on her today, they noticed that she was confused, not acting appropriately so they brought her to [facility] for further evaluation.? During my examination I cannot notice any slurring of her words, no facial droop, she is moving her upper and lower extremities, she actually does follow some neurologic testing able to smile for me, wiggle her toes close her eyes.? She is able to tell me her daughter's name at bedside, the month that she is boarding, she is able to name off her grandkids.? But goes back to repeating the face get it off a.? She denies any abdominal pain per se.? Her only complaint was burning with urination when I asked her if she had burning with urination she said yes.? No headache, no neck pain.? No fevers.? Work-up in the emergency room UA relatively unremarkable for UTI.? Chest x-ray has not been ordered.? CT scan of the abdomen pelvis no acute findings, she does have transaminitis.? Elevated alk phos.? Elevated bili.? Elevated white blood cell count. Hospital course: Patient was admitted to the hospital for further management of altered mental status. On admission she was found to have transaminitis and hyperbilirubinemia along with acute kidney injury. MRCP was done which ruled out acute cholangitis, cholecystitis but was consistent with hydropic gallbladder. Surgery was consulted. Patient's abdominal pain symptoms resolved. Transaminitis continue to resolve as back to baseline and resolution of bilirubinemia for last 24 to 36 hours. It is believed patient's transaminitis is secondary to possible passage of gallstone recently as on admission patient did have elevated lipase which had resolved. Patient was also found to be in acute kidney injury on admission secondary to dehydration which is resolving with IV fluids. Patient's altered mental status most likely secondary to multiple psych medications including venlafaxine, lacosamide, fesoterodine and ziprasidone in setting of acute kidney injury and liver dysfunction. Venlafaxine and ziprasidone was withheld on admission. Patient is back to her baseline mentation. Patient has been discharged in hemodynamically stable condition with advised to follow-up with her primary care provider within next 1 week for repeat BMP. She is to continue taking her ziprasidone, lacosamide as before. Venlafaxine dose has been cut down to half. She can start her home dose of venlafaxine back once BMP and creatinine has completely normalized. She is to follow-up with a surgeon within next 1 month for possible cholecystectomy as an outpatient for hydropic gallbladder. Physical Exam Narrative: EXAM NARRATIVE: Abdomen remains soft and nontender. Const: COMMON NORMALS: no acute distress, average body habitus and alert GENERAL APPEARANCE: cooperative, well kempt and well developed NUTRITIONAL APPEARANCE: obese ORIENTATION/CONSCIOUSNESS: Yes awake, Yes oriented to person, Yes oriented to place and Yes confused; not oriented to time HENMT: COMMON NORMALS: normocephalic, atraumatic, Normal external nose present and oropharynx normal HEAD & SCALP: normocephalic and atraumatic FACE & SINUS: normal facial exam; no sinus tenderness NOSE: Normal external nose present MOUTH: Normal oral and palatal mucosa present THROAT: posterior oropharynx normal Eye: COMMON NORMALS: Equal, round and reactive pupils present, EOMs intact bilaterally, conjunctivae normal and no scleral icterus CONJUNCTIVA: Yes conjunctivae normal PUPIL: Yes Equal, round and reactive pupils present Neck/C-Spine: COMMON NORMALS: full ROM, no lymphadenopathy, no meningeal signs, no JVD, Thyroid normal and No carotid bruits THYROID: Thyroid normal Lymph: LYMPHATIC: no lymphadenopathy noted Chest: COMMONS NORMALS: normal inspection of the chest and normal palpation of entire chest wall Resp: COMMON NORMALS: normal respiratory effort, No retractions, No use of accessory muscles and clear to auscultation bilaterally AUSCULTATION: clear to auscultation bilaterally Cardio: COMMON NORMALS: no JVD, regular rate, regular rhythm, S1 normal heart sound present, S2 normal heart sound present, No murmurs present (Cardio) and Peripheral pulses 2+ throughout RATE: regular rate RHYTHM: regular rhythm HEART SOUNDS: S1 normal heart sound present and S2 normal heart sound present PERIPHERAL PULSES: Peripheral pulses 2+ throughout GI: COMMON NORMALS: Normal to inspection, nondistended, normoactive bowel sounds present, Soft to palpation, non-tender, No hepatosplenomegaly present, no masses and no bruits PALPATION: Yes Soft to palpation and Yes No hepatosplenomegaly present : COMMON NORMALS: Yes no CVA tenderness BLADDER/KIDNEY EXAM: Yes no CVA tenderness Back/Pelvis: COMMON NORMALS: no CVA tenderness, thoracic and lumbar spine normal to inspection, no thoracic nor lumbar tenderness and thoraco-lumbar ROM normal Neuro: COMMON NORMALS: CN's II-XII intact bilaterally, moves all extremities, no focal motor deficits and no sensory deficits noted SENSORIUM/ORIENTATION: Yes alert, Yes oriented to person, Yes oriented to place, No oriented to time and Yes fluctuating sensorium MENINGEAL SIGNS: Yes no meningeal signs SPEECH: speech normal Psych: COMMON NORMALS: speech normal APPEARANCE: Yes well kempt ACTIVITY/MOTOR BEHAVIOR: Yes appropriate eye contact and Yes mannerisms SPEECH: Yes normal speech Urinary Catheter Management: Cazares: Cath Placed During This Visit: yes Reason for Continuing Indwelling Catheter: Acute Urinary Retention or Obstruction Urinary Catheter Date of Insertion: 12/25/21 Discharge Data Studies Completed and Pending Completed Studies During Hospitalization Category Date Time Status CT abdomen pelvis wo con [id number] Urgent Cat Scan 12/25/21 16:[address] head wo con* [id number] Urgent Cat Scan 12/25/21 12:20 Completed XR chest 1V portable [id number] Stat Exams 12/25/21 21:38 Completed MR MRCP [id number] Urgent MRI 12/26/21 10:30 Completed US gall bladder [id number] Urgent Ultrasound 12/26/21 21:38 Completed Pending at discharge Category Date Time Status ABG ONLY [Arterial Blood Gas W/O Coox] Stat Lab 12/25/21 22:40 Received Blood Culture Stat Lab 12/25/21 23:28 Results [place] (Vimpat) Routine Lab 12/27/21 06:36 Received Sputum Culture and Gram Stain Stat Lab 12/25/21 21:38 Uncollected Vancomycin Trough Timed Lab 12/29/21 00:30 Ordered Radiology Impressions Head CT 12/25/21 12:20 IMPRESSION: 1. Stable noncontrast head CT. 2. No acute intracranial hemorrhage. Abdomen/Pelvis CT 12/25/21 16:17 IMPRESSION: 1. No acute abnormality identified in the abdomen or pelvis. 2. Fluid distended gallbladder with small gallstones. No visible wall thickening to suggest cholecystitis. 3. Partial colon resection. ADDENDUM: 12/25/212155 Findings were discussed with Dr. Napoles at 12/25/2021 9:52 PM ICE CREAM SCOOPER. There is no evidence for intrahepatic or extrahepatic ductal dilatation. Chest X-Ray 12/25/21 21:38 IMPRESSION: 1. Atelectasis versus pneumonia in the peripheral left lung base. Cholangiopancreatography MRI 12/26/21 10:30 Impression: 1. Fluid-filled distended hydropic gallbladder measuring 7.9 cm with tiny calculi in the dependent gallbladder. 2. No significant gallbladder wall thickening. Tiny trace of fluid in the gallbladder fossa. Gallbladder function can be further evaluated with HIDA scan. 3. Normal common bile duct with normal tapering distally. No visualized choledocholithiasis. 4. No intrahepatic biliary ductal dilatation. Trace perihepatic fluid. 5. No other significant findings. Gallbladder Ultrasound 12/26/21 21:38 IMPRESSION: 1. Mildly hydropic gallbladder with no wall thickening. 2. Gallstones are not identified by ultrasound. Gallstones were seen on the recent CT. These may be too small to visualize or are being obscured by adjacent duodenum. 3. No common bile duct dilatation. Laboratory Results WBC 5.7 10^3/uL (4.0-10.0) 12/28/21 06:03 RBC 3.39 10^6/uL (4.1-5.3) L 12/28/21 06:03 Hgb 10.4 g/dL (11.5-15.3) L 12/28/21 06:03 Hct 32.4 % (37.0-47.0) L 12/28/21 06:03 MCV 95.6 fl (81-99) 12/28/21 06:03 MCH 30.7 pg (28.0-34.0) 12/28/21 06:03 MCHC 32.1 g/dL (30.0-36.0) 12/28/21 06:03 RDW 13.0 % (12.1-15.1) 12/28/21 06:03 Plt Count 135 10^3/cmm (130-400) 12/28/21 06:03 MPV 10.8 fL (7.4-10.4) H 12/28/21 06:03 Neut % (Auto) 58.6 % 12/28/21 06:03 Lymph % (Auto) 25.4 % 12/28/21 06:03 [place] % (Auto) 12.8 % 12/28/21 06:03 Eos % (Auto) 2.1 % 12/28/21 06:03 Baso % (Auto) 0.7 % 12/28/21 06:03 Neut # (Auto) 3.34 10^3/uL (1.8-7.7) 12/28/21 06:03 Lymph # (Auto) 1.5 10^3/uL (0.8-4.8) 12/28/21 06:03 [place] # (Auto) 0.7 10^3/uL (0.2-0.9) 12/28/21 06:03 Eos # (Auto) 0.1 10^3/uL (0.0-0.8) 12/28/21 06:03 Baso # (Auto) 0.0 10^3/uL (0.0-0.1) 12/28/21 06:03 Nucleated RBC % (auto) 0 % 12/28/21 06:03 Total Counted 100 (0-100) 12/25/21 13:47 Atypical Lymphs % 0.0 % (0-5) 12/25/21 13:47 Absolute Neutrophils 12.0 10^3/cmm (1.4-6.5) H 12/25/21 13:47 Segmented Neutrophils 72 % 12/25/21 13:47 Abs Segm Neuts (Man) 10.0 10/cmm (1.6-7.1) H 12/25/21 13:47 Band Neutrophils 14.0 % 12/25/21 13:47 Abs Band Neuts (Man) 1.9 10^3/cmm (0.0-1.2) H 12/25/21 13:47 Absolute Lymphocytes 1.5 10^3/cmm (1.2-3.4) 12/25/21 13:47 Lymphocytes (Manual) 11 % 12/25/21 13:47 Monocytes (Manual) 2.0 % 12/25/21 13:47 Absolute Monocytes 0.3 10^3/cmm (0.1-0.6) 12/25/21 13:47 Eosinophils (Manual) 1 % 12/25/21 13:47 Absolute Eosinophils 0.1 10^3/cmm (0.0-0.7) 12/25/21 13:47 Basophils (Manual) 0.0 % 12/25/21 13:47 Absolute Basophils 0.0 10^3/cmm (0.0-0.2) 12/25/21 13:47 Nucleated RBCs # 0.0 /100WBC 12/28/21 06:03 Platelet Estimate Normal (Normal) 12/25/21 13:47 ESR 19 mm/hr (0-15) H 12/25/21 13:47 Sodium 138 mmol/L (136-145) 12/28/21 06:03 Potassium 4.7 mmol/L (3.5-5.1) 12/28/21 06:03 Chloride 111 mmol/L (98-107) H 12/28/21 06:03 Carbon Dioxide 18 mmol/L (22-29) L 12/28/21 06:03 Anion Gap 13.7 (5-19) 12/28/21 06:03 BUN 25 mg/dL (8-23) H 12/28/21 06:03 Creatinine 1.7 mg/dL (0.5-0.9) H 12/28/21 06:03 GFR Calculation 30.2 mL/min (90-130) L 12/28/21 06:03 Glucose 70 mg/dL (65-115) 12/28/21 06:03 Calculated Osmolality 289 mOsm/kg (285-295) 12/28/21 06:03 Lactate 1.0 mmol/L (0.5-2.2) 12/25/21 17:15 Calcium 7.5 mg/dL (8.5-10.5) L 12/28/21 06:03 Phosphorus 4.2 mg/dL (2.5-4.5) 12/25/21 13:47 Magnesium 1.6 mg/dL (1.7-2.3) L 12/26/21 04:38 Total Bilirubin 0.6 mg/dL (0.15-1.2) 12/28/21 06:03 Direct Bilirubin 0.60 mg/dL (0.00-0.30) H 12/27/21 06:36 Indirect Bilirubin 0.10 12/26/21 04:38 GGT 140 U/L (5-36) H 12/26/21 04:38 AST 26 U/L (0-32) 12/28/21 06:03 ALT 48 U/L (0-33) H 12/28/21 06:03 Alkaline Phosphatase 265 IU/L (35-105) H 12/28/21 06:03 Ammonia 42 umol/L (11-51) 12/25/21 20:00 Creatine Kinase 147 U/L (26-192) 12/25/21 13:47 Troponin T Baseline 29 ng/L (0-10) H 12/25/21 22:15 Troponin T 120 Minute 28.68 ng/L (0-10) H 12/25/21 23:25 Delta Troponin T -0.32 ABS# (0-10) L 12/25/21 23:25 Troponin T Hi Sens 6Hr 26.62 ng/L (0-10) H 12/26/21 04:38 Troponin T Hi Sens 6Hr Delta -2.38 ng/L (0-12) L 12/26/21 04:38 C-Reactive Protein 164.3 mg/L (0.0-4.9) H 12/26/21 04:38 NT-Pro-B Natriuret Pep 5945 pg/mL (0-125) H 12/25/21 13:47 Total Protein 5.2 g/dL (6.6-8.7) L 12/28/21 06:03 Albumin 2.8 g/dL (3.5-5.2) L 12/28/21 06:03 Globulin 2.4 g/dL (1.3-4.6) 12/28/21 06:03 Lipase 157 U/L (13-60) H 12/26/21 04:38 Procalcitonin 13.19 ng/mL (0-0.5) H 12/26/21 04:38 TSH 1.92 uIU/mL (0.27-4.20) 12/25/21 13:47 Urine Color Dark yellow (Yellow) 12/25/21 12:38 Urine Appearance Hazy (CLEAR) A 12/25/21 12:38 Urine pH 5 (5-7) 12/25/21 12:38 Ur Specific [place] 1.015 (1.005-1.030) 12/25/21 12:38 Urine Protein Trace (Negative) 12/25/21 12:38 Urine Glucose (UA) Norm (Normal) 12/25/21 12:38 Urine Ketones 1+ (Negative) H 12/25/21 12:38 Urine Blood Neg (Negative) 12/25/21 12:38 Urine Nitrate Negative (Negative) 12/25/21 12:38 Urine Bilirubin 2+ (Negative) H 12/25/21 12:38 Urine Urobilinogen 4 mg/dL (Negative) H 12/25/21 12:38 Ur Leukocyte Esterase Negative (Negative) 12/25/21 12:38 Urine RBC None /hpf (0-2) 12/25/21 12:38 Urine WBC Rare /hpf (0-5) 12/25/21 12:38 Ur Eosinophil Smear 0 (0-0) 12/25/21 Unknown Ur Squamous Epith Cells 0-4 /hpf (0-5) H 12/25/21 12:38 Calcium Oxalate Crystal >100 /hpf H 12/25/21 12:38 Amorphous Sediment Not Reportable 12/25/21 12:38 Urine Bacteria 2+ /hpf (NONE) H 12/25/21 12:38 Urine Eosinophils No eosinophils seen 12/25/21 Unknown Ur Random Sodium 34 mmol/L 12/25/21 Unknown Ur Random Potassium 89 mmol/L 12/25/21 Unknown Ur Random Chloride 27 mmol/L 12/25/21 Unknown Urine Creatinine 168 mg/dL (28-217) 12/25/21 Unknown Urine Opiates Screen Positive ng/mL (Negative) H 12/25/21 12:38 Ur Barbiturates Screen Negative ng/mL (Negative) 12/25/21 12:38 Ur Phencyclidine Scrn Negative ng/mL (Negative) 12/25/21 12:38 Ur Amphetamines Screen Negative ng/mL (Negative) 12/25/21 12:38 U Benzodiazepines Scrn Negative ng/mL (Negative) 12/25/21 12:38 Urine Cocaine Screen Negative ng/mL (Negative) 12/25/21 12:38 U Marijuana (THC) Screen Negative ng/mL (Negative) 12/25/21 12:38 Ethyl Alcohol < 10 mg/dL (0-10) 12/25/21 13:47 Coronavirus 229E (PCR) Not detected (NOT DETECT) 12/26/21 17:15 Hepatitis A IgM Ab Non-reactive (Nonreactive) 12/25/21 23:25 Hep Bs Antigen Non-reactive (Nonreactive) 12/25/21 23:25 Hep B Core IgM Ab Non-reactive (Nonreactive) 12/25/21 23:25 Hepatitis C Antibody Non-reactive (Nonreactive) 12/25/21 23:25 Influenza Type A Ag Negative (Negative) 12/25/21 22:25 Influenza Type B Ag Negative (Negative) 12/25/21 22:25 SARS-CoV-2 (PCR) Not detected (NOT DETECT) 12/26/21 17:15 SARS-CoV-2 Ag (Rapid) Negative (Negative) 12/25/21 20:13 Vitals Last Vital Signs Temp 97.7 F 12/28/21 11:52 Pulse 74 12/28/21 11:52 Resp 17 12/28/21 11:52 BP 122/76 12/28/21 11:52 Pulse Ox 97 12/28/21 11:52 Discharge Plan Discharge Patient Disposition: Home Health Service Condition: Stable Prescriptions: Continued dexamethasone sodium phosphate 4 mg/mL solution 4 mg intra-articular ONCE Qty: 1.5 0RF atorvastatin 40 mg tablet 40 mg PO DAILY 0RF docusate sodium [DOK] 100 mg capsule 100 mg PO DAILY 0RF Toviaz 4 mg tablet extended release 24 hr 4 mg PO DAILY 0RF famotidine 20 mg tablet 20 mg PO BID 0RF levothyroxine [Euthyrox] 50 mcg tablet 50 mcg PO DAILY 0RF prenat.vits,lenore,vor-wmfy-cyssy Tablet 1 tab PO DAILY 0RF atenolol 25 mg tablet 25 mg PO QDAY 0RF cholecalciferol (vitamin D3) 10 mcg (400 unit) capsule 10 mcg PO DAILY 0RF Vimpat 150 mg tablet 150 mg PO BID Qty: 60 5RF methenamine hippurate 1 gram tablet See Rx Instructions .ROUTE .COMPLEX Qty: 60 12RF Dose Instruction: TAKE 1 TABLET BY MOUTH TWICE DAILY TAKE 1000 MG OF VITAMIN C WITH EACH DOSE OF METHENAMINE Rx Instructions: TAKE 1 TABLET BY MOUTH TWICE DAILY TAKE 1000 MG OF VITAMIN C WITH EACH DOSE OF METHENAMINE ziprasidone HCl 60 mg Capsule 60 mg PO BID 0RF cetirizine 10 mg Tablet 10 mg PO DAILY 0RF Stool Softener 100 mg Capsule 100 mg PO BID 0RF omeprazole 20 mg Capsule,Delayed Release(Dr/Ec) 20 mg PO DAILY 0RF Changed venlafaxine 150 mg Tablet Extended Release 24hr 75 mg PO QPM Qty: 10 0RF Discontinued baclofen 10 mg tablet 10 mg PO BID 0RF ascorbic acid (vitamin C) 1,000 mg tablet 1 g PO DAILY 0RF Discharge Orders: Discharge Order (Routine); Ordered 12/28/21 Ordered By: Mark Rendon Referrals: Lloyd,Maryana M, CALL OR CONTACT CENTRE OPERATOR-C [Primary Care Provider] - 4-7 days Discharge Diet: Cardiac Discharge Activity: Resume usual activity Patient Instructions: Acute Kidney Injury (DC), Viral Encephalitis (DC), Jaundice (DC), Opioid Safety Activity Restrictions/Additional Instructions: Repeat BMP with a primary care provider within next 1 week. For now please do not take baclofen. Dose of venlafaxine has been decreased to 75 mg daily. Can take home dose again if kidney function will improve on repeat BMP in 1 week. Please take at least 2 to 3 L of fluid daily. Please follow-up with a surgeon within next 2 to 3 weeks for possible cholecystectomy/removal of gallbladder as an outpatient Discharge Attestations Time Spent in Discharge Care*: greater than 30 min Status at Discharge: Cognitive status at discharge: mildly impaired cognition, Behavioral status at discharge: cooperative, Functional status at discharge: uses cane/walker, Overall status at discharge: patient is back to baseline Quality Metrics Clinical Quality Measures [ No reported AMI, CVA or VTE this stay] Coding Level of Care Code Acute Chg FW DC note Exam Comprehensive Diagnoses Altered mental status R41.82 Acute kidney injury N17.9 Transaminitis R74.01 Hyperbilirubinemia E80.6 Generalized epilepsy G40.309 Frequent urinary tract infections N39.0 Perforation of sigmoid colon K63.1 Morbid obesity E66.01 GERD (gastroesophageal reflux disease) K21.9 Hypothyroid E03.9
[2021-12-28 13:49] VITALS: BP 122/76; PULSE 74; RESP 17; TEMP 36.5; O2SAT 97
[2021-12-31 12:07] LABS: Lacosamie (Vimpat) 9.4 mcg/mL
== END 2021-12-28 13:50 | disposition home or self-care (01) | DRG 683 ==
LOC: ER 12-26 00:32 → MEDSURG 12-26 08:01
PROVIDERS: Surgery; Admitting Provider Family Medicine; Emergency Provider Emergency Medicine; PCP Nurse Practitioner Family; Visit Provider Student in an Organized Health Care Education/Training Program
DX: N17.9 Acute kidney failure, unspecified (principal); K82.1 Hydrops of gallbladder; J98.11 Atelectasis; R41.82 Altered mental status, unspecified; T43.215A Adverse effect of selective serotonin and norepinephrine reuptake inhibitors, initial encounter; T43.595A Adverse effect of other antipsychotics and neuroleptics, initial encounter; E03.9 Hypothyroidism, unspecified; G40.309 Generalized idiopathic epilepsy and epileptic syndromes, not intractable, without status epilepticus; E66.01 Morbid (severe) obesity due to excess calories; Z68.35 Body mass index [BMI] 35.0-35.9, adult; R74.01 Elevation of levels of liver transaminase levels; E80.6 Other disorders of bilirubin metabolism; K21.9 Gastro-esophageal reflux disease without esophagitis; Z87.440 Personal history of urinary (tract) infections; I10 Essential (primary) hypertension; F32.A Depression, unspecified; F41.9 Anxiety disorder, unspecified
CPT/HCPCS: 36415; 36600; 51702; 70450; 71045; 74176; 74181; 76705; 80053; 80074; 80076; 80299; 80306; 80307; 81001; 82140; 82247; 82248; 82436; 82550; 82570; 82803; 82977; 83605; 83690; 83735; 83880; 84100; 84133; 84145; 84300; 84443; 84484; 85007; 85025; 85610; 85651; 85999; 86140; 86403; 87040; 87086; 87426; 87449; 87635; 87641; 87804; 93005; 96365; 96366; 96367; 96372; 96374; 96375; 97110; 97116; 97161; 99284; 99285; J1630; J1650; J2270; J2405; J2543; J3370; J7030

== ENCOUNTER 2022-05-01 09:42 | Outpatient (CLI) | payer MEDICARE, MEDICAID, SELFPAY ==
--- NOTE | 2022-05-01 10:00 | NM_ITS ---
WS: [id number] NUCLEAR MEDICINE HIDA SCAN CLINICAL INFORMATION: R10.9 - Unspecified abdominal pain TECHNIQUE: Following intravenous administration of 7.6 mCi of technetium 99m mebrofenin, images of th e abdomen were obtained over the course of 60 minutes. Next, gallbladder ejection fraction was determ ined by obtaining preprandial and one-hour postprandial images of the gallbladder following oral neeru stion of Ensure. COMPARISON: None. FINDINGS: Normal hepatic uptake at 5 minutes. Normal common bile duct and small bowel activity. Gallbladder is visualized by 30 minutes. No evidence of acute cholecystitis. Normal hepatic excretion. Gallbladder ejection fraction 98% within normal limits. No evidence of chronic cholecystitis. NM/NM hepatobiliary w phar* [id number] IMPRESSION: 1. No evidence of acute or chronic cholecystitis. 2. Normal gallbladder ejection fraction 98%. No evidence of chronic cholecysti tis.
== END 2022-05-01 09:43 | disposition home or self-care (01) ==
LOC: RAD 09:46
PROVIDERS: PCP Nurse Practitioner Family; Visit Provider Surgery
DX: R10.9 Unspecified abdominal pain (principal)
CPT/HCPCS: 78227; A9537

== ENCOUNTER → 2022-05-22 09:53 | Outpatient (BNVA) | payer MEDICARE, MEDICAID, SELFPAY | PROVIDERS: PCP Nurse Practitioner Family; Visit Provider Surgery | DX: Z09 Encounter for follow-up examination after completed treatment for conditions other than malignant neoplasm (principal); R74.01 Elevation of levels of liver transaminase levels; R74.8 Abnormal levels of other serum enzymes | CPT/HCPCS: 99214 ==

== ENCOUNTER → 2022-06-11 09:53 | Outpatient (BNVA) | payer MEDICARE, MEDICAID, SELFPAY | PROVIDERS: PCP Nurse Practitioner Family; Visit Provider Specialist | DX: M17.0 Bilateral primary osteoarthritis of knee (principal) | CPT/HCPCS: 20610 ==

== ENCOUNTER → 2022-07-15 14:24 | Outpatient (BNVA) | payer MEDICARE, MEDICAID, SELFPAY | PROVIDERS: PCP Nurse Practitioner Family; Visit Provider Nurse Practitioner Family | DX: N39.0 Urinary tract infection, site not specified (principal) | CPT/HCPCS: 81003; 99213 ==

== ENCOUNTER → 2022-09-17 09:33 | Outpatient (BNVA) | payer MEDICARE, MEDICAID, SELFPAY | PROVIDERS: PCP Registered Nurse; Visit Provider Specialist | DX: M17.0 Bilateral primary osteoarthritis of knee (principal) | CPT/HCPCS: 20610; J1100; J2795; J3301 ==

== ENCOUNTER → 2022-11-18 15:24 | Outpatient (BNVA) | payer MEDICARE, MEDICAID, SELFPAY | PROVIDERS: PCP Registered Nurse; Visit Provider Specialist | DX: G40.409 Other generalized epilepsy and epileptic syndromes, not intractable, without status epilepticus (principal); M17.0 Bilateral primary osteoarthritis of knee; M35.3 Polymyalgia rheumatica | CPT/HCPCS: 99214 ==

== ENCOUNTER → 2022-12-24 10:38 | Outpatient (BNVA) | payer MEDICARE, MEDICAID, SELFPAY | PROVIDERS: PCP Registered Nurse; Visit Provider Specialist | DX: M17.0 Bilateral primary osteoarthritis of knee (principal) | CPT/HCPCS: 20610 ==

== ENCOUNTER → 2023-03-25 10:15 | Outpatient (BNVA) | payer MEDICARE, MEDICAID, SELFPAY | PROVIDERS: PCP Registered Nurse; Visit Provider Specialist | DX: M17.0 Bilateral primary osteoarthritis of knee (principal) | CPT/HCPCS: 20610; J1100; J2795; J3301 ==

== ENCOUNTER → 2023-04-16 10:21 | Outpatient (BNVA) | payer MEDICARE, MEDICAID, SELFPAY | PROVIDERS: PCP Registered Nurse; Visit Provider Internal Medicine Cardiovascular Disease | DX: G47.30 Sleep apnea, unspecified (principal) | CPT/HCPCS: 99214 ==

== ENCOUNTER 2023-04-23 11:48 | Outpatient (CLI) | payer MEDICARE, MEDICAID, SELFPAY ==
--- NOTE | 2023-04-23 12:04 | US_ITS ---
WS: [id number] Bilateral renal ultrasound, 04/23/2023 Clinical Data: RECURRENT CYSTITIS Comparison: None. Findings: The right kidney measures 9.3 cm x 3.8 cm x 4.0 cm and the left kidney is 8.7 cm x 4.0 cm x 3.8 cm. T here are no cysts, masses or hydronephrosis. The renal cortical margin is normal. No renal calculi ar e seen. The abdominal aorta and inferior vena cava show no vascular abnormalities. The bladder was scanned and was not remarkable. US/US renal BI* [id number] Impression: Negative bilateral renal ultrasound.
== END 2023-04-23 11:49 | disposition home or self-care (01) ==
LOC: RAD 11:55
PROVIDERS: PCP Nurse Practitioner Family; Visit Provider Nurse Practitioner Family
DX: N30.90 Cystitis, unspecified without hematuria (principal); L57.0 Actinic keratosis; L81.4 Other melanin hyperpigmentation; D22.5 Melanocytic nevi of trunk; L57.8 Other skin changes due to chronic exposure to nonionizing radiation; Z12.83 Encounter for screening for malignant neoplasm of skin
CPT/HCPCS: 17000; 17003; 76770; 99213

== ENCOUNTER → 2023-06-24 13:26 | Outpatient (BNVA) | payer MEDICARE, MEDICAID, SELFPAY | PROVIDERS: PCP Nurse Practitioner Family; Visit Provider Specialist | DX: M17.0 Bilateral primary osteoarthritis of knee (principal) | CPT/HCPCS: 20610; J1100; J2795; J3301 ==

== ENCOUNTER → 2023-06-29 10:35 | Outpatient (BNVA) | payer MEDICARE, MEDICAID, SELFPAY | PROVIDERS: PCP Nurse Practitioner Family; Visit Provider Specialist | DX: M16.0 Bilateral primary osteoarthritis of hip; M87.052 Idiopathic aseptic necrosis of left femur; M87.051 Idiopathic aseptic necrosis of right femur | CPT/HCPCS: 73523; 99214 ==

== ENCOUNTER 2023-07-13 07:44 | Outpatient (CLI) | payer MEDICARE, MEDICAID, SELFPAY ==
--- NOTE | 2023-07-13 08:00 | CT_ITS ---
WS: [id number] CT LEFT HIP, NONCONTRAST, 3D. HISTORY: HIP PAIN AND NECROSIS Technique: All CT scans at [facility] use at least one of these dose optimization techniques: automated exposure control; mA and/or kV adjustment per patient size (includes targeted exams where dose is matched to clinical indication); or iterative reconstruction. DLP: 396.69 mGy.cm COMPARISON: 12/25/2021 and hip radiographs 06/29/2023. Severe degenerative changes at the left hip joint. There is bone upon bone with remodeling of the jay tabulum and femoral head. Loss of the normal cortex with sclerotic changes on both sides of the joint space. Subchondral erosive type changes involving the femoral head and the acetabulum. Osteophytic r idging around the acetabulum. Femoral head is high riding abutting the superior acetabular margin. Mi ld diffuse soft tissue thickening with small joint effusion surrounding the left femoral head. No acu te fracture. Mild degenerative sclerotic changes involving the left SI joint. Surgical anastomotic sutures in the sigmoid colon. No adjacent mass. IMPRESSION: 1. Severe advanced degenerative changes at the left hip joint with subchondral cystic changes and er osions. 2. Soft tissue thickening surrounding the femoral head with a small circumferential joint effusion.
== END 2023-07-13 07:45 | disposition home or self-care (01) ==
LOC: RAD 07:45
PROVIDERS: PCP Nurse Practitioner Family; Visit Provider Specialist
DX: M16.12 Unilateral primary osteoarthritis, left hip (principal)
CPT/HCPCS: 73700

== ENCOUNTER → 2023-07-19 12:48 | Outpatient (BNVA) | payer MEDICARE, MEDICAID, SELFPAY | PROVIDERS: PCP Nurse Practitioner Family; Visit Provider Specialist | DX: M87.051 Idiopathic aseptic necrosis of right femur (principal); M87.052 Idiopathic aseptic necrosis of left femur; M17.0 Bilateral primary osteoarthritis of knee | CPT/HCPCS: 99214 ==

== ENCOUNTER → 2023-11-12 09:05 | Outpatient (BNVA) | payer MEDICARE, MEDICAID, SELFPAY | PROVIDERS: PCP Nurse Practitioner Family; Visit Provider Nurse Practitioner | DX: Z71.89 Other specified counseling (principal); M17.0 Bilateral primary osteoarthritis of knee | CPT/HCPCS: 20610; J2795; J3301 ==

== ENCOUNTER → 2023-11-17 13:47 | Outpatient (BNVA) | payer MEDICARE, MEDICAID, SELFPAY | PROVIDERS: PCP Nurse Practitioner Family; Visit Provider Nurse Practitioner Family | DX: L57.0 Actinic keratosis (principal); L81.4 Other melanin hyperpigmentation; D22.5 Melanocytic nevi of trunk; L57.8 Other skin changes due to chronic exposure to nonionizing radiation; Z12.83 Encounter for screening for malignant neoplasm of skin; L82.0 Inflamed seborrheic keratosis | CPT/HCPCS: 17000; 17110; 99213 ==

== ENCOUNTER → 2023-12-07 08:24 | Outpatient (BNVA) | payer MEDICARE, MEDICAID, SELFPAY | PROVIDERS: PCP Nurse Practitioner Family; Visit Provider Orthopaedic Surgery | DX: M48.062 Spinal stenosis, lumbar region with neurogenic claudication (principal); M47.816 Spondylosis without myelopathy or radiculopathy, lumbar region; M41.56 Other secondary scoliosis, lumbar region | CPT/HCPCS: 72100; 99204 ==

== ENCOUNTER 2023-12-14 14:31 | Outpatient (CLI) | payer MEDICARE, MEDICAID, SELFPAY ==
--- NOTE | 2023-12-14 15:15 | MR_ITS ---
WS: [id number] MRI LUMBAR SPINE NONCONTRAST TECHNIQUE: Sagittal T1, T2 and STIR imaging. Axial T1 and T2 imaging. CLINICAL INFORMATION: lumbar pain COMPARISON: Outside MRI 2018 FINDINGS: Lumbar curve. No acute compression. Slight retrolisthesis L2 on L3 and L3 on L4. Slight retrolisthesi s L4 on L5. No acute compression. Disc desiccation throughout the lumbar spine as progressed since 18. Small disc protrusion T10-11. A few shallow disc extrusions in the mid and lower thoracic spine s een on the thoracic buyer internship imaging. L1-L2: Mild annular bulging. Spinal canal and foramen are patent. Mild facet arthropathy. L2-L3: Mild disc bulging with slight narrowing of the LEFT greater than RIGHT subarticular recess. Mi ld facet arthropathy. Foramen are patent. L3-L4: Mild disc bulge with osteophytic ridging. Narrowing of the LEFT subarticular recess. Moderate facet arthropathy. LEFT foraminal protrusion with mild to moderate LEFT foraminal narrowing. RIGHT fo ramen is patent. L4-L5: Mild annular bulging. Slight impingement RIGHT subarticular recess and traversing RIGHT L5 ner ve root. Mild RIGHT foraminal narrowing. LEFT foramen is patent. L5-S1: Shallow central disc protrusion with a small annular fissure. Slight impingement on the cherelle sing S1 nerve roots bilaterally. Moderate facet arthropathy. Moderate RIGHT and no significant LEFT f oraminal narrowing. Visualized pelvic bony structures: Normal. Paravertebral soft tissues: Normal. IMPRESSION: 1. Mild lumbar curve. No acute compression. Disc desiccation lumbar spine has progressed since 2018. 2. Slight retrolisthesis L2 on L3, L3 on L4 and L4 on L5. 3. Central disc protrusion L5-S1 impinges the traversing S1 nerve roots bilaterally slightly progres sed compared to 2018. Moderate RIGHT foraminal narrowing with impingement on the exiting RIGHT L5 ner ve root. 4. LEFT foraminal protrusion L3-4 slightly impinges the exiting LEFT L3 nerve root with mild to mode rate LEFT foraminal narrowing. This is slightly progressed compared to 2018 5. Narrowing of the RIGHT L4-5 subarticular recess progressed since 2018 6. Moderate facet arthropathy L3-L4 and L4-L5.
== END 2023-12-14 14:32 | disposition home or self-care (01) ==
PROVIDERS: PCP Nurse Practitioner Family; Visit Provider Orthopaedic Surgery
DX: M54.50 Low back pain, unspecified (principal); M51.27 Other intervertebral disc displacement, lumbosacral region; M48.07 Spinal stenosis, lumbosacral region; M51.26 Other intervertebral disc displacement, lumbar region; M48.061 Spinal stenosis, lumbar region without neurogenic claudication; M47.816 Spondylosis without myelopathy or radiculopathy, lumbar region
CPT/HCPCS: 72148

== ENCOUNTER → 2023-12-23 11:53 | Outpatient (BNVA) | payer MEDICARE, MEDICAID, SELFPAY | PROVIDERS: PCP Nurse Practitioner Family; Visit Provider Specialist | DX: G40.409 Other generalized epilepsy and epileptic syndromes, not intractable, without status epilepticus (principal); M35.3 Polymyalgia rheumatica; M48.062 Spinal stenosis, lumbar region with neurogenic claudication | CPT/HCPCS: 36415; 85651; 86140; 86160; 86162; 86235; 86255; 86376; 99215 ==

== ENCOUNTER → 2023-12-28 08:10 | Outpatient (BNVA) | payer MEDICARE, MEDICAID, SELFPAY | PROVIDERS: PCP Nurse Practitioner Family; Visit Provider Orthopaedic Surgery | DX: M48.062 Spinal stenosis, lumbar region with neurogenic claudication (principal); R53.1 Weakness | CPT/HCPCS: 99214 ==

== ENCOUNTER → 2024-02-11 07:32 | Outpatient (BNVA) | payer MEDICARE, MEDICAID, SELFPAY | PROVIDERS: PCP Nurse Practitioner Family; Visit Provider Nurse Practitioner | DX: M17.0 Bilateral primary osteoarthritis of knee (principal); Z71.89 Other specified counseling | CPT/HCPCS: 20610; J1100; J2795; J3301 ==

== ENCOUNTER → 2024-05-26 07:44 | Outpatient (BNVA) | payer MEDICARE, MEDICAID, SELFPAY | PROVIDERS: PCP Nurse Practitioner Family; Visit Provider Nurse Practitioner | DX: M17.12 Unilateral primary osteoarthritis, left knee; Z71.89 Other specified counseling | CPT/HCPCS: 20610; J1100; J2795; J3301 ==

== ENCOUNTER → 2024-08-25 07:50 | Outpatient (BNVA) | payer MEDICARE, MEDICAID, SELFPAY | PROVIDERS: PCP Nurse Practitioner Family; Visit Provider Nurse Practitioner | DX: M17.12 Unilateral primary osteoarthritis, left knee (principal); Z71.89 Other specified counseling | CPT/HCPCS: 20610; J1100; J2795; J3301 ==

== ENCOUNTER → 2024-11-21 13:05 | Outpatient (BNVA) | payer MEDICARE, MEDICAID, SELFPAY | PROVIDERS: PCP Nurse Practitioner Family; Visit Provider Internal Medicine Cardiovascular Disease | DX: R07.9 Chest pain, unspecified (principal); K21.9 Gastro-esophageal reflux disease without esophagitis; E03.8 Other specified hypothyroidism; R94.31 Abnormal electrocardiogram [ECG] [EKG]; R00.2 Palpitations | CPT/HCPCS: 93005; 99215 ==

== ENCOUNTER 2024-12-01 08:47 | Outpatient (CLI) | payer MEDICARE, MEDICAID, SELFPAY ==
--- NOTE | 2024-12-01 | ECG_ITS ---
[email or web address] Test Date: 2024-12-01 Pat Name: Candice Sepulveda Department: Room: Gender: Female Data Entry: : 1955 Requested By: Swathi Chance Order Number: [id number] Nadia MD: Swathi Chance M.D. Interpretive Statements Lung unchanged pre/post procedure; Intraprocedure shortess of breath; Symptoms resoled by discharge PROCEDURE: At the baseline, the EKG revealed normal sinus rhythm with a poor R wave progression. Some nonspecific T wave changes. Minimal left axis deviation. The baseline heart was 58 bpm with a blood pressue of 135/69 mm of Hg Lexiscan was infused over a period of 20 seconds. A total of 0.4 milligrams of Lexiscan was infused. The stress phase was continued for a total of 5 minutes. Heart rate at the end of the stress phase was 77 bpm with a blood pressure 114/62 mm of Hg. The EKG at the peak infusion revealed no significant changes. Sestamibi was injected 20 seconds after the Lexiscan infusion. Heart rate at the end of the recovery phase was 73 bpm with a blood pressure of 126/63 mm of Hg. CONCLUSION: 1. No significant EKG changes with the LexiScan infusion 2. No LexiScan induced chest pain or cardiac arrhythmia 3. Normal blood pressure and heart rate response 4. Sestamibi/sestamibi perfusion scan pending; see separate report. Electronically Signed On 12-03-2024 17:15:37 [employer] by Swathi Chance M.D. [email or web address]
[2024-12-01 09:04] VITALS: BMI 30.9
--- NOTE | 2024-12-01 09:14 | NMCV_ITS ---
NM tom perf SPECT r/s* [id number] Candice Sepulveda Age: 69 Gender: F : 1955 Exam Date: 12/01/2024 10:15 Ordering Phys: Swathi Chance MD ([email or web address]) Technologist: URIEL Castro Exam Location: [facility] Indications: cp STRESS TEST Please see separate stress test report in [facility] for full findings IMAGE PROTOCOL Rest/Stress 1 Lexiscan Day Radiopharmaceutical Dose (mCi) Administration Site Administered by Rest: Tc-99m 11 IV URIEL Paredes Sestamibi Stress:Tc-99m 32.8 IV URIEL Paredes Sestamibi Rest: 01-Dec-2024 60 Discovery 630 Stress: 01-Dec-2024 30 Discovery 630 0.4mg Lexiscan. Images obtained in supine and prone position. SPECT RESULTS Technical Quality: Good Raw Data Analysis: Normal Image Corrections: No attenuation or motion correction applied Summed Stress Score: 0 Summed Rest Score: 0 Summed Difference Score: 0 PERFUSION FINDINGS Uniform myocardial tracer uptake with no significant Perfusion abnormalities. FUNCTIONAL RESULTS (calculated via Gated SPECT) Stress Image LV EF (%): 70 Stress EDV (mL):88 TID: 0.98 Stress ESV (mL):26 FUNCTIONAL FINDINGS: Segmental wall motion analysis revealing no gross wall motion abnormalities IMPRESSIONS 1. Myocardial perfusion imaging revealing uniform myocardial tracer uptake with no significant Perfusion normalities 2. Normal LV ejection fraction of 70%. 3. LV wall motion analysis revealing no gross wall motion abnormalities. 4. Normal LV volume Low probability for coronary ischemia, based on the above findings Dr Swathi Chance MD FACC (Electronically Signed) Final Date: 01 December 2024 19:20 S
[2024-12-01] MEDS: regadenoson 0.4 Mg/5 ml Syringe IVP (11:23)
[2024-12-01 12:18] VITALS: BP 116/59; PULSE 75
== END 2024-12-01 08:48 | disposition home or self-care (01) ==
LOC: CDL 08:50
PROVIDERS: PCP Nurse Practitioner Family; Visit Provider Internal Medicine Cardiovascular Disease
DX: M17.12 Unilateral primary osteoarthritis, left knee (principal); Z71.89 Other specified counseling; R06.02 Shortness of breath
CPT/HCPCS: 20610; 36415; 78452; 93017; 96374; A9500; J1100; J2785; J2795; J3301

== ENCOUNTER → 2024-12-29 07:52 | Outpatient (BNVA) | payer MEDICARE, MEDICAID, SELFPAY | PROVIDERS: PCP Nurse Practitioner Family; Visit Provider Specialist | DX: M35.3 Polymyalgia rheumatica (principal); G40.409 Other generalized epilepsy and epileptic syndromes, not intractable, without status epilepticus; M48.062 Spinal stenosis, lumbar region with neurogenic claudication | CPT/HCPCS: 99213 ==

== ENCOUNTER → 2025-03-02 07:56 | Outpatient (BNVA) | payer MEDICARE, MEDICAID, SELFPAY | PROVIDERS: PCP Nurse Practitioner Family; Visit Provider Nurse Practitioner | DX: M17.12 Unilateral primary osteoarthritis, left knee (principal); Z71.89 Other specified counseling | CPT/HCPCS: 20610; J1100; J2795; J3301; J9999 ==

== ENCOUNTER → 2025-03-26 14:56 | Outpatient (BNVA) | payer MEDICARE, MEDICAID, SELFPAY | PROVIDERS: PCP Nurse Practitioner Family; Visit Provider Specialist | DX: S43.201A Unspecified subluxation of right sternoclavicular joint, initial encounter (principal); M89.8X1 Other specified disorders of bone, shoulder; X58.XXXA Exposure to other specified factors, initial encounter | CPT/HCPCS: 73000; 99214 ==

== ENCOUNTER 2025-05-21 10:02 | Outpatient (CLI) | payer OTHER, MEDICAID, SELFPAY ==
--- NOTE | 2025-05-21 10:15 | CTR_ITS ---
PROCEDURE INFORMATION: Exam: CT Right Upper Extremity Without Contrast, Shoulder Exam date and time: 05/21/2025 10:33 AM Age: 70 years old Clinical indication: Lump at the end of SC junction on the rightx 2 months , no shoulder pain. ; Additional info: M25.511 - pain in right shoulder, please include: Attention to sternoclavicular joint, lump on TECHNIQUE: Imaging protocol: Computed tomography of the right upper extremity without contrast. Exam focused on the shoulder. Radiation optimization: All CT scans at this facility use at least one of these dose optimization techniques: automated exposure control; mA and/or kV adjustment per patient size (includes targeted exams where dose is matched to clinical indication); or iterative reconstruction. COMPARISON: [place] [id number] 03/26/2025 3:13 PM RADIATION DOSE METRICS: Total DLP (mGy-cm): 648.64 FINDINGS: Bones/joints: No evidence of acute fracture or subluxation. Severe glenohumeral osteoarthritis with [id number], subchondral cystic changes and marginal osteophytes. Small associated glenohumeral joint effusion. There is blunting of the distal clavicle, possibly reflecting prior acromioplasty. Correlation with surgical history is recommended. Acromioclavicular articulation is otherwise intact. 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 There is mild associated chronic degenerative subluxation. Soft tissues: Shoulder girdle musculature is grossly intact. No evidence of fluid collection or hematoma. There are emphysematous changes. CT/CT shoulder RT wo con* [id number] IMPRESSION: 1. Sternoclavicular degeneration, possibly corresponding to the palpable abnormality. 2. Severe glenohumeral osteoarthritis with small joint effusion. 3. Emphysematous changes. The presence of pulmonary emphysema on CT is an independent risk factor for lung cancer. In the absence of a history or active diagnosis of lung cancer, it is recommended that this patient with emphysema be evaluated for enrollment in a low dose CT lung cancer screening program.
== END 2025-05-21 10:03 | disposition home or self-care (01) ==
LOC: RAD 10:04
PROVIDERS: PCP Nurse Practitioner Family; Visit Provider Specialist
DX: M19.011 Primary osteoarthritis, right shoulder (principal)
CPT/HCPCS: 73200

== ENCOUNTER → 2025-06-04 09:57 | Outpatient (BNVA) | payer OTHER, MEDICAID, SELFPAY | PROVIDERS: PCP Nurse Practitioner Family; Visit Provider Specialist | DX: M25.511 Pain in right shoulder (principal) | CPT/HCPCS: 99214 ==

== ENCOUNTER → 2025-06-08 07:49 | Outpatient (BNVA) | payer OTHER, MEDICAID, SELFPAY | PROVIDERS: PCP Nurse Practitioner Family; Visit Provider Nurse Practitioner | DX: M17.12 Unilateral primary osteoarthritis, left knee (principal); Z71.89 Other specified counseling | CPT/HCPCS: 20610; J1100; J2795; J3301; J9999 ==

== ENCOUNTER 2025-06-19 12:39 | Outpatient (CLI) | payer OTHER, MEDICAID, SELFPAY ==
--- NOTE | 2025-06-19 12:44 | CT_ITS ---
WS: [id number] LDCT LUNG CANCER SCREENING HISTORY: PERSONAL HISTORY OF NICOTINE DEPENDENCE TECHNIQUE: Axial imaging performed from the apices to 1 cm below the costophrenic angles. Coronal and sagittal reformats are submitted with axial MIP series. All CT scans at [facility] use at least one of these dose optimization techniques: automated exposure control; mA and/or kV adjustment per patient size (includes targeted exams where dose is matched to clinical indication); or iterative reconstruction. DLP: 64.40 mGy.cm DIvol: Mean CTDIvol: 1.40 (mGy) COMPARISON: None available. Diagnostic quality: Satisfactory Lungs: No pulmonary mass or nodule. No endobronchial lesions. Heart: Normal size heart with no pericardial effusion.. Mild scattered coronary artery calcifications. Other findings: Moderate atherosclerosis aorta. Normal size pulmonary artery. Small hiatal hernia. No adrenal mass. Mild suprarenal aortic calcification. Scoliosis thoracic spine. CT/CT lung screening [id number] IMPRESSION: LUNG-RADS: 1-Negative FOLLOW UP: 12 Month: Continue annual screening with LDCT OTHER FINDINGS (S MODIFIER): None.
== END 2025-06-19 12:40 | disposition home or self-care (01) ==
LOC: RAD 12:40
PROVIDERS: PCP Nurse Practitioner Family; Visit Provider Nurse Practitioner Family
DX: Z12.2 Encounter for screening for malignant neoplasm of respiratory organs (principal); Z87.891 Personal history of nicotine dependence
CPT/HCPCS: 71271

== ENCOUNTER → 2025-07-12 09:19 | Outpatient (BNVA) | payer OTHER, MEDICAID, SELFPAY | PROVIDERS: PCP Nurse Practitioner Family; Visit Provider Nurse Practitioner Family | DX: R07.9 Chest pain, unspecified (principal); R53.1 Weakness | CPT/HCPCS: 99213 ==

== ENCOUNTER → 2025-09-14 08:03 | Outpatient (BNVA) | payer OTHER, MEDICAID, SELFPAY | PROVIDERS: PCP Nurse Practitioner Family; Visit Provider Nurse Practitioner | DX: M17.12 Unilateral primary osteoarthritis, left knee (principal) | CPT/HCPCS: 20610; J1100; J2795; J3301; J9999 ==

== ENCOUNTER → 2025-09-27 09:17 | Outpatient (BNVA) | payer OTHER, MEDICAID, SELFPAY | PROVIDERS: PCP Nurse Practitioner Family; Visit Provider Nurse Practitioner Family | DX: L21.8 Other seborrheic dermatitis (principal); S50.911A Unspecified superficial injury of right forearm, initial encounter; L82.0 Inflamed seborrheic keratosis; L29.89 Other pruritus; Z78.9 Other specified health status; L53.8 Other specified erythematous conditions; R20.8 Other disturbances of skin sensation; L57.0 Actinic keratosis | CPT/HCPCS: 17000; 17110; 99213 ==

== ENCOUNTER → 2025-11-06 07:55 | Outpatient (BNVA) | payer OTHER, MEDICAID, SELFPAY | PROVIDERS: PCP Nurse Practitioner Family; Visit Provider Nurse Practitioner Family | DX: L81.4 Other melanin hyperpigmentation (principal); X32.XXXA Exposure to sunlight, initial encounter; L57.8 Other skin changes due to chronic exposure to nonionizing radiation; D48.5 Neoplasm of uncertain behavior of skin | CPT/HCPCS: 11102; 99213 ==